=== PATIENT | male | born 1945 | race Caucasian/White ===

== ENCOUNTER 2018-09-30 13:36 | Emergency (ER) | payer MEDICARE, BC ==
[~2018-09-30] VITALS: Ht 175.3 cm; Wt 136.1 kg
[2018-09-30] MEDS ORDERED: fentaNYL INJECTION 100 MCG/2 ML AMP IVP STA ×3 (14:51→17:44)
[2018-09-30 15:14] LABS: BASOPHILS # (AUTO) 0.1 10^3/uL (0.0-0.1); BASOPHILS % (AUTO) 1 % (0-10); EOSINOPHILS # (AUTO) 0.2 10^3/uL (0.0-0.3); EOSINOPHILS % (AUTO) 2 % (0-10); HEMATOCRIT 36 % (40-54); HEMOGLOBIN 11.6 G/DL (13.3-17.7); LYMPHOCYTES # (AUTO) 2.2 X 10^3 (1.0-4.0); LYMPHOCYTES % (AUTO) 20 % (12-44); MEAN CORPUSCULAR HEMOGLOBIN 25 PG (25-34); MEAN CORPUSCULAR HGB CONC 32 G/DL (32-36); MEAN CORPUSCULAR VOLUME 79 FL (80-99); MEAN PLATELET VOLUME 10.1 FL (7.4-10.4); MONOCYTES # (AUTO) 1.7 X 10^3 (0.0-1.0); MONOCYTES % (AUTO) 15 % (0-12); NEUTROPHILS # (AUTO) 6.8 X 10^3 (1.8-7.8); NEUTROPHILS % (AUTO) 62 % (42-75); PLATELET COUNT 513 10^3/uL (130-400); RED CELL DISTRIBUTION WIDTH 17.8 % (10.0-14.5); WHITE BLOOD COUNT 10.9 10^3/uL (4.3-11.0)
--- NOTE | 2018-09-30 15:20 | ED General ---
General Chief Complaint: Back Problems Stated Complaint: BACK PAIN Nursing Triage Note: Pt to ED with c/o sudden onset back pain that began this morning. Pt reports this pain has come and gone since July 10. Pt reports pain is between shoulder blades. Pain increases with movement. Nursing Sepsis Screen: No Definite Risk Source of Information: Patient Exam Limitations: No Limitations (JARRETT LOPEZ MD) History of Present Illness Date Seen by Provider: Sep 30, 2018 Time Seen by Provider: 14:32 Initial Comments He was related complaints. He apparently was at Dr. Lo's office today where he is being seen for vertigo symptoms. He was having no severe central upper back pain and he was pale there. They were concerned and actually drove him to the ER here. Does have history of stroke and type II AR with multivessel bypass. He presents today with persistence of the dizziness and now with severe upper back pain that is taking his breath away. The back pain apparently has been going on since late June after he had multiple daily long car drive. He got maybe he pulled his back muscles but complains of not gotten better and in fact severe today. He does have history of atrial fibrillation and is on Eliquis. No recent falls or other trauma noted or reported. The vertigo he describes his persistent dizziness. Dr. Lo was concerned about intracranial pathology given his history including possible bleed or blockage of some sort. Mentating well and actually drove himself to Dr. Lo's office. Describes no focal deficit otherwise and certainly no focal weakness. Does have increased upper back pain with movement but also has sharp, shooting, a left femoral pain even when sitting still from the upper back. Timing/Duration: Changing Over Time, Getting Worse Severity: Moderate, Severe Modifying Factors: improves with Immobilization; worse with Movement Associated Systoms: No Chest Pain, No Cough, No Diaphoresis, No Fever/Chills, No Headaches, No Nausea/Vomiting, No Shortness of Air, No Weakness (JARRETT LOPEZ MD) Allergies and Home Medications Allergies Coded Allergies: codeine (Verified Allergy, Unknown, 09/30/18) Home Medications Calcitonin,Haverstraw,Synthetic 3.7 Ml Manning.pump, 200 UNITS NS DAILY Prescribed by: NIA HUNT on 09/30/181845 Oxycodone HCl/Acetaminophen 1 Each Tablet, 1 TAB PO Q4H Prescribed by: NIA HUNT on 09/30/18 0798 Patient Home Medication List Home Medication List Reviewed: Yes (JARRETT LOPEZ MD) Review of Systems Review of Systems Constitutional: see HPI; No chills, No fever EENTM: No ear pain, No vision loss Respiratory: no symptoms reported Cardiovascular: No chest pain, No palpitations Gastrointestinal: No nausea, No vomiting Genitourinary: no symptoms reported Musculoskeletal: see HPI, back pain, muscle pain, muscle stiffness; No neck pain Skin: no symptoms reported Psychiatric/Neurological: Denies Weakness; Other (vertigo/dizziness) Hematologic/Lymphatic: No Symptoms Reported (JARRETT LOPEZ MD) All Other Systems Reviewed Negative Unless Noted: Yes (JARRETT LOPEZ MD) Past Yjwmpzu-Phipii-Qtvqjg Hx Past Med/Social Hx: Reviewed Nursing Past Med/Soc Hx (JARRETT LOPEZ MD) Patient Social History Alcohol Use: Rarely Uses Recreational Drug Use: No 2nd Hand Smoke Exposure: No Recent Foreign Travel: No Contact w/Someone Who Travel: No Recent Infectious Disease Expo: No Recent Hopitalizations: No Physical Abuse: No Sexual Abuse: No Mistreated: No Fear: No (JARRETT LOPEZ MD) Seasonal Allergies Seasonal Allergies: Yes (JARRETT LOPEZ MD) Past Medical History Surgeries: Yes (hernia, L knee, splenectomy, shoulder, quad bipass) Abdominal, Cardiac Respiratory: No Cardiac: Yes (quad bipass) Atrial Fibrillation, Heart Attack, High Cholesterol, Hypertension Neurological: Yes Stroke, Vertigo Genitourinary: No Gastrointestinal: Yes Gastroesophageal Reflux, Gastrointestinal Bleed Musculoskeletal: Yes Arthritis, Chronic Back Pain Endocrine: No HEENT: Yes (some hearing loss in L ear) Cancer: No Psychosocial: No Blood Disorders: No Adverse Reaction/Blood Tranf: No (JARRETT LOPEZ MD) Family Medical History Reviewed Nursing Family Hx (JARRETT LOPEZ MD) Physical Exam Vital Signs Vital Signs - First Documented 09/30/18 13:45 Temp 96.1 Pulse 53 Resp 16 B/P (MAP) 159/91 (113) Pulse Ox 97 O2 Delivery Room Air (NIA HUNT APRN) Vital Signs Capillary Refill : Less Than 3 Seconds (JARRETT LOPEZ MD) Height, Weight, BMI Height: 5'9.00" Weight: 300lbs. oz. 136.262527pf; BMI Method:Stated General Appearance: WD/WN, Moderate Distress (intermittently when pains hit or when moving.) HEENT: PERRL/EOMI, Pharynx Normal Neck: Non Tender, Supple Respiratory: Lungs Clear, Normal Breath Sounds Cardiovascular: Regular Rate, Rhythm, No Murmur Back: Muscle Spasm, Vertebral Tenderness (upper thoracic spine in the level of T2 to T4) Neurologic/Psychiatric: Alert, Oriented x3 Skin: Normal Color, Warm/Dry (JARRETT LOPEZ MD) Progress/Results/Core Measures Suspected Sepsis Recent Fever Within 48 Hours: No Infection Criteria Present: None New/Unexplained Altered Menta: No Sepsis Screen: No Definite Risk SIRS Temperature:96.1 Pulse: 53 Respiratory Rate: 16 Laboratory Tests 09/30/18 15:00: White Blood Count 10.9 Blood Pressure 159 /91 Mean: 113 Laboratory Tests 09/30/18 15:00: Creatinine 0.95, Platelet Count 513H, Total Bilirubin 0.4 (JARRETT LOPEZ MD) Results/Orders Lab Results Laboratory Tests Test 09/30/18 15:00 Range/Units White Blood Count 10.9 4.3-11.0 10^3/uL Red Blood Count 4.58 4.35-5.85 10^6/uL Hemoglobin 11.6 L 13.3-17.7 G/DL Hematocrit 36 L 40-54 % Mean Corpuscular Volume 79 L 80-99 FL Mean Corpuscular Hemoglobin 25 25-34 PG Mean Corpuscular Hemoglobin Concent 32 32-36 G/DL Red Cell Distribution Width 17.8 H 10.0-14.5 % Platelet Count 513 H 130-400 10^3/uL Mean Platelet Volume 10.1 7.4-10.4 FL Neutrophils (%) (Auto) 62 42-75 % Lymphocytes (%) (Auto) 20 12-44 % Monocytes (%) (Auto) 15 H 0-12 % Eosinophils (%) (Auto) 2 0-10 % Basophils (%) (Auto) 1 0-10 % Neutrophils # (Auto) 6.8 1.8-7.8 X 10^3 Lymphocytes # (Auto) 2.2 1.0-4.0 X 10^3 Monocytes # (Auto) 1.7 H 0.0-1.0 X 10^3 Eosinophils # (Auto) 0.2 0.0-0.3 10^3/uL Basophils # (Auto) 0.1 0.0-0.1 10^3/uL D-Dimer 0.47 0.00-0.49 UG/ML Sodium Level 143 135-145 MMOL/L Potassium Level 3.6 3.6-5.0 MMOL/L Chloride Level 106 98-107 MMOL/L Carbon Dioxide Level 30 21-32 MMOL/L Anion Gap 7 5-14 MMOL/L Blood Urea Nitrogen 14 7-18 MG/DL Creatinine 0.95 0.60-1.30 MG/DL Estimat Glomerular Filtration Rate > 60 BUN/Creatinine Ratio 15 Glucose Level 100 70-105 MG/DL Calcium Level 9.6 8.5-10.1 MG/DL Corrected Calcium 9.6 8.5-10.1 MG/DL Total Bilirubin 0.4 0.1-1.0 MG/DL Aspartate Amino Transf (AST/SGOT) 11 5-34 U/L Alanine Aminotransferase (ALT/SGPT) 10 0-55 U/L Alkaline Phosphatase 69 40-136 U/L C-Reactive Protein High Sensitivity 0.67 H 0.00-0.50 MG/DL Total Protein 7.4 6.4-8.2 GM/DL Albumin 4.0 3.2-4.5 GM/DL (NIA HUNT APRN) Medications Given in ED Current Medications Medications Dose Ordered Sig/Alicia Route Start Time Stop Time Status Last Admin Dose Admin Iohexol 100 ml ONCE ONCE IV 09/30/18 16:45 09/30/18 16:46 DC 09/30/18 17:52 100 ML Sodium Chloride 10 ml NEEDED PRN IV 09/30/18 16:45 09/30/18 17:52 10 ML Sodium Chloride 100 ml ONCE ONCE IV 09/30/18 16:45 09/30/18 16:46 DC 09/30/18 17:53 80 ML Sodium Chloride 500 ml @ 0 mls/hr Q0M ONCE IV 09/30/18 15:57 09/30/18 15:58 DC 09/30/18 18:02 500 MLS/HR (NIA HUNT APRN) Vital Signs/I&O 09/30/18 09/30/18 13:45 17:49 Temp 96.1 98.6 Pulse 53 55 Resp 16 18 B/P (MAP) 159/91 (113) 180/70 (106) Pulse Ox 97 97 O2 Delivery Room Air (NIA HUNT APRN) Vital Signs/I&O Capillary Refill : Less Than 3 Seconds (JARRETT LOPEZ MD) Blood Pressure Mean: 113 Progress Note : Progress Note Seen and evaluated. IV, labs, fentanyl 50 g IV ordered. I did discuss the case with the radiologist. Due to vertigo symptoms and posterior circulation findings with vertigo, CT angiogram of the head and neck is indicated. We also need to do CT of the chest. There is like to look at both bony structures including the C- spine as well as for masses and for any other abnormality. In our discussion, we have decided that we will do the CT head and neck followed by the CT of the chest which will be delayed images. Pending creatinine evaluation. CT angiogram of head and neck ordered. 1800: CT is complete. Pending read. Care transferred to Nia Hunt APRN pending final read of studies. I did talk the radiologist about the CT angiogram of the head and neck. 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 I did discuss that with the patient and he was aware of that and it does not sound like it changed. Overall he is doing much better after dosing of fentanyl. (JARRETT LOPEZ MD) Diagnostic Imaging Diagonstic Imaging: CT Plain Films/CT/US/NM/MRI: head, other Comments NAME: JUDE SALINAS MED REC#: [id number] PT STATUS: DEP ER : 1945 PHYSICIAN: JARRETT LOPEZ MD ADMIT DATE: 09/30/18/ER Signed Date of Exam: 09/30/18 CT ANGIO HEAD/NECK PROCEDURE: CT angiography of the head and CT angiography of the neck with and without contrast. TECHNIQUE: Contiguous noncontrast images were obtained from the skull base through the vertex. After intravenous contrast administration, helical CT angiography of the neck was performed. Source data was reformatted into multiple MIP projections. Delayed postcontrast acquisition was also obtained. Auto Exposure Controls were utilized during the CT exam to meet ALARA standards for radiation dose reduction. INDICATION: Pain between shoulder blades. COMPARISON: There are no prior studies available for comparison. FINDINGS: The pre-intravenous contrast images through the brain fail to show any sign of a mass, shift of the midline, or hemorrhage. On the postcontrast images, the images through the brain fail to show any defect within the intracranial arterial circulation that would suggest a thrombus. 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 There is no other aneurysm identified. The images through the neck show that there is atherosclerotic disease involving both carotid bifurcations, particularly on the right. There is no hemodynamically significant stenosis identified, however. Both vertebral arteries are opacified, and the vertebral arteries are codominant. The images through the neck are less than optimal due to streak artifact. There is no mass or adenopathy identified. The thyroid gland was not well visualized. The lung apices were also difficult to evaluate due to streak artifact. There is no obvious abnormality involving the lung apices. The bone windows show no sign of a fracture or of a destructive lesion. IMPRESSION: 1. There is no evidence for thrombus formation in the intracranial arterial circulation. If clinical concern regarding an acute abnormality persists, then MRI would be recommended for further study. 2. 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 3. There is atherosclerotic disease involving both carotid bifurcations, but there is no hemodynamically significant stenosis identified. 4. The vertebral arteries are opacified and codominant. 5. These results were discussed with Dr. Lopez in the ER. Dictated by: Dictated on workstation # [id number] Dict: 09/30/181751 Trans: 09/30/182014 Interpreted by: BILL HOLLIDAY MD Electronically signed by: BILL HOLLIDAY MD 09/30/182014 Diagonstic Imaging: CT Plain Films/CT/US/NM/MRI: chest Comments NAME: JUDE SALINAS [place] MED REC#: [id number] PT STATUS: DEP ER : 1945 PHYSICIAN: JARRETT LOPEZ MD ADMIT DATE: 09/30/18/ER Signed Date of Exam: 09/30/18 CT CHEST WO PROCEDURE: CT chest without contrast. TECHNIQUE: Multiple contiguous axial images were obtained through the chest without the use of intravenous contrast. Auto Exposure Controls were utilized during the CT exam to meet ALARA standards for radiation dose reduction. INDICATION: Chest pain. COMPARISON: None available. FINDINGS: TRACHEA AND MAIN BRONCHI: Patent without evidence of tracheal or endobronchial lesion. LUNGS AND PLEURA: The left anterior lung base is partially excluded from the [id number]. Mild dependent subsegmental atelectasis/scarring. No consolidation or pulmonary mass. No pleural effusion or pneumothorax. MEDIASTINUM AND MACEY: Visualized thyroid gland is normal. No mediastinal or hilar lymphadenopathy. Esophagus is nondistended. HEART AND VESSELS: Mild cardiomegaly. The patient is status post CABG. No pericardial effusion. Atherosclerotic calcification involves the aorta and its branches, including the coronary arteries. Thoracic aorta is nonaneurysmal. DIAPHRAGM AND UPPER ABDOMEN: There is a moderate hiatal hernia. Incompletely imaged low-attenuation lesions are demonstrated in the upper pole of both kidneys. The spleen is not visualized and likely surgically absent. 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 CHEST WALL: Unremarkable. BONES: Multilevel degenerative changes involve the spine. No acute osseous abnormality. Sternotomy wires are present. No evidence of sternal dehiscence. IMPRESSION: 1. No acute chest disease. 2. Moderate hiatal hernia. 3. Incompletely imaged low attenuation lesions involving the upper pole of both kidneys are indeterminate. This could be further evaluated with renal ultrasound versus renal protocol CT/MRI on a nonemergent basis, as indicated. Alternatively, comparison could be made to priors, if made available. Dictated by: Dictated on workstation # [id number] Dict: 09/30/18 180 Trans: 09/30/18 1731 Interpreted by: FREEDOM ACEVES DO Electronically signed by: FREEDOM ACEVES DO 09/30/18 8959 (JARRETT LOPEZ MD) Departure Communication (Admissions) I discussed with the patient the basilar artery aneurysm. He is aware of this and has been evaluated for it. Also discussed with him the CT of the chest. I would've sagittal images at one of the mid thoracic spine vertebrae which does look compressed and it's in the appropriate area to coincide with his pain. No acute appearance to this according to radiology but too coincidental that he has pain in this location. We will treat for an acute thoracic compression fracture, oxycodone for pain control, supplemental calcitonin nasal spray, follow-up. (NIA HUNT APRN) Impression Primary Impression: Thoracic compression fracture Qualified Codes: S22.000A - Wedge compression fracture of unspecified thoracic vertebra, initial encounter for closed fracture Disposition: HOME, SELF-CARE Condition: Stable Departure-Patient Inst. Decision time for Depature: 18:42 (NIA HUNT APRN) Referrals: NO,LOCAL PHYSICIAN (PCP/Family) Primary Care Physician Patient Instructions: Vertebral Compression Fracture Add. Discharge Instructions: 1. Medication as directed 2. Return to ER for any concerns 3. Follow-up with your doctor next week All discharge instructions reviewed with patient and/or family. Voiced understanding. Scripts Calcitonin,Haverstraw,Synthetic (Calcitonin-Haverstraw) 3.7 Ml Manning.pump 200 UNITS NS DAILY for 28 Days, #1 EACH Prov: NIA HUNT APRN 09/30/18 Oxycodone HCl/Acetaminophen (Percocet 5-325 mg Tablet) 1 Each Tablet 1 TAB PO Q4H for PAIN-MODERATE MDD 6 TABS for 7 Days, #30 TAB Prov: NIA HUNT APRN 09/30/18 JARRETT LOPEZ MD Sep 30, 2018 15:20 NIA HUNT APRN Sep 30, 2018 18:46
[2018-09-30 15:50] LABS: ALANINE AMINOTRANSFERASE 10 U/L (0-55); ALKALINE PHOSPHATASE 69 U/L (40-136); BILIRUBIN,TOTAL 0.4 MG/DL (0.1-1.0); BUN/CREATININE RATIO 15; CALCIUM 9.6 MG/DL (8.5-10.1); CARBON DIOXIDE 30 MMOL/L (21-32); CHLORIDE 106 MMOL/L (98-107); CREATININE SERUM 0.95 MG/DL (0.60-1.30); GFR ESTIMATED > 60; GLUCOSE 100 MG/DL (70-105); POTASSIUM 3.6 MMOL/L (3.6-5.0); SODIUM 143 MMOL/L (135-145); TOTAL PROTEIN 7.4 GM/DL (6.4-8.2)
[2018-09-30] MEDS ORDERED: NS IV 500 ML 500 ML IV ONE (15:57)
[2018-09-30] MEDS ORDERED: NS 100 ML (IVPB) BAG IV ONE (16:45)
[2018-09-30] MEDS ORDERED: CATHETER FLUSH 10 ML SYR IV PRN (16:45)
[2018-09-30] MEDS ORDERED: HOLD METFORMIN - RECEIVED CONTRAST 20 ML VIAL IV SCH (16:45)
[2018-09-30] MEDS ORDERED: IOHEXOL 350 MG/ML 100 ML (OMNIPAQUE 350) VIAL IV ONE (16:45)
[2018-09-30 17:49] VITALS: BP 180/70
[2018-09-30] MEDS ORDERED: KETOROLAC 30 MG/ML VIAL IVP STA (17:56)
--- NOTE | 2018-09-30 18:14 | Diagnostic Imaging Report ---
PROCEDURE: CT chest without contrast. TECHNIQUE: Multiple contiguous axial images were obtained through the chest without the use of intravenous contrast. Auto Exposure Controls were utilized during the CT exam to meet ALARA standards for radiation dose reduction. INDICATION: Chest pain. COMPARISON: None available. FINDINGS: TRACHEA AND MAIN BRONCHI: Patent without evidence of tracheal or endobronchial lesion. LUNGS AND PLEURA: The left anterior lung base is partially excluded from the [id number]. Mild dependent subsegmental atelectasis/scarring. No consolidation or pulmonary mass. No pleural effusion or pneumothorax. MEDIASTINUM AND MACEY: Visualized thyroid gland is normal. No mediastinal or hilar lymphadenopathy. Esophagus is nondistended. HEART AND VESSELS: Mild cardiomegaly. The patient is status post CABG. No pericardial effusion. Atherosclerotic calcification involves the aorta and its branches, including the coronary arteries. Thoracic aorta is nonaneurysmal. DIAPHRAGM AND UPPER ABDOMEN: There is a moderate hiatal hernia. Incompletely imaged low-attenuation lesions are demonstrated in the upper pole of both kidneys. The spleen is not visualized and likely surgically absent. 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 CHEST WALL: Unremarkable. BONES: Multilevel degenerative changes involve the spine. No acute osseous abnormality. Sternotomy wires are present. No evidence of sternal dehiscence. IMPRESSION: 1. No acute chest disease. 2. Moderate hiatal hernia. 3. Incompletely imaged low attenuation lesions involving the upper pole of both kidneys are indeterminate. This could be further evaluated with renal ultrasound versus renal protocol CT/MRI on a nonemergent basis, as indicated. Alternatively, comparison could be made to priors, if made available. Dictated by: Dictated on workstation # [id number]
--- NOTE | 2018-09-30 18:16 | Diagnostic Imaging Report ---
PROCEDURE: CT angiography of the head and CT angiography of the neck with and without contrast. TECHNIQUE: Contiguous noncontrast images were obtained from the skull base through the vertex. After intravenous contrast administration, helical CT angiography of the neck was performed. Source data was reformatted into multiple MIP projections. Delayed postcontrast acquisition was also obtained. Auto Exposure Controls were utilized during the CT exam to meet ALARA standards for radiation dose reduction. INDICATION: Pain between shoulder blades. COMPARISON: There are no prior studies available for comparison. FINDINGS: The pre-intravenous contrast images through the brain fail to show any sign of a mass, shift of the midline, or hemorrhage. On the postcontrast images, the images through the brain fail to show any defect within the intracranial arterial circulation that would suggest a thrombus. 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 There is no other aneurysm identified. The images through the neck show that there is atherosclerotic disease involving both carotid bifurcations, particularly on the right. There is no hemodynamically significant stenosis identified, however. Both vertebral arteries are opacified, and the vertebral arteries are codominant. The images through the neck are less than optimal due to streak artifact. There is no mass or adenopathy identified. The thyroid gland was not well visualized. The lung apices were also difficult to evaluate due to streak artifact. There is no obvious abnormality involving the lung apices. The bone windows show no sign of a fracture or of a destructive lesion. IMPRESSION: 1. There is no evidence for thrombus formation in the intracranial arterial circulation. If clinical concern regarding an acute abnormality persists, then MRI would be recommended for further study. 2. 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 3. There is atherosclerotic disease involving both carotid bifurcations, but there is no hemodynamically significant stenosis identified. 4. The vertebral arteries are opacified and codominant. 5. These results were discussed with Dr. Jasso in the ER. Dictated by: Dictated on workstation # [id number]
[2018-09-30] MEDS ORDERED: CALC3.8S NS (18:46)
[2018-09-30] MEDS ORDERED: OXYC1TAB87 PO (18:46)
[2018-09-30] MEDS ORDERED: RX-HYDROCODONE/APAP 5/325 MG #4 TAB PK PO PRN (19:00)
[2018-09-30 19:04] VITALS: BP 170/66
== END 2018-09-30 19:20 | disposition home or self-care (01) ==
LOC: ER 13:39
DX: S22.000A Wedge compression fracture of unspecified thoracic vertebra, initial encounter for closed fracture (principal); I25.2 Old myocardial infarction; I48.91 Unspecified atrial fibrillation; I10 Essential (primary) hypertension; E78.00 Pure hypercholesterolemia, unspecified; K21.9 Gastro-esophageal reflux disease without esophagitis; Z86.73 Personal history of transient ischemic attack (TIA), and cerebral infarction without residual deficits; Z79.01 Long term (current) use of anticoagulants; Z88.5 Allergy status to narcotic agent; X58.XXXA Exposure to other specified factors, initial encounter
CPT/HCPCS: 36415; 70496; 70498; 71250; 80053; 85025; 85379; 86141; 96374; 96375; 96376

== ENCOUNTER 2021-01-31 09:29 | Inpatient (IN) | payer MEDICARE, BC ==
[~2021-01-31] VITALS: Ht 172.7 cm; Wt 132.4 kg
[~2021-01-31 09:29] MED LIST: CALC3.8S NS; OXYC1TAB87 PO
[2021-01-31 10:25] VITALS: BP 175/88
[2021-01-31] MEDS ORDERED: LACT1CAP62 PO (11:09)
[2021-01-31] MEDS ORDERED: BUME1TAB8 PO (11:09)
[2021-01-31] MEDS ORDERED: PRED5TAB PO (11:09)
[2021-01-31] MEDS ORDERED: DAPT500V IV (11:09)
[2021-01-31] MEDS ORDERED: ACET325T49 PO (11:09)
[2021-01-31] MEDS ORDERED: PREG50CA2 PO (11:09)
[2021-01-31] MEDS ORDERED: DARB60VI SQ (11:09)
[2021-01-31] MEDS ORDERED: ASPI-999 PO (11:09)
[2021-01-31] MEDS ORDERED: FOLI0.8T39 PO (11:09)
[2021-01-31] MEDS ORDERED: LISI10TA25 PO (11:09)
[2021-01-31] MEDS ORDERED: FAMO-119 PO (11:09)
[2021-01-31] MEDS ORDERED: AMLO10TA4 PO (11:09)
[2021-01-31] MEDS ORDERED: ALLO100T PO (11:09)
[2021-01-31] MEDS ORDERED: POLY17PO6 PO (11:09)
[2021-01-31] MEDS ORDERED: OXYC1TAB11 PO (11:09)
[2021-01-31] MEDS ORDERED: DEXT1DRO7 OP (11:09)
[2021-01-31] MEDS ORDERED: APIX5TAB PO (11:09)
[2021-01-31] MEDS ORDERED: DOCU-143 PO (11:09)
[2021-01-31] MEDS ORDERED: FINA5TAB6 PO (11:09)
--- NOTE | 2021-01-31 11:47 | Physical Therapy Evaluation ---
PT Evaluation-General Medical Diagnosis Admission Date Jan 31, 2021 at 10:25 Medical Diagnosis: critical illness myopathy Onset Date: Dec 22, 2020 Therapy Diagnosis Therapy Diagnosis: impaired mobility, strength, endurance Height/Weight Height (Feet): 5 Height (Inches): 9.00 Weight (Pounds): 300 Precautions Precautions/Isolations: Fall Prevention, Standard Precautions Referral Physician: Oliva Rhodes DO Reason for Referral: Evaluation/Treatment Medical History Pertinent Medical History: Atrial Fib, CABG, CAD, CVA, Heart Failure, Renal Insufficiency Additional Medical History Knee surgery, shoulder surgery, CKD3, Current History 12/22/20 Admitted to hospital with fever, confusion, SOB. Found to have MSSA bacteremia from unidentified source. FAIZA secondary to ARN in setting of sepsis. Permcath placed. Pt transferred to ARU 01/31/21 for continued medication management and skilled therapy. Reviewed History: Yes Social History Home: [facility] Current Living Status: Alone (but has assistance) Entry Into Home: Stairs With Railing PT Steps Into Home: 14 Prior Prior Level of Function SCALE: Activities may be completed with or without assistive devices. 1-Gnnotxkcvi-phhzana completes the activity by him/herself with no assistance from a helper. 5-Set-up or Clean-up Assistance-helper sets up or cleans up; patient completes activity. [place] assists only prior to or following the activity. 4-Supervision or Touching Assistance-helper provides verbal cues and/or touching/steadying and/or contact guard assistance as patient completes activity. Assistance may be provided throughout the activity or intermittently. 3-Partial/Moderate Assistance-helper does LESS THAN HALF the effort. [place] lifts, holds or supports trunk or limbs, but provides less than half the effort. 2-Substantial/Maximal Assistance-helper does MORE THAN HALF the effort. [place] lifts or holds trunk or limbs and provides more than half the effort. 0-Bksxjgxrd-fdqlhd does ALL the effort. Patient does none of the effort to complete the activity. Or, the assistance of 2 or more helpers is required for the patient to complete the activity. If activity was not attempted, code reason: 7-Patient Refused. 9-Not Applicable-not attempted and the patient did not perform the activity b efore the current illness, exacerbation or injury. 10-Not Attempted due to Environmental Limitations-(lack of equipment, weather restraints, etc.). 88-Not Attempted due to Medical Conditions or Safety Concerns. Bed Mobility: 6 Transfers (B,C,W/C): 6 Gait: 6 Stairs: 6 Indoor Mobility (Ambulation): Independent Stairs: Independent PT Evaluation-Current Subjective Patient in WC pre tx, agrees to PT, has unrated pain in right knee (has pain with bearing weight). Will be co-treating with OT due to poor patient mobility, strength, endurance, severe right knee pain with activity, coordinate UE and LE with activity, safety and reduce risk of falls. Pt/Family Goals to be independent at home Objective Patient Orientation: Person, Place, Situation ROM/Strength ROM Lower Extremities WNL Strength Lower Extremities LLE (hip flexion 3+/5, knee flexion 4/5, knee extension 4/5, dorsiflexion 4/5), RLE (hip flexion 3+/5, dorsiflexion 3/5), right knee not tested due to pain Sensory Vision: Functional Hearing: Functional Sensation Right Lower Extremit: Impaired Sensation Left Lower Extremity: Impaired Sensation Lower Extremities decreased sensation in feet Transfers Roll Left & Right (QC): 3 Sit to Lying (QC): 3 Lying to Sitting/Side of Bed(Q: 3 Sit to Stand (QC): 4 Chair/Ymg-fo-Mlrcy Xfer(QC): 4 Toilet Transfer (QC): 4 Car Transfer (QC): 3 Patient performs rolling and supine <-> sit with min assist, sit <-> stand and transfers with CGA, car transfer with min assist. Patient needs frequent cues for positioning, he often lets go of walker during transfers and makes it harder on himself. Gait Does the Patient Walk?: Yes Mode of Locomotion: Walk Anticipated Mode of Locomotion: Walk Walk 10 feet (QC): 4 Walk 50 ft with 2 Turns(QC): 4 Walk 150 ft (QC): 88 Walking 10ft/uneven surface-QC: 7 Distance: 50', 10' Gait Assistive Device: FWW Comments/Gait Description Patient can ambulate 50' with a rolling walker with CGA (including 50' with at least 2 turns of 90 degrees and 10' over an uneven surface), gait is antalgic, slow, WC follow, poor foot clearance Wheelchair Training Wheel 50 ft with 2 turns (QC): 9 Wheel 150 ft (QC): 9 Stairs 1 Step (curb) (QC): 7 4 Steps (QC): 88 12 Steps (QC): 88 Balance Sitting Static: Normal Sitting Dynamic: Normal Standing Static: Fair Standing Dynamic: Fair Picking up an Object (QC): 4 (SBA with audience coordinator) Treatment shower and dressing. PT performed bed mobility and transfers, ambulation, standing and positioning during bathing and dressing, OT performed bathing and dressing, UE positioning and safety during activity. Assessment/Needs Patient in recliner post tx with nurse call, phone, tray, all needs met. Patient has impaired mobility, strength, endurance. Patient has severe right knee pain with activity but is just CGA for transfers. Rehab Potential: Fair PT Short Term Goals Short Term Goals Time Frame: Feb 07, 2021 Roll Left & Right: 6 Sit to lyin Lying to sitting on side of be: 4 Sit to stand: 4 (SBA) Chair/gul-aa-xmzkd transfer: 4 (SBA) Walk 10 feet: 4 Walk 50 feet with two turns: 4 Walk 150 feet: 4 PT [employer] Chief Goals [employer] Chief Goals PT Skilled Nursing Goals Time Frame: Feb 21, 2021 Roll Left & Right (QC): 6 Sit to Lying (QC): 6 Lying-Sitting on Side/Bed(QC): 6 Sit to Stand (QC): 5 Chair/[place] Xfer(QC): 5 Toilet Transfer (QC): 5 Car Transfer (QC): 5 Does the Patient Walk: Yes Walk 10 feet (QC): 5 Walk 50ft with 2 Turns (QC): 5 Walk 150 ft (QC): 5 Walking 10ft on Uneven Surface: 4 1 Step (curb) (QC): 4 4 Steps (QC): 4 12 Steps (QC): 4 Picking up an Object (QC): 6 Wheel 50 feet with 2 turns (QC: 9 Wheel 150 feet: 9 PT Plan Problem List Problem List: Activity Tolerance, Functional Strength, Safety, Balance, Gait, Transfer, Bed Mobility, ROM Treatment/Plan Treatment Plan: Continue Plan of Care Treatment Plan: Bed Mobility, Education, Functional Activity Denys, Functional Strength, Group Therapy, Gait, Safety, Therapeutic Exercise, Transfers Treatment Duration: Feb 21, 2021 Frequency: At least 5 of 7 days/Wk (IRF) Estimated Hrs Per Day: 1.5 hours per day Patient and/or Family Agrees t: Yes Safety Risks/Education Patient Education: Gait Training, Transfer Techniques, Correct Positioning, Safety Issues Teaching Recipient: Patient Teaching Methods: Demonstration, Discussion Response to Teaching: Reinforcement Needed Discharge Recommendations Plan Patient will perform bed mobility and transfer training, balance and endurance training, functional strengthening, stair training, gait training, and education, to improve functional mobility and independence at home. Therapy Discharge Recommendati: Scheduled Assistance, Home & Family, Post Acute PT Time/GCodes Time In: 1025 Time Out: 1140 Total Billed Treatment Time: 65 Total Billed Treatment 1 visit EVM 10' FA 55' (only charge 3 units) PT eval from [id number], OT eval from [id number], co-treat from [id number] SCOOTER PERKINS PT Jan 31, 2021 11:47
--- NOTE | 2021-01-31 11:49 | Occupational Therapy Eval ---
OT Evaluation-General/PLF Medical Diagnosis Admission Date Jan 31, 2021 at 10:25 Medical Diagnosis: critical illness myopathy Onset Date: Dec 22, 2020 Therapy Diagnosis Therapy Diagnosis: decreased ADL status, weakness Height/Weight Height (Feet): 5 Height (Inches): 9.00 Weight (Pounds): 300 Precautions Precautions/Isolations: Fall Prevention, Standard Precautions Referral Physician: Meagan Referral Reason: Evaluation/Treatment Medical History Pertinent Medical History: Atrial Fib, CABG, CAD, CVA, Heart Failure, Renal Insufficiency Additional Medical History Knee surgery, shoulder surgery, CKD3, Current History 12/22/20 Admitted to hospital with fever, confusion, SOB. Found to have MSSA bacteremia from unidentified source. FAIZA secondary to ARN in setting of sepsis. Permcath placed. Pt transferred to ARU 01/31/21 for continued medication management and skilled therapy. Social History Home: [facility] Current Living Status: Alone Entry Into Home: Stairs With Railing Steps Into Home: 14 Steps Inside Home: 14 14 steps from garage to 1st floor, 14 steps between 1st and 2nd floor ADL-Prior Level of Function SCALE: Activities may be completed with or without assistive devices. 2-Qwzgugebbd-jbqyhvn completes the activity by him/herself with no assistance f rom a helper. 5-Set-up or Clean-up Assistance-helper sets up or cleans up; patient completes activity. [place] assists only prior to or following the activity. 4-Supervision or Touching Assistance-helper provides verbal cues and/or touching/steadying and/or contact guard assistance as patient completes activity. Assistance may be provided throughout the activity or intermittently. 3-Partial/Moderate Assistance-helper does LESS THAN HALF the effort. [place] lifts, holds or supports trunk or limbs, but provides less than half the effort. 2-Substantial/Maximal Assistance-helper does MORE THAN HALF the effort. [place] lifts or holds trunk or limbs and provides more than half the effort. 7-Lrgshpcae-dtoysj does ALL the effort. Patient does none of the effort to complete the activity. Or, the assistance of 2 or more helpers is required for the patient to complete the activity. If activity was not attempted, code reason: 7-Patient Refused. 9-Not Applicable-not attempted and the patient did not perform the activity before the current illness, exacerbation or injury. 10-Not Attempted due to Environmental Limitations-(lack of equipment, weather restraints, etc.). 88-Not Attempted due to Medical Conditions or Safety Concerns. ADL PLOF Comments Pt reports IND with ADLs and functional mobility at PLOF using a walker. He has assistance with cleaning and cooking. He has a bedroom and bathroom on the main level, but he does not use the tub/shower on the main level. The 2nd level has a walkin shower with a SC, this is where pt prefers to shower at discharge. Self Care: Independent Functional Cognition: Independent DME/Equipment: Bath Chair, Shower OT Current Status Subjective Pt agreeable to OT evaluation and OT/PT cotreat. Reports pain 4/10 in R knee Mental Status/Objective Patient Orientation: Person, Place, Situation Attachments: [place] Catheter Current Hand Dominance: Right Upper Extremity ROM WFL, BUE shoulder flexion to approx 150 degrees. Pt reports he has torn 3/4 ligaments in his R shoulder. Upper Extremity Coordination Slightly decreased, pt unable to make full fist with L hand Upper Extremity Sensation WFL Upper Extremity Strength grossly 3+/5 ADL-Treatment Eating (QC): 5 (Per pt report.) Oral Hygiene (QC): 5 (based on clincial judgment.) Shower/Bathe Self (QC): 3 (Assist washing BLEs lower legs/feet and buttocks. 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 Assist to thred RLE and slight assistance with pant hike.) On/Off Footwear (QC): 3 (Pt doffed gripper socks. Assist to don.) Toileting Hygiene (QC): 3 (Mod A. Pt able to manage pants down, slight assistance with pant hike and assistance with hygiene.) Pt required frequent rest breaks throughout session. Other Treatments OT evaluation complete. OT/PT cotreat due to skill of 2 clinicians required which a rehab nursing tech could not perform in order to coordinate UE/LEs and due to pt's limitations in strength, activity tolerance, endurance, transfers and mobility. OT focused on UE placement, cues for sequencing and safety, and UE placement, PT focused on LE placement, gross overall movement and tra nsfers/mobility. Pt performed functional transfers, using FWW for functional mobility, car transfers, and sit to stand transfers. Pt limited himself throughout mobility, due to not thinking his knee could handle what he was trying to do. Pt taken to his room, transferring to CA. Pt completed ADLs as outlined above, then used FWW to transfer to recliner. Post tx, pt in recliner, call light in reach and all needs met. Patient performs rolling and supine <-> sit with min assist, sit <-> stand and transfers with CGA, car transfer with min assist. Patient needs frequent cues for positioning, he often lets go of walker during transfers. Education OT Patient Education: Correct positioning, Energy conservation, Modified ADL techniques, Progress toward Goal/Update tx plan, Purpose of tx/functional activities, Rehab process, Safety issues, Transfer techniques Teaching Recipient: Patient Teaching Methods: Discussion Response to Teaching: Verbalize Understanding OT Short Term Goals Short Term Goals Time Frame: Feb 14, 2021 Toileting hygiene: 4 Shower/bathe self: 4 Lower body dressin Putting on/taking off footwear: 4 OT Manager Integrated Goals Retirement Goals Time Frame: Feb 28, 2021 Eating (QC): 6 Oral Hygiene (QC): 6 Toileting Hygiene (QC): 6 Shower/Bathe Self (QC): 5 Upper Body Dressing (QC): 6 Lower Body Dressing (QC): 6 On/Off Footwear (QC): 6 Additional Goals: 1-Demonstrate ADL Tasks, 2-Verbalize Understanding, 3- ImproveStrength/Denys 1=Demonstrate adherence to instructed precautions during ADL tasks. 2=Patient will verbalize/demonstrate understanding of assistive devices/m odifications for ADL. 3=Patient will improve strength/tolerance for activity to enable patient to perform ADL's. OT Education/Plan Problem List/Assessment Assessment: Decreased Activ Tolerance, Decreased Safety Aware, Decreased UE Strength, Impaired Funct Balance, Impaired I ADL's, Impaired Self-Care Skills, Restricted Funct UE ROM Discharge Recommendations Plan/Recommendations: Continue POC Treatment Plan/Plan of Care Patient would benefit from OT for education, treatment and training to promote independence in ADL's, mobility, safety and/or upper extremity function for ADL's. Plan of Care: ADL Retraining, Functional Mobility, Group Exercise/Act as Ind, UE Funct Exercise/Act Treatment Duration: Feb 28, 2021 Frequency: At least 5 of 7 days/Wk (IRF) Estimated Hrs Per Day: 1.5 hours per day Rehab Potential: Fair Time/GCodes Start Time: 10:25 Stop Time: 11:40 Total Time Billed (hr/min): 65 Billed Treatment Time [id number] OT evaluation, [id number] PT eval, [id number] OT/PT cotreat 1, EVM (10'), FA (20'), ADL 2 (35') YOMI LEWIS OT Jan 31, 2021 11:48
[2021-01-31] MEDS ORDERED: FLU QUAD HIGH DOSE 240 MCG/0.7 ML 2021-22 (FLUZONE) IM ONE (12:15)
[2021-01-31] MEDS ORDERED: IPRA3AMP31 IH (12:28)
[2021-01-31] MEDS ORDERED: ALPRAZolam 0.25 MG (XANAX) TAB PO PRN (12:30)
[2021-01-31] MEDS ORDERED: LOPERAMIDE 2 MG (IMODIUM) TABLET PO PRN (12:30)
[2021-01-31] MEDS ORDERED: DOCUSATE SODIUM 100 MG (COLACE) CAP PO PRN (12:30)
[2021-01-31] MEDS ORDERED: HYPROMELLOSE OP PRN (12:30)
[2021-01-31] MEDS ORDERED: DARBEPOETIN ALFA IN POLYSORBAT 60 MCG SQ SCH (12:30)
[2021-01-31] MEDS ORDERED: DAPTOMYCIN IV SCH (12:30)
[2021-01-31] MEDS ORDERED: BISACODYL 10 MG SUPP (DULCOLAX) PR PRN (12:30)
[2021-01-31] MEDS ORDERED: RT-ALBUTEROL/IPRATROPIUM 3 ML (DUONEB) VIAL IH PRN (12:30)
[2021-01-31] MEDS ORDERED: ONDANSETRON 4 MG (ZOFRAN) ORAL DISSOLVE TAB PO PRN (12:30)
[2021-01-31] MEDS ORDERED: LACTULOSE SYRUP 10GM/15ML (ENULOSE) 30ML UDC PO PRN (12:30)
[2021-01-31] MEDS ORDERED: MELATONIN 3 MG TABLET PO PRN (12:30)
[2021-01-31] MEDS ORDERED: CALCIUM CARBONATE 500 MG (TUMS) TAB.CHEW PO PRN (12:30)
[2021-01-31] MEDS ORDERED: DEXTRAN OP PRN (12:30)
[2021-01-31] MEDS ORDERED: FLEET ENEMA ADULT 1 EA BTL PR PRN (12:30)
[2021-01-31 12:55] LABS: BASOPHILS # (AUTO) 0.2 10^3/uL (0.0-0.1); BASOPHILS % (AUTO) 1 % (0-10); EOSINOPHILS # (AUTO) 0.5 10^3/uL (0.0-0.3); EOSINOPHILS % (AUTO) 3 % (0-10); HEMATOCRIT 29 % (40-54); HEMOGLOBIN 8.8 g/dL (13.3-17.7); LYMPHOCYTES # (AUTO) 0.9 10^3/uL (1.0-4.0); LYMPHOCYTES % (AUTO) 5 % (12-44); MEAN CORPUSCULAR HEMOGLOBIN 28 pg (25-34); MEAN CORPUSCULAR HGB CONC 30 g/dL (32-36); MEAN CORPUSCULAR VOLUME 94 fL (80-99); MEAN PLATELET VOLUME 10.1 fL (9.0-12.2); MONOCYTES # (AUTO) 1.8 10^3/uL (0.0-1.0); MONOCYTES % (AUTO) 11 % (0-12); NEUTROPHILS # (AUTO) 13.8 10^3/uL (1.8-7.8); NEUTROPHILS % (AUTO) 79 % (42-75); PLATELET COUNT 556 10^3/uL (130-400); WHITE BLOOD COUNT 17.4 10^3/uL (4.3-11.0)
[2021-01-31 12:58] LABS: ALBUMIN 3.1 GM/DL (3.2-4.5); POTASSIUM 3.7 MMOL/L (3.6-5.0)
[2021-01-31 12:59] LABS: CALCIUM 9.3 MG/DL (8.5-10.1)
[2021-01-31] MEDS ORDERED: predniSONE 10 MG TAB PO NR (13:00)
[2021-01-31 13:02] LABS: BILIRUBIN,TOTAL 0.4 MG/DL (0.1-1.0)
[2021-01-31 13:04] LABS: CREATININE SERUM 0.85 MG/DL (0.60-1.30)
--- NOTE | 2021-01-31 13:16 | PM&R Post Admission Assessment ---
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 He transferred from [facility] after admitted on 12/22/20 with fever and AMS with FAIZA ultimately requiring HD for a short time and BCx noted MSSA of unknown source. He declined KE so ID consulted and patient is currently on IV abx empirically. He has a h/o splenectomy so elevated wbc and platelets are chronic. Elevated lactic acid noted on sepsis w/u prompting IVF b ut patient remains AF and stable. He does use CPAP and he brought it with him. Past Ktxiuiz-Wivfmc-Rcuzud Hx Past Med/Social Hx: Reviewed Nursing Past Med/Soc Hx, Reviewed and Corrections made Patient Social History Marrital Status: Employed/Student: retired Alcohol Use: Occasionally Uses Smoking Status: Never a Smoker 2nd Hand Smoke Exposure: No Recent Hopitalizations: No Seasonal Allergies Seasonal Allergies: Yes Past Medical History Surgeries: Abdominal, Cardiac, CABG Respiratory: Sleep Apnea Currently Using CPAP: Yes Cardiac: Atrial Fibrillation, Heart Attack, High Cholesterol, Hypertension Neurological: Stroke, Vertigo Genitourinary: Neurogenic Bladder Gastrointestinal: Gastroesophageal Reflux, Gastrointestinal Bleed Musculoskeletal: Arthritis, Chronic Back Pain History of Blood Disorders: No Adverse Reaction to Blood Morales: No Prior Level of Function Bed Mobility: 6 Transfers: 6 Gait: 6 Stairs: 6 Indoor Mobility (Ambulation): Independent Stairs: Independent Self Care: Independent Functional Cognition: Independent Current Level of Fuctioning Roll Left to Right: 3 Sit to Lyin Lying to Sitting/Side of Bed: 3 Sit to Stand: 4 Chair/Cpw-ze-[id number] Xfer: 4 Car Transfer: 3 Does the Patient Walk: Yes Mode of Locomotion: Walk Anticipated Mode of Locomotion: Walk Walk 10 feet: 4 Walk 50 ft with 2 Turns: 4 Walk 150 ft: 88 Walking 10ft on uneven surface: 7 Gait Assistive Device: FWW Wheel 50 ft with 2 turns: 9 Wheel 150 ft: 9 1 Step (curb): 7 4 Steps: 88 12 Steps: 88 Picking up an Object: 4 (SBA with structures mechanic) Eatin (Per pt report.) Oral Hygiene: 5 (based on clincial judgment.) Shower/Bathe Self: 3 (Assist washing BLEs lower legs/feet and buttocks. CGA in stand.) Upper Body Dressin (set up to don/doff anchor tack puller shirt.) Lower Body Dressin (Mod A, pt able to doff pants, and thread LLE into pants. Assist to thred RLE and slight assistance with pant hike.) On/Off Footwear: 3 (Pt doffed gripper socks. Assist to don.) Toileting Hygiene: 3 (Mod A. Pt able to manage pants down, slight assistance with pant hike and assistance with hygiene.) PM&R Allergy/Meds/Data Review Allergies Coded Allergies: codeine (Verified Allergy, Unknown, 09/30/18) Home Medications Scheduled Allopurinol (Allopurinol), 300 MG PO DAILY, (Reported) Amlodipine Besylate (Norvasc), 10 MG PO DAILY, (Reported) Apixaban (Eliquis), 5 MG PO BID, (Reported) Aspirin (Aspirin), 81 MG PO DAILY, (Reported) Bumetanide (Bumetanide), 1 MG PO DAILY, (Reported) Daptomycin (Cubicin), 850 MG IV Q24H, (Reported) Darbepoetin Josse in Polysorbat (Aranesp), 60 MCG SQ WEEKLY ON WEDNESDAY, (Reported) Docusate Sodium (Colace), 100 MG PO BID, (Reported) Famotidine (Pepcid), 20 MG PO DAILY, (Reported) Finasteride (Finasteride), 5 MG PO DAILY, (Reported) Folic Acid/Vit Bcomp,C (Renal-Aleksandar Tablet), 0.8 MG PO DAILY, (Reported) Lactobacillus Acidophilus (Probiotic), 1 EACH PO BID, (Reported) Lisinopril (Lisinopril), 10 MG PO DAILY, (Reported) Polyethylene Glycol 3350 (Miralax), 17 GM PO DAILY, (Reported) Prednisone (Prednisone), 10 MG PO DAILY, (Reported) Pregabalin (Lyrica), 50 MG PO BID, (Reported) Scheduled PRN Acetaminophen (Acetaminophen), 650 MG PO Q6H PRN for PAIN-MILD (1-4), (Reported) Dextran 70/Hypromellose (Artificial Tears), 1 EACH OP Q4H PRN for DRY EYES, (Reported) Ipratropium/Albuterol Sulfate (Iprat-Albut 0.5-3(2.5) mg/3 ml), 3 ML IH Q4H PRN for SHORTNESS OF BREATH, (Reported) Oxycodone HCl/Acetaminophen (Oxycodone-Acetaminophen 5-325), 1 EACH PO Q8H PRN for PAIN-SEVERE, (Reported) Discontinued Medications Calcitonin,[place],Synthetic (Calcitonin-[place]), 200 UNITS NS DAILY Discontinued Reason: No Longer Taking Oxycodone HCl/Acetaminophen (Percocet 5-325 mg Tablet), 1 TAB PO Q4H Discontinued Reason: No Longer Taking Current Medications Current Medications Reviewed Laboratory Data Laboratory Tests 01/31/21 12:40: White Blood Count 17.4H, Red Blood Count 3.10L, Hemoglobin 8.8L, Hematocrit 29L, Mean Corpuscular Volume 94, Mean Corpuscular Hemoglobin 28, Mean Corpuscular Hemoglobin Concent 30L, Red Cell Distribution Width 24.0H, Platelet Count 556H, Mean Platelet Volume 10.1, Immature Granulocyte % (Auto) 1, Neutrophils (%) (Auto) 79H, Lymphocytes (%) (Auto) 5L, Monocytes (%) (Auto) 11, Eosinophils (%) (Auto) 3, Basophils (%) (Auto) 1, Neutrophils # (Auto) 13.8H, Lymphocytes # (Auto) 0.9L, Monocytes # (Auto) 1.8H, Eosinophils # (Auto) 0.5H, Basophils # (Auto) 0.2H, Immature Granulocyte # (Auto) 0.2H, Sodium Level 141, Potassium Level 3.7, Chloride Level 106, Carbon Dioxide Level 21, Anion Gap 14, Blood Urea Nitrogen 13, Creatinine 0.85, Estimat Glomerular Filtration Rate 88, BUN/Creatinine Ratio 15, Glucose Level 133H, Calcium Level 9.3, Corrected Calcium 10.0, Total Bilirubin 0.4, Aspartate Amino Transf (AST/SGOT) 29, Alanine Aminotransferase (ALT/SGPT) 28, Alkaline Phosphatase 89, Total Protein 6.0L, Albumin 3.1L Review of Systems Constitutional: see HPI, malaise, weakness EENTM: no symptoms reported Respiratory: no symptoms reported Cardiovascular: no symptoms reported Gastrointestinal: no symptoms reported Genitourinary: other (catheter) Musculoskeletal: back pain Skin: no symptoms reported Psychiatric/Neurological: Depressed All Other Systems Reviewed Negative Unless Noted: Yes Physical Exam Physical Exam Vital Signs Capillary Refill : Height, Weight, BMI Height: 5'9.00" Weight: 300lbs. oz. 136.530709uo; BMI Method:Stated General Appearance: No Apparent Distress, WD/WN, Chronically ill, Obese Eyes: Bilateral Eye Normal Inspection, Bilateral Eye PERRL HEENT: PERRL/EOMI, Normal ENT Inspection, Pharynx Normal Neck: Full Range of Motion, Normal Inspection, Non Tender, Supple, Carotid Bruit Respiratory: Chest Non Tender, Lungs Clear, Normal Breath Sounds, No Accessory Muscle Use, No Respiratory Distress Cardiovascular: Regular Rate, Rhythm, No Edema, No Gallop, No JVD, No Murmur, Normal Peripheral Pulses Gastrointestinal: Normal Bowel Sounds, No Organomegaly, No Pulsatile Mass, Non Tender, Soft Back: Normal Inspection, No CVA Tenderness, No Vertebral Tenderness Extremity: Normal Capillary Refill, Normal Inspection, Normal Range of Motion, Non Tender, No Calf Tenderness, No Pedal Edema Neurologic/Psychiatric: Alert, Oriented x3, Normal Mood/Affect, 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 II-XII Norm as Tested, Abnormal Gait, Motor Weakness (3/5) Skin: Normal Color, Warm/Dry Lymphatic: No Adenopathy PM&R Medical Assessment & Plan REHAB/MEDICAL ASSESSMENT AND PLAN: 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 The comorbidities that impact the patients function and/or functional outcome by: urinary retention, CAD, AF, NATALEE, IV abx empirically, obesity REHAB PLAN: The patient is being admitted to our comprehensive inpatient rehabilitation facility and can tolerate the intensity of service consisting of at least: 180 minutes of therapy a day, 5 out of 7 days a week Rehab treatment will consist of: PT OT will focus on regaining function with assistive devices in order to return to independence The patient/family has a good understanding of our discharge process and will benefit from an interdisciplinary inpatient rehabilitation program. The patient has potential to make improvement and is in need of at least two of the following multidisciplinary therapies including but not limited to physical, occupational, speech, and prosthetics and orthotics. Additionally the patient will need services from respiratory, nutritional services, wound care, psychology, etc. (Customize this to each patient). Given the patients complex condition and risk of further medical complications, rehabilitation services cannot be safely or effectively provided at a lower level of care such as a alf facility. BARRIERS TO DISCHARGE: weakness ESTIMATED LOS: 14 days DISPOSITION: Home RELEVANT CHANGES SINCE PREADMISSION SCREENING: I have compared the patients medical and functional status at the time of the preadmission screening and there are: no changes PROGNOSIS: Good REHABILITATION GOALS: 1. PT OT will focus on regaining function with assistive devices in order to return to independence All the above goals were reviewed with the patient and he/she is in agreement. By signing this document, I acknowledge that I have personally performed a full physical examination on this patient within 24 hours of admission to this inpatient rehabilitation facility and have determined the patient to be able to tolerate the above course of treatment at an intensive level for a reasonable period of time. I will be completing a detailed individualized Plan of Care for this patient by day #4 of the patients stay based upon the Preadmission Screen, the Post-Admission Evaluation, and the therapy evaluations. 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 - Myopathy, unspecified (2) Primary hypertension ICD Codes: I10 - Essential (primary) hypertension (3) Coronary artery disease without angina pectoris ICD Codes: I25.10 - Atherosclerotic heart disease of [place] coronary artery without angina pectoris (4) Morbid obesity ICD Codes: E66.01 - Morbid (severe) obesity due to excess calories (5) Bradycardia ICD Codes: R00.1 - Bradycardia, unspecified (6) Permanent atrial fibrillation ICD Codes: I48.21 - Permanent atrial fibrillation (7) Stage 2 chronic kidney disease ICD Codes: N18.2 - Chronic kidney disease, stage 2 (mild) Assessment/Plan Assessment and Plan Assess & Plan/Chief Complaint Assessment: Myopathy CHF diastolic type FAIZA on CRI recent HD now baseline AF OAC MSSA bactermia NATALEE on CPAP h/o splenectomy Anemia Obesity HTN HLP CAD CABG hx Plan: PT OT protocol IV abx Monitor closely ERCIKA DANGELO DO Jan 31, 2021 13:16
[2021-01-31] MEDS ORDERED: ARTIFICAL TEARS 0.4 ML UNIT DOSE (REFRESH PLUS) OU PRN (13:30)
[2021-01-31 13:43] LABS: ATYPICAL LYMPHOCYTES 2 %; EOSINOPHILS % (MANUAL) 5 %; LYMPHOCYTES % (MANUAL) 7 %; MONOCYTES % (MANUAL) 7 %; NEUTROPHILS % (MANUAL) 79 %; NUCLEATED RED BLOOD CELLS 1
[2021-01-31 13:44] LABS: BURR CELLS SLIGHT; HYPOCHROMASIA SLIGHT; MICROCYTOSIS SLIGHT; POLYCHROMASIA MODERATE; TARGET CELLS SLIGHT
--- NOTE | 2021-01-31 14:00 | ST Cognitive Linguistic Eval ---
Speech Evaluation-General Medical Diagnosis critical illness myopathy Onset Date: Dec 22, 2020 Therapy Diagnosis Therapy Diagnosis: Cognitive-communication Referral Referring Physician: Dr. Rhodes Medical History Pertinent Medical History: Atrial Fib, CABG, CAD, CVA, Heart Failure, Renal Insufficiency Social History Current Living Status: Alone Speech PLF-Current Status Prior Level of Function Patient lived home alone where he was independent for his daily needs. Patient does state he has assistance as needed. Subjective Patient was pleasant and cooperative with the cognitive assessment. Language Eval: Auditory Comprehends Simple Yes/No Ques: Functional Indent/Objects Multiple Cerrato: Functional Ident/Pics in Multiple Cerrato: Functional Follows 1-Step Commands: Functional Follows Complex Directions: Functional Follows General Conversations: Functional Language Eval: Verbal Language Completes Spontaneous Greeting: Functional Produces Auto, Serial Info: Functional Imitates Simple Words/Phrases: Functional Word Finding: Functional Requests Basic Needs: Functional States Basic Personal Info: Functional Expresses Complex Ideas: Functional Cognitive Patient Orientation Patient is oriented to all concepts. Objective Cognitive Domain Attention: WNL Memory: WNL Problem Solving: Functional Executive Functions: WNL Visuospatial Skills: WNL Composite Severity Rating: WNL Clock Drawing Severity Rating: WNL Objective Formal/Standardized Tests [facility] Mental Status ([facility]) Results 28/30, within normal range of function Oral Motor/Speech Production Within Normal Limits Impression Patient is a pleasant 75 y/o male who was admitted to the ARU due to critical illness myopathy. The patient was initially admitted to the hospital with fever, confusion and SOB. The patient was given the SLUMS with a score of 28/30 obtained. This score is within the normal range of function and does not indicate the need for further ST services at this time. Speech Patient Assess Expression of Ideas/Wants: Expression (4) Understanding Verbal Content: Understands (4) Brief Interview-Mental Status: Yes Repetition of Three Words: Three (3) Temporal Orientation: Year: Correct (3) Temporal Orientation: Month: Accurate within 5 days(2) Temporal Orientation: Day: Correct (1) Recall : Wear to say "Sock": Yes, no cue required (2) Recall : Color: Yes, no cue required (2) Recall : Bed: Yes,after cueing (1) Memory/Recall Ability: Current season, That he or she is in a hsp/hsp unit Speech-Plan Patient/Family Goals Patient/Family Goals: Patient plans on returning to his home with assistance. Treatment Plan Speech Therapy Treatment Plan: Discontinue ST Treatment Duration: Jan 31, 2021 Frequency: 1 time per week Estimated Hrs Per Day: .25 hour per day Rehab Potential: Fair Barriers to Learning: Patient's health status Pt/Family Agrees to Plan: Yes Safety Risks/Education Teaching Recipient: Patient Teaching Methods: Discussion Response to Teaching: Verbalize Understanding Education Topics Provided: Safety within his room, communication of wants/needs Time Speech Therapy Time In: 14:30 Speech Therapy Time Out: 14:45 Total Billed Time: 15 Billed Treatment Time 1, ENOCH MCALLISTER [address] Jan 31, 2021 14:00
--- NOTE | 2021-01-31 14:20 | Therapy Group Daily Note ---
Therapy Daily Group Note Patient Education Topic Home Safety, Fall Prevention, Home Safety, Exercises Exercises LE Seated Exercise, ROM, UE Exercise Session Ratio (pt:therapist): 3:1 Goal of Session: Education on ARU Expectations, Home Safety Strategies, UE/LE Strengthing Goal Met for this Session: Yes Pt Benefit of Group: Contributions to Others, F/U Use of Strategies @Home, Increased Functional Safety, Increased Functional Strength, Recognition of Peers, Socialization Other/Notes Patient in recliner pre tx, transferred to and transported to the common area of rehab for group therapy. Each patient had to introduce themselves and answer a question involving memory and critical thinking. Patients then participate in a group discussion, led by therapists about home safety, balance, safety strategies. Each patient also had to direct the others to do an exercise, which they had on a card in hand. When done, patient is transported back to room and transfers to bed with nurse call, phone, tray, all needs met. Start Time: 13:00 Stop Time: 14:00 Total Billed Treatment Time: 60 Total Billed Treatment 1 visit SCOOTER HALL PT Jan 31, 2021 14:20
[2021-01-31] MEDS: DICLOFENAC 1% GEL 100 GM (VOLTAREN) TUBE TOP SCH ×3 (14:29→20:57)
[2021-01-31] MEDS: NS IV SCH (14:30)
[2021-01-31] MEDS: DAPTOMYCIN IV SCH (14:30)
[2021-01-31] MEDS ORDERED: CATHETER FLUSH 10 ML SYR IV PRN (15:30)
[2021-01-31 15:50] VITALS: BP 150/68
--- NOTE | 2021-01-31 16:56 | Diagnostic Imaging Report ---
EXAMINATION: CHEST (PA AND LATERAL) CLINICAL INDICATION: 75-year-old male, history of COVID 19 infection. Chest pain. COMPARISON: CT chest September 30, 2018. FINDINGS: There is a right-sided venous line overlying the lower SVC. There are median sternotomy wires. There is borderline cardiomegaly. There is no identified pneumothorax. There is no identified pleural effusion. There is no identified focal airspace consolidation. There is widening of the left acromioclavicular joint. IMPRESSION: 1. No identified acute cardiopulmonary abnormality. Dictated by: Dictated on workstation # [id number]
[2021-01-31] MEDS ORDERED: LIDOCAINE UROJET 2% GEL 10 ML PKG ONE (17:13)
[2021-01-31] MEDS: NS IV 1000 ML 1,000 ML IV SCH (17:20)
--- NOTE | 2021-01-31 17:54 | Consultation-Cardiology ---
HPI-Cardiology Cardiology Consultation: Date of Consultation 01/31/2021 Date of Admission 01/31/2021 Attending Physician Oliva Rhodes DO Admitting Physician Carolyne,Local Physician Consulting Physician CAR DAUGHERTY JR, MD HPI: Time Seen by a Provider: 17:49 Chief Complaint: Reason for consultation: Coronary artery disease and atrial fibrillation I had the pleasure of seeing Bonilla on the inpatient rehab unit at [facility] in [place], [place] this afternoon. 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 He has a history of coronary artery disease with coronary artery bypass surgery in 2016, permanent atrial fibrillation, hypertension, stage III chronic kidney disease with recent acute renal failure requiring temporary hemodialysis, and morbid obesity among other less clinically significant issues. In mid December he was admitted to an outside hospital with sepsis. The exact source was never identified. During that hospitalization, he had developed acute renal failure and was placed on hemodialysis. He had a dialysis catheter placed in the right subclavian vein. Once he recovered from that acute illness he was transferred to an LTAC in [facility]. He required 2 more treatments with hemodialysis at the LTAC and then his renal function returned to normal and the dialysis was stopped. He was transferred to our facility today for inpatient rehabilitation. Because of his history of coronary artery disease and atrial fibrillation, a cardiology consultation was requested. He denies any chest discomfort, dyspnea, paroxysmal nocturnal dyspnea, orthopnea, palpitations, lightheadedness, or syncope. He has chronic, mild intermittent ankle edema. He took amlodipine in the past but had to discontinue this medication because it caused severe peripheral edema. Certain portions of this document may have been dictated utilizing voice recognition technology. Inherent to this technology, typographical and grammatical errors may exist. As much as I am diligent to identify and correct these mistakes, some errors may remain in the document. Review of Systems-Cardiology Review of Systems Other comments Review of 10 organ systems is as per the history of present illness, otherwise negative. PVM-Tfhngp-Spqcds Hx Patient Social History Marrital Status: 2nd Hand Smoke Exposure: No Have you traveled recently?: No Alcohol Use?: Yes Pt feels they are or have been: No Past Medical History PMH As described under Assessment. Family Medical History Family Medical History: The patient does not know of any family history of premature coronary artery disease in first-degree relatives. Allergies and Home Medications Allergies Coded Allergies: codeine (Verified Allergy, Unknown, 09/30/18) Patient Home Medication List Home Medication List Reviewed: Yes Acetaminophen (Acetaminophen) 325 Mg Tablet, 650 MG PO Q6H PRN for PAIN-MILD (1- 4), (Reported) Entered as Reported by: POLO BARBER on 01/31/211108 Last Action: Continued Allopurinol (Allopurinol) 100 Mg Tablet, 300 MG PO DAILY, (Reported) Entered as Reported by: POLO BARBER on 01/31/211108 Last Action: Continued Amlodipine Besylate (Norvasc) 10 Mg Tablet, 10 MG PO DAILY, (Reported) Entered as Reported by: POLO BARBER on 01/31/211108 Last Action: Continued Apixaban (Eliquis) 5 Mg Tablet, 5 MG PO BID, (Reported) Entered as Reported by: POLO BARBER on 01/31/211108 Last Action: Continued Aspirin (Aspirin) 81 Mg Tab.chew, 81 MG PO DAILY, (Reported) Entered as Reported by: POLO BARBER on 01/31/211108 Last Action: Continued Bumetanide (Bumetanide) 1 Mg Tablet, 1 MG PO DAILY, (Reported) Entered as Reported by: POLO BARBER on 01/31/211108 Last Action: Continued Daptomycin (Cubicin) 500 Mg Vial, 850 MG IV Q24H, (Reported) Entered as Reported by: POLO BARBER on 01/31/211108 Last Action: Converted Darbepoetin Josse in Polysorbat (Aranesp) 60 Mcg/1 Ml Vial, 60 MCG SQ WEEKLY ON WEDNESDAY, (Reported) Entered as Reported by: POLO BARBER on 01/31/211108 Last Action: Converted Dextran 70/Hypromellose (Artificial Tears) 1 Each Droperette, 1 EACH OP Q4H PRN for DRY EYES, (Reported) Entered as Reported by: POLO BARBER on 01/31/211108 Last Action: Converted Docusate Sodium (Colace) 100 Mg Capsule, 100 MG PO BID, (Reported) Entered as Reported by: POLO BARBER on 01/31/211108 Last Action: Continued Famotidine (Pepcid) 20 Mg Tablet, 20 MG PO DAILY, (Reported) Entered as Reported by: POLO BARBER on 01/31/211108 Last Action: Continued Finasteride (Finasteride) 5 Mg Tablet, 5 MG PO DAILY, (Reported) Entered as Reported by: POLO BARBER on 01/31/211108 Last Action: Continued Folic Acid/Vit Bcomp,C (Renal-Aleksandar Tablet) 0.8 Mg Tablet, 0.8 MG PO DAILY, (Reported) Entered as Reported by: POLO BARBER on 01/31/211108 Last Action: Converted Ipratropium/Albuterol Sulfate (Iprat-Albut 0.5-3(2.5) mg/3 ml) 3 Ml Ampul.neb, 3 ML IH Q4H PRN for SHORTNESS OF BREATH, (Reported) Entered as Reported by: POLO BARBER on 01/31/21 1228 Last Action: Continued Lactobacillus Acidophilus (Probiotic) 1 Each Capsule, 1 EACH PO BID, (Reported) Entered as Reported by: POLO BARBER on 01/31/211108 Last Action: Converted Lisinopril (Lisinopril) 10 Mg Tablet, 10 MG PO DAILY, (Reported) Entered as Reported by: POLO BARBER on 01/31/211108 Last Action: Continued Oxycodone HCl/Acetaminophen (Oxycodone-Acetaminophen 5-325) 1 Each Tablet, 1 EACH PO Q8H PRN for PAIN-SEVERE, (Reported) Entered as Reported by: POLO BARBER on 01/31/211108 Last Action: Continued Polyethylene Glycol 3350 (Miralax) 17 Gm Powd.pack, 17 GM PO DAILY, (Reported) Entered as Reported by: POLO BARBER on 01/31/211108 Last Action: Continued Prednisone (Prednisone) 5 Mg Tablet, 10 MG PO DAILY, (Reported) Entered as Reported by: POLO BARBER on 01/31/211108 Last Action: Held Pregabalin (Lyrica) 50 Mg Capsule, 50 MG PO BID, (Reported) Entered as Reported by: POLO BARBER on 01/31/211108 Last Action: Continued Discontinued Medications Calcitonin,Florence,Synthetic (Calcitonin-Florence) 3.7 Ml [place].pump, 200 UNITS NS DAILY Discontinued Reason: No Longer Taking Prescribed by: NIA JURADO on 09/30/18 9355 Last Action: Discontinued Oxycodone HCl/Acetaminophen (Percocet 5-325 mg Tablet) 1 Each Tablet, 1 TAB PO Q4H Discontinued Reason: No Longer Taking Prescribed by: NIA JURADO on 09/30/181845 Last Action: Discontinued Exam Vital Signs Vital Signs Date Time Temp Pulse Resp B/P (MAP) Pulse Ox O2 Delivery O2 Flow Rate FiO2 01/31/21 15:50 58 150/68 (95) 01/31/21 14:51 Room Air 01/31/21 10:25 36.6 18 Physical Exam General: Alert. No acute distress. Well nourished and appears stated age. He is morbidly obese. Eye: Extraocular movements are intact. Conjunctivae are clear. There are no xanthelasma. HENT: Normocephalic. Atraumatic. Carotid pulsations 2/2 without bruits. Neck: Jugular venous pressure does not appear elevated. No thyromegaly appreciated. Respiratory: Lungs are clear to auscultation. Respirations are non-labored. Breath sounds are equal. Symmetrical chest wall expansion. Cardiovascular: Normal rate. Irregular rhythm. 2/6 systolic ejection murmur. No gallop. Point of maximal impulse is not appear displaced. Good pulses equal in all extremities. 1-2+ bilateral pretibial edema. Gastrointestinal: Soft. Normal bowel sounds. Skin: Skin turgor is normal. There is no pallor. Musculoskeletal: No kyphosis or scoliosis appreciated. Neurologic: Alert and oriented to person, place, time. Cranial nerves 3-12 appe ar grossly intact. The patient has good motor tone strength in the upper and lower extremities bilaterally. Psychiatric: Cooperative. Appropriate mood & affect. Labs Laboratory Tests Test 01/31/21 12:40 01/31/21 15:17 01/31/21 17:22 Range/Units White Blood Count 17.4 H 4.3-11.0 10^3/uL Red Blood Count 3.10 L 4.30-5.52 10^6/uL Hemoglobin 8.8 L 13.3-17.7 g/dL Hematocrit 29 L 40-54 % Mean Corpuscular Volume 94 80-99 fL Mean Corpuscular Hemoglobin 28 25-34 pg Mean Corpuscular Hemoglobin Concent 30 L 32-36 g/dL Red Cell Distribution Width 24.0 H 10.0-14.5 % Platelet Count 556 H 130-400 10^3/uL Mean Platelet Volume 10.1 9.0-12.2 fL Immature Granulocyte % (Auto) 1 % Neutrophils (%) (Auto) 79 H 42-75 % Lymphocytes (%) (Auto) 5 L 12-44 % Monocytes (%) (Auto) 11 0-12 % Eosinophils (%) (Auto) 3 0-10 % Basophils (%) (Auto) 1 0-10 % Neutrophils # (Auto) 13.8 H 1.8-7.8 10^3/uL Lymphocytes # (Auto) 0.9 L 1.0-4.0 10^3/uL Monocytes # (Auto) 1.8 H 0.0-1.0 10^3/uL Eosinophils # (Auto) 0.5 H 0.0-0.3 10^3/uL Basophils # (Auto) 0.2 H 0.0-0.1 10^3/uL Immature Granulocyte # (Auto) 0.2 H 0.0-0.1 10^3/uL Neutrophils % (Manual) 79 % Lymphocytes % (Manual) 7 % Monocytes % (Manual) 7 % Eosinophils % (Manual) 5 % Nucleated Red Blood Cells 1 Atypical Lymphocytes 2 % Polychromasia MODERATE Hypochromasia SLIGHT Microcytosis SLIGHT Target Cells SLIGHT [place] Cells SLIGHT Sodium Level 141 135-145 MMOL/L Potassium Level 3.7 3.6-5.0 MMOL/L Chloride Level 106 98-107 MMOL/L Carbon Dioxide Level 21 21-32 MMOL/L Anion Gap 14 5-14 MMOL/L Blood Urea Nitrogen 13 7-18 MG/DL Creatinine 0.85 0.60-1.30 MG/DL Estimat Glomerular Filtration Rate 88 BUN/Creatinine Ratio 15 Glucose Level 133 H 70-105 MG/DL Calcium Level 9.3 8.5-10.1 MG/DL Corrected Calcium 10.0 8.5-10.1 MG/DL Total Bilirubin 0.4 0.1-1.0 MG/DL Aspartate Amino Transf (AST/SGOT) 29 5-34 U/L Alanine Aminotransferase (ALT/SGPT) 28 0-55 U/L Alkaline Phosphatase 89 40-136 U/L Total Protein 6.0 L 6.4-8.2 GM/DL Albumin 3.1 L 3.2-4.5 GM/DL Procalcitonin 0.09 <0.10 NG/ML Lactic Acid Level 2.41 *H 1.78 0.50-2.00 MMOL/L ECG Impression ECG Comment Atrial fibrillation with a ventricular rate of 52 bpm with low voltage in the limb leads, poor R wave progression and nonspecific lateral T wave changes. Diagnosis/Problems Diagnosis/Problems (1) Coronary artery disease without angina pectoris Assessment & Plan: He has a previous history of coronary bypass surgery as outlined above. He is not having any angina. He has been taking both aspirin and apixaban at home. Given his age, this will increase the risk of hemorrhagic side effects. I recommend stopping the aspirin. He is not tolerant of beta-blockers due to baseline bradycardia. I will obtain a fasting lipid profile to see if he may benefit from statin medication. (2) Permanent atrial fibrillation Assessment & Plan: His heart rate is well controlled on no AV shlomo blocking agents. He is on apixaban for stroke prophylaxis. He has been taking both aspirin and apixaban at home. As above, I recommend stopping aspirin to help reduce the risk of potential hemorrhagic side effects. If he would like to have the tunneled dialysis catheter removed, I would suggest stopping apixaban for 2 days prior to removing the catheter. We no longer recommend bridging. (3) Bradycardia Assessment & Plan: As above, the patient states he is intolerant of beta- blockers due to baseline bradycardia. (4) Primary hypertension Assessment & Plan: He tells me he took amlodipine in the past and this just caused severe peripheral edema. He was placed on amlodipine at the LTAC. I will discontinue the amlodipine and put him back on lisinopril the way he was taking at home prior to admission. He tells me he was taking lisinopril 20 mg each morning and 10 mg each evening. He had also been on hydrochlorothiazide but in light of the recent acute renal failure, I would be hesitant to resume hydrochlorothiazide. (5) Stage 3 chronic kidney disease Assessment & Plan: When he had sepsis at the outside hospital he developed acute renal failure that required hemodialysis. His creatinine level has now returned to baseline although his GFR puts him in range for stage III chronic k idney disease. Nonetheless, his creatinine has been stable for several days. It may not be unreasonable to remove the tunneled dialysis catheter. I will leave this up to the discretion of the hospitalist. As above, if the catheter is to be removed, I would stop Eliquis for 2 days prior to removing the catheter. (6) Morbid obesity Assessment & Plan: He needs work on weight loss. CAR DAUGHERTY JR, MD Jan 31, 2021 17:54
[2021-01-31 18:22] LABS: BILIRUBIN,URINE NEGATIVE (NEGATIVE); CLARITY,URINE CLEAR; COLOR,URINE YELLOW; GLUCOSE, URINE (UA) NEGATIVE (NEGATIVE); KETONES,URINE NEGATIVE (NEGATIVE); LEUKOCYTE ESTERASE ,URINE NEGATIVE (NEGATIVE); NITRITE,URINE NEGATIVE (NEGATIVE); PROTEIN,URINE TRACE (NEGATIVE)
[2021-01-31 18:35] LABS: BACTERIA,URINE TRACE /HPF
[2021-01-31 18:36] LABS: HYALINE CASTS, URINE 0-2 /LPF
[2021-01-31 19:26] VITALS: BP 162/84
[2021-01-31] MEDS: PREGABALIN 50 MG (LYRICA) CAP PO SCH (20:52)
[2021-01-31] MEDS: LACTOBACILLUS ACIDOPHILUS (PROBIOTIC) CAPSULE PO SCH (20:52)
[2021-01-31] MEDS: APIXABAN 5 MG (ELIQUIS) TABLET PO SCH (20:53)
[2021-01-31] MEDS: lisINopril 10 MG (PRINIVIL) TABLET PO SCH (20:53)
[2021-01-31] MEDS ORDERED: polyethylene glycoL POWDER 17 GM (MIRALAX) PACK PO SCH (21:00)
[2021-01-31] MEDS ORDERED: lisINopril 10 MG (PRINIVIL) TABLET PO SCH (21:00)
[2021-01-31] MEDS: SENNA W/DOCUSATE (SENOKOT S) TABLET PO SCH (21:00)
[2021-01-31] MEDS: DOCUSATE SODIUM 100 MG (COLACE) CAP PO SCH (21:00)
[2021-01-31] MEDS ORDERED: DOCUSATE SODIUM 100 MG (COLACE) CAP PO SCH (21:00)
[2021-01-31] MEDS ORDERED: NON-FORMULARY MEDICATION 1 EA EA (Lactobacillus Acidophilus (Probiotic) 1 EACH) PO SCH (21:00)
[2021-01-31] MEDS: CATHETER FLUSH 10 ML SYR IV SCH (22:00)
[2021-02-01] MEDS: oxyCODONE/APAP 5/325MG (PERCOCET 5) TABLET PO PRN (04:21)
[2021-02-01] MEDS ORDERED: LIDOCAINE UROJET 2% GEL 10 ML PKG TOP ONE (05:00)
[2021-02-01] MEDS ORDERED: LIDOCAINE UROJET 2% GEL 10 ML PKG ONE (05:11)
[2021-02-01 05:42] LABS: BASOPHILS # (AUTO) 0.1 10^3/uL (0.0-0.1); BASOPHILS % (AUTO) 1 % (0-10); EOSINOPHILS # (AUTO) 0.2 10^3/uL (0.0-0.3); EOSINOPHILS % (AUTO) 1 % (0-10); HEMATOCRIT 26 % (40-54); HEMOGLOBIN 8.3 g/dL (13.3-17.7); LYMPHOCYTES # (AUTO) 2.5 10^3/uL (1.0-4.0); LYMPHOCYTES % (AUTO) 16 % (12-44); MEAN CORPUSCULAR HEMOGLOBIN 29 pg (25-34); MEAN CORPUSCULAR HGB CONC 31 g/dL (32-36); MEAN CORPUSCULAR VOLUME 91 fL (80-99); MEAN PLATELET VOLUME 10.1 fL (9.0-12.2); MONOCYTES # (AUTO) 2.5 10^3/uL (0.0-1.0); MONOCYTES % (AUTO) 17 % (0-12); NEUTROPHILS # (AUTO) 9.9 10^3/uL (1.8-7.8); NEUTROPHILS % (AUTO) 64 % (42-75); PLATELET COUNT 523 10^3/uL (130-400); WHITE BLOOD COUNT 15.4 10^3/uL (4.3-11.0)
[2021-02-01 05:53] LABS: ALBUMIN 2.9 GM/DL (3.2-4.5); POTASSIUM 3.3 MMOL/L (3.6-5.0)
[2021-02-01 05:54] LABS: CALCIUM 8.8 MG/DL (8.5-10.1)
[2021-02-01 05:55] LABS: TOTAL PROTEIN 5.7 GM/DL (6.4-8.2)
[2021-02-01 05:57] LABS: BILIRUBIN,TOTAL 0.4 MG/DL (0.1-1.0)
[2021-02-01 05:59] LABS: CREATININE SERUM 0.8 MG/DL (0.60-1.30)
[2021-02-01] MEDS: CATHETER FLUSH 10 ML SYR IV SCH ×3 (06:12→22:28)
[2021-02-01] MEDS: predniSONE 20 MG TAB PO SCH (06:46)
[2021-02-01] MEDS: MULTIVIT W/MINERALS TAB (THERAGRAN M) PO SCH (06:47)
[2021-02-01] MEDS ORDERED: NS IV 1000 ML 1,000 ML ONE (06:52)
[2021-02-01] MEDS: NS IV 1000 ML 1,000 ML IV SCH (06:57)
[2021-02-01 07:30] VITALS: BP 134/69
[2021-02-01] MEDS ORDERED: amLODIPine 10 MG (NORVASC) TAB PO SCH (09:00)
[2021-02-01] MEDS ORDERED: lisINopril 10 MG (PRINIVIL) TABLET PO SCH (09:00)
[2021-02-01] MEDS ORDERED: ASPIRIN 81 MG CHEW (CHILDREN'S ASA) PO SCH (09:00)
[2021-02-01] MEDS: polyethylene glycoL POWDER 17 GM (MIRALAX) PACK PO SCH (09:21)
[2021-02-01] MEDS: DOCUSATE SODIUM 100 MG (COLACE) CAP PO SCH ×2 (09:22→20:36)
[2021-02-01] MEDS: FAMOTIDINE 20 MG (PEPCID) TABLET PO SCH (09:22)
[2021-02-01] MEDS: BUMETANIDE 1 MG (BUMEX) TAB PO SCH (09:22)
[2021-02-01] MEDS: FOLIC ACID 1 MG TAB PO SCH (09:22)
[2021-02-01] MEDS: FINASTERIDE (PROSCAR) 5 MG TAB PO SCH (09:22)
[2021-02-01] MEDS: APIXABAN 5 MG (ELIQUIS) TABLET PO SCH ×2 (09:22→20:34)
[2021-02-01] MEDS: lisINopril 20 MG (PRINIVIL) TABLET PO SCH (09:23)
[2021-02-01] MEDS: PREGABALIN 50 MG (LYRICA) CAP PO SCH ×2 (09:23→20:34)
[2021-02-01] MEDS: SENNA W/DOCUSATE (SENOKOT S) TABLET PO SCH ×2 (09:23→20:36)
[2021-02-01] MEDS: LACTOBACILLUS ACIDOPHILUS (PROBIOTIC) CAPSULE PO SCH ×2 (09:23→20:33)
[2021-02-01] MEDS: ALLOPURINOL 100 MG (ZYLOPRIM) TAB PO SCH (09:23)
[2021-02-01] MEDS: DICLOFENAC 1% GEL 100 GM (VOLTAREN) TUBE TOP SCH ×4 (09:27→20:38)
[2021-02-01] MEDS: DARBEPOETIN 60 MCG/ML (ARANESP) HOSPITAL SQ SCH (11:15)
--- NOTE | 2021-02-01 11:37 | Physical Therapy Daily Note ---
PT Daily Note-Current Subjective States that he is feeling okay. Transfers SCALE: Activities may be completed with or without assistive devices. 6-Hahmufmzvr-zauxttc completes the activity by him/herself with no assistance from a helper. 5-Set-up or Clean-up Assistance-helper sets up or cleans up; patient completes activity. [place] assists only prior to or following the activity. 4-Supervision or Touching Assistance-helper provides verbal cues and/or touching/steadying and/or contact guard assistance as patient completes activity. Assistance may be provided throughout the activity or intermittently. 3-Partial/Moderate Assistance-helper does LESS THAN HALF the effort. [place] lifts, holds or supports trunk or limbs, but provides less than half the effort. 2-Substantial/Maximal Assistance-helper does MORE THAN HALF the effort. [place] lifts or holds trunk or limbs and provides more than half the effort. 9-Telfenwdh-aqaggz does ALL the effort. Patient does none of the effort to complete the activity. Or, the assistance of 2 or more helpers is required for the patient to complete the activity. If activity was not attempted, code reason: 7-Patient Refused. 9-Not Applicable-not attempted and the patient did not perform the activity before the current illness, exacerbation or injury. 10-Not Attempted due to Environmental Limitations-(lack of equipment, weather restraints, etc.). 88-Not Attempted due to Medical Conditions or Safety Concerns. Gait Training Distance: 50' x 2 Gait Persons Needed: 1 Gait Assistive Device: FWW Assessment Current Status: Excellent Progress Patient had knee pain during gait. PT Short Term Goals Short Term Goals Time Frame: Feb 07, 2021 Roll Left & Right: 6 Sit to lyin Lying to sitting on side of be: 4 Sit to stand: 4 (SBA) Chair/dyc-ao-dzgwa transfer: 4 (SBA) Walk 10 feet: 4 Walk 50 feet with two turns: 4 Walk 150 feet: 4 PT [facility] Goals Primary Care Provider Goals PT Primary Care Provider Goals Time Frame: Feb 21, 2021 Roll Left & Right (QC): 6 Sit to Lying (QC): 6 Lying-Sitting on Side/Bed(QC): 6 Sit to Stand (QC): 5 Chair/Sev-kb-Eqgak Xfer(QC): 5 Toilet Transfer (QC): 5 Car Transfer (QC): 5 Does the Patient Walk: Yes Walk 10 feet (QC): 5 Walk 50ft with 2 Turns (QC): 5 Walk 150 ft (QC): 5 Walking 10ft on Uneven Surface: 4 1 Step (curb) (QC): 4 4 Steps (QC): 4 12 Steps (QC): 4 Picking up an Object (QC): 6 Wheel 50 feet with 2 turns (QC: 9 Wheel 150 feet: 9 PT Plan Treatment/Plan Treatment Plan: Continue Plan of Care Treatment Plan: Bed Mobility, Education, Functional Activity Denys, Functional Strength, Group Therapy, Gait, Safety, Therapeutic Exercise, Transfers Treatment Duration: Feb 21, 2021 Frequency: At least 5 of 7 days/Wk (IRF) Estimated Hrs Per Day: 1.5 hours per day Patient and/or Family Agrees t: Yes Time/GCodes Time In: 1120 Time Out: 1135 Total Billed Treatment Time: 10 Total Billed Treatment 1, GT x 10 HOWARD THOMPSON PT Feb 01, 2021 11:37
--- NOTE | 2021-02-01 11:45 | PM&R Progress Note ---
Subjective HPI/CC On Admission Date Seen by Provider: Feb 01, 2021 Time Seen by Provider: 12:00 Subjective/Events-last exam 02/01/2021: Patient required Marrero reinsertion due to retention Started on Urecholine of 10 mg AC/at bedtime Consult urology Wants copies of all of his labs printed off He is requesting a right knee injection so we will reach out to one of the orthopedic surgeons on Wednesday Hemodialysis catheter will have to be discontinued after discharge unless general surgery is comfortable Review of Systems General: Fatigue, Malaise Focused Exam Lactate Level 01/31/21 15:17: Lactic Acid Level 2.41*H 01/31/21 17:22: Lactic Acid Level 1.78 Objective Exam Vital Signs Vital Signs Date Time Temp Pulse Resp B/P (MAP) Pulse Ox O2 Delivery O2 Flow Rate FiO2 02/01/21 20:40 97 Room Air 02/01/21 20:22 36.6 63 20 169/80 (109) Capillary Refill : General Appearance: No Apparent Distress, WD/WN, Chronically ill, Obese HEENT: PERRL/EOMI, Normal ENT Inspection, Pharynx Normal Neck: Full Range of Motion, Normal Inspection, Non Tender, Supple, Carotid Bruit Respiratory: Chest Non Tender, Lungs Clear, Normal Breath Sounds, No Accessory Muscle Use, No Respiratory Distress Cardiovascular: Regular Rate, Rhythm, No Edema, No Gallop, No JVD, No Murmur, Normal Peripheral Pulses Gastrointestinal: Normal Bowel Sounds, No Organomegaly, No Pulsatile Mass, Non Tender, Soft Back: Normal Inspection, No CVA Tenderness, No Vertebral Tenderness Extremity: Normal Capillary Refill, Normal Inspection, Normal Range of Motion, Non Tender, No Calf Tenderness, No Pedal Edema Neurologic/Psychiatric: Alert, Oriented x3, Normal Mood/Affect, hat body sorter II-XII Norm as Tested, Abnormal Gait, Motor Weakness (3/5) Skin: Normal Color, Warm/Dry Lymphatic: No Adenopathy Results/Procedures Lab Patient resulted labs reviewed. FIM Transfers Therapy Code Descriptions/Definitions Functional [place] Measure: 0=Not Assessed/NA 4=Minimal Assistance 1=Total Assistance 5=Supervision or Setup 2=Maximal Assistance 6=Modified [place] 3=Moderate Assistance 7=Complete IndependenceSCALE: Activities may be completed with or without assistive devices. 0-Golanivhgx-ubbjkqr completes the activity by him/herself with no assistance from a helper. 5-Set-up or Clean-up Assistance-helper sets up or cleans up; patient completes activity. [place] assists only prior to or following the activity. 4-Supervision or Touching Assistance-helper provides verbal cues and/or touching/steadying and/or contact guard assistance as patient completes activity. Assistance may be provided throughout the activity or intermittently. 3-Partial/Moderate Assistance-helper does LESS THAN HALF the effort. [place] lifts, holds or supports trunk or limbs, but provides less than half the effort. 2-Substantial/Maximal Assistance-helper does MORE THAN HALF the effort. [place] lifts or holds trunk or limbs and provides more than half the effort. 4-Veftwwgvl-azxwde does ALL the effort. Patient does none of the effort to complete the activity. Or, the assistance of 2 or more helpers is required for the patient to complete the activity. If activity was not attempted, code reason: 7-Patient Refused. 9-Not Applicable-not attempted and the patient did not perform the activity before the current illness, exacerbation or injury. 10-Not Attempted due to Environmental Limitations-(lack of equipment, weather restraints, etc.). 88-Not Attempted due to Medical Conditions or Safety Concerns. Roll Left to Right (QC): 3 Sit to Lying (QC): 3 Sit to Stand (QC): 4 Chair/Qwi-hz-Tvdnl Xfer(QC): 4 Car Transfer (QC): 3 Gait Training Does the Patient Walk?: Yes Distance: 50' x 2 Walk 10 feet (QC): 4 Walk 50 ft with 2 Turns(QC): 4 Walk 150 ft (QC): 88 Walking 10ft/uneven surface-QC: 7 Gait Persons Needed: 1 Gait Assistive Device: FWW Wheelchair Training Wheel 50 ft with 2 turns (QC): 9 Wheel 150 ft (QC): 9 Stair Training 1 Step (curb) (QC): 7 4 Steps (QC): 88 12 Steps (QC): 88 Balance Picking up an Object (QC): 4 (SBA with parachute folder) ADL-Treatment Eating (QC): 5 (Per pt report.) Oral Hygiene (QC): 5 (based on clincial judgment.) Shower/Bathe Self (QC): 3 (Assist washing BLEs lower legs/feet and buttocks. CGA in stand.) Upper Body Dressing (QC): 5 (set up to don/doff bleach boiler puller shirt.) Lower Body Dressing (QC): 3 (Mod A, pt able to doff pants, and thread LLE into pants. Assist to thred RLE and slight assistance with pant hike.) On/Off Footwear (QC): 3 (Pt doffed gripper socks. Assist to don.) Toileting Hygiene (QC): 3 (Mod A. Pt able to manage pants down, slight assistance with pant hike and assistance with hygiene.) Assessment/Plan Assessment and Plan Assess & Plan/Chief Complaint Assessment: Myopathy CHF diastolic type FAIZA on CRI recent HD now baseline AF OAC MSSA bactermia NATALEE on CPAP h/o splenectomy Anemia Obesity HTN HLP CAD CABG hx Plan: PT OT protocol IV abx Monitor closely 02/01/2021: Marrero catheter reinserted Urology consult (1) Myopathy (2) Primary hypertension (3) Coronary artery disease without angina pectoris (4) Morbid obesity (5) Bradycardia (6) Permanent atrial fibrillation (7) Stage 2 chronic kidney disease ERICKA DANGELO DO Feb 01, 2021 11:45
--- NOTE | 2021-02-01 11:45 | Individualized Plan of Care ---
Individualized Plan of Care Rehab Nursing IPOC Order Admission Date Jan 31, 2021 at 10:25 Current Orders Orders Admission Arrival Bed Request (01/31/21 10:39) General/Regular (01/31/21 Breakfast) Flu Quad High Dose [id number] (Fluzone Hi (01/31/21 12:15) Admission Order(Inpt,Obs,Sdc) (01/31/21 12:19) Vital Signs: Per Unit Policy ( 08,16,00 (01/31/21 12:19) Omar Hose (01/31/21 12:19) Sequential Compression Device (01/31/21 12:19) School Photograph Editor-Inpt Rehab Con (01/31/21 12:19) Rehab Nursing Orders-Ipoc (01/31/21 12:19) Physical Therapy Rehab Orders (01/31/21 12:19) Occupational Therapy Rehab Ord (01/31/21 12:19) Speech Therapy Rehab Orders (01/31/21 12:19) Cbc With Automated Diff (02/01/21 06:00) Comprehensive Metabolic Panel (02/01/21 06:00) Precautions (Aru) (01/31/21 12:19) Weekly Weight WEEK (01/31/21 12:19) Rehab-Intensity Of Therapy (01/31/21 12:19) Initiate Admission Nursing Pro .admission (01/31/21 12:19) Alprazolam Tablet (Xanax Tablet) (01/31/21 12:30) Calcium Carbonate Chew Tablet (Antacid C (01/31/21 12:30) Diphenhydramine Tablet (Benadryl Tablet) (01/31/21 12:30) Docusate Sodium Capsule (Colace Capsule) (01/31/21 21:00) Docusate Sodium Capsule (Colace Capsule) (01/31/21 12:30) Bisacodyl Suppository (Dulcolax Supposit (01/31/21 12:30) Lactulose Oral Solution (Enulose Oral So (01/31/21 12:30) Na Phos/Na Biphos Enema (Fleet Enema Gonzalo (01/31/21 12:30) Loperamide Tablet (Imodium Tablet) (01/31/21 12:30) Melatonin Tablet (Melatonin Tablet) (01/31/21 12:30) Polyethylene Glycol Powder Pkt (Miralax (01/31/21 21:00) Ondansetron Oral Dissolve Tab (Zofran (01/31/21 12:30) Senna S Tablet (Senokot S Tablet) (01/31/21 21:00) Code/Resuscitation (01/31/21 12:19) Sequential Compression Device ONCE (01/31/21 12:19) Initiate Admission Nursing Pro .admission (01/31/21 12:19) Acetaminophen Tablet/Caplet (Tylenol T (01/31/21 12:30) Allopurinol Tablet (Zyloprim Tablet) (02/01/21 09:00) Apixaban Tablet (Eliquis Tablet) (01/31/21 21:00) Bumetanide Tablet (Bumex Tablet) (02/01/21 09:00) Docusate Sodium Capsule (Colace Capsule) (01/31/21 21:00) Famotidine Tablet (Pepcid Tablet) (02/01/21 09:00) Finasteride Tablet (Proscar Tablet) (02/01/21 09:00) Lisinopril Tablet (Zestril Tablet) (02/01/21 09:00) Oxycodone/Apap 5/325mg Tablet (Percocet (01/31/21 12:30) Polyethylene Glycol Powder Pkt (Miralax (02/01/21 09:00) Pregabalin Capsule (Lyrica Capsule) (01/31/21 21:00) (Nf) Daptomycin (Cubicin) (01/31/21 12:30) (Nf) Darbepoetin Josse In Polysorbat (Elizabeth (01/31/21 12:30) (Nf) Dextran 70/Hypromellose (Artificial (01/31/21 12:30) Folic Acid Tablet (Folic Acid Tablet) (02/01/21 09:00) (Nf) Lactobacillus Acidophilus (Probioti (01/31/21 21:00) Cbc With Automated Diff (01/31/21 12:22) Comprehensive Metabolic Panel (01/31/21 12:22) Iron Test (Fe) (01/31/21 12:22) Prednisone Tablet (Deltasone Tablet) (01/31/21 13:00) Prednisone Tablet (Deltasone Tablet) (02/01/21 07:00) Diclofenac 1% Gel (Voltaren 1% Gel) (01/31/21 13:00) Albuterol/Ipra Inhalation Soln (Duoneb I (01/31/21 12:30) Manual Differential (01/31/21 12:40) Consult Urology (01/31/21 13:10) Lactobacillus Acidophilus Cap (Acidophil (01/31/21 21:00) Carboxymethylcell Ophth Soln (Refresh Pl (01/31/21 13:30) Procalcitonin (Pct) (01/31/21 13:17) Lactic Acid Analyzer (01/31/21 13:17) Ekg Tracing (01/31/21 15:00) Consult Cardiology (01/31/21 13:18) [facility] ([facility] C (02/01/21 09:00) Patient Visit (01/31/21 ) Pt Eval Moderate Complexity (01/31/21 ) Functional Activities, Ea 15 (01/31/21 ) Daptomycin Injection (Cubicin Injection) (01/31/21 14:00) Patient Visit (01/31/21 ) Speech Sound Lang Comp (01/31/21 ) Treat. Speech/Lang/Voice (01/31/21 ) Therapeutic Multivitamin Tab (Vitamins, (02/01/21 07:00) Patient Visit (01/31/21 ) Therapeutic, Group (01/31/21 ) Sodium Chloride Flush (Catheter Flush Sy (01/31/21 22:00) Sodium Chloride Flush (Catheter Flush Sy (01/31/21 15:30) Chest Pa/Lat (2 View) (01/31/21 16:00) Urinalysis (01/31/21 18:13) Ns Iv 1000 Ml (Sodium Chloride 0.9%) (01/31/21 16:00) Blood Culture (01/31/21 16:03) Blood Culture (01/31/21 16:03) Lidocaine 2% (Urojet) (Xylocaine Urojet) (01/31/21 17:13) Straight Cath (Urinary) (01/31/21 17:40) Catheter(Urinary) Discontinue (01/31/21 17:40) Nursing Communication (Order) (01/31/21 17:40) Lisinopril Tablet (Zestril Tablet) (01/31/21 21:00) Lisinopril Tablet (Zestril Tablet) (02/01/21 09:00) Obtain Records From (Order) (01/31/21 17:48) Lisinopril Tablet (Zestril Tablet) (01/31/21 21:00) Hemoglobin A1c (02/01/21 05:00) Lipid Panel (02/01/21 05:00) Glucerna (01/31/21 18:49) Lidocaine 2% (Urojet) (Xylocaine Urojet) (02/01/21 05:00) Lidocaine 2% (Urojet) (Xylocaine Urojet) (02/01/21 05:11) Ns Iv 1000 Ml (Sodium Chloride 0.9%) (02/01/21 06:52) Patient Visit (02/01/21 ) Gait Training, Ea 15 Min (02/01/21 ) Bethanechol Tablet (Urecholine Tablet) (02/01/21 16:00) Tamsulosin Capsule (Flomax Capsule) (02/01/21 18:00) Rosuvastatin Tablet (Crestor Tablet) (02/01/21 21:00) Rehab Nursing Orders: Ongoing Assess. of Cognitive Status, Ongoing Assess. of Function Status, Bladder Management, Bladder Scan, Bladder Training, Bowel Management, Bowel Training, Disease Management & Educaiton, DVT Prophylaxis, Fall Prevention, Fluid/Electrolyte/Nutrition Mgmt, Infection Prevention, Medication Management & Education, Management of Risks & Complications, Management of Skin Intergrity, Nutrition Management, Pain Management, Patient/Family Support, Safety Management, Wound Management Intensity of Therapy to be met Patient to be seen: Min.3h per day/5 of 7d PT IPOC Problem List: Activity Tolerance, Functional Strength, Safety, Balance, Gait, Transfer, Bed Mobility, ROM Treatment Plan: Continue Plan of Care Bed Mobility, Education, Functional Activity Denys, Functional Strength, Group Therapy, Gait, Safety, Therapeutic Exercise, Transfers Treatment Duration: Feb 21, 2021 Frequency: At least 5 of 7 days/Wk (IRF) Estimated Hrs Per Day: 1.5 hours per day OT IPOC Problems: Decreased Activ Tolerance, Decreased Safety Aware, Decreased UE Strength, Impaired Funct Balance, Impaired I ADL's, Impaired Self-Care Skills, Restricted Funct UE ROM OT Treatment, Training and Edu: Yes Plan of Care: ADL Retraining, Functional Mobility, Group Exercise/Act as Ind, UE Funct Exercise/Act Treatment Duration: Feb 28, 2021 Frequency: At least 5 of 7 days/Wk (IRF) Estimated Hrs Per Day: 1.[address] IPOC Speech Therapy Treatment Plan: Discontinue ST Treatment Duration: Jan 31, 2021 Frequency: 1 time per week Estimated Hrs Per Day: .25 hour per day School Photograph Editor/Case Mgmt School Photograph Editor/Case Managemen: Discharge Planning Dietitian/Avionics Electrical Engineer Dietitian/Avionics Electrical Engineer to monitor nutritional status and make changes and/or recommendations as needed and work with speech pathology on dietary upgrades as the occur. Physician IPOC Medical Issues being managed closely and that require the 24 hour availability of a physician: Recent bacteremia with daptomycin with PICC line and recent hemodialysis will need close monitoring of decompensation Medical Issues: Bowel/Bladder Function, DVT Prophylaxis, Falls Precautions, Fluid/Electrolyte/Nutrition Balance, Infection Protection, Pain Management, Wound Care Brief Synthesis of Preadmission Screen, Post-Admission Evaluation, and Therapy Evaluations: PT and OT will focus on regaining function with increased stamina with the use of assistive devices in order to return back to independent living Medical Prognosis: Good Anticipated Length of Stay: 7 days ERICKA DANGELO DO Feb 01, 2021 11:45
[2021-02-01] MEDS: DAPTOMYCIN IV SCH (14:44)
[2021-02-01] MEDS: NS IV SCH (14:44)
--- NOTE | 2021-02-01 16:26 | Cardiology Progress Note ---
Progress Note-Cardiology Events since last exam Date Seen by Provider: Feb 01, 2021 Time Seen by Provider: 16:21 Events since last exam I am following him due to his cardiac conditions. He was sitting up in a chair. His peripheral edema is about the same. He denies chest discomfort, dyspnea at rest, palpitations, or syncope. Last night his Marrero catheter was removed but later in the evening, he could not urinate and the catheter was replaced. Certain portions of this document may have been dictated utilizing voice recognition technology. Inherent to this technology, typographical and grammatical errors may exist. As much as I am diligent to identify and correct these mistakes, some errors may remain in the document. Vitals Last set of Vitals Signs Vital Signs 02/01/21 02/01/21 07:30 09:00 Temp 36.6 Pulse 65 Resp 22 B/P (MAP) 134/69 (90) Pulse Ox 95 O2 Delivery Room Air Labs Labs Laboratory Tests 02/01/21 05:35 Exam Vital Signs Vital Signs Date Time Temp Pulse Resp B/P (MAP) Pulse Ox O2 Delivery O2 Flow Rate FiO2 02/01/21 09:00 Room Air 02/01/21 07:30 36.6 65 22 134/69 (90) 95 Physical Exam General: Alert. No acute distress. He is morbidly obese. Eye: No xanthelasma. HENT: Normocephalic. Neck: Jugular venous pressure does not appear elevated. Respiratory: Lungs are clear to auscultation. Respirations are non-labored. Breath sounds are equal. Symmetrical chest wall expansion. Cardiovascular: Normal rate. Irregular rhythm. No murmur. No gallop. 1-2+ bilateral pretibial edema. Gastrointestinal: Soft. Normal bowel sounds. Skin: Warm. Dry. Neurologic: Alert and oriented to person, place, time. Cranial nerves 3-11 grossly intact. Psychiatric: Cooperative. Appropriate mood & affect. Labs Laboratory Tests Test 01/31/21 17:22 01/31/21 18:10 02/01/21 05:35 Range/Units Lactic Acid Level 1.78 0.50-2.00 MMOL/L Urine Color YELLOW Urine Clarity CLEAR Urine pH 6.0 5-9 Urine Specific Cummings 1.020 1.016-1.022 Urine Protein TRACE H NEGATIVE Urine Glucose (UA) NEGATIVE NEGATIVE Urine Ketones NEGATIVE NEGATIVE Urine Nitrite NEGATIVE NEGATIVE Urine Bilirubin NEGATIVE NEGATIVE Urine Urobilinogen 0.2 < = 1.0 MG/DL Urine Leukocyte Esterase NEGATIVE NEGATIVE Urine RBC (Auto) 2+ H NEGATIVE Urine RBC 10-25 H /HPF Urine WBC 2-5 /HPF Urine Crystals NONE /LPF Urine Bacteria TRACE /HPF Urine Casts PRESENT /LPF Urine Hyaline Casts 0-2 H /LPF Urine Mucus NEGATIVE /LPF Urine Culture Indicated NO White Blood Count 15.4 H 4.3-11.0 10^3/uL Red Blood Count 2.89 L 4.30-5.52 10^6/uL Hemoglobin 8.3 L 13.3-17.7 g/dL Hematocrit 26 L 40-54 % Mean Corpuscular Volume 91 80-99 fL Mean Corpuscular Hemoglobin 29 25-34 pg Mean Corpuscular Hemoglobin Concent 31 L 32-36 g/dL Red Cell Distribution Width 23.6 H 10.0-14.5 % Platelet Count 523 H 130-400 10^3/uL Mean Platelet Volume 10.1 9.0-12.2 fL Immature Granulocyte % (Auto) 1 % Neutrophils (%) (Auto) 64 42-75 % Lymphocytes (%) (Auto) 16 12-44 % Monocytes (%) (Auto) 17 H 0-12 % Eosinophils (%) (Auto) 1 0-10 % Basophils (%) (Auto) 1 0-10 % Neutrophils # (Auto) 9.9 H 1.8-7.8 10^3/uL Lymphocytes # (Auto) 2.5 1.0-4.0 10^3/uL Monocytes # (Auto) 2.5 H 0.0-1.0 10^3/uL Eosinophils # (Auto) 0.2 0.0-0.3 10^3/uL Basophils # (Auto) 0.1 0.0-0.1 10^3/uL Immature Granulocyte # (Auto) 0.2 H 0.0-0.1 10^3/uL Sodium Level 142 135-145 MMOL/L Potassium Level 3.3 L 3.6-5.0 MMOL/L Chloride Level 109 H 98-107 MMOL/L Carbon Dioxide Level 22 21-32 MMOL/L Anion Gap 11 5-14 MMOL/L Blood Urea Nitrogen 11 7-18 MG/DL Creatinine 0.80 0.60-1.30 MG/DL Estimat Glomerular Filtration Rate 94 BUN/Creatinine Ratio 14 Glucose Level 97 70-105 MG/DL Calcium Level 8.8 8.5-10.1 MG/DL Corrected Calcium 9.7 8.5-10.1 MG/DL Total Bilirubin 0.4 0.1-1.0 MG/DL Aspartate Amino Transf (AST/SGOT) 23 5-34 U/L Alanine Aminotransferase (ALT/SGPT) 24 0-55 U/L Alkaline Phosphatase 76 40-136 U/L Total Protein 5.7 L 6.4-8.2 GM/DL Albumin 2.9 L 3.2-4.5 GM/DL Triglycerides Level 107 <150 MG/DL Cholesterol Level 177 < 200 MG/DL LDL Cholesterol Direct 123 1-129 MG/DL VLDL Cholesterol 21 5-40 MG/DL HDL Cholesterol 43 40-60 MG/DL Diagnosis/Problems Diagnosis/Problems (1) Coronary artery disease without angina pectoris Assessment & Plan: He has a previous history of coronary bypass surgery as outlined above. He is not having any angina. He has been taking both aspirin and apixaban at home. Given his age, this will increase the risk of hemorrhagic side effects. I stopped his aspirin. He is not tolerant of beta-blockers due to baseline bradycardia. His cholesterol level is slightly elevated. I would suggest that he start at least a low-dose of statin medication. (2) Permanent atrial fibrillation Assessment & Plan: His heart rate is well controlled on no AV shlomo blocking agents. He is on apixaban for stroke prophylaxis. I stopped his aspirin to help reduce the risk of potential hemorrhagic side effects. If he would like to have the tunneled dialysis catheter removed, I would suggest stopping apixaban for 2 days prior to removing the catheter. We no longer recommend bridging. (3) Thoracic aortic aneurysm without rupture Assessment & Plan: His echocardiogram obtained from [facility] in [place], [place] showed mild dilatation of the thoracic aorta. This will need to be followed longitudinally. (4) Bradycardia Assessment & Plan: As above, the patient states he is intolerant of beta- blockers due to baseline bradycardia. (5) Primary hypertension Assessment & Plan: His blood pressure is reasonably controlled. He was started on amlodipine at the outside facility but has had edema from this in the past. I changed him back over to his usual dosing of lisinopril that he was taking at home prior to admission. He had also been on hydrochlorothiazide but in light of the recent acute renal failure that required dialysis, I would be hesitant to resume hydrochlorothiazide. (6) Mixed hyperlipidemia Assessment & Plan: His LDL level is 123 and this is after being in the hospital for almost 1 month which would typically cause the LDL to go down. I recommend starting him on low-dose statin medication. (7) Stage 2 chronic kidney disease Assessment & Plan: His renal function is probably now back to his baseline. He had acute renal failure at the outside hospital that temporarily required hemodialysis. (8) Morbid obesity Assessment & Plan: He needs work on weight loss. CAR DAUGHERTY JR, MD Feb 01, 2021 16:26
[2021-02-01] MEDS: BETHANECHOL 10 MG (URECHOLINE) TAB PO SCH ×2 (16:35→20:34)
[2021-02-01] MEDS: TAMSULOSIN 0.4 MG (FLOMAX) CAP PO SCH (17:41)
[2021-02-01 20:22] VITALS: BP 169/80
[2021-02-01] MEDS: lisINopril 10 MG (PRINIVIL) TABLET PO SCH (20:34)
[2021-02-01] MEDS: ROSUVASTATIN 10 MG (CRESTOR) TABLET PO SCH (20:36)
[2021-02-02] MEDS: BETHANECHOL 10 MG (URECHOLINE) TAB PO SCH ×4 (06:35→20:39)
[2021-02-02] MEDS: CATHETER FLUSH 10 ML SYR IV SCH ×3 (06:35→22:35)
[2021-02-02] MEDS: predniSONE 20 MG TAB PO SCH (06:35)
[2021-02-02] MEDS: MULTIVIT W/MINERALS TAB (THERAGRAN M) PO SCH (06:35)
[2021-02-02 07:30] VITALS: BP 167/76
[2021-02-02] MEDS: polyethylene glycoL POWDER 17 GM (MIRALAX) PACK PO SCH (08:28)
[2021-02-02] MEDS: ALLOPURINOL 100 MG (ZYLOPRIM) TAB PO SCH (08:31)
[2021-02-02] MEDS: APIXABAN 5 MG (ELIQUIS) TABLET PO SCH (08:31)
[2021-02-02] MEDS: BUMETANIDE 1 MG (BUMEX) TAB PO SCH (08:31)
[2021-02-02] MEDS: FAMOTIDINE 20 MG (PEPCID) TABLET PO SCH (08:31)
[2021-02-02] MEDS: SENNA W/DOCUSATE (SENOKOT S) TABLET PO SCH ×2 (08:32→20:39)
[2021-02-02] MEDS: FINASTERIDE (PROSCAR) 5 MG TAB PO SCH (08:32)
[2021-02-02] MEDS: LACTOBACILLUS ACIDOPHILUS (PROBIOTIC) CAPSULE PO SCH ×2 (08:32→20:39)
[2021-02-02] MEDS: PREGABALIN 50 MG (LYRICA) CAP PO SCH ×2 (08:32→20:39)
[2021-02-02] MEDS: FOLIC ACID 1 MG TAB PO SCH (08:32)
[2021-02-02] MEDS: DOCUSATE SODIUM 100 MG (COLACE) CAP PO SCH ×2 (08:32→20:39)
[2021-02-02] MEDS: lisINopril 20 MG (PRINIVIL) TABLET PO SCH (08:32)
[2021-02-02] MEDS: DICLOFENAC 1% GEL 100 GM (VOLTAREN) TUBE TOP SCH ×4 (08:41→20:44)
--- NOTE | 2021-02-02 11:41 | PM&R Progress Note ---
Subjective HPI/CC On Admission Date Seen by Provider: Feb 02, 2021 Time Seen by Provider: 11:45 Subjective/Events-last exam 02/02/2021: Patient doing well Low-sodium diet will be started Needs 1 dose of Lasix due to shortness of breath We will reach out to orthopedics for right knee injection tomorrow Marrero is in place but had to flush due to sediment Patient maintained on Eliquis 02/01/2021: Patient required Marrero reinsertion due to retention Started on Urecholine of 10 mg AC/at bedtime Consult urology Wants copies of all of his labs printed off He is requesting a right knee injection so we will reach out to one of the orthopedic surgeons on Wednesday Hemodialysis catheter will have to be discontinued after discharge unless general surgery is comfortable Review of Systems General: Fatigue, Malaise Focused Exam Lactate Level 01/31/21 15:17: Lactic Acid Level 2.41*H 01/31/21 17:22: Lactic Acid Level 1.78 Objective Exam Vital Signs Vital Signs Date Time Temp Pulse Resp B/P (MAP) Pulse Ox O2 Delivery O2 Flow Rate FiO2 02/02/21 19:08 36.9 60 13 154/74 (100) 95 Room Air Capillary Refill : General Appearance: No Apparent Distress, WD/WN, Chronically ill, Obese HEENT: PERRL/EOMI, Normal ENT Inspection, Pharynx Normal Neck: Full Range of Motion, Normal Inspection, Non Tender, Supple, Carotid Bruit Respiratory: Chest Non Tender, Lungs Clear, Normal Breath Sounds, No Accessory Muscle Use, No Respiratory Distress Cardiovascular: Regular Rate, Rhythm, No Edema, No Gallop, No JVD, No Murmur, Normal Peripheral Pulses Gastrointestinal: Normal Bowel Sounds, No Organomegaly, No Pulsatile Mass, Non Tender, Soft Back: Normal Inspection, No CVA Tenderness, No Vertebral Tenderness Extremity: Normal Capillary Refill, Normal Inspection, Normal Range of Motion, Non Tender, No Calf Tenderness, No Pedal Edema Neurologic/Psychiatric: Alert, Oriented x3, Normal Mood/Affect, speech therapist early intervention II-XII Norm as Tested, Abnormal Gait, Motor Weakness (3/5) Skin: Normal Color, Warm/Dry Lymphatic: No Adenopathy Results/Procedures Lab Patient resulted labs reviewed. FIM Transfers Therapy Code Descriptions/Definitions Functional [place] Measure: 0=Not Assessed/NA 4=Minimal Assistance 1=Total Assistance 5=Supervision or Setup 2=Maximal Assistance 6=Modified [place] 3=Moderate Assistance 7=Complete IndependenceSCALE: Activities may be completed with or without assistive devices. 9-Ecdzourilt-nrrfvfg completes the activity by him/herself with no assistance from a helper. 5-Set-up or Clean-up Assistance-helper sets up or cleans up; patient completes activity. [place] assists only prior to or following the activity. 4-Supervision or Touching Assistance-helper provides verbal cues and/or touching/steadying and/or contact guard assistance as patient completes activity. Assistance may be provided throughout the activity or intermittently. 3-Partial/Moderate Assistance-helper does LESS THAN HALF the effort. [place] lifts, holds or supports trunk or limbs, but provides less than half the effort. 2-Substantial/Maximal Assistance-helper does MORE THAN HALF the effort. [place] lifts or holds trunk or limbs and provides more than half the effort. 8-Mhefwbvvz-vibtzk does ALL the effort. Patient does none of the effort to complete the activity. Or, the assistance of 2 or more helpers is required for the patient to complete the activity. If activity was not attempted, code reason: 7-Patient Refused. 9-Not Applicable-not attempted and the patient did not perform the activity before the current illness, exacerbation or injury. 10-Not Attempted due to Environmental Limitations-(lack of equipment, weather restraints, etc.). 88-Not Attempted due to Medical Conditions or Safety Concerns. Roll Left to Right (QC): 3 Sit to Lying (QC): 3 Sit to Stand (QC): 4 Chair/Zdh-mf-Jfiew Xfer(QC): 4 Car Transfer (QC): 3 Gait Training Does the Patient Walk?: Yes Distance: 50' x 2 Walk 10 feet (QC): 4 Walk 50 ft with 2 Turns(QC): 4 Walk 150 ft (QC): 88 Walking 10ft/uneven surface-QC: 7 Gait Persons Needed: 1 Gait Assistive Device: FWW Wheelchair Training Wheel 50 ft with 2 turns (QC): 9 Wheel 150 ft (QC): 9 Stair Training 1 Step (curb) (QC): 7 4 Steps (QC): 88 12 Steps (QC): 88 Balance Picking up an Object (QC): 4 (SBA with lining maker hand) ADL-Treatment Eating (QC): 5 (Per pt report.) Oral Hygiene (QC): 5 (based on clincial judgment.) Shower/Bathe Self (QC): 3 (Assist washing BLEs lower legs/feet and buttocks. CGA in stand.) Upper Body Dressing (QC): 5 (set up to don/doff thread pulling machine attendant shirt.) Lower Body Dressing (QC): 3 (Mod A, pt able to doff pants, and thread LLE into pants. Assist to thred RLE and slight assistance with pant hike.) On/Off Footwear (QC): 3 (Pt doffed gripper socks. Assist to don.) Toileting Hygiene (QC): 3 (Mod A. Pt able to manage pants down, slight assistance with pant hike and assistance with hygiene.) Assessment/Plan Assessment and Plan Assess & Plan/Chief Complaint Assessment: Myopathy CHF diastolic type FAIZA on CRI recent HD now baseline AF OAC MSSA bactermia NATALEE on CPAP h/o splenectomy Anemia Obesity HTN HLP CAD CABG hx Plan: PT OT protocol IV abx Monitor closely 02/01/2021: Marrero catheter reinserted Urology consult 02/02/2021: Supportive care Urology consult (1) Coronary artery disease without angina pectoris Assessment & Plan: He has a previous history of coronary bypass surgery as outlined above. He is not having any angina. He has been taking both aspirin and apixaban at home. Given his age, this will increase the risk of hemorrhagic side effects. I stopped his aspirin. He is not tolerant of beta-blockers due to baseline bradycardia. His cholesterol level is slightly elevated. I would suggest that he start at least a low-dose of statin medication. (2) Permanent atrial fibrillation Assessment & Plan: His heart rate is well controlled on no AV shlomo blocking agents. He is on apixaban for stroke prophylaxis. I stopped his aspirin to help reduce the risk of potential hemorrhagic side effects. If he would like to have the tunneled dialysis catheter removed, I would suggest stopping apixaban for 2 days prior to removing the catheter. We no longer recommend bridging. (3) Thoracic aortic aneurysm without rupture Assessment & Plan: His echocardiogram obtained from [facility] in [place], [place] showed mild dilatation of the thoracic aorta. This will need to be followed longitudinally. (4) Bradycardia Assessment & Plan: As above, the patient states he is intolerant of beta- blockers due to baseline bradycardia. (5) Primary hypertension Assessment & Plan: His blood pressure is reasonably controlled. He was started on amlodipine at the outside facility but has had edema from this in the past. I changed him back over to his usual dosing of lisinopril that he was taking at home prior to admission. He had also been on hydrochlorothiazide but in light of the recent acute renal failure that required dialysis, I would be hesitant to resume hydrochlorothiazide. (6) Mixed hyperlipidemia Assessment & Plan: His LDL level is 123 and this is after being in the hospital for almost 1 month which would typically cause the LDL to go down. I recommend starting him on low-dose statin medication. (7) Stage 2 chronic kidney disease Assessment & Plan: His renal function is probably now back to his baseline. He had acute renal failure at the outside hospital that temporarily required hemodialysis. (8) Morbid obesity Assessment & Plan: He needs work on weight loss. ERICKA DANGELO DO Feb 02, 2021 11:41
[2021-02-02] MEDS ORDERED: FUROSEMIDE 40 MG/4 ML INJ (LASIX) IVP NR (12:00)
--- NOTE | 2021-02-02 12:44 | Cardiology Progress Note ---
Progress Note-Cardiology Events since last exam Date Seen by Provider: Feb 02, 2021 Time Seen by Provider: 12:39 Events since last exam I am following him due to atrial fibrillation and coronary artery disease. His lower extremity edema was slightly worse. He believes that this is because he has been eating too much sodium here in the hospital. He asked for a dose of IV Lasix. He denies chest discomfort. He denies dyspnea at rest. He denies palpitations or syncope. He would like to see if he can have his tunneled dialysis catheter removed while he is here. Certain portions of this document may have been dictated utilizing voice recognition technology. Inherent to this technology, typographical and grammatical errors may exist. As much as I am diligent to identify and correct these mistakes, some errors may remain in the document. Vitals Last set of Vitals Signs Vital Signs 02/02/21 02/02/21 07:30 09:30 Temp 36.8 Pulse 60 Resp 20 B/P (MAP) 167/76 (106) Pulse Ox 94 O2 Delivery Room Air Exam Vital Signs Vital Signs Date Time Temp Pulse Resp B/P (MAP) Pulse Ox O2 Delivery O2 Flow Rate FiO2 02/02/21 09:30 94 Room Air 02/02/21 07:30 36.8 60 20 167/76 (106) Physical Exam General: Alert. No acute distress. He is morbidly obese. Eye: No xanthelasma. HENT: Normocephalic. Neck: Jugular venous pressure does not appear elevated. Respiratory: Lungs are clear to auscultation. Respirations are non-labored. B reath sounds are equal. Symmetrical chest wall expansion. Cardiovascular: Normal rate. Irregular rhythm. No murmur. No gallop. 1-2+ bilateral pretibial edema. Gastrointestinal: Soft. Normal bowel sounds. Skin: Warm. Dry. Neurologic: Alert and oriented to person, place, time. Cranial nerves 3-11 grossly intact. Psychiatric: Cooperative. Appropriate mood & affect. Diagnosis/Problems Diagnosis/Problems (1) Coronary artery disease without angina pectoris Assessment & Plan: He has a previous history of coronary bypass surgery. He is not having any angina. He has been taking both aspirin and apixaban at home. Given his age, this will increase the risk of hemorrhagic side effects. I stopped his aspirin. He is not tolerant of beta-blockers due to baseline bradycardia. His cholesterol level is slightly elevated. I ordered low-dose statin medication on 02/01. (2) Permanent atrial fibrillation Assessment & Plan: His heart rate is well controlled on no AV shlomo blocking agents. He is on apixaban for stroke prophylaxis. I stopped his aspirin to help reduce the risk of potential hemorrhagic side effects. I will hold the apixaban so that he can have his tunneled dialysis catheter removed. Bridging is no longer recommended. (3) Thoracic aortic aneurysm without rupture Assessment & Plan: His echocardiogram obtained from [facility] in [place], [place] showed mild dilatation of the thoracic aorta. This will need to be followed longitudinally. The patient was not told about this in the past. I reassured him that this is only mild and will likely never become anything clinically significant for this patient. Nonetheless, this should be followed. (4) Bradycardia Assessment & Plan: As above, the patient states he is intolerant of beta- blockers due to baseline bradycardia. (5) Primary hypertension Assessment & Plan: His blood pressure is intermittently elevated. He was started on amlodipine at the outside facility but has had edema from this in the past. I changed him back over to his usual dosing of lisinopril that he was taking at home prior to admission. He had also been on hydrochlorothiazide but in light of the recent acute renal failure that required dialysis, I would be hesitant to resume hydrochlorothiazide. If his blood pressures remain elevated, we may need to make some adjustment to his medication. I would suggest just maximizing the JAMEY inhibitor. (6) Mixed hyperlipidemia Assessment & Plan: His LDL level is 123 and this is after being in the hospital for almost 1 month which would typically cause the LDL to go down. I ordered low-dose statin medication on 02/01. (7) Stage 2 chronic kidney disease Assessment & Plan: His renal function is probably now back to his baseline. He had acute renal failure at the outside hospital that temporarily required hemodialysis. He would like to have the dialysis catheter removed. I will place his apixaban on hold as of now. He could to have the catheter removed Wednesday or Wednesday depending upon the surgeon's preference. (8) Morbid obesity Assessment & Plan: He needs work on weight loss. CAR DAUGHERTY JR, MD Feb 02, 2021 12:44
[2021-02-02] MEDS: NS IV SCH (14:58)
[2021-02-02] MEDS: DAPTOMYCIN IV SCH (14:58)
[2021-02-02] MEDS: TAMSULOSIN 0.4 MG (FLOMAX) CAP PO SCH (16:50)
[2021-02-02 19:08] VITALS: BP 154/74
[2021-02-02] MEDS: ROSUVASTATIN 10 MG (CRESTOR) TABLET PO SCH (20:39)
[2021-02-02] MEDS: lisINopril 10 MG (PRINIVIL) TABLET PO SCH (20:39)
[2021-02-03] MEDS: diphenhydrAMINE 25 MG TAB (BENADRYL) PO PRN ×2 (03:16→21:26)
--- NOTE | 2021-02-03 05:37 | PM&R Progress Note ---
Subjective HPI/CC On Admission Date Seen by Provider: Feb 03, 2021 Time Seen by Provider: 09:00 Subjective/Events-last exam 02/03/2021: Patient doing well No issues Dr. Chappell will see him for right knee injection Potassium 3.1 will supplement Laxatives ordered 02/02/2021: Patient doing well Low-sodium diet will be started Needs 1 dose of Lasix due to shortness of breath We will reach out to orthopedics for right knee injection tomorrow Marrero is in place but had to flush due to sediment Patient maintained on Eliquis 02/01/2021: Patient required Marrero reinsertion due to retention Started on Urecholine of 10 mg AC/at bedtime Consult urology Wants copies of all of his labs printed off He is requesting a right knee injection so we will reach out to one of the orthopedic surgeons on Wednesday Hemodialysis catheter will have to be discontinued after discharge unless general surgery is comfortable Review of Systems General: Fatigue, Malaise Pulmonary: Dyspnea Musculoskeletal: leg pain Focused Exam Lactate Level Objective Exam Vital Signs Vital Signs Date Time Temp Pulse Resp B/P (MAP) Pulse Ox O2 Delivery O2 Flow Rate FiO2 02/03/21 20:00 Room Air 02/03/21 19:49 36.9 70 16 159/71 (100) 95 Capillary Refill : General Appearance: No Apparent Distress, WD/WN, Chronically ill, Obese HEENT: PERRL/EOMI, Normal ENT Inspection, Pharynx Normal Neck: Full Range of Motion, Normal Inspection, Non Tender, Supple, Carotid Bruit Respiratory: Chest Non Tender, Lungs Clear, Normal Breath Sounds, No Accessory Muscle Use, No Respiratory Distress Cardiovascular: Regular Rate, Rhythm, No Edema, No Gallop, No JVD, No Murmur, Normal Peripheral Pulses Gastrointestinal: Normal Bowel Sounds, No Organomegaly, No Pulsatile Mass, Non Tender, Soft Back: Normal Inspection, No CVA Tenderness, No Vertebral Tenderness Extremity: Normal Capillary Refill, Normal Inspection, Normal Range of Motion, Non Tender, No Calf Tenderness, No Pedal Edema Neurologic/Psychiatric: Alert, Oriented x3, Normal Mood/Affect, hammerer tab II-XII Norm as Tested, Abnormal Gait, Motor Weakness (3/5) Skin: Normal Color, Warm/Dry Lymphatic: No Adenopathy Results/Procedures Lab Laboratory Tests 02/03/21 05:30 Patient resulted labs reviewed. FIM Transfers Therapy Code Descriptions/Definitions Functional [place] Measure: 0=Not Assessed/NA 4=Minimal Assistance 1=Total Assistance 5=Supervision or Setup 2=Maximal Assistance 6=Modified [place] 3=Moderate Assistance 7=Complete IndependenceSCALE: Activities may be completed with or without assistive devices. 1-Lcrtvszbzu-cfhwkls completes the activity by him/herself with no assistance from a helper. 5-Set-up or Clean-up Assistance-helper sets up or cleans up; patient completes activity. [place] assists only prior to or following the activity. 4-Supervision or Touching Assistance-helper provides verbal cues and/or touching/steadying and/or contact guard assistance as patient completes act ivity. Assistance may be provided throughout the activity or intermittently. 3-Partial/Moderate Assistance-helper does LESS THAN HALF the effort. [place] lifts, holds or supports trunk or limbs, but provides less than half the effort. 2-Substantial/Maximal Assistance-helper does MORE THAN HALF the effort. [place] lifts or holds trunk or limbs and provides more than half the effort. 3-Dyoebgpas-dpheft does ALL the effort. Patient does none of the effort to complete the activity. Or, the assistance of 2 or more helpers is required for the patient to complete the activity. If activity was not attempted, code reason: 7-Patient Refused. 9-Not Applicable-not attempted and the patient did not perform the activity before the current illness, exacerbation or injury. 10-Not Attempted due to Environmental Limitations-(lack of equipment, weather restraints, etc.). 88-Not Attempted due to Medical Conditions or Safety Concerns. Roll Left to Right (QC): 3 Sit to Lying (QC): 3 Sit to Stand (QC): 4 Chair/Stk-sq-Jpunb Xfer(QC): 4 Car Transfer (QC): 3 Gait Training Does the Patient Walk?: Yes Distance: 50' x 2 Walk 10 feet (QC): 4 Walk 50 ft with 2 Turns(QC): 4 Walk 150 ft (QC): 88 Walking 10ft/uneven surface-QC: 7 Gait Persons Needed: 1 Gait Assistive Device: FWW Wheelchair Training Wheel 50 ft with 2 turns (QC): 9 Wheel 150 ft (QC): 9 Stair Training 1 Step (curb) (QC): 7 4 Steps (QC): 88 12 Steps (QC): 88 Balance Picking up an Object (QC): 4 (SBA with resp ther) ADL-Treatment Eating (QC): 5 (Per pt report.) Oral Hygiene (QC): 5 (based on clincial judgment.) Shower/Bathe Self (QC): 3 (Assist washing BLEs lower legs/feet and buttocks. CGA in stand.) Upper Body Dressing (QC): 5 (set up to don/doff snout puller shirt.) Lower Body Dressing (QC): 3 (Mod A, pt able to doff pants, and thread LLE into pants. Assist to thred RLE and slight assistance with pant hike.) On/Off Footwear (QC): 3 (Pt doffed gripper socks. Assist to don.) Toileting Hygiene (QC): 3 (Mod A. Pt able to manage pants down, slight assistance with pant hike and assistance with hygiene.) Assessment/Plan Assessment and Plan Assess & Plan/Chief Complaint Assessment: Myopathy CHF diastolic type FAIZA on CRI recent HD now baseline AF OAC MSSA bactermia NATALEE on CPAP h/o splenectomy Anemia Obesity HTN HLP CAD CABG hx Plan: PT OT protocol IV abx Monitor closely 02/01/2021: Marrero catheter reinserted Urology consult 02/02/2021: Supportive care Urology consult 02/03/2021: Dr. Chappell consult appreciated Right knee injection tomorrow per patient request (1) Coronary artery disease without angina pectoris Assessment & Plan: He has a previous history of coronary bypass surgery. He is not having any angina. He has been taking both aspirin and apixaban at home. Given his age, this will increase the risk of hemorrhagic side effects. I stopped his aspirin. He is not tolerant of beta-blockers due to baseline bradycardia. His cholesterol level is slightly elevated. I ordered low-dose statin medication on 02/01. (2) Permanent atrial fibrillation Assessment & Plan: His heart rate is well controlled on no AV shlomo blocking agents. He is on apixaban for stroke prophylaxis. I stopped his aspirin to help reduce the risk of potential hemorrhagic side effects. I will hold the apixaban so that he can have his tunneled dialysis catheter removed. Bridging is no longer recommended. (3) Thoracic aortic aneurysm without rupture Assessment & Plan: His echocardiogram obtained from [facility] in [place], [place] showed mild dilatation of the thoracic aorta. This will need to be followed longitudinally. The patient was not told about this in the past. I reassured him that this is only mild and will likely never become anything clinically significant for this patient. Nonetheless, this should be followed. (4) Bradycardia Assessment & Plan: As above, the patient states he is intolerant of beta- blockers due to baseline bradycardia. (5) Primary hypertension Assessment & Plan: His blood pressure is intermittently elevated. He was started on amlodipine at the outside facility but has had edema from this in the past. I changed him back over to his usual dosing of lisinopril that he was taking at home prior to admission. He had also been on hydrochlorothiazide but in light of the recent acute renal failure that required dialysis, I would be hesitant to resume hydrochlorothiazide. If his blood pressures remain elevated, we may need to make some adjustment to his medication. I would suggest just maximizing the JAMEY inhibitor. (6) Mixed hyperlipidemia Assessment & Plan: His LDL level is 123 and this is after being in the hospital for almost 1 month which would typically cause the LDL to go down. I ordered low-dose statin medication on 02/01. (7) Stage 2 chronic kidney disease Assessment & Plan: His renal function is probably now back to his baseline. He had acute renal failure at the outside hospital that temporarily required hemodialysis. He would like to have the dialysis catheter removed. I will place his apixaban on hold as of now. He could to have the catheter removed Wednesday afternoon or Wednesday depending upon the surgeon's preference. (8) Morbid obesity Assessment & Plan: He needs work on weight loss. ERICKA DANGELO DO Feb 03, 2021 05:37
[2021-02-03 06:01] LABS: BASOPHILS # (AUTO) 0.2 10^3/uL (0.0-0.1); BASOPHILS % (AUTO) 1 % (0-10); EOSINOPHILS # (AUTO) 0.6 10^3/uL (0.0-0.3); EOSINOPHILS % (AUTO) 4 % (0-10); HEMATOCRIT 26 % (40-54); HEMOGLOBIN 7.8 g/dL (13.3-17.7); LYMPHOCYTES # (AUTO) 2.7 10^3/uL (1.0-4.0); LYMPHOCYTES % (AUTO) 18 % (12-44); MEAN CORPUSCULAR HEMOGLOBIN 28 pg (25-34); MEAN CORPUSCULAR HGB CONC 30 g/dL (32-36); MEAN CORPUSCULAR VOLUME 93 fL (80-99); MEAN PLATELET VOLUME 10.2 fL (9.0-12.2); MONOCYTES # (AUTO) 2.3 10^3/uL (0.0-1.0); MONOCYTES % (AUTO) 15 % (0-12); NEUTROPHILS # (AUTO) 9.4 10^3/uL (1.8-7.8); NEUTROPHILS % (AUTO) 61 % (42-75); PLATELET COUNT 506 10^3/uL (130-400); WHITE BLOOD COUNT 15.4 10^3/uL (4.3-11.0)
[2021-02-03 06:24] LABS: ALBUMIN 2.7 GM/DL (3.2-4.5); BILIRUBIN,TOTAL 0.5 MG/DL (0.1-1.0); CALCIUM 8.6 MG/DL (8.5-10.1); CREATININE SERUM 0.79 MG/DL (0.60-1.30); POTASSIUM 3.1 MMOL/L (3.6-5.0); TOTAL PROTEIN 5.4 GM/DL (6.4-8.2)
[2021-02-03] MEDS: CATHETER FLUSH 10 ML SYR IV SCH ×3 (06:26→20:31)
[2021-02-03] MEDS: predniSONE 20 MG TAB PO SCH (06:27)
[2021-02-03] MEDS: BETHANECHOL 10 MG (URECHOLINE) TAB PO SCH ×4 (06:27→20:30)
[2021-02-03] MEDS: MULTIVIT W/MINERALS TAB (THERAGRAN M) PO SCH (06:27)
[2021-02-03] MEDS ORDERED: KCL 20 MEQ TAB (K-DUR) PO ONE (07:30)
[2021-02-03 07:45] VITALS: BP 143/71
[2021-02-03] MEDS: FAMOTIDINE 20 MG (PEPCID) TABLET PO SCH (08:05)
[2021-02-03] MEDS: polyethylene glycoL POWDER 17 GM (MIRALAX) PACK PO SCH (08:05)
[2021-02-03] MEDS: FINASTERIDE (PROSCAR) 5 MG TAB PO SCH (08:06)
[2021-02-03] MEDS: LACTOBACILLUS ACIDOPHILUS (PROBIOTIC) CAPSULE PO SCH ×2 (08:06→20:30)
[2021-02-03] MEDS: DOCUSATE SODIUM 100 MG (COLACE) CAP PO SCH ×2 (08:06→19:43)
[2021-02-03] MEDS: SENNA W/DOCUSATE (SENOKOT S) TABLET PO SCH ×2 (08:06→19:43)
[2021-02-03] MEDS: PREGABALIN 50 MG (LYRICA) CAP PO SCH ×2 (08:06→20:30)
[2021-02-03] MEDS: BUMETANIDE 1 MG (BUMEX) TAB PO SCH (08:07)
[2021-02-03] MEDS: ALLOPURINOL 100 MG (ZYLOPRIM) TAB PO SCH (08:07)
[2021-02-03] MEDS: lisINopril 20 MG (PRINIVIL) TABLET PO SCH (08:07)
[2021-02-03] MEDS: FOLIC ACID 1 MG TAB PO SCH (08:07)
[2021-02-03] MEDS: DICLOFENAC 1% GEL 100 GM (VOLTAREN) TUBE TOP SCH ×4 (08:08→20:32)
--- NOTE | 2021-02-03 09:19 | Occupational Ther Daily Note ---
OT Current Status-Daily Note Subjective pt in recliner, agreeable to OT tx but states he would like to have a BM first. Mental Status/Objective Patient Orientation: Person, Place, Situation Attachments: Marrero Catheter ADL-Treatment Therapy Code Descriptions/Definitions Functional [place] Measure: 0=Not Assessed/NA 4=Minimal Assistance 1=Total Assistance 5=Supervision or Setup 2=Maximal Assistance 6=Modified [place] 3=Moderate Assistance 7=Complete IndependenceSCALE: Activities may be completed with or without assistive devices. 0-Rrbnrfizcp-clrvgmq completes the activity by him/herself with no assistance from a helper. 5-Set-up or Clean-up Assistance-helper sets up or cleans up; patient completes activity. [place] assists only prior to or following the activity. 4-Supervision or Touching Assistance-helper provides verbal cues and/or touching/steadying and/or contact guard assistance as patient completes activity. Assistance may be provided throughout the activity or intermittently. 3-Partial/Moderate Assistance-helper does LESS THAN HALF the effort. [place] lifts, holds or supports trunk or limbs, but provides less than half the effort. 2-Substantial/Maximal Assistance-helper does MORE THAN HALF the effort. [place] lifts or holds trunk or limbs and provides more than half the effort. 0-Xvlddtueb-elmzer does ALL the effort. Patient does none of the effort to complete the activity. Or, the assistance of 2 or more helpers is required for the patient to complete the activity. If activity was not attempted, code reason: 7-Patient Refused. 9-Not Applicable-not attempted and the patient did not perform the activity before the current illness, exacerbation or injury. 10-Not Attempted due to Environmental Limitations-(lack of equipment, weather restraints, etc.). 88-Not Attempted due to Medical Conditions or Safety Concerns. Eating (QC): 6 (IND with breakfast and medications) Oral Hygiene (QC): 4 (SBA standing at sink) Shower/Bathe Self (QC): 7 Upper Body Dressing (QC): 5 (set up with lung puller shirt.) Lower Body Dressing (QC): 4 (SBA, OT threaded catheter, pt then able to don pants.) On/Off Footwear: 4 (SBA, pt able to don L shoe, doff R gripper sock and don R shoe.) Toileting Hygiene (QC): 3 (Min A for thoroughness of hygiene. Pt able to manage pants up/down.) Toilet Transfer (QC): 4 (SBA on/off toilet.) Other Treatment Pt seated in recliner, agreeable to OT Tx. Pt finished with breakfast and nurse present to provide pt medications. Pt states he would like to have a BM before he gets started. OT offered to assist pt into the bathroom. Pt declined, stating he doesn't need to go yet but will before long. OT offered shower or dressing in the mean time. Pt declined as he doesn't want to do anything prior to having BM. OT educated pt on the purpose and benefit of OT, and the rehab process/schedule. Pt reluctantly agreeable to going into the bathroom at this time. Pt used FWW to transfer into bathroom and onto toilet, SBA. Pt completed toileting, then stood at sink to wash his hands and complete oral care. Pt used FWW to transfer to recliner for seated rest break. Pt then donned clothes as outlined above. OT attempted to provide education on AE for LE dressing, pt states he doesn't need the devices to doff his socks, as he can do it himself. OT encouraged pt to doff socks, but instead he requested his shoes. Pt then donned shoes/footwear as outlined above. Pt transferred to w/c, performed w/c mobility into therapy gym in order to increase BUE strength and activity tolerance. Pt states he feels like his hands are weaker than since he got sick, in order to increase BUE fine motor strength, pt completed theraputty activity, removing beads from moderate resistance putty. Pt able to locate all beads without cues. Pt then completed arm bike, x10 mins, 15 Watt resistance, in order to increase BUE strength and activity tolerance. Post tx, pt in w/c in gym. PT present for tx. Education OT Patient Education: Correct positioning, Energy conservation, Exercise program, Modified ADL techniques, Progress toward Goal/Update tx plan, Purpose of tx/functional activities, Rehab process, Safety issues, Transfer techniques Teaching Recipient: Patient Teaching Methods: Discussion Response to Teaching: Reinforcement Needed OT Short Term Goals Short Term Goals Time Frame: Feb 14, 2021 Toileting hygiene: 4 Shower/bathe self: 4 Lower body dressin Putting on/taking off footwear: 4 OT Child Life Assistant Goals Chcf Goals Time Frame: Feb 28, 2021 Eating (QC): 6 Oral Hygiene (QC): 6 Toileting Hygiene (QC): 6 Shower/Bathe Self (QC): 5 Upper Body Dressing (QC): 6 Lower Body Dressing (QC): 6 On/Off Footwear (QC): 6 Additional Goals: 1-Demonstrate ADL Tasks, 2-Verbalize Understanding, 3- ImproveStrength/Denys 1=Demonstrate adherence to instructed precautions during ADL tasks. 2=Patient will verbalize/demonstrate understanding of assistive devices/modifications for ADL. 3=Patient will improve strength/tolerance for activity to enable patient to perform ADL's. OT Education/Plan Problem List/Assessment Assessment: Decreased Activ Tolerance, Decreased UE Strength, Impaired Funct Balance, Impaired I ADL's, Impaired Self-Care Skills Discharge Recommendations Plan/Recommendations: Continue POC Treatment Plan/Plan of Care Patient would benefit from OT for education, treatment and training to promote independence in ADL's, mobility, safety and/or upper extremity function for ADL's. Plan of Care: ADL Retraining, Functional Mobility, Group Exercise/Act as Ind, UE Funct Exercise/Act Treatment Duration: Feb 28, 2021 Frequency: At least 5 of 7 days/Wk (IRF) Estimated Hrs Per Day: 1.5 hours per day Rehab Potential: Fair Time/GCodes Start Time: 08:00 Stop Time: 09:30 Total Time Billed (hr/min): 90 Billed Treatment Time 1, ADL 4 (60'), FA (20'), EX (10') YOMI LEWIS OT Feb 03, 2021 09:19
--- NOTE | 2021-02-03 09:36 | Consultation - Surgery ---
JR,JAREMA 02/03/21 0936: History of Present Illness History of Present Illness Patient Consulted On(sandro/time) 02/03/21 09:30 Date Seen by Provider: Feb 03, 2021 Time Seen by Provider: 08:00 Reason for Visit: Consulted for removal of dialysis port on right upper chest. History of Present Illness Patient was resting in chair, patient not in distress and was being taken care of by nurses at the time of assessment. Patient wished to speak to Dr. Fox regarding procedure. Patient had some concerns about stopping Eliquis with past history of stroke. Patient didn't wish to discuss entire history. Upon return, was able to perform physical exam. He was primarily concerned with how port was going to be removed, how much bleeding there would be, and when he could start back on Eliquis. Patient stated he had some shortness of breath when he had too much salt, was given diuretic which resolved issue. Patient denied chest pain, palpitations, fever, aches, chills, nausea, vomiting, diarrhea, blood in stool, lightheadedness, or dizziness. Surgery was consulted for removal of hemodialysis catheter on right upper chest. Allergies and Home Medications Allergies Coded Allergies: codeine (Verified Allergy, Unknown, 09/30/18) Patient Home Medication List Acetaminophen (Acetaminophen) 325 Mg Tablet, 650 MG PO Q6H PRN for PAIN-MILD (1- 4), (Reported) Entered as Reported by: POLO BARBER on 01/31/211108 Last Action: Continued Allopurinol (Allopurinol) 100 Mg Tablet, 300 MG PO DAILY, (Reported) Entered as Reported by: POLO BARBER on 01/31/211108 Last Action: Continued Amlodipine Besylate (Norvasc) 10 Mg Tablet, 10 MG PO DAILY, (Reported) Entered as Reported by: POLO BARBER on 01/31/211108 Last Action: Continued Apixaban (Eliquis) 5 Mg Tablet, 5 MG PO BID, (Reported) Entered as Reported by: POLO BARBER on 01/31/211108 Last Action: Continued Aspirin (Aspirin) 81 Mg Tab.chew, 81 MG PO DAILY, (Reported) Entered as Reported by: POLO BARBER on 01/31/211108 Last Action: Continued Bumetanide (Bumetanide) 1 Mg Tablet, 1 MG PO DAILY, (Reported) Entered as Reported by: POLO BARBER on 01/31/211108 Last Action: Continued Daptomycin (Cubicin) 500 Mg Vial, 850 MG IV Q24H, (Reported) Entered as Reported by: POLO BARBER on 01/31/211108 Last Action: Converted Darbepoetin Josse in Polysorbat (Aranesp) 60 Mcg/1 Ml Vial, 60 MCG SQ WEEKLY ON WEDNESDAY, (Reported) Entered as Reported by: POLO BARBER on 01/31/211108 Last Action: Converted Dextran 70/Hypromellose (Artificial Tears) 1 Each Droperette, 1 EACH OP Q4H PRN for DRY EYES, (Reported) Entered as Reported by: POLO BARBER on 01/31/211108 Last Action: Converted Docusate Sodium (Colace) 100 Mg Capsule, 100 MG PO BID, (Reported) Entered as Reported by: POLO BARBER on 01/31/211108 Last Action: Continued Famotidine (Pepcid) 20 Mg Tablet, 20 MG PO DAILY, (Reported) Entered as Reported by: POLO BARBER on 01/31/211108 Last Action: Continued Finasteride (Finasteride) 5 Mg Tablet, 5 MG PO DAILY, (Reported) Entered as Reported by: POLO BARBER on 01/31/211108 Last Action: Continued Folic Acid/Vit Bcomp,C (Renal-Aleksandar Tablet) 0.8 Mg Tablet, 0.8 MG PO DAILY, (Reported) Entered as Reported by: POLO BARBER on 01/31/211108 Last Action: Converted Ipratropium/Albuterol Sulfate (Iprat-Albut 0.5-3(2.5) mg/3 ml) 3 Ml Ampul.neb, 3 ML IH Q4H PRN for SHORTNESS OF BREATH, (Reported) Entered as Reported by: POLO BARBER on 01/31/21 122 Last Action: Continued Lactobacillus Acidophilus (Probiotic) 1 Each Capsule, 1 EACH PO BID, (Reported) Entered as Reported by: POLO BARBER on 01/31/211108 Last Action: Converted Lisinopril (Lisinopril) 10 Mg Tablet, 10 MG PO DAILY, (Reported) Entered as Reported by: POLO BARBER on 01/31/211108 Last Action: Continued Oxycodone HCl/Acetaminophen (Oxycodone-Acetaminophen 5-325) 1 Each Tablet, 1 EACH PO Q8H PRN for PAIN-SEVERE, (Reported) Entered as Reported by: POLO BARBER on 01/31/211108 Last Action: Continued Polyethylene Glycol 3350 (Miralax) 17 Gm Powd.pack, 17 GM PO DAILY, (Reported) Entered as Reported by: POLO BARBER on 01/31/211108 Last Action: Continued Prednisone (Prednisone) 5 Mg Tablet, 10 MG PO DAILY, (Reported) Entered as Reported by: POLO BARBER on 01/31/211108 Last Action: Held Pregabalin (Lyrica) 50 Mg Capsule, 50 MG PO BID, (Reported) Entered as Reported by: POLO BARBER on 01/31/211108 Last Action: Continued Discontinued Medications Calcitonin,Lavon,Synthetic (Calcitonin-Lavon) 3.7 Ml Lyman.pump, 200 UNITS NS DAILY Discontinued Reason: No Longer Taking Prescribed by: NIA JURADO on 09/30/181845 Last Action: Discontinued Oxycodone HCl/Acetaminophen (Percocet 5-325 mg Tablet) 1 Each Tablet, 1 TAB PO Q4H Discontinued Reason: No Longer Taking Prescribed by: NIA JURADO on 09/30/181845 Last Action: Discontinued Past Vhiwwwe-Osjely-Gjtczv Hx Patient Social History Smoking Status: Never a Smoker 2nd Hand Smoke Exposure: No Recent Hopitalizations: No Alcohol Use?: Yes Have you traveled recently?: No Seasonal Allergies Seasonal Allergies: Yes Surgeries History of Surgeries: Yes (hernia, L knee, splenectomy, shoulder, quad bipass) Surgeries: Abdominal, Cardiac, CABG Respiratory History of Respiratory Disorde: No Cardiovascular History of Cardiac Disorders: Yes (quad bipass) Cardiac Disorders: Atrial Fibrillation, Heart Attack, High Cholesterol, Hypertension Neurological History of Neurological Disord: Yes Neurological Disorders: Stroke, Vertigo Genitourinary History of Genitourinary Disor: No Genitourinary Disorders: Neurogenic Bladder Gastrointestinal History of Gastrointestinal Di: Yes Gastrointestinal Disorders: Gastroesophageal Reflux, Gastrointestinal Bleed Musculoskeletal History of Musculoskeletal Dis: Yes Musculoskeletal Disorders: Arthritis, Chronic Back Pain Endocrine History of Endocrine Disorders: No HEENT History of HEENT Disorders: Yes (some hearing loss in L ear) Cancer History of Cancer: No Psychosocial History of Psychiatric Problem: No Blood Transfusions History of Blood Disorders: No Adverse Reaction to a Blood Tr: No Physical Exam-General Problems Physical Exam Vital Signs Vital Signs - First Documented 01/31/21 10:25 Temp 36.6 Pulse 62 Resp 18 B/P (MAP) 175/88 (117) Pulse Ox 94 O2 Delivery Room Air Capillary Refill : General Appearance: no apparent distress, obese Eyes: Bilateral Eye EOMI HEENT: normal ENT inspection, pharynx normal; No scleral icterus (R), No scleral icterus (L) Neck: non-tender, full range of motion, supple Respiratory: chest non-tender, lungs clear, normal breath sounds, no respiratory distress, no accessory muscle use, other (Normal respiratory movement.) Cardiovascular: regular rate, rhythm, no gallop, no murmur Peripheral Pulses: 1+ Dorsalis Pedis (R), 1+ Left Dors-Pedis (L); 2+ Radial Pulses (R), 2+ Radial Pulses (L) Gastrointestinal: non tender, soft, no organomegaly, no pulsatile mass Back: no CVA tenderness, no vertebral tenderness Extremities: normal range of motion, no calf tenderness, pedal edema (mild), swelling (right knee is mildly swollen compared to left. pt stated he spoke with ortho.) Neurologic/Psychiatric: no motor/sensory deficits, alert, normal mood/affect, oriented x 3 Skin: normal color, warm/dry Lymphatic: no adenopathy (head and neck.) Data Review Labs Laboratory Tests 02/03/21 05:30: White Blood Count 15.4H, Red Blood Count 2.76L, Hemoglobin 7.8L, Hematocrit 26L, Mean Corpuscular Volume 93, Mean Corpuscular Hemoglobin 28, Mean Corpuscular Hemoglobin Concent 30L, Red Cell Distribution Width 23.7H, Platelet Count 506H, Mean Platelet Volume 10.2, Immature Granulocyte % (Auto) 1, Neutrophils (%) (Auto) 61, Lymphocytes (%) (Auto) 18, Monocytes (%) (Auto) 15H, Eosinophils (%) (Auto) 4, Basophils (%) (Auto) 1, Neutrophils # (Auto) 9.4H, Lymphocytes # (Auto) 2.7, Monocytes # (Auto) 2.3H, Eosinophils # (Auto) 0.6H, Basophils # (Auto) 0.2H, Immature Granulocyte # (Auto) 0.2H, Sodium Level 143, Potassium Level 3.1L, Chloride Level 108H, Carbon Dioxide Level 23, Anion Gap 12, Blood Urea Nitrogen 12, Creatinine 0.79, Estimat Glomerular Filtration Rate 96, BUN/Creatinine Ratio 15, Glucose Level 84, Calcium Level 8.6, Corrected Calcium 9.6, Total Bilirubin 0.5, Aspartate Amino Transf (AST/SGOT) 21, Alanine Aminotransferase (ALT/SGPT) 19, Alkaline Phosphatase 61, Total Protein 5.4L, Albumin 2.7L Microbiology 01/31/21 Blood Culture - Preliminary, Resulted No growth Assessment/Plan Assessment/Plan Assessment/Plan Completion of hemodialysis tx. Plan: npo after midnight. Removal of hemodialysis catheter. SAMARA FOX DO 02/03/21 1614: History of Present Illness History of Present Illness Time Seen by Provider: 13:19 History of Present Illness Surgery consulte for hemodialysis catheter removal. HPI: pt is a 75 yo male sent to rehab after being in hospital for sepsis, hx of stroke an is on Eliquis. He had renal failure in hospital, "but they came roaring back". He no longer need catheter. Allergies and Home Medications Allergies Coded Allergies: codeine (Verified Allergy, Unknown, 09/30/18) Patient Home Medication List Home Medication List Reviewed: Yes Acetaminophen (Acetaminophen) 325 Mg Tablet, 650 MG PO Q6H PRN for PAIN-MILD (1- 4), (Reported) Entered as Reported by: POLO BARBER on 01/31/211108 Last Action: Continued Allopurinol (Allopurinol) 100 Mg Tablet, 300 MG PO DAILY, (Reported) Entered as Reported by: POLO BARBER on 01/31/211108 Last Action: Continued Amlodipine Besylate (Norvasc) 10 Mg Tablet, 10 MG PO DAILY, (Reported) Entered as Reported by: POLO BARBER on 01/31/211108 Last Action: Continued Apixaban (Eliquis) 5 Mg Tablet, 5 MG PO BID, (Reported) Entered as Reported by: POLO BARBER on 01/31/211108 Last Action: Continued Aspirin (Aspirin) 81 Mg Tab.chew, 81 MG PO DAILY, (Reported) Entered as Reported by: POLO BARBER on 01/31/211108 Last Action: Continued Bumetanide (Bumetanide) 1 Mg Tablet, 1 MG PO DAILY, (Reported) Entered as Reported by: POLO BARBER on 01/31/211108 Last Action: Continued Daptomycin (Cubicin) 500 Mg Vial, 850 MG IV Q24H, (Reported) Entered as Reported by: POLO BARBER on 01/31/211108 Last Action: Converted Darbepoetin Josse in Polysorbat (Aranesp) 60 Mcg/1 Ml Vial, 60 MCG SQ WEEKLY ON WEDNESDAY, (Reported) Entered as Reported by: POLO BARBER on 01/31/211108 Last Action: Converted Dextran 70/Hypromellose (Artificial Tears) 1 Each Droperette, 1 EACH OP Q4H PRN for DRY EYES, (Reported) Entered as Reported by: POLO BARBER on 01/31/211108 Last Action: Converted Docusate Sodium (Colace) 100 Mg Capsule, 100 MG PO BID, (Reported) Entered as Reported by: POLO BARBER on 01/31/211108 Last Action: Continued Famotidine (Pepcid) 20 Mg Tablet, 20 MG PO DAILY, (Reported) Entered as Reported by: POLO BARBER on 01/31/211108 Last Action: Continued Finasteride (Finasteride) 5 Mg Tablet, 5 MG PO DAILY, (Reported) Entered as Reported by: POLO BARBER on 01/31/211108 Last Action: Continued Folic Acid/Vit Bcomp,C (Renal-Aleksandar Tablet) 0.8 Mg Tablet, 0.8 MG PO DAILY, (Reported) Entered as Reported by: POLO BARBER on 01/31/211108 Last Action: Converted Ipratropium/Albuterol Sulfate (Iprat-Albut 0.5-3(2.5) mg/3 ml) 3 Ml Ampul.neb, 3 ML IH Q4H PRN for SHORTNESS OF BREATH, (Reported) Entered as Reported by: POLO BARBER on 01/31/21 1228 Last Action: Continued Lactobacillus Acidophilus (Probiotic) 1 Each Capsule, 1 EACH PO BID, (Reported) Entered as Reported by: POLO BARBER on 01/31/211108 Last Action: Converted Lisinopril (Lisinopril) 10 Mg Tablet, 10 MG PO DAILY, (Reported) Entered as Reported by: OPLO BARBER on 01/31/211108 Last Action: Continued Oxycodone HCl/Acetaminophen (Oxycodone-Acetaminophen 5-325) 1 Each Tablet, 1 EACH PO Q8H PRN for PAIN-SEVERE, (Reported) Entered as Reported by: POLO BARBER on 01/31/211108 Last Action: Continued Polyethylene Glycol 3350 (Miralax) 17 Gm Powd.pack, 17 GM PO DAILY, (Reported) Entered as Reported by: POLO BARBER on 01/31/211108 Last Action: Continued Prednisone (Prednisone) 5 Mg Tablet, 10 MG PO DAILY, (Reported) Entered as Reported by: POLO BARBER on 01/31/211108 Last Action: Held Pregabalin (Lyrica) 50 Mg Capsule, 50 MG PO BID, (Reported) Entered as Reported by: POLO BARBER on 01/31/211108 Last Action: Continued Discontinued Medications Calcitonin,Lavon,Synthetic (Calcitonin-Lavon) 3.7 Ml Lyman.pump, 200 UNITS NS DAILY Discontinued Reason: No Longer Taking Prescribed by: NIA JURADO on 09/30/181845 Last Action: Discontinued Oxycodone HCl/Acetaminophen (Percocet 5-325 mg Tablet) 1 Each Tablet, 1 TAB PO Q4H Discontinued Reason: No Longer Taking Prescribed by: NIA JURADO on 09/30/181845 Last Action: Discontinued Past Hyjnzmj-Hagsmi-Cvzany Hx Patient Social History Smoking Status: Never a Smoker Alcohol Use?: Yes Surgeries History of Surgeries: Yes Surgeries: CABG, Orthopedic Respiratory History of Respiratory Disorde: No Cardiovascular History of Cardiac Disorders: Yes Cardiac Disorders: Atrial Fibrillation, Coronary Artery Disease, Hypertension, Irregular Heartbeat Neurological History of Neurological Disord: Yes Neurological Disorders: Stroke, Vertigo Genitourinary History of Genitourinary Disor: Yes Genitourinary Disorders: Renal Failure, Dialysis Gastrointestinal History of Gastrointestinal Di: Yes Gastrointestinal Disorders: Gastroesophageal Reflux Musculoskeletal History of Musculoskeletal Dis: Yes Musculoskeletal Disorders: Arthritis, Chronic Back Pain Endocrine History of Endocrine Disorders: No HEENT History of HEENT Disorders: No Loss of Vision: Denies Hearing Impairment: Denies Cancer History of Cancer: No Psychosocial History of Psychiatric Problem: No Integumentary History of Skin or Integumenta: No Family Medical History Significant Family History: Heart Disease (denied in his parents) Review of Systems-General Constitutional: No diaphoresis, No fever; malaise EENTM: No blurred vision, No mouth swelling, No epistaxis Respiratory: No cough, No dyspnea on exertion Cardiovascular: No chest pain; Hx of Intervention, palpitations Gastrointestinal: No abdominal pain, No nausea, No vomiting Genitourinary: No dysuria, No frequency, No hematuria Musculoskeletal: back pain Skin: No change in color, No change in hair/nails Psychiatric/Neurological: Denies Seizure, Denies Weakness Physical Exam-General Problems Physical Exam General Appearance: no apparent distress, obese Eyes: Bilateral Eye PERRL, Bilateral Eye EOMI HEENT: pharynx normal; No scleral icterus (R), No scleral icterus (L) Neck: non-tender, supple Respiratory: lungs clear, normal breath sounds, no respiratory distress, no accessory muscle use Cardiovascular: systolic murmur (II/), irregularly irregular Gastrointestinal: non tender, soft, no organomegaly, no pulsatile mass Back: no CVA tenderness, no vertebral tenderness Extremities: no calf tenderness, pedal edema (mild), swelling (right knee is mildly swollen compared to left. pt stated he spoke with ortho.) Neurologic/Psychiatric: alert, oriented x 3 Skin: normal color, warm/dry, other (dialysis catheter righ anterior chest w all) Lymphatic: no adenopathy (head and neck.) Assessment/Plan Assessment/Plan Assessment/Plan Retained Hemodialysis Catheter - no longer needed Plan to make pt npo after midnight, he has already stopped his Eliquis and will take him to the OR to remove dialysis catheter. We discussed risks and complications not limited to pain, bleeding, infection, scar and damage to major vessels with need for further procedure. All questions answered to his satisfaction. Supervisory-Addendum Brief Verification & Attestation Participated in pt care: history, MDM, physical Personally performed: exam, history, MDM, supervision of care Care discussed with: Medical Student Procedures: n/a Verification and Attestation of Medical Student E/M Service A medical student performed and documented this service. I then reviewed and verified all information documented by the medical student and made modifications to such information, when appropriate. I personally performed a physical exam, medical decision making and then discussed any differences between the notes and made revisions as necessary to create one note. Samara Fox , 02/03/21 , 16:19 MARY NORRIS Feb 03, 2021 09:36 SAMARA FOX 22, 2021 16:14
--- NOTE | 2021-02-03 10:49 | Physical Therapy Daily Note ---
PT Daily Note-Current Subjective Patient in WC in therapy gym pre tx, agrees to PT, states he has very little pain in right knee at rest but severe pain with activity. Appearance Patient in recliner post tx with nurse call, phone, tray, all needs met. Mental Status Patient Orientation: Person, Place, Situation Attachments: [place] Catheter Transfers SCALE: Activities may be completed with or without assistive devices. 4-Sfsqhnhiun-njvjdus completes the activity by him/herself with no assistance from a helper. 5-Set-up or Clean-up Assistance-helper sets up or cleans up; patient completes activity. [place] assists only prior to or following the activity. 4-Supervision or Touching Assistance-helper provides verbal cues and/or touching/steadying and/or contact guard assistance as patient completes activity. Assistance may be provided throughout the activity or intermittently. 3-Partial/Moderate Assistance-helper does LESS THAN HALF the effort. [place] lifts, holds or supports trunk or limbs, but provides less than half the effort. 2-Substantial/Maximal Assistance-helper does MORE THAN HALF the effort. [place] lifts or holds trunk or limbs and provides more than half the effort. 1-Swowxdjem-ngucvu does ALL the effort. Patient does none of the effort to complete the activity. Or, the assistance of 2 or more helpers is required for the patient to complete the activity. If activity was not attempted, code reason: 7-Patient Refused. 9-Not Applicable-not attempted and the patient did not perform the activity before the current illness, exacerbation or injury. 10-Not Attempted due to Environmental Limitations-(lack of equipment, weather restraints, etc.). 88-Not Attempted due to Medical Conditions or Safety Concerns. Sit to Stand (QC): 4 Chair/Azn-ae-Hvabf Xfer(QC): 4 Patient sometimes needs a couple of attempts at standing but can do it without assist. Gait Training Distance: 20', 50', 70' Walk 10 feet (QC): 4 Walk 50 ft with 2 Turns(QC): 4 Gait Persons Needed: 1 Gait Assistive Device: FWW WC follow, very slow and antalgic, slumped posture, leans heavily on walker Exercises Seated Therapy Exercises: Ankle pumps, Hip flexion, Hip abd/add (with ball and RTB) Standing: Hip Abduction, Heel/toe raises Standing Reps: 15 LAQ alternating for 5 min NuStep Minutes: 15 NuStep Workload: 3 (less resistance due to right knee pain) Treatments transfers, ambulation, functional strengthening Assessment Current Status: Poor Progress Right knee pain makes progress difficult, and patient was very SOB with activity. He talked to his nurse about meds because he feels he is retaining fluid, making it hard to breathe. Patient needed many rest breaks, significant in length due to pain and SOB. PT Short Term Goals Short Term Goals Time Frame: Feb 07, 2021 Roll Left & Right: 6 Sit to lyin Lying to sitting on side of be: 4 Sit to stand: 4 (SBA) Chair/hbl-pi-cwoiv transfer: 4 (SBA) Walk 10 feet: 4 Walk 50 feet with two turns: 4 Walk 150 feet: 4 PT Prison Goals Prison Goals PT Senior Operations Analyst Goals Time Frame: Feb 21, 2021 Roll Left & Right (QC): 6 Sit to Lying (QC): 6 Lying-Sitting on Side/Bed(QC): 6 Sit to Stand (QC): 5 Chair/Vdx-zf-Msgic Xfer(QC): 5 Toilet Transfer (QC): 5 Car Transfer (QC): 5 Does the Patient Walk: Yes Walk 10 feet (QC): 5 Walk 50ft with 2 Turns (QC): 5 Walk 150 ft (QC): 5 Walking 10ft on Uneven Surface: 4 1 Step (curb) (QC): 4 4 Steps (QC): 4 12 Steps (QC): 4 Picking up an Object (QC): 6 Wheel 50 feet with 2 turns (QC: 9 Wheel 150 feet: 9 PT Plan Problem List Problem List: Activity Tolerance, Functional Strength, Safety, Balance, Gait, Transfer, Bed Mobility, ROM Treatment/Plan Treatment Plan: Continue Plan of Care Treatment Plan: Bed Mobility, Education, Functional Activity Denys, Functional Strength, Group Therapy, Gait, Safety, Therapeutic Exercise, Transfers Treatment Duration: Feb 21, 2021 Frequency: At least 5 of 7 days/Wk (IRF) Estimated Hrs Per Day: 1.5 hours per day Patient and/or Family Agrees t: Yes Safety Risks/Education Patient Education: Gait Training, Transfer Techniques, Correct Positioning, Safety Issues Teaching Recipient: Patient Teaching Methods: Demonstration, Discussion Response to Teaching: Reinforcement Needed Time/GCodes Time In: 0930 Time Out: 1100 Total Billed Treatment Time: 90 Total Billed Treatment 1 visit GT 45' EX 45' SCOOTER PERKINS PT Feb 03, 2021 10:49
--- OUTSIDE RECORDS SUMMARY | 2021-02-03 11:09 | XMS REPORT | Clinical Summary ---
Author Author [facility] Organization [facility] Address Unknown Phone Unavailable Care Team Providers Care Trade Clerk Name Role Phone No Pcp, Na PCP Unavailable Source Comments Some departments are not documenting in the electronic medical record. If you d o not see the information that you expected, contact Release of Information in [facility] [employer] Information Management department at [phone] for further assistan ce in locating additional records.[facility] Allergies Comments Active Allergy Reactions Severity Noted Date Codeine ITCHING Low 05/08/2016 Medications End Date Status Medication Sig Dispensed Refills Start Date Active omeprazole DR(+) Take 20 mg by 0 (PRILOSEC) 20 mg capsule mouth daily before breakfast. Active fexofenadine(+) (MC) Take 180 mg 0 180 mg tablet by mouth daily as needed. Active aspirin EC 81 mg tablet Take 81 mg by 0 mouth daily. Take with food. Active OXYCODONE HCL (OXYCODONE Take 5 mg by 0 PO) mouth every 6 hours as needed. Active minoxidil (LONITEN) 10 mg Take 10 mg by 0 tablet mouth daily. Active PRAVASTATIN SODIUM Take 40 mg by 0 (PRAVASTATIN PO) mouth daily. Active coQ10 (ubiquinol) 100 mg Take 1 Cap by 0 cap mouth daily. Active apixaban (ELIQUIS) 5 mg Take 5 mg by 0 tablet mouth twice daily. Active lisinopril (PRINIVIL, Take 40 mg by 0 ZESTRIL) 40 mg tablet mouth daily. Active hydroCHLOROthiazide Take 12.5 mg 0 (HYDRODIURIL) 12.5 mg by mouth tablet every morning. Active Problems Problem Noted Date Brain aneurysm 05/13/2016 Surgical History Surgery Date Site/Laterality Comments HX JOINT REPLACEMENT Left HX SHOULDER SURGERY Left HERNIA REPAIR inguinal ATRIAL ABLATION SURGERY HX CORONARY ARTERY BYPASS x 4 GRAFT CARDIAC CATHERIZATION Medical History Medical History Date Comments Atrial fibrillation (HCC) CAD (coronary artery disease) GERD (gastroesophageal reflux disease) Hypertension Arthritis Family History Medical History Relation Name Comments Aneurysm Mother Coronary Artery Disease Mother Kidney Disease Paternal Grandfather Relation Name Status Comments Father Dissecting AAA Maternal Grandfather Maternal Grandmother Mother (Age 83) Paternal Grandfather Paternal Grandmother Social History Date Tobacco Use Types Packs/Day Years Used Never Smoker Smokeless Tobacco: Never Used Comments Alcohol Use Standard Drinks/Week Yes 0 (1 standard drink = 0.6 o z pure alcohol) Sex Assigned at Date Recorded Not on file Last Filed Vital Signs Reading Time Taken Comments Vital Sign 152/93 05/13/2016 12:29 PM SENIOR PASTOR Blood Pressure 76 05/13/2016 12:29 PM SENIOR PASTOR Pulse - - Temperature - - Respiratory Rate - - Oxygen Saturation - - Inhaled Oxygen Concentration 124.3 kg (274 lb) 05/13/2016 12:29 PM SENIOR PASTOR Weight 175.3 cm (5' 9") 05/13/2016 12:29 PM SENIOR PASTOR Height 40.46 05/13/2016 12:29 PM SENIOR PASTOR Body Mass Index Plan of Treatment Health Maintenance Due Date Last Done Comments DTAP/TDAP VACCINES (1 - 1964 Tdap) HEPATITIS C SCREENING 1963 PHYSICAL (COMPREHENSIVE) 1964 EXAM COLORECTAL CANCER 1996 SCREENING SHINGLES RECOMBINANT 1996 VACCINE (1 of 2) PNEUMONIA (PPSV23) 12/10/2011 VACCINE (1 of 1 - PPSV23) INFLUENZA VACCINE 10/13/2020 Results Not on filefrom Last 3 Months Advance 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
[2021-02-03] MEDS: DAPTOMYCIN IV SCH (13:41)
[2021-02-03] MEDS: NS IV SCH (13:41)
[2021-02-03] MEDS: TAMSULOSIN 0.4 MG (FLOMAX) CAP PO SCH (17:04)
[2021-02-03] MEDS: ROSUVASTATIN 10 MG (CRESTOR) TABLET PO SCH (19:43)
[2021-02-03 19:49] VITALS: BP 159/71
[2021-02-03] MEDS: lisINopril 10 MG (PRINIVIL) TABLET PO SCH (20:31)
[2021-02-04] MEDS: CATHETER FLUSH 10 ML SYR IV SCH ×3 (06:29→21:40)
[2021-02-04] MEDS: BETHANECHOL 10 MG (URECHOLINE) TAB PO SCH ×5 (07:33→21:40)
[2021-02-04 07:49] VITALS: BP 151/70
--- NOTE | 2021-02-04 08:33 | Progress Note - Surgery ---
DEBORAH HURLEY MED STUDENT 02/04/21 0833: Subjective Date Seen by a Provider: Feb 04, 2021 Time Seen by a Provider: 07:30 Subjective/Events-last exam This is Jorge L a 75 yo male with the chief complaint of critical illness myopathy. Surgery has been consulted to this case for removal of dialysis port on right upper chest. Surgery is scheduled for this afternoon with Dr. Fox. Upon entering the room her was sitting up in his chair having a coffee. Pt was calm, cooperative, and engaged during questioning. Pt has continued to take normal medications except Eliquis. He has now missed 4 dosed of Eliquis and expressed concern for staying off of it for a long period of time. He denies having anything to eat and has been NPO since midnight. He had a small BM this AM. Pt describes being short of breath and experiencing bilateral edema. He stated that he takes a lasix when he feels like this and will discuss getting it from Dr. Rhodes this morning. He states that on his daily weights he is up 7 pounds in 3 days. Pt states that he would like to continue with the plan to have surgery. He states that during surgery he has become bradycardic and requires a CPAP machine. Review of Systems Pulmonary: Dyspnea Cardiovascular: Edema (bilateral LE pitting edema) Focused Exam Time of Focused Exam: 07:40 Respiratory: Chest Non Tender, Lungs Clear, Normal Breath Sounds, No Accessory Muscle Use, No Respiratory Distress Cardiovascular: Regular Rate, Rhythm, No Gallop Skin: normal color, warm/dry Objective Exam Vital Signs Date Time Temp Pulse Resp B/P (MAP) Pulse Ox O2 Delivery O2 Flow Rate FiO2 02/04/21 07:49 35.5 54 16 151/70 (97) 95 Room Air 02/04/21 07:20 95 Room Air 02/03/21 20:00 Room Air 02/03/21 19:49 36.9 70 16 159/71 (100) 95 Room Air 02/03/21 09:00 94 Room Air I & O 02/04/21 07:00 Intake Total 1285 ml Output Total 1775 ml Balance -490 ml Capillary Refill : General Appearance: No Apparent Distress, WD/WN, Chronically ill, Obese HEENT: PERRL/EOMI Neck: Normal Inspection, Non Tender, Supple Respiratory: Chest Non Tender, Lungs Clear, Normal Breath Sounds, No Accessory Muscle Use, No Respiratory Distress Cardiovascular: Regular Rate, Rhythm, No Gallop Peripheral Pulses: 1+ Dorsalis Pedis (R), 1+ Left Dors-Pedis (L); 2+ Radial Pulses (R), 2+ Radial Pulses (L) Gastrointestinal: non tender, soft Extremity: Normal Capillary Refill, Normal Inspection, Non Tender, No Calf Tenderness, Pedal Edema (bilateral LE pitting edema) Neurologic/Psychiatric: Alert, Oriented x3, Normal Mood/Affect, Motor Weakness (3/5) Skin: Normal Color, Warm/Dry Lymphatic: No Adenopathy (cervical and supraclavicular) Results Lab Microbiology 01/31/21 Blood Culture - Preliminary, Resulted No growth Assessment/Plan Assessment/Plan Assessment/Plan Retained Hemodialysis Catheter - no longer needed Plan to make pt npo after midnight, he has already stopped his Eliquis and will take him to the OR to remove dialysis catheter. We discussed risks and complications not limited to pain, bleeding, infection, scar and damage to major vessels with need for further procedure. All questions answered to his satisfaction. Assessment: SOB bilateral LE pitting edema hypertension 159/71 on 02/04 leukocytosis with WBC of 15.4 on 02/04 anemia with Hgb of 7.8 on 02/04 hypokalemia with K of 3.1 on 02/04 Plan: removal of hemodialysis catheter as scheduled assuming lasix reduced symptoms of SOB MIKEY Avendano DO 02/04/21 1207: Subjective Time Seen by a Provider: 11:51 Subjective/Events-last exam Pt seen and examined, states he was having some "trouble breathing" but Dr. Haynes gave Lasix and he is feeling much better now. He was worried about surgery with his trouble breathing, but is not worried now. Review of Systems Pulmonary: Dyspnea; No Cough Cardiovascular: Edema (bilateral LE pitting edema); No: Chest Pain, Palpitations Gastrointestinal: No: Nausea, Vomiting Objective Exam General Appearance: No Apparent Distress, Obese Respiratory: Lungs Clear, Normal Breath Sounds, No Accessory Muscle Use, No Respiratory Distress Cardiovascular: No Murmur, Other (Normal rate, irregular rhythm) Gastrointestinal: non tender, soft Extremity: Pedal Edema (bilateral LE pitting edema) Assessment/Plan Assessment/Plan Assessment/Plan Retained Hemodialysis Catheter - no longer needed SOB -resolved after Lasix (he has already had urine output of 400ml) Plan to OR to remove dialysis catheter. We discussed risks and complications not limited to pain, bleeding, infection, scar and damage to major vessels with need for further procedure. All questions answered to his satisfaction. Supervisory-Addendum Brief Verification & Attestation Participated in pt care: history, MDM, physical Personally performed: exam, history, MDM, supervision of care Care discussed with: Medical Student Procedures: n/a Verification and Attestation of Medical Student E/M Service A medical student performed and documented this service. I then reviewed and verified all information documented by the medical student and made modifications to such information, when appropriate. I personally performed a physical exam, medical decision making and then discussed any differences between the notes and made revisions as necessary to create one note. Mikey Fox , 02/04/21 , 12:07 DEBORAH HURLEY MED STUDENT Feb 04, 2021 08:33 MIKEY FOX DO Feb 04, 2021 12:07
--- NOTE | 2021-02-04 08:43 | Occupational Ther Daily Note ---
OT Current Status-Daily Note Subjective Pt on toilet upon OT arrival, requested more time on the toilet. Pt agreeable to OT tx with some encouragement. Pt states he would prefer to do therapy after lunch, but agreeable when educated on ARU expectations/process. Mental Status/Objective Patient Orientation: Person, Place, Time, Situation Attachments: Marrero Catheter ADL-Treatment Therapy Code Descriptions/Definitions Functional [place] Measure: 0=Not Assessed/NA 4=Minimal Assistance 1=Total Assistance 5=Supervision or Setup 2=Maximal Assistance 6=Modified [place] 3=Moderate Assistance 7=Complete IndependenceSCALE: Activities may be completed with or without assistive devices. 4-Zqcepanyzs-ezgnkhi completes the activity by him/herself with no assistance from a helper. 5-Set-up or Clean-up Assistance-helper sets up or cleans up; patient completes activity. [place] assists only prior to or following the activity. 4-Supervision or Touching Assistance-helper provides verbal cues and/or touching/steadying and/or contact guard assistance as patient completes activity. Assistance may be provided throughout the activity or intermittently. 3-Partial/Moderate Assistance-helper does LESS THAN HALF the effort. [place] lifts, holds or supports trunk or limbs, but provides less than half the effort. 2-Substantial/Maximal Assistance-helper does MORE THAN HALF the effort. [place] lifts or holds trunk or limbs and provides more than half the effort. 8-Hcjpvkjlb-izghmb does ALL the effort. Patient does none of the effort to complete the activity. Or, the assistance of 2 or more helpers is required for the patient to complete the activity. If activity was not attempted, code reason: 7-Patient Refused. 9-Not Applicable-not attempted and the patient did not perform the activity before the current illness, exacerbation or injury. 10-Not Attempted due to Environmental Limitations-(lack of equipment, weather restraints, etc.). 88-Not Attempted due to Medical Conditions or Safety Concerns. Eating (QC): 88 (NPO this AM) Toileting Hygiene (QC): 4 (SBA) Toilet Transfer (QC): 4 (SBA ) Other Treatment [id number]: Pt seated on toilet, completed toileting, then completed SPT using FWW to w/c with SBA. Pt sat at sink to wash hands independently. OT tx focused on increasing BUE strength and activity tolerance. Pt performed w/c mobility to therapy gym, SBA. He then completed arm bike x15 mins, 20 Watt resistance. Pt then removed beads from moderate resistance theraputty in order to increase fine motor strength and driller helper strength. [id number]: OT/PT cotreat due to skill of 2 clinicians required which a vocational rehab consultant could not perform in order to coordinate UE/LEs, decrease fall risk, and focus on higher level balance tasks, and due to pt's limitations in strength, activity tolerance, R knee pain, and SOB with activity. OT focused on UE placement, cues for sequencing and safety, PT focused on LE placement, gross overall movement, and mobility/transfers. Pt taken to kitchen area via w/c in order to conserve energy and due to knee pain. Pt able to locate 10/10 cones in overhead cabinets, drawers and lower cabinets in simulated kitchen task. Pt required min cues to locate all cones, and min cues for body positioning and safety. Pt required multiple rest breaks with task due to knee pain. Post tx, pt in w/c all needs met, PT present to continue tx. Education OT Patient Education: Correct positioning, Energy conservation, Exercise program, Modified ADL techniques, Progress toward Goal/Update tx plan, Purpose of tx/functional activities Teaching Recipient: Patient Teaching Methods: Discussion Response to Teaching: Verbalize Understanding, Reinforcement Needed OT Short Term Goals Short Term Goals Time Frame: Feb 14, 2021 Toileting hygiene: 4 Shower/bathe self: 4 Lower body dressin Putting on/taking off footwear: 4 OT Unit Aide Goals Unit Aide Goals Time Frame: Feb 28, 2021 Eating (QC): 6 Oral Hygiene (QC): 6 Toileting Hygiene (QC): 6 Shower/Bathe Self (QC): 5 Upper Body Dressing (QC): 6 Lower Body Dressing (QC): 6 On/Off Footwear (QC): 6 Additional Goals: 1-Demonstrate ADL Tasks, 2-Verbalize Understanding, 3- ImproveStrength/Denys 1=Demonstrate adherence to instructed precautions during ADL tasks. 2=Patient will verbalize/demonstrate understanding of assistive devices/modifications for ADL. 3=Patient will improve strength/tolerance for activity to enable patient to perform ADL's. OT Education/Plan Problem List/Assessment Assessment: Decreased Activ Tolerance, Decreased UE Strength, Impaired Funct Balance, Impaired I ADL's, Impaired Self-Care Skills Discharge Recommendations Plan/Recommendations: Continue POC Treatment Plan/Plan of Care Patient would benefit from OT for education, treatment and training to promote independence in ADL's, mobility, safety and/or upper extremity function for ADL's. Plan of Care: ADL Retraining, Functional Mobility, Group Exercise/Act as Ind, UE Funct Exercise/Act Treatment Duration: Feb 28, 2021 Frequency: At least 5 of 7 days/Wk (IRF) Estimated Hrs Per Day: 1.5 hours per day Rehab Potential: Fair Time/GCodes Start Time: 08:00 Stop Time: 09:30 Total Time Billed (hr/min): 90 Billed Treatment Time OT Tx [id number], Cotreat [id number] 1, ADL 3 (40'), EX (20'), FA 2 (30') YOMI LEWIS OT Feb 04, 2021 08:43
--- NOTE | 2021-02-04 08:46 | PM&R Progress Note ---
Subjective HPI/CC On Admission Date Seen by Provider: Feb 04, 2021 Time Seen by Provider: 09:00 Subjective/Events-last exam 02/04/2021: Patient doing well Right knee injected by Dr. Chappell Hemodialysis catheter removed by Dr. Michelle today Once Lasix due to overload per patient Dr. Haynes will be in charge of Lasix now Checked meds and labs 02/03/2021: Patient doing well No issues Dr. Chappell will see him for right knee injection Potassium 3.1 will supplement Laxatives ordered 02/02/2021: Patient doing well Low-sodium diet will be started Needs 1 dose of Lasix due to shortness of breath We will reach out to orthopedics for right knee injection tomorrow Marrero is in place but had to flush due to sediment Patient maintained on Eliquis 02/01/2021: Patient required Marrero reinsertion due to retention Started on Urecholine of 10 mg AC/at bedtime Consult urology Wants copies of all of his labs printed off He is requesting a right knee injection so we will reach out to one of the orthopedic surgeons on Wednesday Hemodialysis catheter will have to be discontinued after discharge unless general surgery is comfortable Review of Systems General: Fatigue, Malaise Focused Exam Time of Focused Exam: 07:40 Objective Exam Vital Signs Vital Signs Date Time Temp Pulse Resp B/P (MAP) Pulse Ox O2 Delivery O2 Flow Rate FiO2 02/04/21 21:00 94 Room Air 02/04/21 20:00 36.3 69 20 149/80 (103) Capillary Refill : General Appearance: No Apparent Distress, WD/WN, Chronically ill, Obese HEENT: PERRL/EOMI Neck: Normal Inspection, Non Tender, Supple Respiratory: Chest Non Tender, Lungs Clear, Normal Breath Sounds, No Accessory Muscle Use, No Respiratory Distress Cardiovascular: Regular Rate, Rhythm, No Gallop Gastrointestinal: Normal Bowel Sounds, No Organomegaly, No Pulsatile Mass, Non Tender, Soft Back: Normal Inspection, No CVA Tenderness, No Vertebral Tenderness Extremity: Normal Capillary Refill, Normal Inspection, Non Tender, No Calf Tenderness, Pedal Edema (bilateral LE pitting edema) Neurologic/Psychiatric: Alert, Oriented x3, Normal Mood/Affect, Motor Weakness (3/5) Skin: Normal Color, Warm/Dry Lymphatic: No Adenopathy (cervical and supraclavicular) Results/Procedures Lab Patient resulted labs reviewed. FIM Transfers Therapy Code Descriptions/Definitions Functional [place] Measure: 0=Not Assessed/NA 4=Minimal Assistance 1=Total Assistance 5=Supervision or Setup 2=Maximal Assistance 6=Modified [place] 3=Moderate Assistance 7=Complete IndependenceSCALE: Activities may be completed with or without assistive devices. 4-Jbxtskmxta-inimcxw completes the activity by him/herself with no assistance from a helper. 5-Set-up or Clean-up Assistance-helper sets up or cleans up; patient completes activity. [place] assists only prior to or following the activity. 4-Supervision or Touching Assistance-helper provides verbal cues and/or touching/steadying and/or contact guard assistance as patient completes activity. Assistance may be provided throughout the activity or intermittently. 3-Partial/Moderate Assistance-helper does LESS THAN HALF the effort. [place] lifts, holds or supports trunk or limbs, but provides less than half the effort. 2-Substantial/Maximal Assistance-helper does MORE THAN HALF the effort. [place] lifts or holds trunk or limbs and provides more than half the effort. 4-Etlvtlfph-ihqydm does ALL the effort. Patient does none of the effort to complete the activity. Or, the assistance of 2 or more helpers is required for the patient to complete the activity. If activity was not attempted, code reason: 7-Patient Refused. 9-Not Applicable-not attempted and the patient did not perform the activity before the current illness, exacerbation or injury. 10-Not Attempted due to Environmental Limitations-(lack of equipment, weather restraints, etc.). 88-Not Attempted due to Medical Conditions or Safety Concerns. Roll Left to Right (QC): 3 Sit to Lying (QC): 3 Sit to Stand (QC): 4 Chair/Ayk-wv-Ycdym Xfer(QC): 4 Car Transfer (QC): 3 Gait Training Does the Patient Walk?: Yes Distance: 20', 50', 70' Walk 10 feet (QC): 4 Walk 50 ft with 2 Turns(QC): 4 Walk 150 ft (QC): 88 Walking 10ft/uneven surface-QC: 7 Gait Persons Needed: 1 Gait Assistive Device: FWW Wheelchair Training Wheel 50 ft with 2 turns (QC): 9 Wheel 150 ft (QC): 9 Stair Training 1 Step (curb) (QC): 7 4 Steps (QC): 88 12 Steps (QC): 88 Balance Picking up an Object (QC): 4 (SBA with mushroom press operator) ADL-Treatment Eating (QC): 88 (NPO this AM) Oral Hygiene (QC): 4 (SBA standing at sink) Shower/Bathe Self (QC): 7 Upper Body Dressing (QC): 5 (set up with pull over machine operator shirt.) Lower Body Dressing (QC): 4 (SBA, OT threaded catheter, pt then able to don pants.) On/Off Footwear (QC): 4 (SBA, pt able to don L shoe, doff R gripper sock and don R shoe.) Toileting Hygiene (QC): 4 (SBA) Toilet Transfer (QC): 4 (SBA ) Assessment/Plan Assessment and Plan Assess & Plan/Chief Complaint Assessment: Myopathy CHF diastolic type FAIZA on CRI recent HD now baseline AF OAC MSSA bactermia NATALEE on CPAP h/o splenectomy Anemia Obesity HTN HLP CAD CABG hx Plan: PT OT protocol IV abx Monitor closely 02/01/2021: Marrero catheter reinserted Urology consult 02/02/2021: Supportive care Urology consult 02/03/2021: Dr. Chappell consult appreciated Right knee injection tomorrow per patient request 02/04/2021: Right knee injection appreciated by Dr. Chappell Hemodialysis catheter to be removed today by Dr. Michelle (1) Coronary artery disease without angina pectoris Assessment & Plan: He has a previous history of coronary bypass surgery. He is not having any angina. He has been taking both aspirin and apixaban at home. Given his age, this will increase the risk of hemorrhagic side effects. I stopped his aspirin. He is not tolerant of beta-blockers due to baseline bradycardia. His cholesterol level is slightly elevated. I ordered low-dose statin medication on 02/01. (2) Permanent atrial fibrillation Assessment & Plan: His heart rate is well controlled on no AV shlomo blocking agents. He is on apixaban for stroke prophylaxis. I stopped his aspirin to help reduce the risk of potential hemorrhagic side effects. I will hold the apixaban so that he can have his tunneled dialysis catheter removed. Bridging is no longer recommended. (3) Thoracic aortic aneurysm without rupture Assessment & Plan: His echocardiogram obtained from [facility] in [place], [place] showed mild dilatation of the thoracic aorta. This will need to be followed longitudinally. The patient was not told about this in the past. I reassured him that this is only mild and will likely never become anything clinically signi ficant for this patient. Nonetheless, this should be followed. (4) Bradycardia Assessment & Plan: As above, the patient states he is intolerant of beta- blockers due to baseline bradycardia. (5) Primary hypertension Assessment & Plan: His blood pressure is intermittently elevated. He was started on amlodipine at the outside facility but has had edema from this in the past. I changed him back over to his usual dosing of lisinopril that he was taking at home prior to admission. He had also been on hydrochlorothiazide but in light of the recent acute renal failure that required dialysis, I would be hesitant to resume hydrochlorothiazide. If his blood pressures remain elevated, we may need to make some adjustment to his medication. I would suggest just maximizing the JAMEY inhibitor. (6) Mixed hyperlipidemia Assessment & Plan: His LDL level is 123 and this is after being in the hospital for almost 1 month which would typically cause the LDL to go down. I ordered low-dose statin medication on 02/01. (7) Stage 2 chronic kidney disease Assessment & Plan: His renal function is probably now back to his baseline. He had acute renal failure at the outside hospital that temporarily required hemodialysis. He would like to have the dialysis catheter removed. I will place his apixaban on hold as of now. He could to have the catheter removed Wednesday afternoon or Wednesday depending upon the surgeon's preference. (8) Morbid obesity Assessment & Plan: He needs work on weight loss. ERICKA DANGELO DO Feb 04, 2021 08:46
--- NOTE | 2021-02-04 08:50 | Cardiology Progress Note ---
Progress Note-Cardiology Events since last exam Date Seen by Provider: Feb 04, 2021 Time Seen by Provider: 08:46 Events since last exam I am following him due to atrial fibrillation, coronary artery disease and hypertension. He will be having his tunneled dialysis catheter removed later today. He continues with inpatient rehab. He has not had significant dyspnea. He denies chest discomfort, palpitations, or syncope. His lower extremity edema has been improving. This is a chronic problem for the patient. Certain portions of this document may have been dictated utilizing voice recognition technology. Inherent to this technology, typographical and grammatical errors may exist. As much as I am diligent to identify and correct these mistakes, some errors may remain in the document. Vitals Last set of Vitals Signs Vital Signs 02/04/21 07:49 Temp 35.5 Pulse 54 Resp 16 B/P (MAP) 151/70 (97) Pulse Ox 95 O2 Delivery Room Air Exam Vital Signs Vital Signs Date Time Temp Pulse Resp B/P (MAP) Pulse Ox O2 Delivery O2 Flow Rate FiO2 02/04/21 07:49 35.5 54 16 151/70 (97) 95 Room Air Physical Exam General: Alert. No acute distress. He is morbidly obese. Eye: No xanthelasma. HENT: Normocephalic. Neck: Jugular venous pressure does not appear elevated. Respiratory: Lungs are clear to auscultation. Respirations are non-labored. Breath sounds are equal. Symmetrical chest wall expansion. Cardiovascular: Normal rate. Irregular rhythm. No murmur. No gallop. 1-2+ bilateral pretibial edema. Gastrointestinal: Soft. Normal bowel sounds. Skin: Warm. Dry. Neurologic: Alert and oriented to person, place, time. Cranial nerves 3-11 grossly intact. Psychiatric: Cooperative. Appropriate mood & affect. Diagnosis/Problems Diagnosis/Problems (1) Coronary artery disease without angina pectoris Assessment & Plan: He has a previous history of coronary bypass surgery. He is not having any angina. He was taking both aspirin and apixaban at home. Given his age, this will increase the risk of hemorrhagic side effects. I stopped his aspirin. He is not tolerant of beta-blockers due to baseline bradycardia. His cholesterol level is slightly elevated. I ordered low-dose statin medication on 02/01. (2) Permanent atrial fibrillation Assessment & Plan: His heart rate is well controlled on no AV shlomo blocking agents. He is on apixaban for stroke prophylaxis. I stopped his aspirin to help reduce the risk of potential hemorrhagic side effects. The apixaban is now on hold for removing the tunneled dialysis catheter later today. The apixaban can either be restarted this evening if he has good hemostasis following the procedure or he can restart this tomorrow. (3) Primary hypertension Assessment & Plan: His blood pressure is intermittently elevated. He was started on amlodipine at the outside facility but has had edema from this in the past. I changed him back over to his usual dosing of lisinopril that he was taking at home prior to admission. He had also been on hydrochlorothiazide but in light of the recent acute renal failure that required dialysis, I would be hesitant to resume hydrochlorothiazide. I will increase his evening dose of lisinopril to 20 mg. I will obtain a follow-up basic metabolic panel in the morning. Today he told me he had also been taking clonidine at home. If his blood pressure does not improve on the higher dose of lisinopril, we could restart clonidine. (4) Thoracic aortic aneurysm without rupture Assessment & Plan: His echocardiogram obtained from [facility] in [place], [place] showed mild dilatation of the thoracic aorta. This will need to be followed longitudinally. The patient was not told about this in the past. I reassured him that this is only mild and will likely never become anything clinically significant for this patient. Nonetheless, this should be followed. (5) Bradycardia Assessment & Plan: As above, the patient states he is intolerant of beta- blockers due to baseline bradycardia. (6) Mixed hyperlipidemia Assessment & Plan: His LDL level is 123 and this is after being in the hospital for almost 1 month which would typically cause the LDL to go down. I ordered low-dose statin medication on 02/01. (7) Stage 2 chronic kidney disease Assessment & Plan: His renal function is probably now back to his baseline. He had acute renal failure at the outside hospital that temporarily required hemodialysis. As above, the dialysis catheter will be removed today. (8) Morbid obesity Assessment & Plan: He needs work on weight loss. CAR DAUGHERTY JR, MD Feb 04, 2021 08:50
[2021-02-04] MEDS: DOCUSATE SODIUM 100 MG (COLACE) CAP PO SCH ×2 (09:00→22:11)
[2021-02-04] MEDS: polyethylene glycoL POWDER 17 GM (MIRALAX) PACK PO SCH (09:00)
[2021-02-04] MEDS: SENNA W/DOCUSATE (SENOKOT S) TABLET PO SCH ×2 (09:00→22:11)
[2021-02-04] MEDS ORDERED: FUROSEMIDE 40 MG/4 ML INJ (LASIX) IVP ONE (10:45)
[2021-02-04] MEDS ORDERED: proPOfol 200 MG/20 ML (DIPRIVAN) VIAL IV ONE ×2 (11:26→12:58)
[2021-02-04] MEDS ORDERED: LIDOCAINE PF 2% 5 ML (XYLOCAINE) VIAL ONE (11:27)
--- NOTE | 2021-02-04 11:49 | Physical Therapy Daily Note ---
PT Daily Note-Current Subjective Pt sitting in Therapy Gym working w/OT upon arrival. Pt agrees to PT/OT co- treat. Pain Location: Right Location Body Site: Knee Pain Description: Ache Mental Status Patient Orientation: Person, Place, Time, Situation Transfers SCALE: Activities may be completed with or without assistive devices. 4-Fhxuvoyawq-tkipyuu completes the activity by him/herself with no assistance from a helper. 5-Set-up or Clean-up Assistance-helper sets up or cleans up; patient completes activity. [place] assists only prior to or following the activity. 4-Supervision or Touching Assistance-helper provides verbal cues and/or touching/steadying and/or contact guard assistance as patient completes activity. Assistance may be provided throughout the activity or intermittently. 3-Partial/Moderate Assistance-helper does LESS THAN HALF the effort. [place] lifts, holds or supports trunk or limbs, but provides less than half the effort. 2-Substantial/Maximal Assistance-helper does MORE THAN HALF the effort. [place] lifts or holds trunk or limbs and provides more than half the effort. 5-Vufuhssqq-pquuao does ALL the effort. Patient does none of the effort to complete the activity. Or, the assistance of 2 or more helpers is required for the patient to complete the activity. If activity was not attempted, code reason: 7-Patient Refused. 9-Not Applicable-not attempted and the patient did not perform the activity before the current illness, exacerbation or injury. 10-Not Attempted due to Environmental Limitations-(lack of equipment, weather restraints, etc.). 88-Not Attempted due to Medical Conditions or Safety Concerns. Treatments [id number]: OT/PT cotreat due to skill of 2 clinicians required which a rehabilitation teacher could not perform in order to coordinate UE/LEs, decrease fall risk, and focus on higher level balance tasks, and due to pt's limitations in strength, activity tolerance, R knee pain, and SOA with activity. OT focused on UE placement, cues for sequencing and safety, PT focused on LE placement, gross overall movement, and mobility/transfers. Pt taken to kitchen area via w/c in order to conserve energy and due to knee pain. Pt able to locate 10/10 cones in overhead cabinets, drawers and lower cabinets in simulated kitchen task. Pt required min cues to locate all cones, and min cues for body positioning and safety. Pt required multiple rest breaks with task due to knee pain. Post tx, pt in w/c all needs met, OT departs at this time. 930-1000: Pt propels [facility] to Therapy Gym and completes Seated EX w/2# ankle weights. Pt propels [facility] back to room to rest in recliner with all needs met, call light in hand. Assessment Current Status: Fair Progress Pt is limited by pain in R knee. Pt was given injection this morning but hasn't taken affect yet and pt is NPO for port procedure this afternoon. PT Short Term Goals Short Term Goals Time Frame: Feb 07, 2021 Roll Left & Right: 6 Sit to lyin Lying to sitting on side of be: 4 Sit to stand: 4 (SBA) Chair/tyo-an-ilcbu transfer: 4 (SBA) Walk 10 feet: 4 Walk 50 feet with two turns: 4 Walk 150 feet: 4 PT Mcc Goals Vp Training Goals PT Mcc Goals Time Frame: Feb 21, 2021 Roll Left & Right (QC): 6 Sit to Lying (QC): 6 Lying-Sitting on Side/Bed(QC): 6 Sit to Stand (QC): 5 Chair/Onz-yj-Gwfov Xfer(QC): 5 Toilet Transfer (QC): 5 Car Transfer (QC): 5 Does the Patient Walk: Yes Walk 10 feet (QC): 5 Walk 50ft with 2 Turns (QC): 5 Walk 150 ft (QC): 5 Walking 10ft on Uneven Surface: 4 1 Step (curb) (QC): 4 4 Steps (QC): 4 12 Steps (QC): 4 Picking up an Object (QC): 6 Wheel 50 feet with 2 turns (QC: 9 Wheel 150 feet: 9 PT Plan Problem List Problem List: Activity Tolerance, Functional Strength Treatment/Plan Treatment Plan: Continue Plan of Care Treatment Plan: Bed Mobility, Education, Functional Activity Denys, Functional Strength, Group Therapy, Gait, Safety, Therapeutic Exercise, Transfers Treatment Duration: Feb 21, 2021 Frequency: At least 5 of 7 days/Wk (IRF) Estimated Hrs Per Day: 1.5 hours per day Patient and/or Family Agrees t: Yes Safety Risks/Education Patient Education: Gait Training, Transfer Techniques, Correct Positioning Teaching Recipient: Patient Teaching Methods: Discussion Response to Teaching: Verbalize Understanding Time/GCodes Time In: 900 Time Out: 1000 Total Billed Treatment Time: 60 Total Billed Treatment Co-treat w/OT for 30m (926-650) 1, FA x2 (30m) & EX x2 (30m) KATTY CARRANZA SED HIGH SCHOOL TEACHER Feb 04, 2021 11:49
[2021-02-04 13:40] VITALS: BP 165/79
[2021-02-04] MEDS: DAPTOMYCIN IV SCH (14:20)
[2021-02-04] MEDS: NS IV SCH (14:20)
[2021-02-04] MEDS: lisINopril 20 MG (PRINIVIL) TABLET PO SCH (14:23)
[2021-02-04] MEDS: FAMOTIDINE 20 MG (PEPCID) TABLET PO SCH (14:23)
[2021-02-04] MEDS: PREGABALIN 50 MG (LYRICA) CAP PO SCH ×2 (14:23→21:39)
[2021-02-04] MEDS: FINASTERIDE (PROSCAR) 5 MG TAB PO SCH (14:23)
[2021-02-04] MEDS: ALLOPURINOL 100 MG (ZYLOPRIM) TAB PO SCH (14:23)
[2021-02-04] MEDS: KCL 10 MEQ TAB (MICRO K) PO SCH (14:24)
[2021-02-04] MEDS: BUMETANIDE 1 MG (BUMEX) TAB PO SCH (14:24)
[2021-02-04] MEDS: LACTOBACILLUS ACIDOPHILUS (PROBIOTIC) CAPSULE PO SCH ×2 (14:24→21:39)
[2021-02-04] MEDS: FOLIC ACID 1 MG TAB PO SCH (14:24)
[2021-02-04] MEDS: MULTIVIT W/MINERALS TAB (THERAGRAN M) PO SCH (14:24)
[2021-02-04] MEDS: predniSONE 20 MG TAB PO SCH (14:24)
[2021-02-04] MEDS: DICLOFENAC 1% GEL 100 GM (VOLTAREN) TUBE TOP SCH ×4 (14:25→21:42)
--- NOTE | 2021-02-04 14:41 | CONSULTATION REPORT ---
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 He could not void here, a catheter was inserted, and we started him on Flomax 0.4 mg daily and Urecholine 10 mg q.i.d. The patient denies any voiding symptoms at home, is on no medication for bladder or prostate, never had any surgery for them. He has tolerated the Urecholine and Flomax very well. IMPRESSION: Urinary retention, neurogenic bladder and/or BPH. PLAN: Continue present management. Today, the patient is having a surgical procedure. We will leave the catheter in and tomorrow morning we will take it out. If he cannot void, we will reinsert it and increase the Urecholine to 25 mg and manage accordingly. The plan was fully explained to the patient. Job ID: [id number] DocumentID: [id number] Dictated Date: 02/04/2021 11:22:11 Data Sciences Director Date: 02/04/2021 13:48:14 Dictated By: MUNDO MATOS MD
--- NOTE | 2021-02-04 15:06 | Physical Therapy Daily Note ---
PT Daily Note-Current Subjective Pt sitting up in bed upon arrival. Pt agrees to PT. Mental Status Patient Orientation: Person, Place, Time, Situation Attachments: [place] Catheter Transfers SCALE: Activities may be completed with or without assistive devices. 1-Bybwnmcyiq-xexwbxn completes the activity by him/herself with no assistance from a helper. 5-Set-up or Clean-up Assistance-helper sets up or cleans up; patient completes activity. [place] assists only prior to or following the activity. 4-Supervision or Touching Assistance-helper provides verbal cues and/or touching/steadying and/or contact guard assistance as patient completes activity. Assistance may be provided throughout the activity or intermittently. 3-Partial/Moderate Assistance-helper does LESS THAN HALF the effort. [place] lifts, holds or supports trunk or limbs, but provides less than half the effort. 2-Substantial/Maximal Assistance-helper does MORE THAN HALF the effort. [place] lifts or holds trunk or limbs and provides more than half the effort. 5-Fnosvmwwy-shoeyb does ALL the effort. Patient does none of the effort to complete the activity. Or, the assistance of 2 or more helpers is required for the patient to complete the activity. If activity was not attempted, code reason: 7-Patient Refused. 9-Not Applicable-not attempted and the patient did not perform the activity before the current illness, exacerbation or injury. 10-Not Attempted due to Environmental Limitations-(lack of equipment, weather restraints, etc.). 88-Not Attempted due to Medical Conditions or Safety Concerns. Exercises Supine Ex: Ankle pumps, Quad Set, Glut sets, Heel Slides, Straight leg raise, Hip abd/add Supine Reps: 15 Seated Therapy Exercises: Long arc quads, Hip flexion, Hip abd/add Seated Reps: 15 Treatments Pt given and reviews written HEP for Supine & Seated EX. Pt takes a couple RB as needed. Pt resting in bed eating lunch at end of tx. All needs met, call light in hand. Assessment Current Status: Good Progress Pt reports feeling better this afternoon. Pt is able to complete Ex w/a couple of RB. PT Short Term Goals Short Term Goals Time Frame: Feb 07, 2021 Roll Left & Right: 6 Sit to lyin Lying to sitting on side of be: 4 Sit to stand: 4 (SBA) Chair/dfh-jo-wdvui transfer: 4 (SBA) Walk 10 feet: 4 Walk 50 feet with two turns: 4 Walk 150 feet: 4 PT Hat Lacer Goals Mcc Goals PT Hat Lacer Goals Time Frame: Feb 21, 2021 Roll Left & Right (QC): 6 Sit to Lying (QC): 6 Lying-Sitting on Side/Bed(QC): 6 Sit to Stand (QC): 5 Chair/Kir-ua-Jjajn Xfer(QC): 5 Toilet Transfer (QC): 5 Car Transfer (QC): 5 Does the Patient Walk: Yes Walk 10 feet (QC): 5 Walk 50ft with 2 Turns (QC): 5 Walk 150 ft (QC): 5 Walking 10ft on Uneven Surface: 4 1 Step (curb) (QC): 4 4 Steps (QC): 4 12 Steps (QC): 4 Picking up an Object (QC): 6 Wheel 50 feet with 2 turns (QC: 9 Wheel 150 feet: 9 PT Plan Problem List Problem List: Activity Tolerance, Functional Strength Treatment/Plan Treatment Plan: Continue Plan of Care Treatment Plan: Bed Mobility, Education, Functional Activity Denys, Functional Strength, Group Therapy, Gait, Safety, Therapeutic Exercise, Transfers Treatment Duration: Feb 21, 2021 Frequency: At least 5 of 7 days/Wk (IRF) Estimated Hrs Per Day: 1.5 hours per day Patient and/or Family Agrees t: Yes Safety Risks/Education Patient Education: Issued Written HEP, Correct Positioning Teaching Recipient: Patient Teaching Methods: Demonstration, Discussion Response to Teaching: Verbalize Understanding, Return Demonstration Time/GCodes Time In: 1400 Time Out: 1430 Total Billed Treatment Time: 30 Total Billed Treatment 1, EX x2 (30m) KATYT CARRANZA PLACER MINER Feb 04, 2021 15:06
--- NOTE | 2021-02-04 15:48 | Consultation - Ortho ---
Consult - Ortho Subjective Date of Exam 02/04/21 Chief Complaint Right knee pain HPI/Events since last exam Wants injection Medical, Surgical History not obtained Social History not obtained Family History not obtained Review of Systems not obtained Allergies: Coded Allergies: codeine (Verified Allergy, Unknown, 09/30/18) Home Meds Reported Medications Ipratropium/Albuterol Sulfate (Iprat-Albut 0.5-3(2.5) mg/3 ml) 3 Ml Ampul.neb, 3 ML IH Q4H PRN for SHORTNESS OF BREATH, EACH 01/31/21 Folic Acid/Vit Bcomp,C (Renal-Aleksandar Tablet) 0.8 Mg Tablet, 0.8 MG PO DAILY, TAB 01/31/21 Daptomycin (Cubicin) 500 Mg Vial, 850 MG IV Q24H STOP 02/06/21 PER [employer] P[employer]ER[employer]. 01/31/21 Dextran 70/Hypromellose (Artificial Tears) 1 Each Droperette, 1 EACH OP Q4H PRN for DRY EYES, DROP 01/31/21 Lisinopril (Lisinopril) 10 Mg Tablet, 10 MG PO DAILY, TAB 01/31/21 Amlodipine Besylate (Norvasc) 10 Mg Tablet, 10 MG PO DAILY, TAB 01/31/21 Oxycodone HCl/Acetaminophen (Oxycodone-Acetaminophen 5-325) 1 Each Tablet, 1 EACH PO Q8H PRN for PAIN-SEVERE MDD 6, TAB 01/31/21 Acetaminophen (Acetaminophen) 325 Mg Tablet, 650 MG PO Q6H PRN for PAIN-MILD (1- 4), TAB 01/31/21 Pregabalin (Lyrica) 50 Mg Capsule, 50 MG PO BID, CAP 01/31/21 Prednisone (Prednisone) 5 Mg Tablet, 10 MG PO DAILY, TAB 01/31/21 Polyethylene Glycol 3350 (Miralax) 17 Gm Powd.pack, 17 GM PO DAILY, EACH 01/31/21 Lactobacillus Acidophilus (Probiotic) 1 Each Capsule, 1 EACH PO BID, CAP 01/31/21 Finasteride (Finasteride) 5 Mg Tablet, 5 MG PO DAILY, TAB 01/31/21 Famotidine (Pepcid) 20 Mg Tablet, 20 MG PO DAILY, TAB 01/31/21 Docusate Sodium (Colace) 100 Mg Capsule, 100 MG PO BID, CAP 01/31/21 Darbepoetin Josse in [place]ys[place]bat (Aranesp) 60 Mcg/1 Ml Vial, 60 MCG SQ WEEKLY ON WEDNESDAY, EA 01/31/21 Bumetanide (Bumetanide) 1 Mg Tablet, 1 MG PO DAILY, TAB 01/31/21 Aspirin (Aspirin) 81 Mg Tab.chew, 81 MG PO DAILY, TAB 01/31/21 Apixaban (Eliquis) 5 Mg Tablet, 5 MG PO BID, TAB 01/31/21 Allopurinol (Allopurinol) 100 Mg Tablet, 300 MG PO DAILY, TAB 01/31/21 Discontinued Scripts Calcitonin,[place],Synthetic (Calcitonin-[place]) 3.7 Ml [place].pump, 200 UNITS NS DAILY for 28 Days, #1 EACH Prov:NIA JURADO APRN 09/30/18 Oxycodone HCl/Acetaminophen (Percocet 5-325 mg Tablet) 1 Each Tablet, 1 TAB PO Q4H for PAIN-MODERATE MDD 6 TABS for 7 Days, #30 TAB Prov:NIA JURADO APRN 09/30/18 Objective Exam PROCEDURE Right knee, 40 mg of Kenalog delivered intraarticularly under sterile conditions, dressed with a band-aid Vital Signs Vital Signs Date Time Temp Pulse Resp B/P (MAP) Pulse Ox O2 Delivery O2 Flow Rate FiO2 02/04/21 13:40 35.8 73 20 165/79 (107) 92 Room Air 02/04/21 09:00 94 Room Air 02/04/21 07:49 35.5 54 16 151/70 (97) 95 Room Air 02/04/21 07:20 95 Room Air 02/03/21 20:00 Room Air 02/03/21 19:49 36.9 70 16 159/71 (100) 95 Room Air I & O 02/04/21 07:00 Intake Total 1285 ml Output Total 1775 ml Balance -490 ml Lab Results Microbiology 01/31/21 Blood Culture - Preliminary, Resulted No growth Assessment and Plan Assessment Right Knee Pain Problem List Right Knee Pain Plan Injected Final Diagonsis Right Knee Pain Level of the visit: Level 3 (injection only) FLORENCE EMERSON MD Feb 04, 2021 15:48
[2021-02-04] MEDS: TAMSULOSIN 0.4 MG (FLOMAX) CAP PO SCH (17:56)
[2021-02-04 20:00] VITALS: BP 149/80
[2021-02-04] MEDS: ROSUVASTATIN 10 MG (CRESTOR) TABLET PO SCH (21:39)
[2021-02-04] MEDS: lisINopril 10 MG (PRINIVIL) TABLET PO SCH (21:40)
[2021-02-04] MEDS: diphenhydrAMINE 25 MG TAB (BENADRYL) PO PRN (21:40)
[2021-02-05] MEDS: oxyCODONE/APAP 5/325MG (PERCOCET 5) TABLET PO PRN (02:15)
[2021-02-05] MEDS: KCL 10 MEQ TAB (MICRO K) PO SCH (06:00)
[2021-02-05] MEDS: BETHANECHOL 10 MG (URECHOLINE) TAB PO SCH ×2 (06:00→12:25)
[2021-02-05] MEDS: MULTIVIT W/MINERALS TAB (THERAGRAN M) PO SCH (06:00)
[2021-02-05] MEDS: predniSONE 20 MG TAB PO SCH (06:01)
[2021-02-05] MEDS: CATHETER FLUSH 10 ML SYR IV SCH ×3 (06:01→21:05)
[2021-02-05 06:39] LABS: POTASSIUM 3.4 MMOL/L (3.6-5.0)
[2021-02-05 06:40] LABS: CALCIUM 9.3 MG/DL (8.5-10.1)
[2021-02-05 06:44] LABS: CREATININE SERUM 0.71 MG/DL (0.60-1.30)
[2021-02-05 07:03] LABS: HEMATOCRIT 36 % (40-54); MEAN CORPUSCULAR HEMOGLOBIN 28 pg (25-34); MEAN CORPUSCULAR HGB CONC 31 g/dL (32-36); MEAN CORPUSCULAR VOLUME 91 fL (80-99); MEAN PLATELET VOLUME 10.3 fL (9.0-12.2); PLATELET COUNT 510 10^3/uL (130-400); WHITE BLOOD COUNT 9.2 10^3/uL (4.3-11.0)
[2021-02-05 07:06] LABS: HEMOGLOBIN 11.2 g/dL (13.3-17.7)
--- NOTE | 2021-02-05 07:10 | Progress Note - Surgery ---
DEBORAH HURLEY MED STUDENT 02/05/21 0710: Subjective Date Seen by a Provider: Feb 05, 2021 Time Seen by a Provider: 07:00 Subjective/Events-last exam This is Jorge L a 75yo male with the chief complaint of critical illness myopathy. Surgery is following after hemodialysis catheter removal on 02/04. Pt was calm, cooperative, and engaged during questioning. He was sitting up in his chair watching TV upon entering the room. Pt states that he is not having any pain around surgical site and there is no blood or leaking around large bandage. He is eating and drinking well. Pt reports having 3 BMs yesterday. He is scheduled to return on Eliquis this morning. Only concern is wanting to take off the bandage so that he can shower. Review of Systems Cardiovascular: Edema (RLE 2+ pitting edema) Focused Exam Time of Focused Exam: 07:10 Respiratory: Chest Non Tender, Lungs Clear, Normal Breath Sounds, No Accessory Muscle Use, No Respiratory Distress Cardiovascular: Regular Rate, Rhythm, No Gallop, No Murmur Skin: normal color, warm/dry, other (large bandage in right upper chest covering surgical site) Objective Exam Vital Signs Date Time Temp Pulse Resp B/P (MAP) Pulse Ox O2 Delivery O2 Flow Rate FiO2 02/04/21 21:00 94 Room Air 02/04/21 20:00 36.3 69 20 149/80 (103) 97 Room Air 02/04/21 13:40 35.8 73 20 165/79 (107) 92 Room Air 02/04/21 09:00 94 Room Air 02/04/21 07:49 35.5 54 16 151/70 (97) 95 Room Air 02/04/21 07:20 95 Room Air I & O 02/05/21 07:00 Intake Total 1350 ml Output Total 4000 ml Balance -2650 ml Capillary Refill : General Appearance: No Apparent Distress, WD/WN, Chronically ill, Obese HEENT: PERRL/EOMI Neck: Normal Inspection, Non Tender, Supple Respiratory: Chest Non Tender, Lungs Clear, Normal Breath Sounds, No Accessory Muscle Use, No Respiratory Distress Cardiovascular: Regular Rate, Rhythm, No Gallop, No Murmur Peripheral Pulses: 1+ Dorsalis Pedis (R), 1+ Left Dors-Pedis (L); 2+ Radial Pulses (R), 2+ Radial Pulses (L) Gastrointestinal: non tender, soft Extremity: Normal Capillary Refill, Normal Inspection, Non Tender, No Calf Tenderness, Pedal Edema (RLE pitting edema 2+) Neurologic/Psychiatric: Alert, Oriented x3, Normal Mood/Affect, Motor Weakness (3/5) Skin: Normal Color, Warm/Dry Lymphatic: No Adenopathy (cervical and supraclavicular) Results Lab Laboratory Tests 02/05/21 06:10: Sodium Level 142, Potassium Level 3.4L, Chloride Level 104, Carbon Dioxide Level 26, Anion Gap 12, Blood Urea Nitrogen 12, Creatinine 0.71, Estimat Glomerular Filtration Rate 108, BUN/Creatinine Ratio 17, Glucose Level 111H, Calcium Level 9.3 Microbiology 01/31/21 Blood Culture - Preliminary, Resulted No growth Assessment/Plan Assessment/Plan Assessment/Plan Assessment: hemodialysis catheter removal on 02/04 surgical site bandage clean and without trace of blood RLE 2+ pitting edema Plan: restart Eliquis this morning remove bandage and inspect surgical site encourage ambulation MIKEY FOX DO 02/14/21 1234: Subjective Time Seen by a Provider: 13:41 Subjective/Events-last exam Pt seen and examined, no complaints and no changes. Review of Systems Pulmonary: No Dyspnea, No Cough Cardiovascular: Edema (RLE 2+ pitting edema); No: Chest Pain, Palpitations Gastrointestinal: No: Nausea, Vomiting, Abdominal Pain Objective Exam General Appearance: No Apparent Distress, Chronically ill, Obese HEENT: PERRL/EOMI Respiratory: Lungs Clear, Normal Breath Sounds, No Accessory Muscle Use, No Respiratory Distress Cardiovascular: Regular Rate, Rhythm, No Murmur Gastrointestinal: non tender, soft Extremity: Pedal Edema (RLE pitting edema 2+) Neurologic/Psychiatric: Motor Weakness (3/5) Skin: Other (incision looks good) Assessment/Plan Assessment/Plan Assessment/Plan hemodialysis catheter removal on 02/04 surgical site bandage clean and without trace of blood RLE 2+ pitting edema Plan: restart Eliquis this morning remove bandage and inspect surgical site encourage ambulation Supervisory-Addendum Brief Verification & Attestation Participated in pt care: history, MDM, physical Personally performed: exam, history, MDM, supervision of care Care discussed with: Medical Student Procedures: n/a Verification and Attestation of Medical Student E/M Service A medical student performed and documented this service. I then reviewed and verified all information documented by the medical student and made mo difications to such information, when appropriate. I personally performed a physical exam, medical decision making and then discussed any differences between the notes and made revisions as necessary to create one note. Mikey Fox , 02/14/21 , 12:34 DEBORAH HURLEY MED STUDENT Feb 05, 2021 07:10 MIKEY FOX DO Feb 14, 2021 12:34
--- NOTE | 2021-02-05 07:13 | PM&R Progress Note ---
Subjective HPI/CC On Admission Date Seen by Provider: Feb 05, 2021 Time Seen by Provider: 11:00 Subjective/Events-last exam 02/05/2021: Patient doing well Focused on getting Lasix and I have talked to cardiology about this Labs stable Denies any pain Hemodialysis catheter removed and everything looks good 02/04/2021: Patient doing well Right knee injected by Dr. Chappell Hemodialysis catheter removed by Dr. Michelle today Once Lasix due to overload per patient Dr. Haynes will be in charge of Lasix now Checked meds and labs 02/03/2021: Patient doing well No issues Dr. Chappell will see him for right knee injection Potassium 3.1 will supplement Laxatives ordered 02/02/2021: Patient doing well Low-sodium diet will be started Needs 1 dose of Lasix due to shortness of breath We will reach out to orthopedics for right knee injection tomorrow Marrero is in place but had to flush due to sediment Patient maintained on Eliquis 02/01/2021: Patient required Marrero reinsertion due to retention Started on Urecholine of 10 mg AC/at bedtime Consult urology Wants copies of all of his labs printed off He is requesting a right knee injection so we will reach out to one of the orthopedic surgeons on Wednesday Hemodialysis catheter will have to be discontinued after discharge unless general surgery is comfortable Review of Systems General: Fatigue, Malaise Focused Exam Time of Focused Exam: 07:40 Objective Exam Vital Signs Vital Signs Date Time Temp Pulse Resp B/P (MAP) Pulse Ox O2 Delivery O2 Flow Rate FiO2 02/05/21 21:00 91 Room Air 02/05/21 19:36 36.9 60 24 160/77 (104) Capillary Refill : General Appearance: No Apparent Distress, WD/WN, Chronically ill, Obese HEENT: PERRL/EOMI Neck: Normal Inspection, Non Tender, Supple Respiratory: Chest Non Tender, Lungs Clear, Normal Breath Sounds, No Accessory Muscle Use, No Respiratory Distress Cardiovascular: Regular Rate, Rhythm, No Gallop Gastrointestinal: Normal Bowel Sounds, No Organomegaly, No Pulsatile Mass, Non Tender, Soft Back: Normal Inspection, No CVA Tenderness, No Vertebral Tenderness Extremity: Normal Capillary Refill, Normal Inspection, Non Tender, No Calf Tenderness, Pedal Edema (bilateral LE pitting edema) Neurologic/Psychiatric: Alert, Oriented x3, Normal Mood/Affect, Motor Weakness (3/5) Skin: Normal Color, Warm/Dry Lymphatic: No Adenopathy (cervical and supraclavicular) Results/Procedures Lab Laboratory Tests 02/05/21 06:10 Patient resulted labs reviewed. FIM Transfers Therapy Code Descriptions/Definitions Functional [place] Measure: 0=Not Assessed/NA 4=Minimal Assistance 1=Total Assistance 5=Supervision or Setup 2=Maximal Assistance 6=Modified [place] 3=Moderate Assistance 7=Complete IndependenceSCALE: Activities may be completed with or without assistive devices. 9-Pxtivhcgvd-ojlgctq completes the activity by him/herself with no assistance from a helper. 5-Set-up or Clean-up Assistance-helper sets up or cleans up; patient completes activity. [place] assists only prior to or following the activity. 4-Supervision or Touching Assistance-helper provides verbal cues and/or touching/steadying and/or contact guard assistance as patient completes activity. Assistance may be provided throughout the activity or intermittently. 3-Partial/Moderate Assistance-helper does LESS THAN HALF the effort. [place] lifts, holds or supports trunk or limbs, but provides less than half the effort. 2-Substantial/Maximal Assistance-helper does MORE THAN HALF the effort. [place] lifts or holds trunk or limbs and provides more than half the effort. 6-Tsvyizunb-uadytm does ALL the effort. Patient does none of the effort to complete the activity. Or, the assistance of 2 or more helpers is required for the patient to complete the activity. If activity was not attempted, code reason: 7-Patient Refused. 9-Not Applicable-not attempted and the patient did not perform the activity before the current illness, exacerbation or injury. 10-Not Attempted due to Environmental Limitations-(lack of equipment, weather restraints, etc.). 88-Not Attempted due to Medical Conditions or Safety Concerns. Roll Left to Right (QC): 3 Sit to Lying (QC): 3 Sit to Stand (QC): 4 Chair/Bcz-qi-Xwwlw Xfer(QC): 4 Car Transfer (QC): 3 Gait Training Does the Patient Walk?: Yes Distance: 20', 50', 70' Walk 10 feet (QC): 4 Walk 50 ft with 2 Turns(QC): 4 Walk 150 ft (QC): 88 Walking 10ft/uneven surface-QC: 7 Gait Persons Needed: 1 Gait Assistive Device: FWW Wheelchair Training Wheel 50 ft with 2 turns (QC): 9 Wheel 150 ft (QC): 9 Stair Training 1 Step (curb) (QC): 7 4 Steps (QC): 88 12 Steps (QC): 88 Balance Picking up an Object (QC): 4 (SBA with bridge design engineer) ADL-Treatment Eating (QC): 88 (NPO this AM) Oral Hygiene (QC): 4 (SBA standing at sink) Shower/Bathe Self (QC): 7 Upper Body Dressing (QC): 5 (set up with box puller shirt.) Lower Body Dressing (QC): 4 (SBA, OT threaded catheter, pt then able to don pants.) On/Off Footwear (QC): 4 (SBA, pt able to don L shoe, doff R gripper sock and don R shoe.) Toileting Hygiene (QC): 4 (SBA) Toilet Transfer (QC): 4 (SBA ) Assessment/Plan Assessment and Plan Assess & Plan/Chief Complaint Assessment: Myopathy CHF diastolic type FAIZA on CRI recent HD now baseline AF OAC MSSA bactermia NATALEE on CPAP h/o splenectomy Anemia Obesity HTN HLP CAD CABG hx Plan: PT OT protocol IV abx Monitor closely 02/01/2021: Marrero catheter reinserted Urology consult 02/02/2021: Supportive care Urology consult 02/03/2021: Dr. Chappell consult appreciated Right knee injection tomorrow per patient request 02/04/2021: Right knee injection appreciated by Dr. Chappell Hemodialysis catheter to be removed today by Dr. Michelle 02/05/2021: Appreciate Dr. Michelle Diuresis (1) Coronary artery disease without angina pectoris Assessment & Plan: He has a previous history of coronary bypass surgery. He is not having any angina. He was taking both aspirin and apixaban at home. Given his age, this will increase the risk of hemorrhagic side effects. I stopped his aspirin. He is not tolerant of beta-blockers due to baseline bradycardia. His cholesterol level is slightly elevated. I ordered low-dose statin medication on 02/01. (2) Permanent atrial fibrillation Assessment & Plan: His heart rate is well controlled on no AV shlomo blocking agents. He is on apixaban for stroke prophylaxis. I stopped his aspirin to help reduce the risk of potential hemorrhagic side effects. The apixaban is now on hold for removing the tunneled dialysis catheter later today. The apixaban can either be restarted this evening if he has good hemostasis following the procedure or he can restart this tomorrow. (3) Primary hypertension Assessment & Plan: His blood pressure is intermittently elevated. He was started on amlodipine at the outside facility but has had edema from this in the past. I changed him back over to his usual dosing of lisinopril that he was taking at home prior to admission. He had also been on hydrochlorothiazide but in light of the recent acute renal failure that required dialysis, I would be hesitant to resume hydrochlorothiazide. I will increase his evening dose of lisinopril to 20 mg. I will obtain a follow-up basic metabolic panel in the morning. Today he told me he had also been taking clonidine at home. If his blood pressure does not improve on the higher dose of lisinopril, we could restart clonidine. (4) Thoracic aortic aneurysm without rupture Assessment & Plan: His echocardiogram obtained from [facility] in [place], [place] showed mild dilatation of the thoracic aorta. This will need to be followed longitudinally. The patient was not told about this in the past. I reassured him that this is only mild and will likely never become anything clinically significant for this patient. Nonetheless, this should be followed. (5) Bradycardia Assessment & Plan: As above, the patient states he is intolerant of beta- blockers due to baseline bradycardia. (6) Mixed hyperlipidemia Assessment & Plan: His LDL level is 123 and this is after being in the hospital for almost 1 month which would typically cause the LDL to go down. I ordered low-dose statin medication on 02/01. (7) Stage 2 chronic kidney disease Assessment & Plan: His renal function is probably now back to his baseline. He had acute renal failure at the outside hospital that temporarily required hemodialysis. As above, the dialysis catheter will be removed today. (8) Morbid obesity Assessment & Plan: He needs work on weight loss. ERICKA DANGELO DO Feb 05, 2021 07:13
[2021-02-05 07:38] VITALS: BP 160/84
[2021-02-05] MEDS: FOLIC ACID 1 MG TAB PO SCH (07:42)
[2021-02-05] MEDS: FAMOTIDINE 20 MG (PEPCID) TABLET PO SCH (07:42)
[2021-02-05] MEDS: DICLOFENAC 1% GEL 100 GM (VOLTAREN) TUBE TOP SCH ×4 (07:42→21:06)
[2021-02-05] MEDS: LACTOBACILLUS ACIDOPHILUS (PROBIOTIC) CAPSULE PO SCH ×2 (07:42→21:03)
[2021-02-05] MEDS: PREGABALIN 50 MG (LYRICA) CAP PO SCH ×2 (07:42→21:03)
[2021-02-05] MEDS: BUMETANIDE 1 MG (BUMEX) TAB PO SCH (07:42)
[2021-02-05] MEDS: FINASTERIDE (PROSCAR) 5 MG TAB PO SCH (07:42)
[2021-02-05] MEDS: lisINopril 20 MG (PRINIVIL) TABLET PO SCH (07:43)
[2021-02-05] MEDS: ALLOPURINOL 100 MG (ZYLOPRIM) TAB PO SCH (07:43)
[2021-02-05 08:06] LABS: ALBUMIN 3.2 GM/DL (3.2-4.5)
[2021-02-05 08:08] LABS: TOTAL PROTEIN 6.1 GM/DL (6.4-8.2)
[2021-02-05 08:10] LABS: BILIRUBIN,TOTAL 0.5 MG/DL (0.1-1.0)
[2021-02-05 08:14] LABS: BILIRUBIN,DIRECT 0.3 MG/DL (0.0-0.3); BILIRUBIN,INDIRECT 0.2 MG/DL
[2021-02-05] MEDS: APIXABAN 5 MG (ELIQUIS) TABLET PO SCH ×2 (09:14→21:03)
--- NOTE | 2021-02-05 09:37 | Occupational Ther Daily Note ---
OT Current Status-Daily Note Subjective Pt up in recliner, agreeable to OT tx. Pt reports his family is visiting so he would like to shower. Mental Status/Objective Patient Orientation: Person, Place, Situation Attachments: Marrero Catheter ADL-Treatment Therapy Code Descriptions/Definitions Functional [place] Measure: 0=Not Assessed/NA 4=Minimal Assistance 1=Total Assistance 5=Supervision or Setup 2=Maximal Assistance 6=Modified [place] 3=Moderate Assistance 7=Complete IndependenceSCALE: Activities may be completed with or without assistive devices. 3-Fxrrxufxiz-qvzwuuk completes the activity by him/herself with no assistance from a helper. 5-Set-up or Clean-up Assistance-helper sets up or cleans up; patient completes activity. [place] assists only prior to or following the activity. 4-Supervision or Touching Assistance-helper provides verbal cues and/or touching/steadying and/or contact guard assistance as patient completes activity. Assistance may be provided throughout the activity or intermittently. 3-Partial/Moderate Assistance-helper does LESS THAN HALF the effort. [place] lifts, holds or supports trunk or limbs, but provides less than half the effort. 2-Substantial/Maximal Assistance-helper does MORE THAN HALF the effort. [place] lifts or holds trunk or limbs and provides more than half the effort. 5-Smgizjxcv-djqmvf does ALL the effort. Patient does none of the effort to complete the activity. Or, the assistance of 2 or more helpers is required for the patient to complete the activity. If activity was not attempted, code reason: 7-Patient Refused. 9-Not Applicable-not attempted and the patient did not perform the activity before the current illness, exacerbation or injury. 10-Not Attempted due to Environmental Limitations-(lack of equipment, weather restraints, etc.). 88-Not Attempted due to Medical Conditions or Safety Concerns. Eating (QC): 6 (Per pt report) Oral Hygiene (QC): 6 (Based on clincial judgment, IND seated at sink.) Shower/Bathe Self (QC): 5 (set up, pt able to wash/dry all parts, using LH sponge as needed.) Upper Body Dressing (QC): 5 (set up) Lower Body Dressing (QC): 5 (set up. OT assisted with threading catheter. ) On/Off Footwear: 5 (set up) Other Treatment 5913-2776: Pt in recliner, used FWW to perform functional mobility into bathroom and onto SC. Pt doffed clothes and completed shower. He then dried off and transferred to w/c in order to don clothes. Pt sat at sink to shave with SBA. Pt propelled w/c to therapy gym. [id number]: OT/PT cotreat due to skill of 2 clinicians required which a rehabilitation engineer could not perform in order to coordinate UE/LEs, decrease fall risk, and focus on higher level balance tasks, and due to pt's limitations in strength, activity tolerance, R knee pain, and SOB with activity. OT focused on UE placement, cues for sequencing and safety, PT focused on LE placement, gross overall movement, and mobility/transfers. Pt completed balloon batting task x3 trials, with seated rest break between. Pt required CGA-SBA with task, reaching outside of his MYNOR with RUE and LUE. Pt encouraged only to use FWW for stabilization when needed, but to attempt without holding on. Post tx, pt in gym with PT, all needs met. Education OT Patient Education: Correct positioning, Energy conservation, Exercise program, Modified ADL techniques, Progress toward Goal/Update tx plan, Purpose of tx/functional activities Teaching Recipient: Patient Teaching Methods: Discussion Response to Teaching: Verbalize Understanding OT Short Term Goals Short Term Goals Time Frame: Feb 14, 2021 Toileting hygiene: 4 Shower/bathe self: 4 Lower body dressin Putting on/taking off footwear: 4 OT Poultry Breeder Goals Poultry Breeder Goals Time Frame: Feb 28, 2021 Eating (QC): 6 Oral Hygiene (QC): 6 Toileting Hygiene (QC): 6 Shower/Bathe Self (QC): 5 Upper Body Dressing (QC): 6 Lower Body Dressing (QC): 6 On/Off Footwear (QC): 6 Additional Goals: 1-Demonstrate ADL Tasks, 2-Verbalize Understanding, 3- ImproveStrength/Denys 1=Demonstrate adherence to instructed precautions during ADL tasks. 2=Patient will verbalize/demonstrate understanding of assistive devices/modifications for ADL. 3=Patient will improve strength/tolerance for activity to enable patient to perform ADL's. OT Education/Plan Problem List/Assessment Assessment: Decreased Activ Tolerance, Decreased UE Strength, Impaired Funct Balance, Impaired I ADL's, Impaired Self-Care Skills Discharge Recommendations Plan/Recommendations: Continue POC Treatment Plan/Plan of Care Patient would benefit from OT for education, treatment and training to promote independence in ADL's, mobility, safety and/or upper extremity function for ADL's. Plan of Care: ADL Retraining, Functional Mobility, Group Exercise/Act as Ind, UE Funct Exercise/Act Treatment Duration: Feb 28, 2021 Frequency: At least 5 of 7 days/Wk (IRF) Estimated Hrs Per Day: 1.5 hours per day Rehab Potential: Fair Time/GCodes Start Time: 08:00 Stop Time: 09:30 Total Time Billed (hr/min): 90 Billed Treatment Time 4225-7117 OT tx, 3079-6258 Cotreat 1, ADL 4 (60'), FA 2 (30') YOMI LEWIS OT Feb 05, 2021 09:37
[2021-02-05] MEDS: polyethylene glycoL POWDER 17 GM (MIRALAX) PACK PO SCH (09:57)
[2021-02-05] MEDS: SENNA W/DOCUSATE (SENOKOT S) TABLET PO SCH ×2 (09:57→21:38)
[2021-02-05] MEDS: DOCUSATE SODIUM 100 MG (COLACE) CAP PO SCH ×2 (09:57→21:38)
--- NOTE | 2021-02-05 10:01 | Physical Therapy Daily Note ---
PT Daily Note-Current Subjective Pt sitting in [facility] in Therapy Gym working with OT upon arrival. Pt agrees to partial PT/OT co-treat. Pain Location: Right Location Body Site: Knee Pain Description: Ache, Tightness Mental Status Patient Orientation: Person, Place, Time, Situation Attachments: Marrero Catheter Transfers SCALE: Activities may be completed with or without assistive devices. 3-Tpyazgwwjd-pdeubqu completes the activity by him/herself with no assistance from a helper. 5-Set-up or Clean-up Assistance-helper sets up or cleans up; patient completes activity. [place] assists only prior to or following the activity. 4-Supervision or Touching Assistance-helper provides verbal cues and/or touching/steadying and/or contact guard assistance as patient completes activity. Assistance may be provided throughout the activity or intermittently. 3-Partial/Moderate Assistance-helper does LESS THAN HALF the effort. [place] lifts, holds or supports trunk or limbs, but provides less than half the effort. 2-Substantial/Maximal Assistance-helper does MORE THAN HALF the effort. [place] lifts or holds trunk or limbs and provides more than half the effort. 6-Vntcurjhb-jdudnz does ALL the effort. Patient does none of the effort to complete the activity. Or, the assistance of 2 or more helpers is required for the patient to complete the activity. If activity was not attempted, code reason: 7-Patient Refused. 9-Not Applicable-not attempted and the patient did not perform the activity before the current illness, exacerbation or injury. 10-Not Attempted due to Environmental Limitations-(lack of equipment, weather restraints, etc.). 88-Not Attempted due to Medical Conditions or Safety Concerns. Sit to Stand (QC): 5 Weight Bearing Full Weight Bearing Full Weight Bearing Gait Training Does the Patient Walk?: Yes Distance: 150' Walk 10 feet (QC): 5 Walk 50 ft with 2 Turns(QC): 5 Walk 150 ft (QC): 5 Gait Persons Needed: 1 Gait Assistive Device: FWW Stair Training Attempted stairs but pt is unable to step up as R knee julissa with ascending w/L LE. Exercises NuStep Minutes: 10 NuStep Workload: 1 Treatments 0918-1169: OT/PT cotreat due to skill of 2 clinicians required which a instrument repair technician could not perform in order to coordinate UE/LEs, decrease fall risk, and focus on higher level balance tasks, and due to pt's limitations in strength, activity tolerance, R knee pain, and SOB with activity. OT focused on UE placement, cues for sequencing and safety, PT focused on LE placement, gross overall movement, and mobility/transfers. Pt completed balloon batting task x3 trials, with seated rest break between. Pt required CGA-SBA with task, reaching outside of his [place] with RUE and LUE. Pt encouraged only to use FWW for stabilization when needed, but to attempt without holding on. OT departs and PT continues tx. 930-1000: Pt uses NuStep for 10m at [facility] 1. Pt ambulates in hallway before returning to room. Pt resting in recliner with all needs met, call light in hand. 0464-5214: TF to standing and amb. in hallway ~ 225'. Pt takes RB before attempting stairwell. Pt reports R knee buckling when ascending w/L LE. Pt propels W[facility] back to room due to fatigue. Pt resting in recliner w/all needs met, call light in hand. Assessment Current Status: Fair Progress 900-1000: Pain and fatigue limit pt at this time. PHYSIOTHERAPY ASSISTANT encourages pt to push self. 0526-8883: Pt is limited by pain in R knee and reports knee buckling with attempt at stairs. PT Short Term Goals Short Term Goals Time Frame: Feb 07, 2021 Roll Left & Right: 6 Sit to lyin Lying to sitting on side of be: 4 Sit to stand: 4 (SBA) Chair/qlw-os-tbkxq transfer: 4 (SBA) Walk 10 feet: 4 Walk 50 feet with two turns: 4 Walk 150 feet: 4 PT Prison Goals Marketing Services Coordinator Goals PT Prison Goals Time Frame: Feb 21, 2021 Roll Left & Right (QC): 6 Sit to Lying (QC): 6 Lying-Sitting on Side/Bed(QC): 6 Sit to Stand (QC): 5 Chair/Lxv-yo-Sfcqx Xfer(QC): 5 Toilet Transfer (QC): 5 Car Transfer (QC): 5 Does the Patient Walk: Yes Walk 10 feet (QC): 5 Walk 50ft with 2 Turns (QC): 5 Walk 150 ft (QC): 5 Walking 10ft on Uneven Surface: 4 1 Step (curb) (QC): 4 4 Steps (QC): 4 12 Steps (QC): 4 Picking up an Object (QC): 6 Wheel 50 feet with 2 turns (QC: 9 Wheel 150 feet: 9 PT Plan Problem List Problem List: Activity Tolerance, Functional Strength Treatment/Plan Treatment Plan: Continue Plan of Care Treatment Plan: Bed Mobility, Education, Functional Activity Denys, Functional Strength, Group Therapy, Gait, Safety, Therapeutic Exercise, Transfers Treatment Duration: Feb 21, 2021 Frequency: At least 5 of 7 days/Wk (IRF) Estimated Hrs Per Day: 1.5 hours per day Patient and/or Family Agrees t: Yes Safety Risks/Education Patient Education: Gait Training, Steps, Correct Positioning Teaching Recipient: Patient Teaching Methods: Discussion Response to Teaching: Verbalize Understanding Time/GCodes Time In: 900 Time Out: 1000 Total Billed Treatment Time: 60 Total Billed Treatment 900-1000: Co-treat w/OT for 30m (900-930) 1, FA x2 (30m), GT (20m) & EX (10m) 2788-7168: 1, GT x2 (30m) KATTY CARRANZA PHYSIOTHERAPY ASSISTANT Feb 05, 2021 10:01
[2021-02-05] MEDS: DAPTOMYCIN IV SCH (14:05)
[2021-02-05] MEDS: NS IV SCH (14:05)
[2021-02-05] MEDS: TAMSULOSIN 0.4 MG (FLOMAX) CAP PO SCH (16:44)
[2021-02-05] MEDS: BETHANECHOL 25 MG (URECHOLINE) TAB PO SCH ×2 (16:44→21:03)
[2021-02-05 19:36] VITALS: BP 160/77
[2021-02-05] MEDS: lisINopril 10 MG (PRINIVIL) TABLET PO SCH (21:03)
[2021-02-05] MEDS: ROSUVASTATIN 10 MG (CRESTOR) TABLET PO SCH (21:03)
[2021-02-05] MEDS: diphenhydrAMINE 25 MG TAB (BENADRYL) PO PRN (21:03)
[2021-02-05] MEDS ORDERED: FUROSEMIDE 40 MG/4 ML INJ (LASIX) IVP ONE (21:30)
[2021-02-06] MEDS: BETHANECHOL 25 MG (URECHOLINE) TAB PO SCH ×4 (06:00→20:38)
[2021-02-06 07:54] VITALS: BP 157/74
--- NOTE | 2021-02-06 08:01 | Physical Therapy Daily Note ---
PT Daily Note-Current Subjective Pt. asleep upon entering room. Breakfast siting on tble. Pt. agrees to some bd exercise and TRFs then sit up for meal. Pain Location: No Pain Reported Mental Status Patient Orientation: Normal For Age Attachments: Marrero Catheter Transfers SCALE: Activities may be completed with or without assistive devices. 1-Upqibgkmpm-nlbkwsv completes the activity by him/herself with no assistance from a helper. 5-Set-up or Clean-up Assistance-helper sets up or cleans up; patient completes activity. [place] assists only prior to or following the activity. 4-Supervision or Touching Assistance-helper provides verbal cues and/or touching/steadying and/or contact guard assistance as patient completes activity. Assistance may be provided throughout the activity or intermittently. 3-Partial/Moderate Assistance-helper does LESS THAN HALF the effort. [place] lifts, holds or supports trunk or limbs, but provides less than half the effort. 2-Substantial/Maximal Assistance-helper does MORE THAN HALF the effort. [place] lifts or holds trunk or limbs and provides more than half the effort. 5-Pjnbxcibi-omkcbk does ALL the effort. Patient does none of the effort to complete the activity. Or, the assistance of 2 or more helpers is required for the patient to complete the activity. If activity was not attempted, code reason: 7-Patient Refused. 9-Not Applicable-not attempted and the patient did not perform the activity before the current illness, exacerbation or injury. 10-Not Attempted due to Environmental Limitations-(lack of equipment, weather restraints, etc.). 88-Not Attempted due to Medical Conditions or Safety Concerns. Sit to Lying (QC): 6 Lying to Sitting/Side of Bed(Q: 6 Weight Bearing Full Weight Bearing Full Weight Bearing Exercises Supine Ex: Ankle pumps, Quad Set, Rolling, Glut sets, Heel Slides, Hip abd/add Supine Reps: 10 Treatments bed exercises and sitting to EOB, pt. indep in meal set up Assessment Current Status: Good Progress PT Short Term Goals Short Term Goals Time Frame: Feb 07, 2021 Roll Left & Right: 6 Sit to lyin Lying to sitting on side of be: 4 Sit to stand: 4 (SBA) Chair/iib-mf-zgqjp transfer: 4 (SBA) Walk 10 feet: 4 Walk 50 feet with two turns: 4 Walk 150 feet: 4 PT Detention Goals Detention Goals PT Table Games Dealer Goals Time Frame: Feb 21, 2021 Roll Left & Right (QC): 6 Sit to Lying (QC): 6 Lying-Sitting on Side/Bed(QC): 6 Sit to Stand (QC): 5 Chair/Pdl-oq-Vxdfv Xfer(QC): 5 Toilet Transfer (QC): 5 Car Transfer (QC): 5 Does the Patient Walk: Yes Walk 10 feet (QC): 5 Walk 50ft with 2 Turns (QC): 5 Walk 150 ft (QC): 5 Walking 10ft on Uneven Surface: 4 1 Step (curb) (QC): 4 4 Steps (QC): 4 12 Steps (QC): 4 Picking up an Object (QC): 6 Wheel 50 feet with 2 turns (QC: 9 Wheel 150 feet: 9 PT Plan Treatment/Plan Treatment Plan: Continue Plan of Care Treatment Plan: Bed Mobility, Education, Functional Activity Denys, Functional Strength, Group Therapy, Gait, Safety, Therapeutic Exercise, Transfers Treatment Duration: Feb 21, 2021 Frequency: At least 5 of 7 days/Wk (IRF) Estimated Hrs Per Day: 1.5 hours per day Patient and/or Family Agrees t: Yes Safety Risks/Education Patient Education: Transfer Techniques, Correct Positioning, Disease Process, Safety Issues Teaching Recipient: Patient Teaching Methods: Demonstration, Discussion Response to Teaching: Verbalize Understanding, Return Demonstration, Reinforcement Needed Time/GCodes Time In: 730 Time Out: 800 Total Billed Treatment Time: 30 Total Billed Treatment 1,FA30m ANNETTE SILVEIRA LEAN S[employer] SENIOR SPECIALIST Feb 06, 2021 08:01
--- NOTE | 2021-02-06 09:30 | Cardiology Progress Note ---
Subjective Date Seen by Provider: Feb 06, 2021 Time Seen by Provider: 09:25 Subjective/Events-last exam Patient was seen at bedside, sitting comfortably, no new complaint, no chest pain Review of Systems General: No Chills, No Night Sweats; Fatigue; No Malaise, No Appetite, No Other HEENT: No Head Aches, No Visual Changes, No Eye Pain, No Ear Pain, No Dysphasia, No Sinus Congestion, No Post Nasal Drip, No Sore Throat, No Other Pulmonary: No Dyspnea, No Cough, No Pleuritic Chest Pain, No Other Cardiovascular: Edema; No: Chest Pain, Palpitations, Orthopnea, Paroxysmal Noc. Dyspnea, Lt Headedness, Other Focused Exam Time of Focused Exam: 07:10 Objective-Cardiology Exam Last Set of Vital Signs Vital Signs 02/06/21 07:54 Temp 36.4 Pulse 53 Resp 22 B/P (MAP) 157/74 (101) Pulse Ox 91 O2 Delivery Room Air I&O Intake and Output 02/06/21 00:00 Intake Total 1800 ml Output Total 2150 ml Balance -350 ml Intake Oral 1800 ml Output Urine Total 2150 ml # Bowel Movements 1 General: Alert, Oriented X3, Cooperative HEENT: Atraumatic, PERRLA Neck: Supple, No JVD, No Thyromegaly Lungs: Clear to Auscultation, Normal Air Movement Heart: Regular Rate, Normal S1, Normal S2, No Murmurs Abdomen: Normal Bowel Sounds, Soft, No Tenderness, No Hepatosplenomegaly, No Masses Extremities: No Clubbing, No Cyanosis, No Tenderness/Swelling, Other (Pedal edema) Skin: No Rashes, No Breakdown, No Significant Lesion Neuro: Normal Gait, Normal Speech, Strength at 5/5 X4 Ext, Normal Tone, Sensation Intact Psych/Mental Status: Mental Status NL, Mood NL A/P-Cardiology Admission Diagnosis Shortness of breath Coronary artery disease Hypertension Hyperlipidemia Assessment/Plan Shortness of breath, peripheral edema, fluid overload with chronic renal insufficiency. Received 1 dose of Lasix yesterday. I will give additional dose today and monitor renal function closely. Patient had increased salt intake yesterday, advised on avoiding salt. Coronary artery disease, history of CABG. Clinically stable, no active chest pain at this time. Permanent atrial fibrillation, rate is controlled, unable to tolerate beta- blockers due to bradycardia Patient is maintained on Eliquis. Continue to monitor Hypertension, poorly controlled. Intolerant to amlodipine due to peripheral edema He was restarted on lisinopril on this admission, blood pressure is still elevated, I will add hydralazine and evaluate tolerance and response Chronic renal insufficiency with episodes of renal failure required hemodialysis recently. Currently not requiring dialysis, continue to monitor renal function closely Thoracic aortic aneurysm, had echo from [facility] reporting dilatation of the thoracic aorta. Reported to be mild, and it will be followed as an outpatient Hyperlipidemia, started on statin and monitor closely Morbid obesity, BMI 42, educated on weight loss. BROOKLYN KOCH MD Feb 06, 2021 09:30
[2021-02-06] MEDS: FAMOTIDINE 20 MG (PEPCID) TABLET PO SCH (10:12)
[2021-02-06] MEDS: PREGABALIN 50 MG (LYRICA) CAP PO SCH ×2 (10:12→20:37)
[2021-02-06] MEDS: ALLOPURINOL 100 MG (ZYLOPRIM) TAB PO SCH (10:12)
[2021-02-06] MEDS: LACTOBACILLUS ACIDOPHILUS (PROBIOTIC) CAPSULE PO SCH ×2 (10:12→20:37)
[2021-02-06] MEDS: BUMETANIDE 1 MG (BUMEX) TAB PO SCH (10:12)
[2021-02-06] MEDS: FINASTERIDE (PROSCAR) 5 MG TAB PO SCH (10:12)
[2021-02-06] MEDS: FOLIC ACID 1 MG TAB PO SCH (10:12)
[2021-02-06] MEDS: lisINopril 20 MG (PRINIVIL) TABLET PO SCH (10:13)
[2021-02-06] MEDS: DOCUSATE SODIUM 100 MG (COLACE) CAP PO SCH ×2 (10:13→20:40)
[2021-02-06] MEDS: APIXABAN 5 MG (ELIQUIS) TABLET PO SCH ×2 (10:13→20:38)
[2021-02-06] MEDS: SENNA W/DOCUSATE (SENOKOT S) TABLET PO SCH ×2 (10:13→20:40)
--- NOTE | 2021-02-06 10:19 | Progress Note - Urology ---
Progress Note-Urology Progress Notes/Assess & Plan Progress/Assessment & Plan TOV TODAY. PATIENT AGREEABLE. Final Diagnosis RETENTION MUNDO MATOS MD Feb 06, 2021 10:19
--- NOTE | 2021-02-06 10:21 | PM&R Progress Note ---
Subjective HPI/CC On Admission Date Seen by Provider: Feb 06, 2021 Time Seen by Provider: 10:30 Subjective/Events-last exam 02/06/2021: Patient doing much better Urinary output from Lasix with 2000 and Marrero catheter Marrero will be discontinued tomorrow per urology Appreciate Dr. Garsia 02/05/2021: Patient doing well Focused on getting Lasix and I have talked to cardiology about this Labs stable Denies any pain Hemodialysis catheter removed and everything looks good 02/04/2021: Patient doing well Right knee injected by Dr. Chappell Hemodialysis catheter removed by Dr. Michelle today Once Lasix due to overload per patient Dr. Haynes will be in charge of Lasix now Checked meds and labs 02/03/2021: Patient doing well No issues Dr. Chappell will see him for right knee injection Potassium 3.1 will supplement Laxatives ordered 02/02/2021: Patient doing well Low-sodium diet will be started Needs 1 dose of Lasix due to shortness of breath We will reach out to orthopedics for right knee injection tomorrow Marrero is in place but had to flush due to sediment Patient maintained on Eliquis 02/01/2021: Patient required Marrero reinsertion due to retention Started on Urecholine of 10 mg AC/at bedtime Consult urology Wants copies of all of his labs printed off He is requesting a right knee injection so we will reach out to one of the orthopedic surgeons on Wednesday Hemodialysis catheter will have to be discontinued after discharge unless general surgery is comfortable Review of Systems General: Fatigue, Malaise Focused Exam Time of Focused Exam: 07:10 Objective Exam Vital Signs Vital Signs Date Time Temp Pulse Resp B/P (MAP) Pulse Ox O2 Delivery O2 Flow Rate FiO2 02/06/21 20:47 Room Air 02/06/21 19:14 36.4 60 20 150/74 (99) 95 Capillary Refill : General Appearance: No Apparent Distress, WD/WN, Chronically ill, Obese HEENT: PERRL/EOMI Neck: Normal Inspection, Non Tender, Supple Respiratory: Chest Non Tender, Lungs Clear, Normal Breath Sounds, No Accessory Muscle Use, No Respiratory Distress Cardiovascular: Regular Rate, Rhythm, No Gallop Gastrointestinal: Normal Bowel Sounds, No Organomegaly, No Pulsatile Mass, Non Tender, Soft Back: Normal Inspection, No CVA Tenderness, No Vertebral Tenderness Extremity: Normal Capillary Refill, Normal Inspection, Non Tender, No Calf Tenderness, Pedal Edema (bilateral LE pitting edema) Neurologic/Psychiatric: Alert, Oriented x3, Normal Mood/Affect, Motor Weakness (3/5) Skin: Normal Color, Warm/Dry Lymphatic: No Adenopathy (cervical and supraclavicular) Results/Procedures Lab Laboratory Tests 02/07/21 05:32 Patient resulted labs reviewed. FIM Transfers Therapy Code Descriptions/Definitions Functional [place] Measure: 0=Not Assessed/NA 4=Minimal Assistance 1=Total Assistance 5=Supervision or Setup 2=Maximal Assistance 6=Modified [place] 3=Moderate Assistance 7=Complete IndependenceSCALE: Activities may be completed with or without assistive devices. 4-Bsyyehladb-dlasdij completes the activity by him/herself with no assistance from a helper. 5-Set-up or Clean-up Assistance-helper sets up or cleans up; patient completes activity. [place] assists only prior to or following the activity. 4-Supervision or Touching Assistance-helper provides verbal cues and/or touching/steadying and/or contact guard assistance as patient completes activity. Assistance may be provided throughout the activity or intermittently. 3-Partial/Moderate Assistance-helper does LESS THAN HALF the effort. [place] lifts, holds or supports trunk or limbs, but provides less than half the effort. 2-Substantial/Maximal Assistance-helper does MORE THAN HALF the effort. [place] lifts or holds trunk or limbs and provides more than half the effort. 2-Vcdnrkwne-xscszy does ALL the effort. Patient does none of the effort to complete the activity. Or, the assistance of 2 or more helpers is required for the patient to complete the activity. If activity was not attempted, code reason: 7-Patient Refused. 9-Not Applicable-not attempted and the patient did not perform the activity before the current illness, exacerbation or injury. 10-Not Attempted due to Environmental Limitations-(lack of equipment, weather restraints, etc.). 88-Not Attempted due to Medical Conditions or Safety Concerns. Roll Left to Right (QC): 3 Sit to Lying (QC): 6 Sit to Stand (QC): 5 Chair/Iey-us-Lmrah Xfer(QC): 4 Car Transfer (QC): 3 Gait Training Does the Patient Walk?: Yes Distance: 150' Walk 10 feet (QC): 5 Walk 50 ft with 2 Turns(QC): 5 Walk 150 ft (QC): 5 Walking 10ft/uneven surface-QC: 7 Gait Persons Needed: 1 Gait Assistive Device: FWW Wheelchair Training Wheel 50 ft with 2 turns (QC): 9 Wheel 150 ft (QC): 9 Stair Training 1 Step (curb) (QC): 7 4 Steps (QC): 88 12 Steps (QC): 88 Balance Picking up an Object (QC): 4 (SBA with heading up machine operator) ADL-Treatment Eating (QC): 6 (Per pt report) Oral Hygiene (QC): 6 (Based on clincial judgment, IND seated at sink.) Shower/Bathe Self (QC): 5 (set up, pt able to wash/dry all parts, using LH sponge as needed.) Upper Body Dressing (QC): 5 (set up) Lower Body Dressing (QC): 5 (set up. OT assisted with threading catheter. ) On/Off Footwear (QC): 5 (set up) Toileting Hygiene (QC): 4 (SBA) Toilet Transfer (QC): 4 (SBA ) Assessment/Plan Assessment and Plan Assess & Plan/Chief Complaint 02/06/2021: Assessment: Myopathy CHF diastolic type FAIZA on CRI recent HD now baseline AF OAC MSSA bactermia NATALEE on CPAP h/o splenectomy Anemia Obesity HTN HLP CAD CABG hx Plan: PT OT protocol IV abx Monitor closely 02/01/2021: Marrero catheter reinserted Urology consult 02/02/2021: Supportive care Urology consult 02/03/2021: Dr. Chappell consult appreciated Right knee injection tomorrow per patient request 02/04/2021: Right knee injection appreciated by Dr. Chappell Hemodialysis catheter to be removed today by Dr. Michelle 02/05/2021: Appreciate Dr. Michelle Diuresis 02/06/2021: Supportive care Diuresis (1) Coronary artery disease without angina pectoris Assessment & Plan: He has a previous history of coronary bypass surgery. He is not having any angina. He was taking both aspirin and apixaban at home. Given his age, this will increase the risk of hemorrhagic side effects. I stopped his aspirin. He is not tolerant of beta-blockers due to baseline bradycardia. His cholesterol level is slightly elevated. I ordered low-dose statin medication on 02/01. (2) Permanent atrial fibrillation Assessment & Plan: His heart rate is well controlled on no AV shlomo blocking agents. He is on apixaban for stroke prophylaxis. I stopped his aspirin to help reduce the risk of potential hemorrhagic side effects. The apixaban is now on hold for removing the tunneled dialysis catheter later today. The apixaban can either be restarted this evening if he has good hemostasis following the procedure or he can restart this tomorrow. (3) Primary hypertension Assessment & Plan: His blood pressure is intermittently elevated. He was started on amlodipine at the outside facility but has had edema from this in the past. I changed him back over to his usual dosing of lisinopril that he was taking at home prior to admission. He had also been on hydrochlorothiazide but in light of the recent acute renal failure that required dialysis, I would be hesitant to resume hydrochlorothiazide. I will increase his evening dose of lisinopril to 20 mg. I will obtain a follow-up basic metabolic panel in the morning. Today he told me he had also been taking clonidine at home. If his blood pressure does not improve on the higher dose of lisinopril, we could re start clonidine. (4) Thoracic aortic aneurysm without rupture Assessment & Plan: His echocardiogram obtained from [facility] in [place], [place] showed mild dilatation of the thoracic aorta. This will need to be followed longitudinally. The patient was not told about this in the past. I reassured him that this is only mild and will likely never become anything clinically significant for this patient. Nonetheless, this should be followed. (5) Bradycardia Assessment & Plan: As above, the patient states he is intolerant of beta- blockers due to baseline bradycardia. (6) Mixed hyperlipidemia Assessment & Plan: His LDL level is 123 and this is after being in the hospital for almost 1 month which would typically cause the LDL to go down. I ordered low-dose statin medication on 02/01. (7) Stage 2 chronic kidney disease Assessment & Plan: His renal function is probably now back to his baseline. He had acute renal failure at the outside hospital that temporarily required hemodialysis. As above, the dialysis catheter will be removed today. (8) Morbid obesity Assessment & Plan: He needs work on weight loss. ERICKA DANGELO DO Feb 06, 2021 10:21
[2021-02-06] MEDS: predniSONE 20 MG TAB PO SCH (10:28)
[2021-02-06] MEDS: MULTIVIT W/MINERALS TAB (THERAGRAN M) PO SCH (10:28)
[2021-02-06] MEDS: KCL 10 MEQ TAB (MICRO K) PO SCH (10:28)
[2021-02-06] MEDS: DICLOFENAC 1% GEL 100 GM (VOLTAREN) TUBE TOP SCH ×4 (10:38→20:42)
[2021-02-06] MEDS: polyethylene glycoL POWDER 17 GM (MIRALAX) PACK PO SCH (10:50)
--- NOTE | 2021-02-06 11:43 | Physical Therapy Daily Note ---
PT Daily Note-Current Subjective Pt. up in recliner, agrees to Rx. Initially in presence of Dr Rhodes states "Yes, Im going home Mon so I want to go down there and do the stairs" Pt. states he has 2 sets of 14 steps at home to manage. Pt. later declines walking secondary to right knee pain and states he also has a bad right shoulder and also doesnt really feel comfortable to try the Nustep either. Pain Numeric Pain Scale: 5-Moderate Pain Location: Right Location Body Site: Knee Pain Description: Ache Mental Status Patient Orientation: Normal For Age Transfers SCALE: Activities may be completed with or without assistive devices. 0-Jtcocebzvn-gdnsftl completes the activity by him/herself with no assistance from a helper. 5-Set-up or Clean-up Assistance-helper sets up or cleans up; patient completes activity. [place] assists only prior to or following the activity. 4-Supervision or Touching Assistance-helper provides verbal cues and/or touching/steadying and/or contact guard assistance as patient completes activity. Assistance may be provided throughout the activity or intermittently. 3-Partial/Moderate Assistance-helper does LESS THAN HALF the effort. [place] lifts, holds or supports trunk or limbs, but provides less than half the effort. 2-Substantial/Maximal Assistance-helper does MORE THAN HALF the effort. [place] lifts or holds trunk or limbs and provides more than half the effort. 8-Tnxaxxgvh-gchyub does ALL the effort. Patient does none of the effort to complete the activity. Or, the assistance of 2 or more helpers is required for the patient to complete the activity. If activity was not attempted, code reason: 7-Patient Refused. 9-Not Applicable-not attempted and the patient did not perform the activity before the current illness, exacerbation or injury. 10-Not Attempted due to Environmental Limitations-(lack of equipment, weather restraints, etc.). 88-Not Attempted due to Medical Conditions or Safety Concerns. Sit to Stand (QC): 5 Weight Bearing Full Weight Bearing Full Weight Bearing Gait Training Does the Patient Walk?: Yes Walk 10 feet (QC): 5 Wheelchair Training Does the Pt Use a Wheelchair?: Yes Wheel 50 ft with 2 turns (QC): 6 Wheel 150 ft (QC): 6 Type of Wheelchair: Manual needs some cues for w/c mob Stair Training Stair Training: Handrails/: 2 handrails #of Steps: 4 4 Steps (QC): 3 Stairs: Pattern: Step to struggles to ascend steps using UEs considerable amt Exercises Seated Therapy Exercises: Ankle pumps, Sit to stand, Long arc quads, Hip flexion, Hip abd/add Seated Reps: 15 Assessment Current Status: Fair Progress pt. states he really needs steroids to address pain PT Short Term Goals Short Term Goals Time Frame: Feb 07, 2021 Roll Left & Right: 6 Sit to lyin Lying to sitting on side of be: 4 Sit to stand: 4 (SBA) Chair/lqo-wf-hctqf transfer: 4 (SBA) Walk 10 feet: 4 Walk 50 feet with two turns: 4 Walk 150 feet: 4 PT Shot Hole Driller Goals Shot Hole Driller Goals PT Shot Hole Driller Goals Time Frame: Feb 21, 2021 Roll Left & Right (QC): 6 Sit to Lying (QC): 6 Lying-Sitting on Side/Bed(QC): 6 Sit to Stand (QC): 5 Chair/Yah-dh-Euhep Xfer(QC): 5 Toilet Transfer (QC): 5 Car Transfer (QC): 5 Does the Patient Walk: Yes Walk 10 feet (QC): 5 Walk 50ft with 2 Turns (QC): 5 Walk 150 ft (QC): 5 Walking 10ft on Uneven Surface: 4 1 Step (curb) (QC): 4 4 Steps (QC): 4 12 Steps (QC): 4 Picking up an Object (QC): 6 Wheel 50 feet with 2 turns (QC: 9 Wheel 150 feet: 9 PT Plan Treatment/Plan Treatment Plan: Continue Plan of Care Treatment Plan: Bed Mobility, Education, Functional Activity Denys, Functional Strength, Group Therapy, Gait, Safety, Therapeutic Exercise, Transfers Treatment Duration: Feb 21, 2021 Frequency: At least 5 of 7 days/Wk (IRF) Estimated Hrs Per Day: 1.5 hours per day Patient and/or Family Agrees t: Yes Safety Risks/Education Patient Education: Gait Training, Transfer Techniques, Steps, Correct Positioning, W/C Management, Disease Process, Safety Issues Teaching Recipient: Patient Teaching Methods: Demonstration, Discussion Response to Teaching: Verbalize Understanding, Return Demonstration, Reinforcement Needed Time/GCodes Time In: 1030 Time Out: 1130 Total Billed Treatment Time: 60 Total Billed Treatment 1,FA45m,EX15m ANNETTE SILVEIRA RESTAURANT HOST Feb 06, 2021 11:43
--- NOTE | 2021-02-06 13:29 | Occupational Ther Daily Note ---
OT Current Status-Daily Note Subjective Pt seen in room, up in recliner, agreeable to OT. No pain mentioned. Appearance Alert, cooperative ADL-Treatment Pt indicated that he did not want a shower but agreed to "wash up" with bath pack, which he did. Declined changing clothes. Was concerned because he needed his steroid medication for functional use of R knee. R LE edematous and nursing applied jasbir wrap to help decrease edema. Pt has concerns about going home too soon. Care transferred to PT. Therapy Code Descriptions/Definitions Functional [place] Measure: 0=Not Assessed/NA 4=Minimal Assistance 1=Total Assistance 5=Supervision or Setup 2=Maximal Assistance 6=Modified [place] 3=Moderate Assistance 7=Complete IndependenceSCALE: Activities may be completed with or without assistive devices. 1-Vxvwtcsshd-feyrfxr completes the activity by him/herself with no assistance from a helper. 5-Set-up or Clean-up Assistance-helper sets up or cleans up; patient completes activity. [place] assists only prior to or following the activity. 4-Supervision or Touching Assistance-helper provides verbal cues and/or touching/steadying and/or contact guard assistance as patient completes activity. Assistance may be provided throughout the activity or intermittently. 3-Partial/Moderate Assistance-helper does LESS THAN HALF the effort. [place] lifts, holds or supports trunk or limbs, but provides less than half the effort. 2-Substantial/Maximal Assistance-helper does MORE THAN HALF the effort. [place] lifts or holds trunk or limbs and provides more than half the effort. 8-Bwirracqe-lejbwb does ALL the effort. Patient does none of the effort to complete the activity. Or, the assistance of 2 or more helpers is required for the patient to complete the activity. If activity was not attempted, code reason: 7-Patient Refused. 9-Not Applicable-not attempted and the patient did not perform the activity before the current illness, exacerbation or injury. 10-Not Attempted due to Environmental Limitations-(lack of equipment, weather restraints, etc.). 88-Not Attempted due to Medical Conditions or Safety Concerns. Education OT Patient Education: Modified ADL techniques, Progress toward Goal/Update tx plan, Purpose of tx/functional activities Teaching Recipient: Patient Teaching Methods: Discussion Response to Teaching: Verbalize Understanding OT Short Term Goals Short Term Goals Time Frame: Feb 14, 2021 Toileting hygiene: 4 Shower/bathe self: 4 Lower body dressin Putting on/taking off footwear: 4 OT Senior Care Goals Senior Care Goals Time Frame: Feb 28, 2021 Eating (QC): 6 Oral Hygiene (QC): 6 Toileting Hygiene (QC): 6 Shower/Bathe Self (QC): 5 Upper Body Dressing (QC): 6 Lower Body Dressing (QC): 6 On/Off Footwear (QC): 6 Additional Goals: 1-Demonstrate ADL Tasks, 2-Verbalize Understanding, 3- ImproveStrength/Denys 1=Demonstrate adherence to instructed precautions during ADL tasks. 2=Patient will verbalize/demonstrate understanding of assistive devices/modifications for ADL. 3=Patient will improve strength/tolerance for activity to enable patient to perform ADL's. OT Education/Plan Discharge Recommendations Plan/Recommendations: Continue POC Treatment Plan/Plan of Care Patient would benefit from OT for education, treatment and training to promote independence in ADL's, mobility, safety and/or upper extremity function for ADL's. Plan of Care: ADL Retraining, Functional Mobility, Group Exercise/Act as Ind, UE Funct Exercise/Act Treatment Duration: Feb 28, 2021 Frequency: At least 5 of 7 days/Wk (IRF) Estimated Hrs Per Day: 1.5 hours per day Rehab Potential: Fair Time/GCodes Start Time: 10:00 Stop Time: 10:30 Total Time Billed (hr/min): 30 Billed Treatment Time visit, ADL 30 minutes CLARA CLARK OT Feb 06, 2021 13:29
--- NOTE | 2021-02-06 13:37 | Occupational Ther Daily Note ---
OT Current Status-Daily Note Subjective Pt seen in gym after PT, agreeable to OT. Some discomfort in R knee but unrated. Appearance Alert, cooperative ADL-Treatment Therapy Code Descriptions/Definitions Functional [place] Measure: 0=Not Assessed/NA 4=Minimal Assistance 1=Total Assistance 5=Supervision or Setup 2=Maximal Assistance 6=Modified [place] 3=Moderate Assistance 7=Complete IndependenceSCALE: Activities may be completed with or without assistive devices. 1-Uoujksfqpk-paubncl completes the activity by him/herself with no assistance from a helper. 5-Set-up or Clean-up Assistance-helper sets up or cleans up; patient completes activity. [place] assists only prior to or following the activity. 4-Supervision or Touching Assistance-helper provides verbal cues and/or touching/steadying and/or contact guard assistance as patient completes activity. Assistance may be provided throughout the activity or intermittently. 3-Partial/Moderate Assistance-helper does LESS THAN HALF the effort. [place] lifts, holds or supports trunk or limbs, but provides less than half the effort. 2-Substantial/Maximal Assistance-helper does MORE THAN HALF the effort. [place] lifts or holds trunk or limbs and provides more than half the effort. 7-Lrmlsebhu-upoacd does ALL the effort. Patient does none of the effort to complete the activity. Or, the assistance of 2 or more helpers is required for the patient to complete the activity. If activity was not attempted, code reason: 7-Patient Refused. 9-Not Applicable-not attempted and the patient did not perform the activity before the current illness, exacerbation or injury. 10-Not Attempted due to Environmental Limitations-(lack of equipment, weather restraints, etc.). 88-Not Attempted due to Medical Conditions or Safety Concerns. Other Treatment Pt has hx of CVA affecting L UE and he noted that he has not been able to use L UE as well as he normally does since his illness. He also has significant rotator cuff tears on R shoulder, with decreased use at shoulder. Pt completed 10 minutes bilat UE exercise on arm bike, set at 15W resistance, with no breaks. Also completed all but top level of nuts and bolts board, limited by r shoulder movement and decreased R hand function (per his report). Required extra time. he did 10 reps L UE exercise with 1# weight at shoulder, elbow, forearm and wrist. On R UE, completed 10 reps wrist, forearm and elbow flexion but not shoulder, with 1# weight. Pt propelled w/c back to room, using both arms and legs. Positioned and locked w/c and stood SBA, FWW. transferred to recliner CGA, FWW. Pt left up in recliner with lunch, able to feed himself without setup. Pt encouraged to be advocate for himself for discharge planning. Daughter present and also concerned about DC too soon. All needs met. Education OT Patient Education: Exercise program, Purpose of tx/functional activities, Transfer techniques Teaching Recipient: Patient Teaching Methods: Discussion Response to Teaching: Verbalize Understanding, Return Demonstration OT Short Term Goals Short Term Goals Time Frame: Feb 14, 2021 Toileting hygiene: 4 Shower/bathe self: 4 Lower body dressin Putting on/taking off footwear: 4 OT Mcfp Goals Wire Mesh Gate Assembler Goals Time Frame: Feb 28, 2021 Eating (QC): 6 Oral Hygiene (QC): 6 Toileting Hygiene (QC): 6 Shower/Bathe Self (QC): 5 Upper Body Dressing (QC): 6 Lower Body Dressing (QC): 6 On/Off Footwear (QC): 6 Additional Goals: 1-Demonstrate ADL Tasks, 2-Verbalize Understanding, 3- ImproveStrength/Denys 1=Demonstrate adherence to instructed precautions during ADL tasks. 2=Patient will verbalize/demonstrate understanding of assistive devices/modifications for ADL. 3=Patient will improve strength/tolerance for activity to enable patient to perform ADL's. OT Education/Plan Discharge Recommendations Plan/Recommendations: Continue POC Treatment Plan/Plan of Care Patient would benefit from OT for education, treatment and training to promote independence in ADL's, mobility, safety and/or upper extremity function for ADL's. Plan of Care: ADL Retraining, Functional Mobility, Group Exercise/Act as Ind, UE Funct Exercise/Act Treatment Duration: Feb 28, 2021 Frequency: At least 5 of 7 days/Wk (IRF) Estimated Hrs Per Day: 1.5 hours per day Rehab Potential: Fair Time/GCodes Start Time: 11:30 Stop Time: 12:30 Total Time Billed (hr/min): 60 Billed Treatment Time visit, 60 minutes exercise CLARA CLARK OT Feb 06, 2021 13:36
[2021-02-06 14:38] VITALS: BP 161/77
[2021-02-06] MEDS: ACETAMINOPHEN 325 MG TABLET PO PRN (14:48)
[2021-02-06] MEDS: CATHETER FLUSH 10 ML SYR IV SCH ×3 (15:20→22:08)
[2021-02-06] MEDS ORDERED: cloNIDine 0.1 MG (CATAPRES) TAB PO ONE (15:30)
[2021-02-06] MEDS: DAPTOMYCIN IV SCH (15:32)
[2021-02-06] MEDS: NS IV SCH (15:32)
[2021-02-06] MEDS: TAMSULOSIN 0.4 MG (FLOMAX) CAP PO SCH (17:50)
[2021-02-06 19:14] VITALS: BP 150/74
[2021-02-06] MEDS: ROSUVASTATIN 10 MG (CRESTOR) TABLET PO SCH (20:38)
[2021-02-06] MEDS: cloNIDine 0.1 MG (CATAPRES) TAB PO SCH (20:38)
[2021-02-06] MEDS: lisINopril 10 MG (PRINIVIL) TABLET PO SCH (20:38)
[2021-02-07 05:44] LABS: HEMATOCRIT 28 % (40-54); HEMOGLOBIN 8.5 g/dL (13.3-17.7); MEAN CORPUSCULAR HEMOGLOBIN 28 pg (25-34); MEAN CORPUSCULAR HGB CONC 31 g/dL (32-36); MEAN CORPUSCULAR VOLUME 91 fL (80-99); MEAN PLATELET VOLUME 9.8 fL (9.0-12.2); PLATELET COUNT 641 10^3/uL (130-400); WHITE BLOOD COUNT 12.6 10^3/uL (4.3-11.0)
[2021-02-07 05:49] LABS: POTASSIUM 3.2 MMOL/L (3.6-5.0)
[2021-02-07 05:50] LABS: CALCIUM 8.8 MG/DL (8.5-10.1)
[2021-02-07 05:54] LABS: CREATININE SERUM 0.72 MG/DL (0.60-1.30)
[2021-02-07 05:57] LABS: MAGNESIUM 1.8 MG/DL (1.6-2.4)
[2021-02-07] MEDS: predniSONE 20 MG TAB PO SCH (06:23)
[2021-02-07] MEDS: MULTIVIT W/MINERALS TAB (THERAGRAN M) PO SCH (06:23)
[2021-02-07] MEDS: KCL 10 MEQ TAB (MICRO K) PO SCH (06:23)
[2021-02-07] MEDS: BETHANECHOL 25 MG (URECHOLINE) TAB PO SCH ×4 (06:27→20:18)
[2021-02-07] MEDS: CATHETER FLUSH 10 ML SYR IV SCH ×3 (06:29→20:19)
[2021-02-07] MEDS: oxyCODONE/APAP 5/325MG (PERCOCET 5) TABLET PO PRN (06:42)
[2021-02-07] MEDS ORDERED: KCL 20 MEQ TAB (K-DUR) PO ONE (07:00)
[2021-02-07] MEDS ORDERED: FUROSEMIDE 40 MG (LASIX) TAB PO ONE (07:00)
[2021-02-07 07:45] VITALS: BP 148/73
[2021-02-07] MEDS: lisINopril 20 MG (PRINIVIL) TABLET PO SCH (08:07)
[2021-02-07] MEDS: LACTOBACILLUS ACIDOPHILUS (PROBIOTIC) CAPSULE PO SCH ×2 (08:08→20:18)
[2021-02-07] MEDS: FINASTERIDE (PROSCAR) 5 MG TAB PO SCH (08:08)
[2021-02-07] MEDS: cloNIDine 0.1 MG (CATAPRES) TAB PO SCH ×2 (08:08→20:18)
[2021-02-07] MEDS: DOCUSATE SODIUM 100 MG (COLACE) CAP PO SCH ×2 (08:08→20:56)
[2021-02-07] MEDS: BUMETANIDE 1 MG (BUMEX) TAB PO SCH (08:08)
[2021-02-07] MEDS: PREGABALIN 50 MG (LYRICA) CAP PO SCH ×2 (08:08→20:18)
[2021-02-07] MEDS: ALLOPURINOL 100 MG (ZYLOPRIM) TAB PO SCH (08:08)
[2021-02-07] MEDS: FOLIC ACID 1 MG TAB PO SCH (08:08)
[2021-02-07] MEDS: APIXABAN 5 MG (ELIQUIS) TABLET PO SCH ×2 (08:09→20:18)
[2021-02-07] MEDS: FAMOTIDINE 20 MG (PEPCID) TABLET PO SCH (08:09)
[2021-02-07] MEDS: polyethylene glycoL POWDER 17 GM (MIRALAX) PACK PO SCH ×2 (08:12→18:27)
[2021-02-07] MEDS: SENNA W/DOCUSATE (SENOKOT S) TABLET PO SCH ×2 (08:13→20:18)
[2021-02-07] MEDS: DICLOFENAC 1% GEL 100 GM (VOLTAREN) TUBE TOP SCH ×4 (08:13→20:20)
--- NOTE | 2021-02-07 08:55 | Physical Therapy Daily Note ---
PT Daily Note-Current Subjective Pt. up in recliner, already had breakfast but states he is still in so much pain in right knee as well as nausea c/o this morning. Pt. states the prednisone has helped him in the past and he had it 2 hrs ago but pt is resistive of gait and activity secondary to pain and nausea. Pt. states it usually takes 2 to 3 hrs for it to kick in and help him .Nursing in to give nausea meds. Discussed safe activity and exercises we can do . Pain Numeric Pain Scale: 6 Location: Right Location Body Site: Knee Pain Description: Ache Mental Status Patient Orientation: Normal For Age Transfers SCALE: Activities may be completed with or without assistive devices. 5-Thzcvrgcti-oxwlwiy completes the activity by him/herself with no assistance from a helper. 5-Set-up or Clean-up Assistance-helper sets up or cleans up; patient completes activity. [place] assists only prior to or following the activity. 4-Supervision or Touching Assistance-helper provides verbal cues and/or touching/steadying and/or contact guard assistance as patient completes activity. Assistance may be provided throughout the activity or intermittently. 3-Partial/Moderate Assistance-helper does LESS THAN HALF the effort. [place] lifts, holds or supports trunk or limbs, but provides less than half the effort. 2-Substantial/Maximal Assistance-helper does MORE THAN HALF the effort. [place] lifts or holds trunk or limbs and provides more than half the effort. 2-Qrsjpcylw-vpkvsc does ALL the effort. Patient does none of the effort to complete the activity. Or, the assistance of 2 or more helpers is required for the patient to complete the activity. If activity was not attempted, code reason: 7-Patient Refused. 9-Not Applicable-not attempted and the patient did not perform the activity before the current illness, exacerbation or injury. 10-Not Attempted due to Environmental Limitations-(lack of equipment, weather restraints, etc.). 88-Not Attempted due to Medical Conditions or Safety Concerns. Sit to Stand (QC): 6 Weight Bearing Full Weight Bearing Full Weight Bearing Gait Training pt. declines gait secondary to nausea as well as pain in right knee. Difficult to motivate pt. to at least trial a few steps to see if it helps his knee and nausea Exercises Supine Ex: Ankle pumps, Quad Set, Glut sets, Heel Slides, Scooting (up in reclined recliner), Straight leg raise (asssited), Hip abd/add Supine Reps: 15 Standing: Heel/toe raises, Marching Standing Reps: 15 Treatments jasbir wraps were applied to right LE ankle and calf, shoes were donned with assist so pts gut would not be upset by bending over, cool damp cloth applied to neck for nausea soothe Assessment Current Status: Fair Progress difficult to assess pts c/o. He appears resistive to activity even in trial spurts to see if he may be able to find a way to decrease his discomfort through activity. Pt. weak in LEs and required assist for SLR bilat. Pt. has 14 steps x 2 in his home to manage and will need to strengthen and affirm safety techniques for DC as well as safe gait at least to from bathroom PT Short Term Goals Short Term Goals Time Frame: Feb 07, 2021 Roll Left & Right: 6 Sit to lyin Lying to sitting on side of be: 4 Sit to stand: 4 (SBA) Chair/fde-nb-inhrx transfer: 4 (SBA) Walk 10 feet: 4 Walk 50 feet with two turns: 4 Walk 150 feet: 4 PT Director Alumni Relations Goals Director Alumni Relations Goals PT Director Alumni Relations Goals Time Frame: Feb 21, 2021 Roll Left & Right (QC): 6 Sit to Lying (QC): 6 Lying-Sitting on Side/Bed(QC): 6 Sit to Stand (QC): 5 Chair/Zqc-nq-Ftfpt Xfer(QC): 5 Toilet Transfer (QC): 5 Car Transfer (QC): 5 Does the Patient Walk: Yes Walk 10 feet (QC): 5 Walk 50ft with 2 Turns (QC): 5 Walk 150 ft (QC): 5 Walking 10ft on Uneven Surface: 4 1 Step (curb) (QC): 4 4 Steps (QC): 4 12 Steps (QC): 4 Picking up an Object (QC): 6 Wheel 50 feet with 2 turns (QC: 9 Wheel 150 feet: 9 PT Plan Treatment/Plan Treatment Plan: Continue Plan of Care Treatment Plan: Bed Mobility, Education, Functional Activity Denys, Functional Strength, Group Therapy, Gait, Safety, Therapeutic Exercise, Transfers Treatment Duration: Feb 21, 2021 Frequency: At least 5 of 7 days/Wk (IRF) Estimated Hrs Per Day: 1.5 hours per day Patient and/or Family Agrees t: Yes Safety Risks/Education Patient Education: Transfer Techniques, Correct Positioning, Disease Process, Safety Issues Teaching Recipient: Patient Teaching Methods: Demonstration, Discussion Response to Teaching: Verbalize Understanding, Return Demonstration, Reinforcement Needed Time/GCodes Time In: 800 Time Out: 900 Total Billed Treatment Time: 60 Total Billed Treatment 1,FA30m,EX30m ANNETTE SILVEIRA HOUSEKEEPER CAREGIVER Feb 07, 2021 08:55
--- NOTE | 2021-02-07 09:26 | Occupational Ther Daily Note ---
OT Current Status-Daily Note Subjective Pt in recliner, states nauseous but waiting on medications. Pt states he already had nausea medication but it wasn't working and would like something different. OT notified nurse. Pt had just requested nursing staff to place him on 2L O2 due to not feeling well. Pt declined taking it off for tx, as it makes him feel better. Mental Status/Objective Patient Orientation: Person, Place, Situation Attachments: Oxygen (2L) ADL-Treatment Therapy Code Descriptions/Definitions Functional [place] Measure: 0=Not Assessed/NA 4=Minimal Assistance 1=Total Assistance 5=Supervision or Setup 2=Maximal Assistance 6=Modified [place] 3=Moderate Assistance 7=Complete IndependenceSCALE: Activities may be completed with or without assistive devices. 3-Qeszberxrj-kjvcyze completes the activity by him/herself with no assistance from a helper. 5-Set-up or Clean-up Assistance-helper sets up or cleans up; patient completes activity. [place] assists only prior to or following the activity. 4-Supervision or Touching Assistance-helper provides verbal cues and/or touching/steadying and/or contact guard assistance as patient completes activity. Assistance may be provided throughout the activity or intermittently. 3-Partial/Moderate Assistance-helper does LESS THAN HALF the effort. [place] lifts, holds or supports trunk or limbs, but provides less than half the effort. 2-Substantial/Maximal Assistance-helper does MORE THAN HALF the effort. [place] lifts or holds trunk or limbs and provides more than half the effort. 0-Vsjxoxska-hjoybv does ALL the effort. Patient does none of the effort to complete the activity. Or, the assistance of 2 or more helpers is required for the patient to complete the activity. If activity was not attempted, code reason: 7-Patient Refused. 9-Not Applicable-not attempted and the patient did not perform the activity before the current illness, exacerbation or injury. 10-Not Attempted due to Environmental Limitations-(lack of equipment, weather restraints, etc.). 88-Not Attempted due to Medical Conditions or Safety Concerns. Other Treatment Pt seated in recliner, agreeable to OT Tx with encouragement. Pt transferred from recliner to w/c using FWW, SBA. Pt propelled w/c to therapy gym at a slow pace. OT tx with focus on increasing BUE strength and activity tolerance. Pt completed arm bike, 15 W resistance, slow pace, x15 mins. At the 12 minute elina, pt stopped for a rest break. When asked if he was okay, he shook his head no. OT asked what was wrong but pt did not respond, instead continued on arm bike up to 15 mins. Pt propelled w/c back to his room, very slow pace with frequent rest breaks. Pt transferred from w/c to recliner using FWW, Supervision. Post tx, pt in recliner, call light in reach and all needs met. Education OT Patient Education: Correct positioning, Energy conservation, Exercise program, Modified ADL techniques, Progress toward Goal/Update tx plan, Purpose of tx/functional activities, Rehab process Teaching Recipient: Patient Teaching Methods: Discussion Response to Teaching: Verbalize Understanding OT Short Term Goals Short Term Goals Time Frame: Feb 14, 2021 Toileting hygiene: 4 Shower/bathe self: 4 Lower body dressin Putting on/taking off footwear: 4 OT Web Production Designer Goals Web Production Designer Goals Time Frame: Feb 28, 2021 Eating (QC): 6 Oral Hygiene (QC): 6 Toileting Hygiene (QC): 6 Shower/Bathe Self (QC): 5 Upper Body Dressing (QC): 6 Lower Body Dressing (QC): 6 On/Off Footwear (QC): 6 Additional Goals: 1-Demonstrate ADL Tasks, 2-Verbalize Understanding, 3- ImproveStrength/Denys 1=Demonstrate adherence to instructed precautions during ADL tasks. 2=Patient will verbalize/demonstrate understanding of assistive devices/modifications for ADL. 3=Patient will improve strength/tolerance for activity to enable patient to perform ADL's. OT Education/Plan Problem List/Assessment Assessment: Decreased Activ Tolerance, Decreased UE Strength, Impaired Funct Balance, Impaired I ADL's, Impaired Self-Care Skills Discharge Recommendations Plan/Recommendations: Continue POC Treatment Plan/Plan of Care Patient would benefit from OT for education, treatment and training to promote independence in ADL's, mobility, safety and/or upper extremity function for ADL's. Plan of Care: ADL Retraining, Functional Mobility, Group Exercise/Act as Ind, UE Funct Exercise/Act Treatment Duration: Feb 28, 2021 Frequency: At least 5 of 7 days/Wk (IRF) Estimated Hrs Per Day: 1.5 hours per day Rehab Potential: Fair Time/GCodes Start Time: 09:00 Stop Time: 10:00 Total Time Billed (hr/min): 60 Billed Treatment Time 1, FA 3 (40'), EX (20') YOMI LEWIS OT Feb 07, 2021 09:26
--- NOTE | 2021-02-07 10:31 | Cardiology Progress Note ---
Subjective Date Seen by Provider: Feb 07, 2021 Time Seen by Provider: 10:28 Subjective/Events-last exam Patient was seen at bedside, complaining of nausea. Reporting that Zofran did not help him and requesting Phenergan Review of Systems General: No Chills, No Night Sweats, No Fatigue, No Malaise, No Appetite, No Other HEENT: No Head Aches, No Visual Changes, No Eye Pain, No Ear Pain, No Dysphasia, No Sinus Congestion, No Post Nasal Drip, No Sore Throat, No Other Pulmonary: No Dyspnea, No Cough, No Pleuritic Chest Pain, No Other Cardiovascular: No: Chest Pain, Palpitations, Orthopnea, Paroxysmal Noc. Dyspnea, Edema, Lt Headedness, Other Focused Exam Time of Focused Exam: 07:10 Objective-Cardiology Exam Last Set of Vital Signs Vital Signs 02/07/21 02/07/21 07:45 09:00 Temp 36.2 Pulse 56 Resp 18 B/P (MAP) 148/73 (98) Pulse Ox 93 O2 Delivery Room Air I&O Intake and Output 02/07/21 00:00 Intake Total 1640 ml Output Total 3500 ml Balance -1860 ml Intake Oral 1640 ml Output Urine Total 3500 ml # Bowel Movements 1 General: Alert, Oriented X3, Cooperative HEENT: Atraumatic, PERRLA Neck: Supple, No JVD, No Thyromegaly Lungs: Clear to Auscultation, Normal Air Movement Heart: Regular Rate, Normal S1, Normal S2, No Murmurs Abdomen: Normal Bowel Sounds, Soft, No Tenderness, No Hepatosplenomegaly, No Masses Extremities: No Clubbing, No Cyanosis, No Tenderness/Swelling, Other (Pedal edema) Skin: No Rashes, No Breakdown, No Significant Lesion Neuro: Normal Gait, Normal Speech, Strength at 5/5 X4 Ext, Normal Tone, Sen sation Intact Psych/Mental Status: Mental Status NL, Mood NL Results Lab Laboratory Tests 02/07/21 05:32 A/P-Cardiology Admission Diagnosis Shortness of breath Coronary artery disease Hypertension Hyperlipidemia Assessment/Plan Shortness of breath, peripheral edema, fluid overload with chronic renal insufficiency. Feeling better today. Continue to monitor Coronary artery disease, history of CABG. Clinically stable, no active chest pain at this time. Permanent atrial fibrillation, rate is controlled, unable to tolerate beta- blockers due to bradycardia Patient is maintained on Eliquis. Continue to monitor Hypertension, poorly controlled. Intolerant to amlodipine due to peripheral edema He was restarted on lisinopril on this admission, Did not want to take hydralazine every 6 hours, requested to go back on clonidine 0.1 mg twice daily. I restarted the medication and will monitor blood pressure Chronic renal insufficiency with episodes of renal failure required hemodialysis recently. Currently not requiring dialysis, continue to monitor renal function closely Thoracic aortic aneurysm, had echo from [facility] reporting dilatation of the thoracic aorta. Reported to be mild, and it will be followed as an outpatient Hyperlipidemia, started on statin and monitor closely Morbid obesity, BMI 42, educated on weight loss. BROOKLYN KOCH MD Feb 07, 2021 10:31
--- NOTE | 2021-02-07 10:41 | PM&R Progress Note ---
Subjective HPI/CC On Admission Date Seen by Provider: Feb 07, 2021 Time Seen by Provider: 11:15 Subjective/Events-last exam 02/07/21: Patient nauseated today Having a lot of anxiety Behaviors are interrupting therapy Checked meds and labs UA will be ordered Completed Daptomycin yesterday 02/06/2021: Patient doing much better Urinary output from Lasix with 2000 and Marrero catheter Marrero will be discontinued tomorrow per urology Appreciate Dr. Garsia 02/05/2021: Patient doing well Focused on getting Lasix and I have talked to cardiology about this Labs stable Denies any pain Hemodialysis catheter removed and everything looks good 02/04/2021: Patient doing well Right knee injected by Dr. Chappell Hemodialysis catheter removed by Dr. Michelle today Once Lasix due to overload per patient Dr. Haynes will be in charge of Lasix now Checked meds and labs 02/03/2021: Patient doing well No issues Dr. Chappell will see him for right knee injection Potassium 3.1 will supplement Laxatives ordered 02/02/2021: Patient doing well Low-sodium diet will be started Needs 1 dose of Lasix due to shortness of breath We will reach out to orthopedics for right knee injection tomorrow Marrero is in place but had to flush due to sediment Patient maintained on Eliquis 02/01/2021: Patient required Marrero reinsertion due to retention Started on Urecholine of 10 mg AC/at bedtime Consult urology Wants copies of all of his labs printed off He is requesting a right knee injection so we will reach out to one of the orthopedic surgeons on Wednesday Hemodialysis catheter will have to be discontinued after discharge unless ge neral surgery is comfortable Review of Systems General: Fatigue, Malaise Focused Exam Time of Focused Exam: 07:10 Objective Exam Vital Signs Vital Signs Date Time Temp Pulse Resp B/P (MAP) Pulse Ox O2 Delivery O2 Flow Rate FiO2 02/07/21 09:00 Room Air 02/07/21 07:45 36.2 56 18 148/73 (98) 93 Capillary Refill : General Appearance: No Apparent Distress, WD/WN, Chronically ill, Obese HEENT: PERRL/EOMI Neck: Normal Inspection, Non Tender, Supple Respiratory: Chest Non Tender, Lungs Clear, Normal Breath Sounds, No Accessory Muscle Use, No Respiratory Distress Cardiovascular: Regular Rate, Rhythm, No Gallop Gastrointestinal: Normal Bowel Sounds, No Organomegaly, No Pulsatile Mass, Non Tender, Soft Back: Normal Inspection, No CVA Tenderness, No Vertebral Tenderness Extremity: Normal Capillary Refill, Normal Inspection, Non Tender, No Calf Tenderness, Pedal Edema (bilateral LE pitting edema) Neurologic/Psychiatric: Alert, Oriented x3, Normal Mood/Affect, Motor Weakness (3/5) Skin: Normal Color, Warm/Dry Lymphatic: No Adenopathy (cervical and supraclavicular) Results/Procedures Lab Laboratory Tests 02/07/21 05:32 Patient resulted labs reviewed. FIM Transfers Therapy Code Descriptions/Definitions Functional [place] Measure: 0=Not Assessed/NA 4=Minimal Assistance 1=Total Assistance 5=Supervision or Setup 2=Maximal Assistance 6=Modified [place] 3=Moderate Assistance 7=Complete IndependenceSCALE: Activities may be completed with or without assistive devices. 7-Ruclufrzlv-srslahz completes the activity by him/herself with no assistance from a helper. 5-Set-up or Clean-up Assistance-helper sets up or cleans up; patient completes activity. [place] assists only prior to or following the activity. 4-Supervision or Touching Assistance-helper provides verbal cues and/or touching/steadying and/or contact guard assistance as patient completes activity. Assistance may be provided throughout the activity or intermittently. 3-Partial/Moderate Assistance-helper does LESS THAN HALF the effort. [place] lifts, holds or supports trunk or limbs, but provides less than half the effort. 2-Substantial/Maximal Assistance-helper does MORE THAN HALF the effort. [place] lifts or holds trunk or limbs and provides more than half the effort. 6-Tdgwwjbxu-bhnrmc does ALL the effort. Patient does none of the effort to complete the activity. Or, the assistance of 2 or more helpers is required for the patient to complete the activity. If activity was not attempted, code reason: 7-Patient Refused. 9-Not Applicable-not attempted and the patient did not perform the activity before the current illness, exacerbation or injury. 10-Not Attempted due to Environmental Limitations-(lack of equipment, weather restraints, etc.). 88-Not Attempted due to Medical Conditions or Safety Concerns. Roll Left to Right (QC): 3 Sit to Lying (QC): 6 Sit to Stand (QC): 6 Chair/Uxo-dr-Kwjez Xfer(QC): 4 Car Transfer (QC): 3 Gait Training Does the Patient Walk?: Yes Distance: 150' Walk 10 feet (QC): 5 Walk 50 ft with 2 Turns(QC): 5 Walk 150 ft (QC): 5 Walking 10ft/uneven surface-QC: 7 Gait Persons Needed: 1 Gait Assistive Device: FWW Wheelchair Training Does the Pt Use a Wheelchair?: Yes Wheel 50 ft with 2 turns (QC): 6 Wheel 150 ft (QC): 6 Type of Wheelchair: Manual Stair Training Stair Training: Handrails/: 2 handrails #of Steps: 4 1 Step (curb) (QC): 7 4 Steps (QC): 3 12 Steps (QC): 88 Stairs: Pattern: Step to Balance Picking up an Object (QC): 4 (SBA with poultry pinner) ADL-Treatment Eating (QC): 6 (Per pt report) Oral Hygiene (QC): 6 (Based on clincial judgment, IND seated at sink.) Shower/Bathe Self (QC): 5 (set up, pt able to wash/dry all parts, using LH sponge as needed.) Upper Body Dressing (QC): 5 (set up) Lower Body Dressing (QC): 5 (set up. OT assisted with threading catheter. ) On/Off Footwear (QC): 5 (set up) Toileting Hygiene (QC): 4 (SBA) Toilet Transfer (QC): 4 (SBA ) Assessment/Plan Assessment and Plan Assess & Plan/Chief Complaint 02/06/2021: Assessment: Myopathy CHF diastolic type FAIZA on CRI recent HD now baseline AF OAC MSSA bactermia NATALEE on CPAP h/o splenectomy Anemia Obesity HTN HLP CAD CABG hx Plan: PT OT protocol IV abx Monitor closely 02/01/2021: Marrero catheter reinserted Urology consult 02/02/2021: Supportive care Urology consult 02/03/2021: Dr. Chappell consult appreciated Right knee injection tomorrow per patient request 02/04/2021: Right knee injection appreciated by Dr. Chappell Hemodialysis catheter to be removed today by Dr. Michelle 02/05/2021: Appreciate Dr. Michelle Diuresis 02/06/2021: Supportive care Diuresis 02/07/21: UA check Nausea treatment (1) Coronary artery disease without angina pectoris Assessment & Plan: He has a previous history of coronary bypass surgery. He is not having any angina. He was taking both aspirin and apixaban at home. Given his age, this will increase the risk of hemorrhagic side effects. I stopped his aspirin. He is not tolerant of beta-blockers due to baseline bradycardia. His cholesterol level is slightly elevated. I ordered low-dose statin medication on 02/01. (2) Permanent atrial fibrillation Assessment & Plan: His heart rate is well controlled on no AV shlomo blocking agents. He is on apixaban for stroke prophylaxis. I stopped his aspirin to help reduce the risk of potential hemorrhagic side effects. The apixaban is now on hold for removing the tunneled dialysis catheter later today. The apixaban can either be restarted this evening if he has good hemostasis following the procedure or he can restart this tomorrow. (3) Primary hypertension Assessment & Plan: His blood pressure is intermittently elevated. He was started on amlodipine at the outside facility but has had edema from this in the past. I changed him back over to his usual dosing of lisinopril that he was taking at home prior to admission. He had also been on hydrochlorothiazide but in light of the recent acute renal failure that required dialysis, I would be hesitant to resume hydrochlorothiazide. I will increase his evening dose of lisinopril to 20 mg. I will obtain a follow-up basic metabolic panel in the morning. Today he told me he had also been taking clonidine at home. If his blood pressure does not improve on the higher dose of lisinopril, we could restart clonidine. (4) Thoracic aortic aneurysm without rupture Assessment & Plan: His echocardiogram obtained from [facility] in [place], [place] showed mild dilatation of the thoracic aorta. This will need to be followed longitudinally. The patient was not told about this in the past. I reassured him that this is only mild and will likely never become anything clinically significant for this patient. Nonetheless, this should be followed. (5) Bradycardia Assessment & Plan: As above, the patient states he is intolerant of beta- blockers due to baseline bradycardia. (6) Mixed hyperlipidemia Assessment & Plan: His LDL level is 123 and this is after being in the hospital for almost 1 month which would typically cause the LDL to go down. I ordered low-dose statin medication on 02/01. (7) Stage 2 chronic kidney disease Assessment & Plan: His renal function is probably now back to his baseline. He had acute renal failure at the outside hospital that temporarily required hemodialysis. As above, the dialysis catheter will be removed today. (8) Morbid obesity Assessment & Plan: He needs work on weight loss. ERICKA DANGELO DO Feb 07, 2021 10:41
[2021-02-07] MEDS: PROMETHAZINE 25 MG (PHENERGAN) TAB PO PRN (11:19)
--- NOTE | 2021-02-07 12:42 | Physical Therapy Daily Note ---
PT Daily Note-Current Subjective Pt. sitting up in recliner eyes closed, emesis basin between legs. Pt. continues to decline gait and activity and states he still feels very nauseous, so much he doesnt feel he can take his zophran. Pt. declines TRFing from recliner to bed x 3 trials , this SOFT WATER MECHANIC offering to assist . Pain Numeric Pain Scale: 5-Moderate Pain Location: Right Location Body Site: Knee Pain Description: Ache Appearance pale, lethargic Mental Status Patient Orientation: Person, Place, Situation Attachments: Oxygen Transfers SCALE: Activities may be completed with or without assistive devices. 3-Opoycaftjk-uvpyzuq completes the activity by him/herself with no assistance from a helper. 5-Set-up or Clean-up Assistance-helper sets up or cleans up; patient completes activity. [place] assists only prior to or following the activity. 4-Supervision or Touching Assistance-helper provides verbal cues and/or touching/steadying and/or contact guard assistance as patient completes activity. Assistance may be provided throughout the activity or intermittently. 3-Partial/Moderate Assistance-helper does LESS THAN HALF the effort. [place] lifts, holds or supports trunk or limbs, but provides less than half the effort. 2-Substantial/Maximal Assistance-helper does MORE THAN HALF the effort. [place] lifts or holds trunk or limbs and provides more than half the effort. 9-Bcsnkwodm-bbdixs does ALL the effort. Patient does none of the effort to complete the activity. Or, the assistance of 2 or more helpers is required for the patient to complete the activity. If activity was not attempted, code reason: 7-Patient Refused. 9-Not Applicable-not attempted and the patient did not perform the activity before the current illness, exacerbation or injury. 10-Not Attempted due to Environmental Limitations-(lack of equipment, weather restraints, etc.). 88-Not Attempted due to Medical Conditions or Safety Concerns. Weight Bearing Full Weight Bearing Full Weight Bearing Exercises Seated Therapy Exercises: Ankle pumps, Long arc quads, Hip abd/add Seated Reps: 10 Treatments pts vitals were taken by this SOFT WATER MECHANIC as he was previously at group where he vomited on floor and was taken back to his room after 35 mins at group session. BP139/64 HR 38 to 40 BPMs ( per vitals machine and taken radially manually x3) O2 sat 97% on 2 L O2. Nursing was alerted right away with HR findings. Assessment Current Status: Poor Progress Nausea, pain c/o , lethargy and low HR findings greatly limiting participation this date PT Short Term Goals Short Term Goals Time Frame: Feb 07, 2021 Roll Left & Right: 6 Sit to lyin Lying to sitting on side of be: 4 Sit to stand: 4 (SBA) Chair/bhd-rc-qnxry transfer: 4 (SBA) Walk 10 feet: 4 Walk 50 feet with two turns: 4 Walk 150 feet: 4 PT Snf Goals Snf Goals PT Brine Maker Goals Time Frame: Feb 21, 2021 Roll Left & Right (QC): 6 Sit to Lying (QC): 6 Lying-Sitting on Side/Bed(QC): 6 Sit to Stand (QC): 5 Chair/Fmn-vj-Ilkqa Xfer(QC): 5 Toilet Transfer (QC): 5 Car Transfer (QC): 5 Does the Patient Walk: Yes Walk 10 feet (QC): 5 Walk 50ft with 2 Turns (QC): 5 Walk 150 ft (QC): 5 Walking 10ft on Uneven Surface: 4 1 Step (curb) (QC): 4 4 Steps (QC): 4 12 Steps (QC): 4 Picking up an Object (QC): 6 Wheel 50 feet with 2 turns (QC: 9 Wheel 150 feet: 9 PT Plan Treatment/Plan Treatment Plan: Continue Plan of Care Treatment Plan: Bed Mobility, Education, Functional Activity Denys, Functional Strength, Group Therapy, Gait, Safety, Therapeutic Exercise, Transfers Treatment Duration: Feb 21, 2021 Frequency: At least 5 of 7 days/Wk (IRF) Estimated Hrs Per Day: 1.5 hours per day Patient and/or Family Agrees t: Yes Safety Risks/Education Patient Education: Disease Process Time/GCodes Time In: 1200 Time Out: 1225 Total Billed Treatment Time: 25 Total Billed Treatment 1,FA25m ANNETTE SILVEIRA SOFT WATER MECHANIC Feb 07, 2021 12:42
--- NOTE | 2021-02-07 12:48 | Therapy Group Daily Note ---
Therapy Daily Group Note Patient Education Topic Home Safety, Other List Below (ARU ) Exercises LE Seated Exercise, Sit to/from Stand, UE Exercise Session Ratio (pt:therapist): 4:1 Goal of Session: Education on ARU Expectations, Home Safety Strategies, Safety with Transfers Goal Met for this Session: Yes Pt Benefit of Group: Contributions to Others, Socialization Other/Notes Pt. participated in group session this date. Pt was rolled out in his recliner this Rx as he stated he still does not feel well/ nausea. Pts. introduced themselves and shared something in life they had accomplished and felt proud of. Pt. participated in some discussion and some exercises upper and lower extremity and then became ill and vomited on the floor beside his chair. Pt. was returned to his room with assist. Start Time: 11:00 Stop Time: 11:35 Total Billed Treatment Time: 35 Total Billed Treatment 1,[facility] 35m ANNETTE SILVEIRA CRIB TENDER Feb 07, 2021 12:48
[2021-02-07 15:24] LABS: BILIRUBIN,URINE NEGATIVE (NEGATIVE); CLARITY,URINE CLEAR; COLOR,URINE YELLOW; GLUCOSE, URINE (UA) NEGATIVE (NEGATIVE); KETONES,URINE NEGATIVE (NEGATIVE); LEUKOCYTE ESTERASE ,URINE NEGATIVE (NEGATIVE); NITRITE,URINE NEGATIVE (NEGATIVE); PROTEIN,URINE NEGATIVE (NEGATIVE)
[2021-02-07 15:31] LABS: BACTERIA,URINE NEGATIVE /HPF; SQUAMOUS EPITHELIAL CELL,UR RARE /HPF; WBC,URINE RARE /HPF
[2021-02-07] MEDS: TAMSULOSIN 0.4 MG (FLOMAX) CAP PO SCH (17:09)
[2021-02-07 19:34] VITALS: BP 154/72
[2021-02-07] MEDS: ROSUVASTATIN 10 MG (CRESTOR) TABLET PO SCH (20:17)
[2021-02-07] MEDS: lisINopril 10 MG (PRINIVIL) TABLET PO SCH (20:18)
[2021-02-08] MEDS: KCL 10 MEQ TAB (MICRO K) PO SCH (06:42)
[2021-02-08] MEDS: predniSONE 20 MG TAB PO SCH (06:42)
[2021-02-08] MEDS: MULTIVIT W/MINERALS TAB (THERAGRAN M) PO SCH (06:42)
[2021-02-08] MEDS: CATHETER FLUSH 10 ML SYR IV SCH ×3 (06:42→21:21)
[2021-02-08] MEDS: BETHANECHOL 25 MG (URECHOLINE) TAB PO SCH ×4 (06:42→20:20)
--- NOTE | 2021-02-08 06:52 | PM&R Progress Note ---
Subjective HPI/CC On Admission Date Seen by Provider: Feb 08, 2021 Time Seen by Provider: 12:45 Subjective/Events-last exam 02/08/2021: Patient doing well Short of breath is improved Status post suppository did evacuate but not completely adding milk of magnesia Has not done stairs yet he has 14 steps at home Patient appears to be hesitant about leaving but he has caregivers at home 02/07/21: Patient nauseated today Having a lot of anxiety Behaviors are interrupting therapy Checked meds and labs UA will be ordered Completed Daptomycin yesterday 02/06/2021: Patient doing much better Urinary output from Lasix with 2000 and Marrero catheter Marrero will be discontinued tomorrow per urology Appreciate Dr. Garsia 02/05/2021: Patient doing well Focused on getting Lasix and I have talked to cardiology about this Labs stable Denies any pain Hemodialysis catheter removed and everything looks good 02/04/2021: Patient doing well Right knee injected by Dr. Chappell Hemodialysis catheter removed by Dr. Michelle today Once Lasix due to overload per patient Dr. Haynes will be in charge of Lasix now Checked meds and labs 02/03/2021: Patient doing well No issues Dr. Chappell will see him for right knee injection Potassium 3.1 will supplement Laxatives ordered 02/02/2021: Patient doing well Low-sodium diet will be started Needs 1 dose of Lasix due to shortness of breath We will reach out to orthopedics for right knee injection tomorrow Marrero is in place but had to flush due to sediment Patient maintained on Eliquis 02/01/2021: Patient required Marrero reinsertion due to retention Started on Urecholine of 10 mg AC/at bedtime Consult urology Wants copies of all of his labs printed off He is requesting a right knee injection so we will reach out to one of the orthopedic surgeons on Wednesday Hemodialysis catheter will have to be discontinued after discharge unless general surgery is comfortable Review of Systems General: Fatigue Pulmonary: Dyspnea Gastrointestinal: Constipation Focused Exam Time of Focused Exam: 07:10 Objective Exam Vital Signs Vital Signs Date Time Temp Pulse Resp B/P (MAP) Pulse Ox O2 Delivery O2 Flow Rate FiO2 02/08/21 21:15 95 Room Air 02/08/21 20:34 35.8 60 18 176/81 (112) Capillary Refill : General Appearance: No Apparent Distress, WD/WN, Chronically ill, Obese HEENT: PERRL/EOMI Neck: Normal Inspection, Non Tender, Supple Respiratory: Chest Non Tender, Lungs Clear, Normal Breath Sounds, No Accessory Muscle Use, No Respiratory Distress Cardiovascular: Regular Rate, Rhythm, No Gallop Gastrointestinal: Normal Bowel Sounds, No Organomegaly, No Pulsatile Mass, Non Tender, Soft Back: Normal Inspection, No CVA Tenderness, No Vertebral Tenderness Extremity: Normal Capillary Refill, Normal Inspection, Non Tender, No Calf Tenderness, Pedal Edema Neurologic/Psychiatric: Alert, Oriented x3, Normal Mood/Affect, Motor Weakness Skin: Normal Color, Warm/Dry Lymphatic: No Adenopathy Results/Procedures Lab Laboratory Tests 02/09/21 06:00 Patient resulted labs reviewed. FIM Transfers Therapy Code Descriptions/Definitions Functional [place] Measure: 0=Not Assessed/NA 4=Minimal Assistance 1=Total Assistance 5=Supervision or Setup 2=Maximal Assistance 6=Modified [place] 3=Moderate Assistance 7=Complete IndependenceSCALE: Activities may be completed with or without assistive devices. 5-Olzkqmsdgx-yqiepxz completes the activity by him/herself with no assistance from a helper. 5-Set-up or Clean-up Assistance-helper sets up or cleans up; patient completes activity. [place] assists only prior to or following the activity. 4-Supervision or Touching Assistance-helper provides verbal cues and/or touching/steadying and/or contact guard assistance as patient completes activity. Assistance may be provided throughout the activity or intermittently. 3-Partial/Moderate Assistance-helper does LESS THAN HALF the effort. [place] lifts, holds or supports trunk or limbs, but provides less than half the effort. 2-Substantial/Maximal Assistance-helper does MORE THAN HALF the effort. [place] lifts or holds trunk or limbs and provides more than half the effort. 5-Flngpvptr-wauqnj does ALL the effort. Patient does none of the effort to complete the activity. Or, the assistance of 2 or more helpers is required for the patient to complete the activity. If activity was not attempted, code reason: 7-Patient Refused. 9-Not Applicable-not attempted and the patient did not perform the activity before the current illness, exacerbation or injury. 10-Not Attempted due to Environmental Limitations-(lack of equipment, weather restraints, etc.). 88-Not Attempted due to Medical Conditions or Safety Concerns. Roll Left to Right (QC): 3 Sit to Lying (QC): 6 Sit to Stand (QC): 6 Chair/Qix-lt-[facility] Xfer(QC): 4 Car Transfer (QC): 3 Gait Training Does the Patient Walk?: Yes Distance: 150' Walk 10 feet (QC): 5 Walk 50 ft with 2 Turns(QC): 5 Walk 150 ft (QC): 5 Walking 10ft/uneven surface-QC: 7 Gait Persons Needed: 1 Gait Assistive Device: FWW Wheelchair Training Does the Pt Use a Wheelchair?: Yes Wheel 50 ft with 2 turns (QC): 6 Wheel 150 ft (QC): 6 Type of Wheelchair: Manual Stair Training Stair Training: Handrails/: 2 handrails #of Steps: 4 1 Step (curb) (QC): 7 4 Steps (QC): 3 12 Steps (QC): 88 Stairs: Pattern: Step to Balance Picking up an Object (QC): 4 (SBA with broom builder) ADL-Treatment Eating (QC): 6 (Per pt report) Oral Hygiene (QC): 6 (Based on clincial judgment, IND seated at sink.) Shower/Bathe Self (QC): 5 (set up, pt able to wash/dry all parts, using LH sponge as needed.) Upper Body Dressing (QC): 5 (set up) Lower Body Dressing (QC): 5 (set up. OT assisted with threading catheter. ) On/Off Footwear (QC): 5 (set up) Toileting Hygiene (QC): 4 (SBA) Toilet Transfer (QC): 4 (SBA ) Assessment/Plan Assessment and Plan Assess & Plan/Chief Complaint Assessment: Myopathy CHF diastolic type FAIZA on CRI recent HD now baseline AF OAC MSSA bactermia NATALEE on CPAP h/o splenectomy Anemia Obesity HTN HLP CAD CABG hx Plan: PT OT protocol IV abx Monitor closely 02/01/2021: Marrero catheter reinserted Urology consult 02/02/2021: Supportive care Urology consult 02/03/2021: Dr. Chappell consult appreciated Right knee injection tomorrow per patient request 02/04/2021: Right knee injection appreciated by Dr. Chappell Hemodialysis catheter to be removed today by Dr. Michelle 02/05/2021: Appreciate Dr. Michelle Diuresis 02/06/2021: Supportive care Diuresis 02/07/21: UA check Nausea treatment 02/08/2021: Much improved today Work on stairs (1) Coronary artery disease without angina pectoris Assessment & Plan: He has a previous history of coronary bypass surgery. He is not having any angina. He was taking both aspirin and apixaban at home. Given his age, this will increase the risk of hemorrhagic side effects. I stopped his aspirin. He is not tolerant of beta-blockers due to baseline bradycardia. His cholesterol level is slightly elevated. I ordered low-dose statin medication on 02/01. (2) Permanent atrial fibrillation Assessment & Plan: His heart rate is well controlled on no AV shlomo blocking agents. He is on apixaban for stroke prophylaxis. I stopped his aspirin to help reduce the risk of potential hemorrhagic side effects. The apixaban is now on hold for removing the tunneled dialysis catheter later today. The apixaban can either be restarted this evening if he has good hemostasis following the procedure or he can restart this tomorrow. (3) Primary hypertension Assessment & Plan: His blood pressure is intermittently elevated. He was started on amlodipine at the outside facility but has had edema from this in the past. I changed him back over to his usual dosing of lisinopril that he was taking at home prior to admission. He had also been on hydrochlorothiazide but in light of the recent acute renal failure that required dialysis, I would be hesitant to resume hydrochlorothiazide. I will increase his evening dose of lisinopril to 20 mg. I will obtain a follow-up basic metabolic panel in the morning. Today he told me he had also been taking clonidine at home. If his bl ood pressure does not improve on the higher dose of lisinopril, we could restart clonidine. (4) Thoracic aortic aneurysm without rupture Assessment & Plan: His echocardiogram obtained from [facility] in [place], [place] showed mild dilatation of the thoracic aorta. This will need to be followed longitudinally. The patient was not told about this in the past. I reassured him that this is only mild and will likely never become anything clinically signific ant for this patient. Nonetheless, this should be followed. (5) Bradycardia Assessment & Plan: As above, the patient states he is intolerant of beta-blockers due to baseline bradycardia. (6) Mixed hyperlipidemia Assessment & Plan: His LDL level is 123 and this is after being in the hospital for almost 1 month which would typically cause the LDL to go down. I ordered low-dose statin medication on 02/01. (7) Stage 2 chronic kidney disease Assessment & Plan: His renal function is probably now back to his baseline. He had acute renal failure at the outside hospital that temporarily required hemodialysis. As above, the dialysis catheter will be removed today. (8) Morbid obesity Assessment & Plan: He needs work on weight loss. ERICKA DANGELO DO Feb 08, 2021 06:52
[2021-02-08 07:22] VITALS: BP 137/62
[2021-02-08] MEDS: cloNIDine 0.1 MG (CATAPRES) TAB PO SCH ×2 (08:24→20:19)
[2021-02-08] MEDS: SENNA W/DOCUSATE (SENOKOT S) TABLET PO SCH ×2 (08:24→20:19)
[2021-02-08] MEDS: BUMETANIDE 1 MG (BUMEX) TAB PO SCH (08:24)
[2021-02-08] MEDS: LACTOBACILLUS ACIDOPHILUS (PROBIOTIC) CAPSULE PO SCH ×2 (08:25→20:19)
[2021-02-08] MEDS: FOLIC ACID 1 MG TAB PO SCH (08:25)
[2021-02-08] MEDS: PREGABALIN 50 MG (LYRICA) CAP PO SCH ×2 (08:25→20:20)
[2021-02-08] MEDS: FAMOTIDINE 20 MG (PEPCID) TABLET PO SCH (08:25)
[2021-02-08] MEDS: oxyCODONE/APAP 5/325MG (PERCOCET 5) TABLET PO PRN (08:25)
[2021-02-08] MEDS: DOCUSATE SODIUM 100 MG (COLACE) CAP PO SCH ×2 (08:25→20:19)
[2021-02-08] MEDS: polyethylene glycoL POWDER 17 GM (MIRALAX) PACK PO SCH (08:25)
[2021-02-08] MEDS: FINASTERIDE (PROSCAR) 5 MG TAB PO SCH (08:25)
[2021-02-08] MEDS: APIXABAN 5 MG (ELIQUIS) TABLET PO SCH ×2 (08:26→20:20)
[2021-02-08] MEDS: lisINopril 20 MG (PRINIVIL) TABLET PO SCH (08:26)
[2021-02-08] MEDS: ALLOPURINOL 100 MG (ZYLOPRIM) TAB PO SCH (08:26)
[2021-02-08] MEDS: DICLOFENAC 1% GEL 100 GM (VOLTAREN) TUBE TOP SCH ×4 (08:45→20:23)
[2021-02-08] MEDS: DARBEPOETIN 60 MCG/ML (ARANESP) HOSPITAL SQ SCH (09:05)
--- NOTE | 2021-02-08 10:13 | Physical Therapy Daily Note ---
PT Daily Note-Current Subjective Patient sitting in the chair upon arrival, agreeable to treatment. Patient reports 0/10 pain in the right knee while sitting. Patient states "If I get the prednisone early, then it takes about 3-4 hours to really get into my system and then the right knee doesn't hurt as much." Nurse notified as if the patient is given medication at 7, treatment from PT/OT could begin at 10-11 and patient agrees this would be the best option for him and his right knee pain. Mental Status Patient Orientation: Person, Place, Time, Situation Transfers SCALE: Activities may be completed with or without assistive devices. 6-Rcngizbazj-asxdcpn completes the activity by him/herself with no assistance from a helper. 5-Set-up or Clean-up Assistance-helper sets up or cleans up; patient completes activity. [place] assists only prior to or following the activity. 4-Supervision or Touching Assistance-helper provides verbal cues and/or touching/steadying and/or contact guard assistance as patient completes activity. Assistance may be provided throughout the activity or intermittently. 3-Partial/Moderate Assistance-helper does LESS THAN HALF the effort. [place] lifts, holds or supports trunk or limbs, but provides less than half the effort. 2-Substantial/Maximal Assistance-helper does MORE THAN HALF the effort. [place] lifts or holds trunk or limbs and provides more than half the effort. 5-Ckrensuzg-znyzbz does ALL the effort. Patient does none of the effort to complete the activity. Or, the assistance of 2 or more helpers is required for the patient to complete the activity. If activity was not attempted, code reason: 7-Patient Refused. 9-Not Applicable-not attempted and the patient did not perform the activity before the current illness, exacerbation or injury. 10-Not Attempted due to Environmental Limitations-(lack of equipment, weather restraints, etc.). 88-Not Attempted due to Medical Conditions or Safety Concerns. Sit to Stand (QC): 4 Chair/Rae-de-Fcxuz Xfer(QC): 4 Weight Bearing Full Weight Bearing Full Weight Bearing Gait Training Does the Patient Walk?: Yes Distance: 150 feet x 2 Walk 10 feet (QC): 5 Walk 50 ft with 2 Turns(QC): 5 Walk 150 ft (QC): 5 Gait Assistive Device: FWW Assessment Current Status: Fair Progress Patient tolerated treatment fair. Reports less knee pain while at rest, but as soon as he begins ambulating the right knee pain increases. Patient ambulates 150 feet x 2 with FWW, with SBA and verbal cues for safety, progression, balance and conservation of energy. Patient ambulates to the gym and reports upon arrival, that the right knee is hurting too much to attempt stairs. Reports he has 2 sets of 14 steps at home, 14 to get into the house and 14 to get to the second level. Patient in chair post treatment with all needs met, nursing notified, call light in reach. PT Short Term Goals Short Term Goals Time Frame: Feb 07, 2021 Roll Left & Right: 6 Sit to lyin Lying to sitting on side of be: 4 Sit to stand: 4 (SBA) Chair/owf-my-ahyjz transfer: 4 (SBA) Walk 10 feet: 4 Walk 50 feet with two turns: 4 Walk 150 feet: 4 PT Long-Term Goals Long-Term Goals PT Long-Term Goals Time Frame: Feb 21, 2021 Roll Left & Right (QC): 6 Sit to Lying (QC): 6 Lying-Sitting on Side/Bed(QC): 6 Sit to Stand (QC): 5 Chair/Jpv-jd-Qofom Xfer(QC): 5 Toilet Transfer (QC): 5 Car Transfer (QC): 5 Does the Patient Walk: Yes Walk 10 feet (QC): 5 Walk 50ft with 2 Turns (QC): 5 Walk 150 ft (QC): 5 Walking 10ft on Uneven Surface: 4 1 Step (curb) (QC): 4 4 Steps (QC): 4 12 Steps (QC): 4 Picking up an Object (QC): 6 Wheel 50 feet with 2 turns (QC: 9 Wheel 150 feet: 9 PT Plan Treatment/Plan Treatment Plan: Continue Plan of Care Treatment Plan: Bed Mobility, Education, Functional Activity Denys, Functional Strength, Group Therapy, Gait, Safety, Therapeutic Exercise, Transfers Treatment Duration: Feb 21, 2021 Frequency: At least 5 of 7 days/Wk (IRF) Estimated Hrs Per Day: 1.5 hours per day Patient and/or Family Agrees t: Yes Safety Risks/Education Patient Education: Gait Training Teaching Recipient: Patient Teaching Methods: Demonstration, Discussion Response to Teaching: Verbalize Understanding, Return Demonstration Time/GCodes Time In: 0944 Time Out: 1008 Total Billed Treatment Time: 24 Total Billed Treatment Visit, Gait x 2 NOAH PERDUE PT Feb 08, 2021 10:13
--- NOTE | 2021-02-08 10:17 | Cardiology Progress Note ---
Subjective Date Seen by Provider: Feb 08, 2021 Time Seen by Provider: 10:15 Subjective/Events-last exam Patient was seen at bedside, sitting comfortably, complaining of constipation. Review of Systems General: No Chills, No Night Sweats, No Fatigue, No Malaise, No Appetite, No Other HEENT: No Head Aches, No Visual Changes, No Eye Pain, No Ear Pain, No Dysphasia, No Sinus Congestion, No Post Nasal Drip, No Sore Throat, No Other Pulmonary: No Dyspnea, No Cough, No Pleuritic Chest Pain, No Other Cardiovascular: No: Chest Pain, Palpitations, Orthopnea, Paroxysmal Noc. Dyspnea, Edema, Lt Headedness, Other Focused Exam Time of Focused Exam: 07:10 Objective-Cardiology Exam Last Set of Vital Signs Vital Signs 02/08/21 07:22 Temp 35.4 Pulse 53 Resp 20 B/P (MAP) 137/62 (87) Pulse Ox 93 O2 Delivery Room Air I&O Intake and Output 02/08/21 00:00 Intake Total 1190 ml Output Total 1550 ml Balance -360 ml Intake Oral 1190 ml Output Urine Total 1550 ml Bladder Scan Volume Amount 195 ml General: Alert, Oriented X3, Cooperative HEENT: Atraumatic, PERRLA Neck: Supple, No JVD, No Thyromegaly Lungs: Clear to Auscultation, Normal Air Movement Heart: Regular Rate, Normal S1, Normal S2, No Murmurs Abdomen: Normal Bowel Sounds, Soft, No Tenderness, No Hepatosplenomegaly, No Masses Extremities: No Clubbing, No Cyanosis, No Tenderness/Swelling, Other (Pedal edema) Skin: No Rashes, No Breakdown, No Significant Lesion Neuro: Normal Gait, Normal Speech, Strength at 5/5 X4 Ext, Normal Tone, Sensation Intact Psych/Mental Status: Mental Status NL, Mood NL A/P-Cardiology Admission Diagnosis Shortness of breath Coronary artery disease Hypertension Hyperlipidemia Assessment/Plan Shortness of breath, peripheral edema, fluid overload with chronic renal insufficiency. Feeling better today. Continue to monitor Coronary artery disease, history of CABG. Clinically stable, no active chest pain at this time. Permanent atrial fibrillation, rate is controlled, unable to tolerate beta- blockers due to bradycardia Patient is maintained on Eliquis. Continue to monitor Hypertension, better controlled today. Intolerant to amlodipine due to peripheral edema He was restarted on lisinopril on this admission, Did not want to take hydralazine every 6 hours, requested to go back on clonidine 0.1 mg twice daily. I restarted the medication and will monitor blood pressure Chronic renal insufficiency with episodes of renal failure required hemodialysis recently. Currently not requiring dialysis, continue to monitor renal function closely Thoracic aortic aneurysm, had echo from [facility] reporting dilatation of the thoracic aorta. Reported to be mild, and it will be followed as an outpatient Hyperlipidemia, started on statin and monitor closely Morbid obesity, BMI 42, educated on weight loss. Constipation, requesting laxative. Will give him Dulcolax suppository BROOKLYN KOCH MD Feb 08, 2021 10:17
[2021-02-08] MEDS ORDERED: MILK OF MAGNESIA 400 MG/5 ML 30 ML UDC PO PRN (13:00)
[2021-02-08] MEDS ORDERED: MILK OF MAGNESIA 400 MG/5 ML 30 ML UDC PO ONE (13:00)
[2021-02-08] MEDS: TAMSULOSIN 0.4 MG (FLOMAX) CAP PO SCH (18:17)
[2021-02-08] MEDS: ROSUVASTATIN 10 MG (CRESTOR) TABLET PO SCH (20:20)
[2021-02-08] MEDS: lisINopril 10 MG (PRINIVIL) TABLET PO SCH (20:20)
[2021-02-08 20:34] VITALS: BP 176/81
[2021-02-09] MEDS: CATHETER FLUSH 10 ML SYR IV SCH ×3 (06:04→22:58)
[2021-02-09] MEDS: predniSONE 20 MG TAB PO SCH (06:05)
[2021-02-09] MEDS: KCL 10 MEQ TAB (MICRO K) PO SCH (06:05)
[2021-02-09] MEDS: MULTIVIT W/MINERALS TAB (THERAGRAN M) PO SCH (06:05)
[2021-02-09] MEDS: BETHANECHOL 25 MG (URECHOLINE) TAB PO SCH ×4 (06:05→20:37)
[2021-02-09 06:36] LABS: POTASSIUM 3.2 MMOL/L (3.6-5.0)
[2021-02-09 06:37] LABS: CALCIUM 8.8 MG/DL (8.5-10.1)
[2021-02-09 06:41] LABS: CREATININE SERUM 0.75 MG/DL (0.60-1.30)
[2021-02-09 06:43] LABS: MAGNESIUM 2.1 MG/DL (1.6-2.4)
[2021-02-09] MEDS: oxyCODONE/APAP 5/325MG (PERCOCET 5) TABLET PO PRN (07:25)
[2021-02-09 07:28] VITALS: BP 148/68
[2021-02-09] MEDS: polyethylene glycoL POWDER 17 GM (MIRALAX) PACK PO SCH (10:01)
[2021-02-09] MEDS: APIXABAN 5 MG (ELIQUIS) TABLET PO SCH ×2 (10:01→20:36)
[2021-02-09] MEDS: SENNA W/DOCUSATE (SENOKOT S) TABLET PO SCH ×2 (10:01→20:39)
[2021-02-09] MEDS: PREGABALIN 50 MG (LYRICA) CAP PO SCH ×2 (10:01→20:36)
[2021-02-09] MEDS: cloNIDine 0.1 MG (CATAPRES) TAB PO SCH ×2 (10:01→20:36)
[2021-02-09] MEDS: DOCUSATE SODIUM 100 MG (COLACE) CAP PO SCH ×2 (10:01→20:39)
[2021-02-09] MEDS: BUMETANIDE 1 MG (BUMEX) TAB PO SCH (10:01)
[2021-02-09] MEDS: FOLIC ACID 1 MG TAB PO SCH (10:01)
[2021-02-09] MEDS: FAMOTIDINE 20 MG (PEPCID) TABLET PO SCH (10:01)
[2021-02-09] MEDS: lisINopril 20 MG (PRINIVIL) TABLET PO SCH (10:01)
[2021-02-09] MEDS: LACTOBACILLUS ACIDOPHILUS (PROBIOTIC) CAPSULE PO SCH ×2 (10:01→20:36)
[2021-02-09] MEDS: FINASTERIDE (PROSCAR) 5 MG TAB PO SCH (10:02)
[2021-02-09] MEDS: ALLOPURINOL 100 MG (ZYLOPRIM) TAB PO SCH (10:02)
[2021-02-09] MEDS: DICLOFENAC 1% GEL 100 GM (VOLTAREN) TUBE TOP SCH ×4 (10:03→20:41)
--- NOTE | 2021-02-09 11:13 | Progress Note - Urology ---
Progress Note-Urology Progress Notes/Assess & Plan Progress/Assessment & Plan voiding on own. check pvr Final Diagnosis RETENTION MUNDO MATOS MD Feb 09, 2021 11:13
--- NOTE | 2021-02-09 13:06 | PM&R Progress Note ---
Subjective HPI/CC On Admission Date Seen by Provider: Feb 09, 2021 Time Seen by Provider: 13:10 Subjective/Events-last exam 02/09/2021: Patient doing really well today Wants to work on steps tomorrow Discharge will likely not be tomorrow since he has 14 steps at home Checked meds and labs Bowels are moving 02/08/2021: Patient doing well Short of breath is improved Status post suppository did evacuate but not completely adding milk of magnesia Has not done stairs yet he has 14 steps at home Patient appears to be hesitant about leaving but he has caregivers at home 02/07/21: Patient nauseated today Having a lot of anxiety Behaviors are interrupting therapy Checked meds and labs UA will be ordered Completed Daptomycin yesterday 02/06/2021: Patient doing much better Urinary output from Lasix with 2000 and Marrero catheter Marrero will be discontinued tomorrow per urology Appreciate Dr. Garsia 02/05/2021: Patient doing well Focused on getting Lasix and I have talked to cardiology about this Labs stable Denies any pain Hemodialysis catheter removed and everything looks good 02/04/2021: Patient doing well Right knee injected by Dr. Chappell Hemodialysis catheter removed by Dr. Michelle today Once Lasix due to overload per patient Dr. Haynes will be in charge of Lasix now Checked meds and labs 02/03/2021: Patient doing well No issues Dr. Chappell will see him for right knee injection Potassium 3.1 will supplement Laxatives ordered 02/02/2021: Patient doing well Low-sodium diet will be started Needs 1 dose of Lasix due to shortness of breath We will reach out to orthopedics for right knee injection tomorrow Marrero is in place but had to flush due to sediment Patient maintained on Eliquis 02/01/2021: Patient required Marrero reinsertion due to retention Started on Urecholine of 10 mg AC/at bedtime Consult urology Wants copies of all of his labs printed off He is requesting a right knee injection so we will reach out to one of the orthopedic surgeons on Wednesday Hemodialysis catheter will have to be discontinued after discharge unless general surgery is comfortable Review of Systems General: Fatigue, Malaise Focused Exam Time of Focused Exam: 07:10 Objective Exam Vital Signs Vital Signs Date Time Temp Pulse Resp B/P (MAP) Pulse Ox O2 Delivery O2 Flow Rate FiO2 02/09/21 20:44 95 Room Air 02/09/21 20:00 36.6 50 18 152/74 (100) Capillary Refill : General Appearance: No Apparent Distress, WD/WN, Chronically ill, Obese HEENT: PERRL/EOMI Neck: Normal Inspection, Non Tender, Supple Respiratory: Chest Non Tender, Lungs Clear, Normal Breath Sounds, No Accessory Muscle Use, No Respiratory Distress Cardiovascular: Regular Rate, Rhythm, No Gallop Gastrointestinal: Normal Bowel Sounds, No Organomegaly, No Pulsatile Mass, Non Tender, Soft Back: Normal Inspection, No CVA Tenderness, No Vertebral Tenderness Extremity: Normal Capillary Refill, Normal Inspection, Non Tender, No Calf Tenderness, Pedal Edema Neurologic/Psychiatric: Alert, Oriented x3, Normal Mood/Affect, Motor Weakness Skin: Normal Color, Warm/Dry Lymphatic: No Adenopathy Results/Procedures Lab Laboratory Tests 02/09/21 06:00 Patient resulted labs reviewed. FIM Transfers Therapy Code Descriptions/Definitions Functional [place] Measure: 0=Not Assessed/NA 4=Minimal Assistance 1=Total Assistance 5=Supervision or Setup 2=Maximal Assistance 6=Modified [place] 3=Moderate Assistance 7=Complete IndependenceSCALE: Activities may be completed with or without assistive devices. 8-Yqxdfireyq-mecuwty completes the activity by him/herself with no assistance from a helper. 5-Set-up or Clean-up Assistance-helper sets up or cleans up; patient completes activity. [place] assists only prior to or following the activity. 4-Supervision or Touching Assistance-helper provides verbal cues and/or touching/steadying and/or contact guard assistance as patient completes activity. Assistance may be provided throughout the activity or intermittently. 3-Partial/Moderate Assistance-helper does LESS THAN HALF the effort. [place] lifts, holds or supports trunk or limbs, but provides less than half the effort. 2-Substantial/Maximal Assistance-helper does MORE THAN HALF the effort. [place] lifts or holds trunk or limbs and provides more than half the effort. 9-Gmyhxtnee-gifjaw does ALL the effort. Patient does none of the effort to complete the activity. Or, the assistance of 2 or more helpers is required for the patient to complete the activity. If activity was not attempted, code reason: 7-Patient Refused. 9-Not Applicable-not attempted and the patient did not perform the activity before the current illness, exacerbation or injury. 10-Not Attempted due to Environmental Limitations-(lack of equipment, weather restraints, etc.). 88-Not Attempted due to Medical Conditions or Safety Concerns. Roll Left to Right (QC): 3 Sit to Lying (QC): 6 Sit to Stand (QC): 4 Chair/Dxm-td-Rnvzp Xfer(QC): 4 Car Transfer (QC): 3 Gait Training Does the Patient Walk?: Yes Distance: 150 feet x 2 Walk 10 feet (QC): 5 Walk 50 ft with 2 Turns(QC): 5 Walk 150 ft (QC): 5 Walking 10ft/uneven surface-QC: 7 Gait Persons Needed: 1 Gait Assistive Device: FWW Wheelchair Training Does the Pt Use a Wheelchair?: Yes Wheel 50 ft with 2 turns (QC): 6 Wheel 150 ft (QC): 6 Type of Wheelchair: Manual Stair Training Stair Training: Handrails/: 2 handrails #of Steps: 4 1 Step (curb) (QC): 7 4 Steps (QC): 3 12 Steps (QC): 88 Stairs: Pattern: Step to Balance Picking up an Object (QC): 4 (SBA with lead sql developer) ADL-Treatment Eating (QC): 6 (Per pt report) Oral Hygiene (QC): 6 (Based on clincial judgment, IND seated at sink.) Shower/Bathe Self (QC): 5 (set up, pt able to wash/dry all parts, using LH sponge as needed.) Upper Body Dressing (QC): 5 (set up) Lower Body Dressing (QC): 5 (set up. OT assisted with threading catheter. ) On/Off Footwear (QC): 5 (set up) Toileting Hygiene (QC): 4 (SBA) Toilet Transfer (QC): 4 (SBA ) Assessment/Plan Assessment and Plan Assess & Plan/Chief Complaint Assessment: Myopathy CHF diastolic type FAIZA on CRI recent HD now baseline AF OAC MSSA bactermia NATALEE on CPAP h/o splenectomy Anemia Obesity HTN HLP CAD CABG hx Plan: PT OT protocol IV abx Monitor closely 02/01/2021: Marrero catheter reinserted Urology consult 02/02/2021: Supportive care Urology consult 02/03/2021: Dr. Chappell consult appreciated Right knee injection tomorrow per patient request 02/04/2021: Right knee injection appreciated by Dr. Chappell Hemodialysis catheter to be removed today by Dr. Michelle 02/05/2021: Appreciate Dr. Michelle Diuresis 02/06/2021: Supportive care Diuresis 02/07/21: UA check Nausea treatment 02/08/2021: Much improved today Work on stairs 02/09/2021: Work on stairs Discharge planned (1) Coronary artery disease without angina pectoris Assessment & Plan: He has a previous history of coronary bypass surgery. He is not having any angina. He was taking both aspirin and apixaban at home. Given his age, this will increase the risk of hemorrhagic side effects. I stopped his aspirin. He is not tolerant of beta-blockers due to baseline bradycardia. His cholesterol level is slightly elevated. I ordered low-dose statin medication on 02/01. (2) Permanent atrial fibrillation Assessment & Plan: His heart rate is well controlled on no AV shlomo blocking agents. He is on apixaban for stroke prophylaxis. I stopped his aspirin to help reduce the risk of potential hemorrhagic side effects. The apixaban is now on hold for removing the tunneled dialysis catheter later today. The apixaban can either be restarted this evening if he has good hemostasis following the procedure or he can restart this tomorrow. (3) Primary hypertension Assessment & Plan: His blood pressure is intermittently elevated. He was started on amlodipine at the outside facility but has had edema from this in the past. I changed him back over to his usual dosing of lisinopril that he was taking at home prior to admission. He had also been on hydrochlorothiazide but in light of the recent acute renal failure that required dialysis, I would be hesitant to resume hydrochlorothiazide. I will increase his evening dose of li sinopril to 20 mg. I will obtain a follow-up basic metabolic panel in the morning. Today he told me he had also been taking clonidine at home. If his blood pressure does not improve on the higher dose of lisinopril, we could restart clonidine. (4) Thoracic aortic aneurysm without rupture Assessment & Plan: His echocardiogram obtained from [facility] in [place], [place] showed mild dilatation of the thoracic aorta. This will need to be followed longitudinally. The patient was not told about this in the past. I reassured him that this is only mild and will likely never become anything clinically significant for this patient. Nonetheless, this should be followed. (5) Bradycardia Assessment & Plan: As above, the patient states he is intolerant of beta- blockers due to baseline bradycardia. (6) Mixed hyperlipidemia Assessment & Plan: His LDL level is 123 and this is after being in the hospital for almost 1 month which would typically cause the LDL to go down. I ordered low-dose statin medication on 02/01. (7) Stage 2 chronic kidney disease Assessment & Plan: His renal function is probably now back to his baseline. He had acute renal failure at the outside hospital that temporarily required hemodialysis. As above, the dialysis catheter will be removed today. (8) Morbid obesity Assessment & Plan: He needs work on weight loss. ERICKA DANGELO DO Feb 09, 2021 13:06
[2021-02-09] MEDS: TAMSULOSIN 0.4 MG (FLOMAX) CAP PO SCH (18:02)
[2021-02-09 20:00] VITALS: BP 152/74
[2021-02-09] MEDS: lisINopril 10 MG (PRINIVIL) TABLET PO SCH (20:36)
[2021-02-09] MEDS: ROSUVASTATIN 10 MG (CRESTOR) TABLET PO SCH (20:36)
[2021-02-10] MEDS: CATHETER FLUSH 10 ML SYR IV SCH ×3 (06:12→21:56)
[2021-02-10] MEDS: MULTIVIT W/MINERALS TAB (THERAGRAN M) PO SCH (06:12)
[2021-02-10] MEDS: BETHANECHOL 25 MG (URECHOLINE) TAB PO SCH ×4 (06:12→21:55)
[2021-02-10] MEDS: KCL 10 MEQ TAB (MICRO K) PO SCH ×3 (06:12→21:55)
[2021-02-10] MEDS: predniSONE 20 MG TAB PO SCH (06:13)
[2021-02-10 06:32] LABS: BASOPHILS # (AUTO) 0.1 10^3/uL (0.0-0.1); BASOPHILS % (AUTO) 1 % (0-10); EOSINOPHILS # (AUTO) 0.5 10^3/uL (0.0-0.3); EOSINOPHILS % (AUTO) 5 % (0-10); HEMATOCRIT 28 % (40-54); HEMOGLOBIN 8.6 g/dL (13.3-17.7); LYMPHOCYTES # (AUTO) 2.4 10^3/uL (1.0-4.0); LYMPHOCYTES % (AUTO) 21 % (12-44); MEAN CORPUSCULAR HEMOGLOBIN 28 pg (25-34); MEAN CORPUSCULAR HGB CONC 31 g/dL (32-36); MEAN CORPUSCULAR VOLUME 91 fL (80-99); MONOCYTES # (AUTO) 1.5 10^3/uL (0.0-1.0); MONOCYTES % (AUTO) 12 % (0-12); NEUTROPHILS # (AUTO) 7.3 10^3/uL (1.8-7.8); NEUTROPHILS % (AUTO) 61 % (42-75); PLATELET COUNT 635 10^3/uL (130-400); WHITE BLOOD COUNT 11.9 10^3/uL (4.3-11.0)
[2021-02-10 06:47] LABS: ALBUMIN 2.9 GM/DL (3.2-4.5); BILIRUBIN,TOTAL 0.4 MG/DL (0.1-1.0); CALCIUM 8.7 MG/DL (8.5-10.1); CREATININE SERUM 0.74 MG/DL (0.60-1.30); POTASSIUM 3.2 MMOL/L (3.6-5.0); TOTAL PROTEIN 5.3 GM/DL (6.4-8.2)
[2021-02-10 08:03] VITALS: BP 166/78
[2021-02-10] MEDS: FINASTERIDE (PROSCAR) 5 MG TAB PO SCH (08:08)
[2021-02-10] MEDS: FAMOTIDINE 20 MG (PEPCID) TABLET PO SCH (08:08)
[2021-02-10] MEDS: cloNIDine 0.1 MG (CATAPRES) TAB PO SCH ×2 (08:08→21:53)
[2021-02-10] MEDS: lisINopril 20 MG (PRINIVIL) TABLET PO SCH (08:08)
[2021-02-10] MEDS: BUMETANIDE 1 MG (BUMEX) TAB PO SCH (08:08)
[2021-02-10] MEDS: PREGABALIN 50 MG (LYRICA) CAP PO SCH ×2 (08:08→21:55)
[2021-02-10] MEDS: ALLOPURINOL 100 MG (ZYLOPRIM) TAB PO SCH (08:08)
[2021-02-10] MEDS: LACTOBACILLUS ACIDOPHILUS (PROBIOTIC) CAPSULE PO SCH ×2 (08:08→21:53)
[2021-02-10] MEDS: FOLIC ACID 1 MG TAB PO SCH (08:08)
[2021-02-10] MEDS: APIXABAN 5 MG (ELIQUIS) TABLET PO SCH ×2 (08:08→21:54)
[2021-02-10] MEDS: DICLOFENAC 1% GEL 100 GM (VOLTAREN) TUBE TOP SCH ×4 (08:09→22:03)
--- NOTE | 2021-02-10 08:43 | PM&R Progress Note ---
Subjective HPI/CC On Admission Date Seen by Provider: Feb 10, 2021 Time Seen by Provider: 11:00 Subjective/Events-last exam 02/10/2021: Pt doing well Bowels are moving Walked up 16 steps DC planned for tomorrow Potassium 3.1 increase potassium supplement Started therapy 3 hours after Prednisone given 02/09/2021: Patient doing really well today Wants to work on steps tomorrow Discharge will likely not be tomorrow since he has 14 steps at home Checked meds and labs Bowels are moving 02/08/2021: Patient doing well Short of breath is improved Status post suppository did evacuate but not completely adding milk of magnesia Has not done stairs yet he has 14 steps at home Patient appears to be hesitant about leaving but he has caregivers at home 02/07/21: Patient nauseated today Having a lot of anxiety Behaviors are interrupting therapy Checked meds and labs UA will be ordered Completed Daptomycin yesterday 02/06/2021: Patient doing much better Urinary output from Lasix with 2000 and Marrero catheter Marrero will be discontinued tomorrow per urology Appreciate Dr. Garsia 02/05/2021: Patient doing well Focused on getting Lasix and I have talked to cardiology about this Labs stable Denies any pain Hemodialysis catheter removed and everything looks good 02/04/2021: Patient doing well Right knee injected by Dr. Chappell Hemodialysis catheter removed by Dr. Michelle today Once Lasix due to overload per patient Dr. Haynes will be in charge of Lasix now Checked meds and labs 02/03/2021: Patient doing well No issues Dr. Chappell will see him for right knee injection Potassium 3.1 will supplement Laxatives ordered 02/02/2021: Patient doing well Low-sodium diet will be started Needs 1 dose of Lasix due to shortness of breath We will reach out to orthopedics for right knee injection tomorrow Marrero is in place but had to flush due to sediment Patient maintained on Eliquis 02/01/2021: Patient required Marrero reinsertion due to retention Started on Urecholine of 10 mg AC/at bedtime Consult urology Wants copies of all of his labs printed off He is requesting a right knee injection so we will reach out to one of the orthopedic surgeons on Wednesday Hemodialysis catheter will have to be discontinued after discharge unless general surgery is comfortable Review of Systems General: Fatigue, Malaise Musculoskeletal: leg pain Focused Exam Time of Focused Exam: 07:10 Objective Exam Vital Signs Vital Signs Date Time Temp Pulse Resp B/P (MAP) Pulse Ox O2 Delivery O2 Flow Rate FiO2 02/10/21 20:45 Room Air 02/10/21 19:57 36.5 58 22 167/75 (105) 95 Capillary Refill : General Appearance: No Apparent Distress, WD/WN, Chronically ill, Obese HEENT: PERRL/EOMI Neck: Normal Inspection, Non Tender, Supple Respiratory: Chest Non Tender, Lungs Clear, Normal Breath Sounds, No Accessory Muscle Use, No Respiratory Distress Cardiovascular: Regular Rate, Rhythm, No Gallop Gastrointestinal: Normal Bowel Sounds, No Organomegaly, No Pulsatile Mass, Non Tender, Soft Back: Normal Inspection, No CVA Tenderness, No Vertebral Tenderness Extremity: Normal Capillary Refill, Normal Inspection, Non Tender, No Calf Tenderness, Pedal Edema Neurologic/Psychiatric: Alert, Oriented x3, Normal Mood/Affect, Motor Weakness Skin: Normal Color, Warm/Dry Lymphatic: No Adenopathy Results/Procedures Lab Laboratory Tests 02/10/21 06:15 Patient resulted labs reviewed. FIM Transfers Therapy Code Descriptions/Definitions Functional [place] Measure: 0=Not Assessed/NA 4=Minimal Assistance 1=Total Assistance 5=Supervision or Setup 2=Maximal Assistance 6=Modified [place] 3=Moderate Assistance 7=Complete IndependenceSCALE: Activities may be completed with or without assistive devices. 1-Prpfmgzrcl-cltgice completes the activity by him/herself with no assistance from a helper. 5-Set-up or Clean-up Assistance-helper sets up or cleans up; patient completes activity. [place] assists only prior to or following the activity. 4-Supervision or Touching Assistance-helper provides verbal cues and/or touching/steadying and/or contact guard assistance as patient completes activity. Assistance may be provided throughout the activity or intermittently. 3-Partial/Moderate Assistance-helper does LESS THAN HALF the effort. [place] lifts, holds or supports trunk or limbs, but provides less than half the effort. 2-Substantial/Maximal Assistance-helper does MORE THAN HALF the effort. [place] lifts or holds trunk or limbs and provides more than half the effort. 8-Bctpkakvo-vlznzo does ALL the effort. Patient does none of the effort to complete the activity. Or, the assistance of 2 or more helpers is required for the patient to complete the activity. If activity was not attempted, code reason: 7-Patient Refused. 9-Not Applicable-not attempted and the patient did not perform the activity before the current illness, exacerbation or injury. 10-Not Attempted due to Environmental Limitations-(lack of equipment, weather restraints, etc.). 88-Not Attempted due to Medical Conditions or Safety Concerns. Roll Left to Right (QC): 3 Sit to Lying (QC): 6 Sit to Stand (QC): 4 Chair/Sng-la-Xagcx Xfer(QC): 4 Car Transfer (QC): 3 Gait Training Does the Patient Walk?: Yes Distance: 150 feet x 2 Walk 10 feet (QC): 5 Walk 50 ft with 2 Turns(QC): 5 Walk 150 ft (QC): 5 Walking 10ft/uneven surface-QC: 7 Gait Persons Needed: 1 Gait Assistive Device: FWW Wheelchair Training Does the Pt Use a Wheelchair?: Yes Wheel 50 ft with 2 turns (QC): 6 Wheel 150 ft (QC): 6 Type of Wheelchair: Manual Stair Training Stair Training: Handrails/: 2 handrails #of Steps: 4 1 Step (curb) (QC): 7 4 Steps (QC): 3 12 Steps (QC): 88 Stairs: Pattern: Step to Balance Picking up an Object (QC): 4 (SBA with business support coordinator) ADL-Treatment Eating (QC): 6 (Per pt report) Oral Hygiene (QC): 6 (Based on clincial judgment, IND seated at sink.) Shower/Bathe Self (QC): 5 (set up, pt able to wash/dry all parts, using LH sponge as needed.) Upper Body Dressing (QC): 5 (set up) Lower Body Dressing (QC): 5 (set up. OT assisted with threading catheter. ) On/Off Footwear (QC): 5 (set up) Toileting Hygiene (QC): 4 (SBA) Toilet Transfer (QC): 4 (SBA ) Assessment/Plan Assessment and Plan Assess & Plan/Chief Complaint Assessment: Myopathy CHF diastolic type FAIZA on CRI recent HD now baseline AF OAC MSSA bactermia NATALEE on CPAP h/o splenectomy Anemia Obesity HTN HLP CAD CABG hx Plan: PT OT protocol IV abx Monitor closely 02/01/2021: Marrero catheter reinserted Urology consult 02/02/2021: Supportive care Urology consult 02/03/2021: Dr. Chappell consult appreciated Right knee injection tomorrow per patient request 02/04/2021: Right knee injection appreciated by Dr. Chappell Hemodialysis catheter to be removed today by Dr. Michelle 02/05/2021: Appreciate Dr. Michelle Diuresis 02/06/2021: Supportive care Diuresis 02/07/21: UA check Nausea treatment 02/08/2021: Much improved today Work on stairs 02/09/2021: Work on stairs Discharge planned 02/10/2021: Complete stairs Discharge plan (1) Coronary artery disease without angina pectoris Assessment & Plan: He has a previous history of coronary bypass surgery. He is not having any angina. He was taking both aspirin and apixaban at home. Given his age, this will increase the risk of hemorrhagic side effects. I stopped his aspirin. He is not tolerant of beta-blockers due to baseline bradycardia. His cholesterol level is slightly elevated. I ordered low-dose statin medication on 02/01. (2) Permanent atrial fibrillation Assessment & Plan: His heart rate is well controlled on no AV shlomo blocking agents. He is on apixaban for stroke prophylaxis. I stopped his aspirin to help reduce the risk of potential hemorrhagic side effects. The apixaban is now on hold for removing the tunneled dialysis catheter later today. The apixaban can either be restarted this evening if he has good hemostasis following the procedure or he can restart this tomorrow. (3) Primary hypertension Assessment & Plan: His blood pressure is intermittently elevated. He was started on amlodipine at the outside facility but has had edema from this in the past. I changed him back over to his usual dosing of lisinopril that he was taking at home prior to admission. He had also been on hydrochlorothiazide but in light of the recent acute renal failure that required dialysis, I would be hesitant to resume hydrochlorothiazide. I will increase his evening dose of lisinopril to 20 mg. I will obtain a follow-up basic metabolic panel in the morning. Today he told me he had also been taking clonidine at home. If his blood pressure does not improve on the higher dose of lisinopril, we could restart clonidine. (4) Thoracic aortic aneurysm without rupture Assessment & Plan: His echocardiogram obtained from [facility] in [place], [place] showed mild dilatation of the thoracic aorta. This will need to be followed longitudinally. The patient was not told about this in the past. I reassured him that this is only mild and will likely never become anything clinically significant for this patient. Nonetheless, this should be followed. (5) Bradycardia Assessment & Plan: As above, the patient states he is intolerant of beta- blockers due to baseline bradycardia. (6) Mixed hyperlipidemia Assessment & Plan: His LDL level is 123 and this is after being in the hospital for almost 1 month which would typically cause the LDL to go down. I ordered low-dose statin medication on 02/01. (7) Stage 2 chronic kidney disease Assessment & Plan: His renal function is probably now back to his baseline. He had acute renal failure at the outside hospital that temporarily required hemodialysis. As above, the dialysis catheter will be removed today. (8) Morbid obesity Assessment & Plan: He needs work on weight loss. ERICKA DANGELO DO Feb 10, 2021 08:43
[2021-02-10] MEDS: polyethylene glycoL POWDER 17 GM (MIRALAX) PACK PO SCH (09:00)
[2021-02-10] MEDS: DOCUSATE SODIUM 100 MG (COLACE) CAP PO SCH ×2 (09:00→22:07)
[2021-02-10] MEDS: SENNA W/DOCUSATE (SENOKOT S) TABLET PO SCH ×2 (09:00→22:07)
--- NOTE | 2021-02-10 09:01 | Cardiology Progress Note ---
Progress Note-Cardiology Events since last exam Date Seen by Provider: Feb 10, 2021 Time Seen by Provider: 08:59 Events since last exam I am following him due to coronary artery disease, atrial fibrillation, and peripheral edema. He has reduced his sodium intake and his breathing and peripheral edema have improved. He plans to decrease his sodium intake at home so that he can reduce his dose of diuretic. He denies chest pain. His breathing is improved. He denies palpitations or syncope. Certain portions of this document may have been dictated utilizing voice recognition technology. Inherent to this technology, typographical and grammatical errors may exist. As much as I am diligent to identify and correct these mistakes, some errors may remain in the document. Vitals Last set of Vitals Signs Vital Signs 02/10/21 02/10/21 02/10/21 08:03 08:47 08:57 Temp 36.2 Pulse 60 Resp 18 B/P (MAP) 166/78 (107) Pulse Ox 95 O2 Delivery Room Air Labs Labs Laboratory Tests 02/10/21 06:15 Exam Vital Signs Vital Signs Date Time Temp Pulse Resp B/P (MAP) Pulse Ox O2 Delivery O2 Flow Rate FiO2 02/10/21 08:57 Room Air 02/10/21 08:47 95 02/10/21 08:03 36.2 60 18 166/78 (107) Physical Exam General: Alert. No acute distress. He is obese. Eye: No xanthelasma. HENT: Normocephalic. Neck: Jugular venous pressure does not appear elevated. Respiratory: Lungs are clear to auscultation. Respirations are non-labored. Breath sounds are equal. Symmetrical chest wall expansion. Cardiovascular: Normal rate. Irregular rhythm. No murmur. No gallop. 1-2+ bilateral pretibial edema. Gastrointestinal: Soft. Normal bowel sounds. Skin: Warm. Dry. Neurologic: Alert and oriented to person, place, time. Cranial nerves 3-11 grossly intact. Psychiatric: Cooperative. Appropriate mood & affect. Labs Laboratory Tests Test 02/10/21 06:15 Range/Units White Blood Count 11.9 H 4.3-11.0 10^3/uL Red Blood Count 3.08 L 4.30-5.52 10^6/uL Hemoglobin 8.6 L 13.3-17.7 g/dL Hematocrit 28 L 40-54 % Mean Corpuscular Volume 91 80-99 fL Mean Corpuscular Hemoglobin 28 25-34 pg Mean Corpuscular Hemoglobin Concent 31 L 32-36 g/dL Red Cell Distribution Width 20.7 H 10.0-14.5 % Platelet Count 635 H 130-400 10^3/uL Mean Platelet Volume 10.0 9.0-12.2 fL Immature Granulocyte % (Auto) 1 % Neutrophils (%) (Auto) 61 42-75 % Lymphocytes (%) (Auto) 21 12-44 % Monocytes (%) (Auto) 12 0-12 % Eosinophils (%) (Auto) 5 0-10 % Basophils (%) (Auto) 1 0-10 % Neutrophils # (Auto) 7.3 1.8-7.8 10^3/uL Lymphocytes # (Auto) 2.4 1.0-4.0 10^3/uL Monocytes # (Auto) 1.5 H 0.0-1.0 10^3/uL Eosinophils # (Auto) 0.5 H 0.0-0.3 10^3/uL Basophils # (Auto) 0.1 0.0-0.1 10^3/uL Immature Granulocyte # (Auto) 0.1 0.0-0.1 10^3/uL Sodium Level 142 135-145 MMOL/L Potassium Level 3.2 L 3.6-5.0 MMOL/L Chloride Level 105 98-107 MMOL/L Carbon Dioxide Level 27 21-32 MMOL/L Anion Gap 10 5-14 MMOL/L Blood Urea Nitrogen 22 H 7-18 MG/DL Creatinine 0.74 0.60-1.30 MG/DL Estimat Glomerular Filtration Rate 103 BUN/Creatinine Ratio 30 Glucose Level 97 70-105 MG/DL Calcium Level 8.7 8.5-10.1 MG/DL Corrected Calcium 9.6 8.5-10.1 MG/DL Total Bilirubin 0.4 0.1-1.0 MG/DL Aspartate Amino Transf (AST/SGOT) 15 5-34 U/L Alanine Aminotransferase (ALT/SGPT) 17 0-55 U/L Alkaline Phosphatase 52 40-136 U/L Total Protein 5.3 L 6.4-8.2 GM/DL Albumin 2.9 L 3.2-4.5 GM/DL Diagnosis/Problems Diagnosis/Problems (1) Primary hypertension Assessment & Plan: His blood pressure is intermittently elevated. He was started on amlodipine at the outside facility but had edema from this in the past though I discontinued this soon after he was admitted to our facility. He is now on the maximal dose of lisinopril and also on clonidine, both of which he was taking at home. I would suggest we continue the present medication as is. He has also reduced his sodium intake which may help with the hypertension. (2) Lower extremity edema Assessment & Plan: I suspect this is predominantly related to his obesity with chronic venous stasis. He has not required or requested intravenous furosemide in a few days. I recommend we continue the present dose of oral diuretic. When he is discharged, he can go back to his torsemide that he was taking at home but he plans to reduce the dose from twice daily to once daily. (3) Coronary artery disease without angina pectoris Assessment & Plan: He has a previous history of coronary bypass surgery. He is not having any angina. He was taking both aspirin and apixaban at home. Given his age, this will increase the risk of hemorrhagic side effects. I stopped his aspirin. He is not tolerant of beta-blockers due to baseline bradycardia. His cholesterol level is slightly elevated. I ordered low-dose statin medication on 02/01. (4) Permanent atrial fibrillation Assessment & Plan: His heart rate is well controlled on no AV shlomo blocking agents. He is on apixaban for stroke prophylaxis. Above, I stopped his aspirin to help reduce the risk of potential hemorrhagic side effects. (5) Thoracic aortic aneurysm without rupture Assessment & Plan: His echocardiogram obtained from [facility] in [place], [place] showed mild dilatation of the thoracic aorta. This will need to be followed longitudinally. The patient was not told about this in the past. I reassured him that this is only mild and will likely never become anything clinically significant for this patient. Nonetheless, this should be followed. (6) Bradycardia Assessment & Plan: As above, the patient states he is intolerant of beta- blockers due to baseline bradycardia. (7) Mixed hyperlipidemia Assessment & Plan: His LDL level is 123 and this is after being in the hospital for almost 1 month which would typically cause the LDL to go down. I ordered low-dose statin medication on 02/01. (8) Stage 2 chronic kidney disease Assessment & Plan: His renal function is probably now back to his baseline. He had acute renal failure at the outside hospital that temporarily required hemodi alysis. His tunneled dialysis catheter was removed without incident. (9) Morbid obesity Assessment & Plan: He needs work on weight loss. CAR DAUGHERTY JR, MD Feb 10, 2021 09:01
--- NOTE | 2021-02-10 09:54 | Occupational Ther Daily Note ---
OT Current Status-Daily Note Subjective Pt up in recliner, agreeable to OT tx with focus on showering. Pt states he would like to complete stairs, as he has 14 steps into his house from the garage. OT informed PT staff. Mental Status/Objective Patient Orientation: Person, Place, Time, Situation ADL-Treatment Therapy Code Descriptions/Definitions Functional [place] Measure: 0=Not Assessed/NA 4=Minimal Assistance 1=Total Assistance 5=Supervision or Setup 2=Maximal Assistance 6=Modified [place] 3=Moderate Assistance 7=Complete IndependenceSCALE: Activities may be completed with or without assistive devices. 4-Khnhvdscqm-uzfvaep completes the activity by him/herself with no assistance from a helper. 5-Set-up or Clean-up Assistance-helper sets up or cleans up; patient completes activity. [place] assists only prior to or following the activity. 4-Supervision or Touching Assistance-helper provides verbal cues and/or touching/steadying and/or contact guard assistance as patient completes activity. Assistance may be provided throughout the activity or intermittently. 3-Partial/Moderate Assistance-helper does LESS THAN HALF the effort. [place] lifts, holds or supports trunk or limbs, but provides less than half the effort. 2-Substantial/Maximal Assistance-helper does MORE THAN HALF the effort. [place] lifts or holds trunk or limbs and provides more than half the effort. 9-Nwgvxivhu-ncymaw does ALL the effort. Patient does none of the effort to complete the activity. Or, the assistance of 2 or more helpers is required for the patient to complete the activity. If activity was not attempted, code reason: 7-Patient Refused. 9-Not Applicable-not attempted and the patient did not perform the activity b efore the current illness, exacerbation or injury. 10-Not Attempted due to Environmental Limitations-(lack of equipment, weather restraints, etc.). 88-Not Attempted due to Medical Conditions or Safety Concerns. Eating (QC): 6 (IND per pt report.) Oral Hygiene (QC): 6 (IND seated at sink.) Shower/Bathe Self (QC): 5 (Set up assistance, pt able to wash/dry all parts.) Upper Body Dressing (QC): 5 (set up, pt able to doff/don pick pulling machine operator shirt.) Lower Body Dressing (QC): 6 (IND, pt able to doff/don pants.) On/Off Footwear: 6 (IND with donning/doffing gripper socks.) Toileting Hygiene (QC): 6 (IND. Pt able to wash buttocks/periarea and manage clothing.) Other Treatment Pt seated in recliner, agreeable to OT Tx. Pt used FWW to perform functional mobility into bathroom and onto SC independently. Pt doffed clothes, completed shower, then dried off on SC. OT handed pt shirt, pt donned at SC. Pt transferred to chair using GBs, IND in order to dry LEs and don LE clothing/foot wear. Pt used FWW to walk to sink, sat in chair. Pt completed oral care seated at sink independently. Pt then used FWW to transfer back to recliner independently. Post tx, pt seated in recliner, call light in reach and all needs met. Education OT Patient Education: Correct positioning, Modified ADL techniques, Progress toward Goal/Update tx plan, Purpose of tx/functional activities, Rehab process Teaching Recipient: Patient Teaching Methods: Discussion Response to Teaching: Verbalize Understanding OT Short Term Goals Short Term Goals Time Frame: Feb 14, 2021 Toileting hygiene: 4 Shower/bathe self: 4 Lower body dressin Putting on/taking off footwear: 4 OT Halfway Goals Practice Clinician Goals Time Frame: Feb 28, 2021 Eating (QC): 6 (met) Oral Hygiene (QC): 6 (met) Toileting Hygiene (QC): 6 (met) Shower/Bathe Self (QC): 5 (met) Upper Body Dressing (QC): 6 Lower Body Dressing (QC): 6 (met) On/Off Footwear (QC): 6 (met) Additional Goals: 1-Demonstrate ADL Tasks, 2-Verbalize Understanding, 3- ImproveStrength/Denys 1=Demonstrate adherence to instructed precautions during ADL tasks. 2=Patient will verbalize/demonstrate understanding of assistive devices/modifications for ADL. 3=Patient will improve strength/tolerance for activity to enable patient to perform ADL's. OT Education/Plan Problem List/Assessment Assessment: Decreased Activ Tolerance, Decreased UE Strength, Impaired I ADL's Discharge Recommendations Plan/Recommendations: Continue POC Treatment Plan/Plan of Care Patient would benefit from OT for education, treatment and training to promote independence in ADL's, mobility, safety and/or upper extremity function for ADL's. Plan of Care: ADL Retraining, Functional Mobility, Group Exercise/Act as Ind, UE Funct Exercise/Act Treatment Duration: Feb 28, 2021 Frequency: At least 5 of 7 days/Wk (IRF) Estimated Hrs Per Day: 1.5 hours per day Rehab Potential: Fair Time/GCodes Start Time: 08:00 Stop Time: 09:00 Total Time Billed (hr/min): 60 Billed Treatment Time 1, ADL 4 YOMI LEWIS OT Feb 10, 2021 09:54
--- NOTE | 2021-02-10 10:27 | Progress Note - Urology ---
Progress Note-Urology Progress Notes/Assess & Plan Progress/Assessment & Plan PVR WAS 230. PLAN CYSTOSCOPY AT BEDSIDE TOMORROW. PLAN FULLY EXPLAINED TO PATIENT (20MNS) Final Diagnosis RETENTION MUNDO MATOS MD Feb 10, 2021 10:27
--- NOTE | 2021-02-10 10:56 | Physical Therapy Daily Note ---
PT Daily Note-Current Subjective Pt. agrees to Rx and states initially that he cannot do any therapies until about 3 hrs after taking prednisone. PT was rescheduled for 10 am to meet this goal. Pt expressed fatigue and SOB during Rx but was very cooperative to press on and show he could do 16 steps and walk simulating his home situation Pain Location: No Pain Reported Mental Status Patient Orientation: Normal For Age Attachments: Other-See Comments (mask, knee neeoprene knee brace) Transfers SCALE: Activities may be completed with or without assistive devices. 6-Ieptwcylmh-cphalqy completes the activity by him/herself with no assistance from a helper. 5-Set-up or Clean-up Assistance-helper sets up or cleans up; patient completes activity. [place] assists only prior to or following the activity. 4-Supervision or Touching Assistance-helper provides verbal cues and/or touching/steadying and/or contact guard assistance as patient completes activity. Assistance may be provided throughout the activity or intermittently. 3-Partial/Moderate Assistance-helper does LESS THAN HALF the effort. [place] lifts, holds or supports trunk or limbs, but provides less than half the effort. 2-Substantial/Maximal Assistance-helper does MORE THAN HALF the effort. [place] lifts or holds trunk or limbs and provides more than half the effort. 8-Ytodtvrui-knslmg does ALL the effort. Patient does none of the effort to complete the activity. Or, the assistance of 2 or more helpers is required for the patient to complete the activity. If activity was not attempted, code reason: 7-Patient Refused. 9-Not Applicable-not attempted and the patient did not perform the activity before the current illness, exacerbation or injury. 10-Not Attempted due to Environmental Limitations-(lack of equipment, weather restraints, etc.). 88-Not Attempted due to Medical Conditions or Safety Concerns. Roll Left & Right (QC): 6 Sit to Lying (QC): 6 Lying to Sitting/Side of Bed(Q: 6 Sit to Stand (QC): 6 Chair/Nzc-me-Vhzfk Xfer(QC): 6 Weight Bearing Full Weight Bearing Full Weight Bearing Gait Training Does the Patient Walk?: Yes Walk 10 feet (QC): 5 Walk 50 ft with 2 Turns(QC): 5 Walk 150 ft (QC): 5 Gait Persons Needed: 1 Gait Assistive Device: FWW w/c to follow as pt is heavy wt bearing on FWW and has periods of SOB Wheelchair Training Does the Pt Use a Wheelchair?: Yes Wheel 50 ft with 2 turns (QC): 6 Wheel 150 ft (QC): 6 Type of Wheelchair: Manual needs reminders to lock w/c brakes when needed Stair Training Stair Training: Handrails/: 2 handrails #of Steps: 16 4 Steps (QC): 4 12 Steps (QC): 4 Stairs: Pattern: Step to pt. was reminded of sequence and rail use, heavy wt bearing on rails, dyspnea noted with pt. continuing climb at 4 and 8 step point. O2 sats just after steps 97% with HR 107. Recovered quickly to 80 BPM Exercises Supine Ex: Ankle pumps, Quad Set, Glut sets, Heel Slides, Short Arc Quads, Straight leg raise, Hip abd/add Supine Reps: 15 (bilat) Treatments gait, steps, TRFs, ther ex Assessment Current Status: Good Progress pt. gave full effort and did fatigue and was slightly SOB but accomplished a scenario of approaching his own steps from garage at home and entering his home by climbing 14 steps, then in out bed approx height of his all indep PT Short Term Goals Short Term Goals Time Frame: Feb 07, 2021 Roll Left & Right: 6 Sit to lyin Lying to sitting on side of be: 4 Sit to stand: 4 (SBA) Chair/kuh-xt-qifku transfer: 4 (SBA) Walk 10 feet: 4 Walk 50 feet with two turns: 4 Walk 150 feet: 4 PT Office Helper Clerical Goals Alf Goals PT Alf Goals Time Frame: Feb 21, 2021 Roll Left & Right (QC): 6 Sit to Lying (QC): 6 Lying-Sitting on Side/Bed(QC): 6 Sit to Stand (QC): 5 Chair/Hmb-fl-Ybpqk Xfer(QC): 5 Toilet Transfer (QC): 5 Car Transfer (QC): 5 Does the Patient Walk: Yes Walk 10 feet (QC): 5 Walk 50ft with 2 Turns (QC): 5 Walk 150 ft (QC): 5 Walking 10ft on Uneven Surface: 4 1 Step (curb) (QC): 4 4 Steps (QC): 4 12 Steps (QC): 4 Picking up an Object (QC): 6 Wheel 50 feet with 2 turns (QC: 9 Wheel 150 feet: 9 PT Plan Treatment/Plan Treatment Plan: Continue Plan of Care Treatment Plan: Bed Mobility, Education, Functional Activity Denys, Functional Strength, Group Therapy, Gait, Safety, Therapeutic Exercise, Transfers Treatment Duration: Feb 21, 2021 Frequency: At least 5 of 7 days/Wk (IRF) Estimated Hrs Per Day: 1.5 hours per day Patient and/or Family Agrees t: Yes Safety Risks/Education Patient Education: Gait Training, Transfer Techniques, Steps, Correct Positioning, W/C Management, Disease Process, Safety Issues Teaching Recipient: Patient Teaching Methods: Demonstration, Discussion Response to Teaching: Verbalize Understanding, Return Demonstration, Reinforcement Needed Time/GCodes Time In: 1000 Time Out: 1100 Total Billed Treatment Time: 60 Total Billed Treatment 1,FA25m,GT15m,EX20m ANNETTE SILVEIRA BAKER CHEF Feb 10, 2021 10:56
--- NOTE | 2021-02-10 11:38 | Occupational Ther Daily Note ---
OT Current Status-Daily Note Subjective Pt in bathroom, agreeable to OT Tx. Pt wants to conserve his energy in order to complete steps again this afternoon with PT. Mental Status/Objective Patient Orientation: Person, Place, Time, Situation ADL-Treatment Therapy Code Descriptions/Definitions Functional [place] Measure: 0=Not Assessed/NA 4=Minimal Assistance 1=Total Assistance 5=Supervision or Setup 2=Maximal Assistance 6=Modified [place] 3=Moderate Assistance 7=Complete IndependenceSCALE: Activities may be completed with or without assistive devices. 7-Tbfvwbkwpm-gjrdmcb completes the activity by him/herself with no assistance from a helper. 5-Set-up or Clean-up Assistance-helper sets up or cleans up; patient completes activity. [place] assists only prior to or following the activity. 4-Supervision or Touching Assistance-helper provides verbal cues and/or touching/steadying and/or contact guard assistance as patient completes activity. Assistance may be provided throughout the activity or intermittently. 3-Partial/Moderate Assistance-helper does LESS THAN HALF the effort. [place] lifts, holds or supports trunk or limbs, but provides less than half the effort. 2-Substantial/Maximal Assistance-helper does MORE THAN HALF the effort. [place] lifts or holds trunk or limbs and provides more than half the effort. 4-Wrdwaurjr-ctfwsb does ALL the effort. Patient does none of the effort to complete the activity. Or, the assistance of 2 or more helpers is required for the patient to complete the activity. If activity was not attempted, code reason: 7-Patient Refused. 9-Not Applicable-not attempted and the patient did not perform the activity before the current illness, exacerbation or injury. 10-Not Attempted due to Environmental Limitations-(lack of equipment, weather restraints, etc.). 88-Not Attempted due to Medical Conditions or Safety Concerns. Toileting Hygiene (QC): 6 Toilet Transfer (QC): 6 Other Treatment Pt done in bathroom, independent with toileting. Pt used FWW to transfer to recliner independently. After a rest break, pt transferred to w/c, and propelled w/c to therapy gym. Pt declined walking to therapy gym, as he would like to conserve his energy for PT this afternoon, as he wants to attempt the stairs again. In order to increase BUE strength and activity tolerance, pt completed arm bike, 20 Watt resistance, x15 mins, no rest breaks. Pt propelled w/c back to his room, transferring to recliner. Post tx, pt in recliner, call light in reach and all needs met. Education OT Patient Education: Correct positioning, Energy conservation, Exercise program, Modified ADL techniques, Progress toward Goal/Update tx plan, Purpose of tx/functional activities, Rehab process Teaching Recipient: Patient Teaching Methods: Discussion Response to Teaching: Verbalize Understanding OT Short Term Goals Short Term Goals Time Frame: Feb 14, 2021 Toileting hygiene: 4 Shower/bathe self: 4 Lower body dressin Putting on/taking off footwear: 4 OT Correction Goals C D Stripper Goals Time Frame: Feb 28, 2021 Eating (QC): 6 (met) Oral Hygiene (QC): 6 (met) Toileting Hygiene (QC): 6 (met) Shower/Bathe Self (QC): 5 (met) Upper Body Dressing (QC): 6 Lower Body Dressing (QC): 6 (met) On/Off Footwear (QC): 6 (met) Additional Goals: 1-Demonstrate ADL Tasks, 2-Verbalize Understanding, 3- ImproveStrength/Denys 1=Demonstrate adherence to instructed precautions during ADL tasks. 2=Patient will verbalize/demonstrate understanding of assistive devices/modifications for ADL. 3=Patient will improve strength/tolerance for activity to enable patient to perform ADL's. OT Education/Plan Problem List/Assessment Assessment: Decreased Activ Tolerance, Decreased UE Strength, Impaired I ADL's Discharge Recommendations Plan/Recommendations: Continue POC Treatment Plan/Plan of Care Patient would benefit from OT for education, treatment and training to promote independence in ADL's, mobility, safety and/or upper extremity function for ADL's. Plan of Care: ADL Retraining, Functional Mobility, Group Exercise/Act as Ind, UE Funct Exercise/Act Treatment Duration: Feb 28, 2021 Frequency: At least 5 of 7 days/Wk (IRF) Estimated Hrs Per Day: 1.5 hours per day Rehab Potential: Fair Time/GCodes Start Time: 11:20 Stop Time: 11:50 Total Time Billed (hr/min): 30 Billed Treatment Time 1, FA (15'), EX (15') YOMI LEWIS OT Feb 10, 2021 11:38
[2021-02-10] MEDS ORDERED: FUROSEMIDE 40 MG/4 ML INJ (LASIX) IVP ONE (12:00)
--- NOTE | 2021-02-10 13:41 | Physical Therapy Daily Note ---
PT Daily Note-Current Subjective Pt. agrees to Rx, wants to be up ad mauri to bathroom. States he wants Lasix for edema Pain Numeric Pain Scale: 4 Location: Right Location Body Site: Knee Pain Description: Ache Mental Status Patient Orientation: Person, Place, Time, Situation Attachments: Other-See Comments (neoprene knee brace, mask) Transfers SCALE: Activities may be completed with or without assistive devices. 0-Jmyttxenxv-asumfzm completes the activity by him/herself with no assistance from a helper. 5-Set-up or Clean-up Assistance-helper sets up or cleans up; patient completes activity. [place] assists only prior to or following the activity. 4-Supervision or Touching Assistance-helper provides verbal cues and/or touching/steadying and/or contact guard assistance as patient completes activity. Assistance may be provided throughout the activity or intermittently. 3-Partial/Moderate Assistance-helper does LESS THAN HALF the effort. [place] lifts, holds or supports trunk or limbs, but provides less than half the effort. 2-Substantial/Maximal Assistance-helper does MORE THAN HALF the effort. [place] lifts or holds trunk or limbs and provides more than half the effort. 7-Saxytrypy-gzkwyk does ALL the effort. Patient does none of the effort to complete the activity. Or, the assistance of 2 or more helpers is required for the patient to complete the activity. If activity was not attempted, code reason: 7-Patient Refused. 9-Not Applicable-not attempted and the patient did not perform the activity before the current illness, exacerbation or injury. 10-Not Attempted due to Environmental Limitations-(lack of equipment, weather restraints, etc.). 88-Not Attempted due to Medical Conditions or Safety Concerns. Sit to Stand (QC): 6 Toilet Transfer (QC): 6 Car Transfer (QC): 6 Weight Bearing Full Weight Bearing Full Weight Bearing Gait Training Does the Patient Walk?: Yes Walking 10ft/uneven surface-QC: 6 Gait Assistive Device: FWW pt. ambulated 100ft x 2 for Rx, no LOB SBA to indep Treatments pt. demonstrated indep toilet TRF, Ambulated to car simulator approx 100 ft, TRFd in out car indep, ambulated on uneven surface 12 ft with SBA to indep and back to room indep. Assessment Current Status: Good Progress pt. upgraded to up ad mauri status PT Short Term Goals Short Term Goals Time Frame: Feb 07, 2021 Roll Left & Right: 6 Sit to lyin Lying to sitting on side of be: 4 Sit to stand: 4 (SBA) Chair/ift-yn-untva transfer: 4 (SBA) Walk 10 feet: 4 Walk 50 feet with two turns: 4 Walk 150 feet: 4 PT Correction Goals Correction Goals PT Coal Trimmer Machine Operator Goals Time Frame: Feb 21, 2021 Roll Left & Right (QC): 6 Sit to Lying (QC): 6 Lying-Sitting on Side/Bed(QC): 6 Sit to Stand (QC): 5 Chair/Yyp-uq-Bgegk Xfer(QC): 5 Toilet Transfer (QC): 5 Car Transfer (QC): 5 Does the Patient Walk: Yes Walk 10 feet (QC): 5 Walk 50ft with 2 Turns (QC): 5 Walk 150 ft (QC): 5 Walking 10ft on Uneven Surface: 4 1 Step (curb) (QC): 4 4 Steps (QC): 4 12 Steps (QC): 4 Picking up an Object (QC): 6 Wheel 50 feet with 2 turns (QC: 9 Wheel 150 feet: 9 PT Plan Treatment/Plan Treatment Plan: Continue Plan of Care Treatment Plan: Bed Mobility, Education, Functional Activity Denys, Functional Strength, Group Therapy, Gait, Safety, Therapeutic Exercise, Transfers Treatment Duration: Feb 21, 2021 Frequency: At least 5 of 7 days/Wk (IRF) Estimated Hrs Per Day: 1.5 hours per day Patient and/or Family Agrees t: Yes Safety Risks/Education Patient Education: Gait Training, Transfer Techniques, Correct Positioning, Safety Issues Teaching Recipient: Patient Teaching Methods: Demonstration, Discussion Response to Teaching: Verbalize Understanding, Return Demonstration, Reinforcement Needed Time/GCodes Time In: 1245 Time Out: 1315 Total Billed Treatment Time: 30 Total Billed Treatment 1,FA20m,GT10m ANNETTE SILVEIRA STAFF VETERINARIAN Feb 10, 2021 13:41
[2021-02-10] MEDS: TAMSULOSIN 0.4 MG (FLOMAX) CAP PO SCH (18:04)
[2021-02-10 19:57] VITALS: BP 167/75
[2021-02-10] MEDS: TORSEMIDE 20 MG (DEMADEX) TAB PO SCH (21:54)
[2021-02-10] MEDS: ROSUVASTATIN 10 MG (CRESTOR) TABLET PO SCH (21:54)
[2021-02-10] MEDS: lisINopril 10 MG (PRINIVIL) TABLET PO SCH (21:56)
[2021-02-10] MEDS: ACETAMINOPHEN 325 MG TABLET PO PRN (23:27)
--- NOTE | 2021-02-11 06:59 | PM&R Progress Note ---
Subjective HPI/CC On Admission Date Seen by Provider: Feb 11, 2021 Time Seen by Provider: 12:00 Subjective/Events-last exam 02/11/2021: Discharge plan 02/10/2021: Pt doing well Bowels are moving Walked up 16 steps DC planned for tomorrow Potassium 3.1 increase potassium supplement Started therapy 3 hours after Prednisone given 02/09/2021: Patient doing really well today Wants to work on steps tomorrow Discharge will likely not be tomorrow since he has 14 steps at home Checked meds and labs Bowels are moving 02/08/2021: Patient doing well Short of breath is improved Status post suppository did evacuate but not completely adding milk of magnesia Has not done stairs yet he has 14 steps at home Patient appears to be hesitant about leaving but he has caregivers at home 02/07/21: Patient nauseated today Having a lot of anxiety Behaviors are interrupting therapy Checked meds and labs UA will be ordered Completed Daptomycin yesterday 02/06/2021: Patient doing much better Urinary output from Lasix with 2000 and Marrero catheter Marrero will be discontinued tomorrow per urology Appreciate Dr. aGrsia 02/05/2021: Patient doing well Focused on getting Lasix and I have talked to cardiology about this Labs stable Denies any pain Hemodialysis catheter removed and everything looks good 02/04/2021: Patient doing well Right knee injected by Dr. Chappell Hemodialysis catheter removed by Dr. Michelle today Once Lasix due to overload per patient Dr. Haynes will be in charge of Lasix now Checked meds and labs 02/03/2021: Patient doing well No issues Dr. Chappell will see him for right knee injection Potassium 3.1 will supplement Laxatives ordered 02/02/2021: Patient doing well Low-sodium diet will be started Needs 1 dose of Lasix due to shortness of breath We will reach out to orthopedics for right knee injection tomorrow Marrero is in place but had to flush due to sediment Patient maintained on Eliquis 02/01/2021: Patient required Marrero reinsertion due to retention Started on Urecholine of 10 mg AC/at bedtime Consult urology Wants copies of all of his labs printed off He is requesting a right knee injection so we will reach out to one of the orthopedic surgeons on [place] Hemodialysis catheter will have to be discontinued after discharge unless general surgery is comfortable Focused Exam Time of Focused Exam: 07:10 Objective Exam Vital Signs Vital Signs Date Time Temp Pulse Resp B/P (MAP) Pulse Ox O2 Delivery O2 Flow Rate FiO2 02/11/21 13:50 36.4 54 20 161/82 95 Room Air Capillary Refill : General Appearance: No Apparent Distress, WD/WN, Chronically ill, Obese HEENT: PERRL/EOMI Neck: Normal Inspection, Non Tender, Supple Respiratory: Chest Non Tender, Lungs Clear, Normal Breath Sounds, No Accessory Muscle Use, No Respiratory Distress Cardiovascular: Regular Rate, Rhythm, No Gallop Gastrointestinal: Normal Bowel Sounds, No Organomegaly, No Pulsatile Mass, Non Tender, Soft Back: Normal Inspection, No CVA Tenderness, No Vertebral Tenderness Extremity: Normal Capillary Refill, Normal Inspection, Non Tender, No Calf Tenderness, Pedal Edema Neurologic/Psychiatric: Alert, Oriented x3, Normal Mood/Affect, Motor Weakness Skin: Normal Color, Warm/Dry Lymphatic: No Adenopathy Results/Procedures Lab Laboratory Tests 02/11/21 06:15 Patient resulted labs reviewed. FIM Transfers Therapy Code Descriptions/Definitions Functional [place] Measure: 0=Not Assessed/NA 4=Minimal Assistance 1=Total Assistance 5=Supervision or Setup 2=Maximal Assistance 6=Modified [place] 3=Moderate Assistance 7=Complete IndependenceSCALE: Activities may be completed with or without assistive devices. 7-Ctiumjuxpz-nszxlxy completes the activity by him/herself with no assistance from a helper. 5-Set-up or Clean-up Assistance-helper sets up or cleans up; patient completes activity. [place] assists only prior to or following the activity. 4-Supervision or Touching Assistance-helper provides verbal cues and/or touching/steadying and/or contact guard assistance as patient completes activity. Assistance may be provided throughout the activity or intermittently. 3-Partial/Moderate Assistance-helper does LESS THAN HALF the effort. [place] lifts, holds or supports trunk or limbs, but provides less than half the effort. 2-Substantial/Maximal Assistance-helper does MORE THAN HALF the effort. [place] lifts or holds trunk or limbs and provides more than half the effort. 9-Dmnyeeyon-vaarpj does ALL the effort. Patient does none of the effort to complete the activity. Or, the assistance of 2 or more helpers is required for the patient to complete the activity. If activity was not attempted, code reason: 7-Patient Refused. 9-Not Applicable-not attempted and the patient did not perform the activity before the current illness, exacerbation or injury. 10-Not Attempted due to Environmental Limitations-(lack of equipment, weather restraints, etc.). 88-Not Attempted due to Medical Conditions or Safety Concerns. Roll Left to Right (QC): 6 Sit to Lying (QC): 6 Sit to Stand (QC): 6 Chair/Ifv-ad-Utrka Xfer(QC): 6 Car Transfer (QC): 6 Gait Training Does the Patient Walk?: Yes Distance: 150 feet x 2 Walk 10 feet (QC): 5 Walk 50 ft with 2 Turns(QC): 5 Walk 150 ft (QC): 5 Walking 10ft/uneven surface-QC: 6 Gait Persons Needed: 1 Gait Assistive Device: FWW Wheelchair Training Does the Pt Use a Wheelchair?: Yes Wheel 50 ft with 2 turns (QC): 6 Wheel 150 ft (QC): 6 Type of Wheelchair: Manual Stair Training Stair Training: Handrails/: 2 handrails #of Steps: 16 1 Step (curb) (QC): 7 4 Steps (QC): 4 12 Steps (QC): 4 Stairs: Pattern: Step to Balance Picking up an Object (QC): 4 (SBA with integrated specialist) ADL-Treatment Eating (QC): 6 (IND per pt report.) Oral Hygiene (QC): 6 (IND seated at sink.) Shower/Bathe Self (QC): 5 (Set up assistance, pt able to wash/dry all parts.) Upper Body Dressing (QC): 5 (set up, pt able to doff/don plant puller shirt.) Lower Body Dressing (QC): 6 (IND, pt able to doff/don pants.) On/Off Footwear (QC): 6 (IND with donning/doffing gripper socks.) Toileting Hygiene (QC): 6 Toilet Transfer (QC): 6 Assessment/Plan Assessment and Plan Assess & Plan/Chief Complaint Assessment: Myopathy CHF diastolic type FAIZA on CRI recent HD now baseline AF OAC MSSA bactermia NATALEE on CPAP h/o splenectomy Anemia Obesity HTN HLP CAD CABG hx Plan: PT OT protocol IV abx Monitor closely 02/01/2021: Marrero catheter reinserted Urology consult 02/02/2021: Supportive care Urology consult 02/03/2021: Dr. Chappell consult appreciated Right knee injection tomorrow per patient request 02/04/2021: Right knee injection appreciated by Dr. Chappell Hemodialysis catheter to be removed today by Dr. Michelle 02/05/2021: Appreciate Dr. Michelle Diuresis 02/06/2021: Supportive care Diuresis 02/07/21: UA check Nausea treatment 02/08/2021: Much improved today Work on stairs 02/09/2021: Work on stairs Discharge planned 02/10/2021: Complete stairs Discharge plan 02/11/2021: Discharge home (1) Primary hypertension Assessment & Plan: His blood pressure is intermittently elevated. He was started on amlodipine at the outside facility but had edema from this in the past though I discontinued this soon after he was admitted to our facility. He is now on the maximal dose of lisinopril and also on clonidine, both of which he was taking at home. I would suggest we continue the present medication as is. He has also reduced his sodium intake which may help with the hypertension. (2) Lower extremity edema Assessment & Plan: I suspect this is predominantly related to his obesity with chronic venous stasis. He has not required or requested intravenous furosemide in a few days. I recommend we continue the present dose of oral diuretic. When he is discharged, he can go back to his torsemide that he was taking at home but he plans to reduce the dose from twice daily to once daily. (3) Coronary artery disease without angina pectoris Assessment & Plan: He has a previous history of coronary bypass surgery. He is not having any angina. He was taking both aspirin and apixaban at home. Given his age, this will increase the risk of hemorrhagic side effects. I stopped his aspirin. He is not tolerant of beta-blockers due to baseline bradycardia. His cholesterol level is slightly elevated. I ordered low-dose statin medication on 02/01. (4) Permanent atrial fibrillation Assessment & Plan: His heart rate is well controlled on no AV shlomo blocking agents. He is on apixaban for stroke prophylaxis. Above, I stopped his aspirin to help reduce the risk of potential hemorrhagic side effects. (5) Thoracic aortic aneurysm without rupture Assessment & Plan: His echocardiogram obtained from [facility] in [place], [place] showed mild dilatation of the thoracic aorta. This will need to be followed longitudinally. The patient was not told about this in the past. I reassured him that this is only mild and will likely never become anything clinically significant for this patient. Nonetheless, this should be followed. (6) Bradycardia Assessment & Plan: As above, the patient states he is intolerant of beta- blockers due to baseline bradycardia. (7) Mixed hyperlipidemia Assessment & Plan: His LDL level is 123 and this is after being in the hospital for almost 1 month which would typically cause the LDL to go down. I ordered low-dose statin medication on 02/01. (8) Stage 2 chronic kidney disease Assessment & Plan: His renal function is probably now back to his baseline. He had acute renal failure at the outside hospital that temporarily required hemodialysis. His tunneled dialysis catheter was removed without incident. (9) Morbid obesity Assessment & Plan: He needs work on weight loss. ERICKA DANGELO DO Feb 11, 2021 06:59
[2021-02-11 07:00] LABS: POTASSIUM 3.2 MMOL/L (3.6-5.0)
[2021-02-11] MEDS: CATHETER FLUSH 10 ML SYR IV SCH (07:00)
[2021-02-11 07:01] LABS: CALCIUM 8.6 MG/DL (8.5-10.1)
[2021-02-11 07:05] LABS: CREATININE SERUM 0.73 MG/DL (0.60-1.30)
--- NOTE | 2021-02-11 07:07 | Progress Note-Pre Operative ---
Pre-Operative Progress Note H&P Reviewed The H&P was reviewed, patient examined and no changes noted. Date Seen by Provider: Feb 11, 2021 Time Seen by Provider: 07:06 Date H&P Reviewed: Feb 11, 2021 Time H&P Reviewed: 07:06 Pre-Operative Diagnosis: URINE RETENTION MUNDO MATOS MD Feb 11, 2021 07:06
[2021-02-11] MEDS: BETHANECHOL 25 MG (URECHOLINE) TAB PO SCH ×2 (07:31→11:30)
[2021-02-11] MEDS: MULTIVIT W/MINERALS TAB (THERAGRAN M) PO SCH (07:31)
[2021-02-11] MEDS: predniSONE 20 MG TAB PO SCH (07:31)
[2021-02-11] MEDS: oxyCODONE/APAP 5/325MG (PERCOCET 5) TABLET PO PRN (07:48)
[2021-02-11 07:49] VITALS: BP 161/82
--- NOTE | 2021-02-11 07:49 | Progress Note-Post Operative ---
Post-Operative Progess Note Surgeon (s)/[facility] (s) Surgeon MUNDO MATOS MD [facility]: NONE Pre-Operative Diagnosis URINE RETENTION Post-Operative Diagnosis SAME Procedure & Operative Findings Date of Procedure 02/11/21 Procedure Performed/Findings CYSTOSCOPY Anesthesia Type LOCAL Estimated Blood Loss Estimated blood loss (mL): NONE Specimens/Packing Specimens Removed NONE Packing: NONE MUNDO MATOS MD Feb 11, 2021 07:48
[2021-02-11] MEDS: TORSEMIDE 20 MG (DEMADEX) TAB PO SCH (08:34)
[2021-02-11] MEDS: FAMOTIDINE 20 MG (PEPCID) TABLET PO SCH (08:35)
[2021-02-11] MEDS: FINASTERIDE (PROSCAR) 5 MG TAB PO SCH (08:36)
[2021-02-11] MEDS: KCL 10 MEQ TAB (MICRO K) PO SCH (08:36)
[2021-02-11] MEDS: lisINopril 20 MG (PRINIVIL) TABLET PO SCH (08:36)
[2021-02-11] MEDS: APIXABAN 5 MG (ELIQUIS) TABLET PO SCH (08:36)
[2021-02-11] MEDS: FOLIC ACID 1 MG TAB PO SCH (08:36)
[2021-02-11] MEDS: LACTOBACILLUS ACIDOPHILUS (PROBIOTIC) CAPSULE PO SCH (08:36)
[2021-02-11] MEDS: ALLOPURINOL 100 MG (ZYLOPRIM) TAB PO SCH (08:36)
[2021-02-11] MEDS: cloNIDine 0.1 MG (CATAPRES) TAB PO SCH (08:36)
[2021-02-11] MEDS: PREGABALIN 50 MG (LYRICA) CAP PO SCH (08:36)
[2021-02-11] MEDS: DICLOFENAC 1% GEL 100 GM (VOLTAREN) TUBE TOP SCH (08:37)
--- NOTE | 2021-02-11 08:43 | OPERATIVE REPORT ---
DATE OF SERVICE: 02/11/2021 PREOPERATIVE DIAGNOSIS: Urinary retention. POSTOPERATIVE DIAGNOSIS: Urinary retention. OPERATION PERFORMED: Cystoscopy. SURGEON: Trey Matos MD ANESTHESIA: Local. COMPLICATIONS: None. DESCRIPTION OF PROCEDURE: With the patient supine in his bed, genitalia were prepped and draped in the usual sterile fashion. urethra was infiltrated with 2% lidocaine jelly and penile clamp was applied. This was then removed, and a flexible cystoscope was introduced under vision. The anterior urethra was normal. The prostate was mildly enlarged with some bladder neck obstruction. Bladder was entered and revealed some trabeculations, no foreign body, bladder tumor or stone visualized. Cystoscopy was confirmed in an antegrade fashion and the cystoscope was removed. The patient tolerated the procedure and anesthesia well and remained in his bed in stable condition. Examination of genitalia, adequate male configuration. Rectal exam flat, 1+ benign, nontender elastic prostate. PLAN: Check his postvoid residual bladder scan today and manage accordingly. We may have to increase his Urecholine to 50 mg according to the results. The plan was explained to the patient. Job ID: [id number] DocumentID: [id number] Dictated Date: 02/11/2021 08:34:20 Music Adapter Date: 02/11/2021 08:43:21 Dictated By: TREY MATOS MD
[2021-02-11] MEDS: DOCUSATE SODIUM 100 MG (COLACE) CAP PO SCH (08:47)
[2021-02-11] MEDS: polyethylene glycoL POWDER 17 GM (MIRALAX) PACK PO SCH (08:47)
[2021-02-11] MEDS: SENNA W/DOCUSATE (SENOKOT S) TABLET PO SCH (08:48)
[2021-02-11] MEDS ORDERED: TORSEMIDE 20 MG (DEMADEX) TAB PO SCH (09:00)
--- NOTE | 2021-02-11 09:35 | Cardiology Progress Note ---
Progress Note-Cardiology Events since last exam Date Seen by Provider: Feb 11, 2021 Time Seen by Provider: 09:31 Events since last exam I'm following him due to his cardiac issues. When I saw him yesterday morning, his breathing was good. However, a couple of hours later he told the nurse he was more short of breath and wanted intravenous furosemide. I ordered 40 mg of intravenous furosemide and he states he diuresed 1700 mL and his breathing improved. He feels better today. He denies chest discomfort, palpitations, or syncope. His chronic ankle edema is about the same. Certain portions of this document may have been dictated utilizing voice recognition technology. Inherent to this technology, typographical and grammatical errors may exist. As much as I am diligent to identify and correct these mistakes, some errors may remain in the document. Vitals Last set of Vitals Signs Vital Signs 02/11/21 02/11/21 07:49 08:52 Temp 36.4 Pulse 54 Resp 20 B/P (MAP) 161/82 (108) Pulse Ox 95 O2 Delivery Room Air Labs Labs Laboratory Tests 02/11/21 06:15 Exam Vital Signs Vital Signs Date Time Temp Pulse Resp B/P (MAP) Pulse Ox O2 Delivery O2 Flow Rate FiO2 02/11/21 08:52 Room Air 02/11/21 07:49 36.4 54 20 161/82 (108) 95 Physical Exam General: Alert. No acute distress. He is obese. Eye: No xanthelasma. HENT: Normocephalic. Neck: Jugular venous pressure does not appear elevated. Respiratory: Lungs are clear to auscultation. Respirations are non-labored. Breath sounds are equal. Symmetrical chest wall expansion. Cardiovascular: Normal rate. Irregular rhythm. No murmur. No gallop. 2+ bilateral pretibial edema. Gastrointestinal: Soft. Normal bowel sounds. Skin: Warm. Dry. Neurologic: Alert and oriented to person, place, time. Cranial nerves 3-11 grossly intact. Psychiatric: Cooperative. Appropriate mood & affect. Labs Laboratory Tests Test 02/11/21 06:15 Range/Units Sodium Level 144 135-145 MMOL/L Potassium Level 3.2 L 3.6-5.0 MMOL/L Chloride Level 106 98-107 MMOL/L Carbon Dioxide Level 27 21-32 MMOL/L Anion Gap 11 5-14 MMOL/L Blood Urea Nitrogen 21 H 7-18 MG/DL Creatinine 0.73 0.60-1.30 MG/DL Estimat Glomerular Filtration Rate 105 BUN/Creatinine Ratio 29 Glucose Level 95 70-105 MG/DL Calcium Level 8.6 8.5-10.1 MG/DL Diagnosis/Problems Diagnosis/Problems (1) Primary hypertension Assessment & Plan: His blood pressure is intermittently elevated. He was started on amlodipine at the outside facility but had edema from this in the past so I discontinued this soon after he was admitted to our facility. He is now on the maximal dose of lisinopril and also on clonidine, both of which he was taking at home. I would suggest we continue the present medication as is. He has also reduced his sodium intake which may help with the hypertension. (2) Lower extremity edema Assessment & Plan: I suspect this is predominantly related to his obesity with chronic venous stasis. He had not requested intravenous furosemide since last week but then requested some yesterday. I have changed his diuretic back to twice daily dosing of torsemide which he was taking at home. Because of the shortness of breath he experienced yesterday, I will have him undergo a chest x- ray today. (3) Coronary artery disease without angina pectoris Assessment & Plan: He has a previous history of coronary bypass surgery. He is not having any angina. He was taking both aspirin and apixaban at home. Given his age, this will increase the risk of hemorrhagic side effects. I stopped his aspirin. He is not tolerant of beta-blockers due to baseline bradycardia. His cholesterol level is slightly elevated. I ordered low-dose statin medication on 02/01. (4) Permanent atrial fibrillation Assessment & Plan: His heart rate is well controlled on no AV shlomo blocking agents. He is on apixaban for stroke prophylaxis. Above, I stopped his aspirin to help reduce the risk of potential hemorrhagic side effects. (5) Mixed hyperlipidemia Assessment & Plan: His LDL level is 123 and this is after being in the hospital for almost 1 month which would typically cause the LDL to go down. I ordered low-dose statin medication on 02/01. (6) Thoracic aortic aneurysm without rupture Assessment & Plan: His echocardiogram obtained from [facility] in [place], [place] showed mild dilatation of the thoracic aorta. This will need to be followed longitudinally. The patient was not told about this in the past. I reassured him that this is only mild and will likely never become anything clinically significant for this patient. Nonetheless, this should be followed. (7) Bradycardia Assessment & Plan: As above, the patient states he is intolerant of beta- blockers due to baseline bradycardia. (8) Stage 2 chronic kidney disease Assessment & Plan: His renal function is probably now back to his baseline. He had acute renal failure at the outside hospital that temporarily required hemodialysis. His tunneled dialysis catheter was removed without incident. (9) Morbid obesity Assessment & Plan: He needs work on weight loss. CAR DAUGHETRY JR, MD Feb 11, 2021 09:35
--- NOTE | 2021-02-11 09:44 | Occupational Ther Daily Note ---
OT Current Status-Daily Note Subjective Pt seated in recliner, states slightly dizzy requesting medication. OT notified nurse, BP 161/72. Pt states overnight he has had a tooth ache, elbow pain and worsening R knee pain. Mental Status/Objective Patient Orientation: Person, Place, Time, Situation ADL-Treatment Therapy Code Descriptions/Definitions Functional [place] Measure: 0=Not Assessed/NA 4=Minimal Assistance 1=Total Assistance 5=Supervision or Setup 2=Maximal Assistance 6=Modified [place] 3=Moderate Assistance 7=Complete IndependenceSCALE: Activities may be completed with or without assistive devices. 1-Jbvnhmhozs-adseema completes the activity by him/herself with no assistance from a helper. 5-Set-up or Clean-up Assistance-helper sets up or cleans up; patient completes activity. [place] assists only prior to or following the activity. 4-Supervision or Touching Assistance-helper provides verbal cues and/or touching/steadying and/or contact guard assistance as patient completes activity. Assistance may be provided throughout the activity or intermittently. 3-Partial/Moderate Assistance-helper does LESS THAN HALF the effort. [place] lifts, holds or supports trunk or limbs, but provides less than half the effort. 2-Substantial/Maximal Assistance-helper does MORE THAN HALF the effort. [place] lifts or holds trunk or limbs and provides more than half the effort. 7-Nihxokfsa-qfeinb does ALL the effort. Patient does none of the effort to complete the activity. Or, the assistance of 2 or more helpers is required for the patient to complete the activity. If activity was not attempted, code reason: 7-Patient Refused. 9-Not Applicable-not attempted and the patient did not perform the activity before the current illness, exacerbation or injury. 10-Not Attempted due to Environmental Limitations-(lack of equipment, weather restraints, etc.). 88-Not Attempted due to Medical Conditions or Safety Concerns. Toileting Hygiene (QC): 6 Toilet Transfer (QC): 6 Other Treatment Pt seated in recliner, agreeable to OT Tx. Pt used FWW to perform functional mobility into bathroom and onto toilet independently. He completed toileting, then transferred to w/c. Pt propelled w/c to therapy gym instead of walking as he wanted to conserve his energy and not make his knee pain worse. Once in gym, pt completed arm bike x15 mins, 20 watt resistance in order to increase BUE strength and activity tolerance. During task, pt states dizziness was getting slightly worse and he was slightly nauseous. Nurse notified. As pt progressed with task, he states his dizziness is better, completing arm bike at slow pace. Pt taken back to his room via w/c, transferring to recliner. Post tx, pt in recliner, call light in reach and all needs met. Education OT Patient Education: Correct positioning, Energy conservation, Exercise program, Modified ADL techniques, Progress toward Goal/Update tx plan, Purpose of tx/functional activities Teaching Recipient: Patient Teaching Methods: Discussion Response to Teaching: Verbalize Understanding OT Short Term Goals Short Term Goals Time Frame: Feb 14, 2021 Toileting hygiene: 4 Shower/bathe self: 4 Lower body dressin Putting on/taking off footwear: 4 OT Wind Turbine Sheet Metal Worker Goals Wind Turbine Sheet Metal Worker Goals Time Frame: Feb 28, 2021 Eating (QC): 6 (met) Oral Hygiene (QC): 6 (met) Toileting Hygiene (QC): 6 (met) Shower/Bathe Self (QC): 5 (met) Upper Body Dressing (QC): 6 (not met) Lower Body Dressing (QC): 6 (met) On/Off Footwear (QC): 6 (met) Additional Goals: 1-Demonstrate ADL Tasks, 2-Verbalize Understanding, 3- ImproveStrength/Denys 1=Demonstrate adherence to instructed precautions during ADL tasks. 2=Patient will verbalize/demonstrate understanding of assistive devices/modifications for ADL. 3=Patient will improve strength/tolerance for activity to enable patient to perform ADL's. OT Education/Plan Problem List/Assessment Assessment: Decreased Activ Tolerance, Decreased UE Strength, Impaired I ADL's Discharge Recommendations Plan/Recommendations: Continue POC Treatment Plan/Plan of Care Patient would benefit from OT for education, treatment and training to promote independence in ADL's, mobility, safety and/or upper extremity function for ADL's. Plan of Care: ADL Retraining, Functional Mobility, Group Exercise/Act as Ind, UE Funct Exercise/Act Treatment Duration: Feb 28, 2021 Frequency: At least 5 of 7 days/Wk (IRF) Estimated Hrs Per Day: 1.5 hours per day Rehab Potential: Fair Time/GCodes Start Time: 09:00 Stop Time: 10:00 Total Time Billed (hr/min): 60 Billed Treatment Time 1, ADL (15'), FA 2 (30'), EX (15') YOMI LEWIS OT Feb 11, 2021 09:44
[2021-02-11] MEDS: PROMETHAZINE 25 MG (PHENERGAN) TAB PO PRN (09:50)
[2021-02-11] MEDS ORDERED: BETH25TA2 PO ×2 (09:51→11:37)
[2021-02-11] MEDS ORDERED: ROSU10TA28 PO (09:51)
[2021-02-11] MEDS ORDERED: POTA-160 PO (09:51)
[2021-02-11] MEDS ORDERED: LISI10TA25 PO (09:51)
[2021-02-11] MEDS ORDERED: CLN.1T PO (09:51)
[2021-02-11] MEDS ORDERED: DICL100G13 TOP (09:51)
[2021-02-11] MEDS ORDERED: PRD20T PO (09:51)
[2021-02-11] MEDS ORDERED: TMSL.4C PO ×2 (09:51→11:37)
[2021-02-11] MEDS ORDERED: PROM25TA14 PO (09:51)
--- NOTE | 2021-02-11 09:52 | D/C HH Face to Face Order ---
D/C HH Face to Face Orders Reconcile Patient Problems Problems Reviewed?: Yes Instructions for Patient HH Patient Instructions/FollowUp: PCP 1 week Physician to follow Patient: PCP Discharge Diet for Home: No Restrictions Patient Problems: Debility Patient Data-Allergies,Ht & Wt Patient Allergies: Coded Allergies: codeine (Verified Allergy, Unknown, 09/30/18) Height (Feet): 5 Height (Inches): 9.00 Weight (Pounds): 300 Home Health Need/Face to Face Date of Face to Face: Feb 11, 2021 Clinical Findings: Generalized weakness and fatigue, Instability, Muscle wea kness, Unsteady gait I have seen Pt [id number]: Yes Discharged To: Home Diagnosis/Conditions: Debility Patient is Homebound due to: Russell fall risk due to instabilty, Muscle weakness Homebound Status Due to the above stated illness, injury or surgical procedure (medical condition or diagnosis) and associated clinical findings, the patient is homebound because of his/her inability to leave home except with aid of a supportive device and/or person AND leaving the home requires a considerable and taxing effort or is medically contraindicated. Pt req the following assistanc: [facility] Nursing Orders Home Health Services Order: Nursing Services, Thermal Cutting Tracer Machine Operator-Evaluate & Treat, Physical Therapy-Evaluate & Treat Certify Stmt I certify that this patient is under my care and that I, a nurse practitioner or a physician; a human resources assistant manager working with me, had a face to face encounter that - meets the physician face to face encounter requirements with this patient as dated. ERICKA DANGELO DO Feb 11, 2021 09:52
--- NOTE | 2021-02-11 09:53 | Discharge Summary ---
Diagnosis/Chief Complaint Date of Admission Jan 31, 2021 at 10:25 Date of Discharge Discharge Date: Feb 11, 2021 Discharge Diagnosis Assessment: Myopathy CHF diastolic type FAIZA on CRI recent HD now baseline AF OAC MSSA bactermia NATALEE on CPAP h/o splenectomy Anemia Obesity HTN HLP CAD CABG hx Plan: PT OT protocol IV abx Monitor closely 02/01/2021: Marrero catheter reinserted Urology consult 02/02/2021: Supportive care Urology consult 02/03/2021: Dr. Chappell consult appreciated Right knee injection tomorrow per patient request 02/04/2021: Right knee injection appreciated by Dr. Chappell Hemodialysis catheter to be removed today by Dr. Michelle 02/05/2021: Appreciate Dr. Michelle Diuresis 02/06/2021: Supportive care Diuresis 02/07/21: UA check Nausea treatment 02/08/2021: Much improved today Work on stairs 02/09/2021: Work on stairs Discharge planned 02/10/2021: Complete stairs Discharge plan 02/11/2021: Discharge home Discharge Summary Discharge Physical Examination Allergies: Coded Allergies: codeine (Verified Allergy, Unknown, 09/30/18) Vitals & I&Os Vital Signs Date Time Temp Pulse Resp B/P (MAP) Pulse Ox O2 Delivery O2 Flow Rate FiO2 02/11/21 13:50 36.4 54 20 161/82 95 Room Air General Appearance: Alert, Oriented X3, Cooperative Respiratory: Clear to Auscultation Cardiovascular: Regular Rate Psych/Mental Status: Mental Status NL Hospital Course Was the Problem List Reviewed?: Yes Hospital course: Pt had a lengthy hospital course for twelve days after he was admitted for critical illness myopathy and bacteremia. He did complete Daptomycin and Marrero catheter was DC with urology help. He overall did really well, multiple complaints regarding volume overload requesting Lasix every other day. Cardiolog y was consulted and managed him accordingly. CXR and IV Lasix managed by cardiology. Overall he did very well, had no other complaints and was discharged with home health. Labs (last 24 hrs) Laboratory Tests 01/31/21 12:40: White Blood Count 17.4H, Red Blood Count 3.10L, Hemoglobin 8.8L, Hematocrit 29L, Mean Corpuscular Volume 94, Mean Corpuscular Hemoglobin 28, Mean Corpuscular Hemoglobin Concent 30L, Red Cell Distribution Width 24.0H, Platelet Count 556H, Mean Platelet Volume 10.1, Immature Granulocyte % (Auto) 1, Neutrophils (%) (Auto) 79H, Lymphocytes (%) (Auto) 5L, Monocytes (%) (Auto) 11, Eosinophils (%) (Auto) 3, Basophils (%) (Auto) 1, Neutrophils # (Auto) 13.8H, Lymphocytes # (Auto) 0.9L, Monocytes # (Auto) 1.8H, Eosinophils # (Auto) 0.5H, Basophils # (Auto) 0.2H, Immature Granulocyte # (Auto) 0.2H, Neutrophils % (Manual) 79, Lymphocytes % (Manual) 7, Monocytes % (Manual) 7, Eosinophils % (Manual) 5, Nucleated Red Blood Cells 1, Atypical Lymphocytes 2, Polychromasia MODERATE, Hypochromasia SLIGHT, Microcytosis SLIGHT, Target Cells SLIGHT, Shay Cells SLIGHT, Sodium Level 141, Potassium Level 3.7, Chloride Level 106, Carbon Dioxide Level 21, Anion Gap 14, Blood Urea Nitrogen 13, Creatinine 0.85, Estimat Glomerular Filtration Rate 88, BUN/Creatinine Ratio 15, Glucose Level 133H, Calcium Level 9.3, Corrected Calcium 10.0, Iron Level 25L, Total Bilirubin 0.4, Aspartate Amino Transf (AST/SGOT) 29, Alanine Aminotransferase (ALT/SGPT) 28, Alkaline Phosphatase 89, Total Protein 6.0L, Albumin 3.1L, Procalcitonin 0.09 01/31/21 15:17: Lactic Acid Level 2.41*H 01/31/21 17:22: Lactic Acid Level 1.78 01/31/21 18:10: Urine Color YELLOW, Urine Clarity CLEAR, Urine pH 6.0, Urine Specific Brandon 1.020, Urine Protein TRACEH, Urine Glucose (UA) NEGATIVE, Urine Ketones NEGATIVE, Urine Nitrite NEGATIVE, Urine Bilirubin NEGATIVE, Urine Urobilinogen 0.2, Urine Leukocyte Esterase NEGATIVE, Urine RBC (Auto) 2+H, Urine RBC 10-25H, Urine WBC 2-5, Urine Crystals NONE, Urine Bacteria TRACE, Urine Casts PRESENT, Urine Hyaline Casts 0-2H, Urine Mucus NEGATIVE, Urine Culture Indicated NO 02/01/21 05:35: White Blood Count 15.4H, Red Blood Count 2.89L, Hemoglobin 8.3L, Hematocrit 26L, Mean Corpuscular Volume 91, Mean Corpuscular Hemoglobin 29, Mean Corpuscular Hemoglobin Concent 31L, Red Cell Distribution Width 23.6H, Platelet Count 523H, Mean Platelet Volume 10.1, Immature Granulocyte % (Auto) 1, Neutrophils (%) (Auto) 64, Lymphocytes (%) (Auto) 16, Monocytes (%) (Auto) 17H, Eosinophils (%) (Auto) 1, Basophils (%) (Auto) 1, Neutrophils # (Auto) 9.9H, Lymphocytes # (Auto) 2.5, Monocytes # (Auto) 2.5H, Eosinophils # (Auto) 0.2, Basophils # (Auto) 0.1, Immature Granulocyte # (Auto) 0.2H, Sodium Level 142, Potassium Level 3.3L, Chloride Level 109H, Carbon Dioxide Level 22, Anion Gap 11, Blood Urea Nitrogen 11, Creatinine 0.80, Estimat Glomerular Filtration Rate 94, BUN/Creatinine Ratio 14, Glucose Level 97, Mean Blood Glucose 100, Hemoglobin A1c 5.1, Calcium Level 8.8, Corrected Calcium 9.7, Total Bilirubin 0.4, Aspartate Amino Transf (AST/SGOT) 23, Alanine Aminotransferase (ALT/SGPT) 24, Alkaline Phosphatase 76, Total Protein 5.7L, Albumin 2.9L, Triglycerides Level 107, Cholesterol Level 177, LDL Cholesterol Direct 123, VLDL Cholesterol 21, HDL Cholesterol 43 02/03/21 05:30: White Blood Count 15.4H, Red Blood Count 2.76L, Hemoglobin 7.8L, Hematocrit 26L, Mean Corpuscular Volume 93, Mean Corpuscular Hemoglobin 28, Mean Corpuscular Hemoglobin Concent 30L, Red Cell Distribution Width 23.7H, Platelet Count 506H, Mean Platelet Volume 10.2, Immature Granulocyte % (Auto) 1, Neutrophils (%) (Auto) 61, Lymphocytes (%) (Auto) 18, Monocytes (%) (Auto) 15H, Eosinophils (%) (Auto) 4, Basophils (%) (Auto) 1, Neutrophils # (Auto) 9.4H, Lymphocytes # (Auto) 2.7, Monocytes # (Auto) 2.3H, Eosinophils # (Auto) 0.6H, Basophils # (Auto) 0.2H, Immature Granulocyte # (Auto) 0.2H, Sodium Level 143, Potassium Level 3.1L, Chloride Level 108H, Carbon Dioxide Level 23, Anion Gap 12, Blood Urea Nitrogen 12, Creatinine 0.79, Estimat Glomerular Filtration Rate 96, BUN/Creatinine Ratio 15, Glucose Level 84, Calcium Level 8.6, Corrected Calcium 9.6, Total Bilirubin 0.5, Aspartate Amino Transf (AST/SGOT) 21, Alanine Aminotransferase (ALT/SGPT) 19, Alkaline Phosphatase 61, Total Protein 5.4L, Al bumin 2.7L 02/05/21 06:10: White Blood Count 9.2, Red Blood Count 3.94L, Hemoglobin 11.2L, Hematocrit 36L, Mean Corpuscular Volume 91, Mean Corpuscular Hemoglobin 28, Mean Corpuscular Hemoglobin Concent 31L, Red Cell Distribution Width 23.4H, Platelet Count 510H, Mean Platelet Volume 10.3, Sodium Level 142, Potassium Level 3.4L, Chloride Level 104, Carbon Dioxide Level 26, Anion Gap 12, Blood Urea Nitrogen 12, Creatinine 0.71, Estimat Glomerular Filtration Rate 108, BUN/Creatinine Ratio 17, Glucose Level 111H, Calcium Level 9.3, Total Bilirubin 0.5, Aspartate Amino Transf (AST/SGOT) 23, Alanine Aminotransferase (ALT/SGPT) 16, Alkaline Phosphatase 73, Total Protein 6.1L, Albumin 3.2, Direct Bilirubin 0.3, Indirect Bilirubin 0.2 02/07/21 05:32: White Blood Count 12.6H, Red Blood Count 3.07L, Hemoglobin 8.5L, Hematocrit 28L, Mean Corpuscular Volume 91, Mean Corpuscular Hemoglobin 28, Mean Corpuscular Hemoglobin Concent 31L, Red Cell Distribution Width 21.9H, Platelet Count 641H, Mean Platelet Volume 9.8, Sodium Level 143, Potassium Level 3.2L, Chloride Level 105, Carbon Dioxide Level 27, Anion Gap 11, Blood Urea Nitrogen 16, Creatinine 0.72, Estimat Glomerular Filtration Rate 107, BUN/Creatinine Ratio 22, Glucose Level 101, Calcium Level 8.8, Magnesium Level 1.8 02/07/21 15:00: Urine Color YELLOW, Urine Clarity CLEAR, Urine pH 6.0, Urine Specific Brandon 1.010L, Urine Protein NEGATIVE, Urine Glucose (UA) NEGATIVE, Urine Ketones NEGATIVE, Urine Nitrite NEGATIVE, Urine Bilirubin NEGATIVE, Urine Urobilinogen 0.2, Urine Leukocyte Esterase NEGATIVE, Urine RBC (Auto) NEGATIVE, Urine RBC NONE, Urine WBC RARE, Urine Squamous Epithelial Cells RARE, Urine Crystals NONE, Urine Bacteria NEGATIVE, Urine Casts NONE, Urine Mucus NEGATIVE, Urine Culture Indicated NO 02/09/21 06:00: Sodium Level 141, Potassium Level 3.2L, Chloride Level 103, Carbon Dioxide Level 28, Anion Gap 10, Blood Urea Nitrogen 20H, Creatinine 0.75, Estimat Glomerular Filtration Rate 102, BUN/Creatinine Ratio 27, Glucose Level 97, Calcium Level 8.8, Magnesium Level 2.1 02/10/21 06:15: Sodium Level 142, Potassium Level 3.2L, Chloride Level 105, Carbon Dioxide Level 27, Anion Gap 10, Blood Urea Nitrogen 22H, Creatinine 0.74, Estimat Glomerular Filtration Rate 103, BUN/Creatinine Ratio 30, Glucose Level 97, Calcium Level 8.7, White Blood Count 11.9H, Red Blood Count 3.08L, Hemoglobin 8.6L, Hematocrit 28L, Mean Corpuscular Volume 91, Mean Corpuscular Hemoglobin 28, Mean Corpuscular Hemoglobin Concent 31L, Red Cell Distribution Width 20.7H, Platelet Count 635H, Mean Platelet Volume 10.0, Immature Granulocyte % (Auto) 1, Neutrophils (%) (Auto) 61, Lymphocytes (%) (Auto) 21, Monocytes (%) (Auto) 12, Eosinophils (%) (Auto) 5, Basophils (%) (Auto) 1, Neutrophils # (Auto) 7.3, Lymphocytes # (Auto) 2.4, Monocytes # (Auto) 1.5H, Eosinophils # (Auto) 0.5H, Basophils # (Auto) 0.1, Immature Granulocyte # (Auto) 0.1, Corrected Calcium 9.6, Total Bilirubin 0.4, Aspartate Amino Transf (AST/SGOT) 15, Alanine Aminotransferase (ALT/SGPT) 17, Alkaline Phosphatase 52, Total Protein 5.3L, Albumin 2.9L 02/11/21 06:15: Sodium Level 144, Potassium Level 3.2L, Chloride Level 106, Carbon Dioxide Level 27, Anion Gap 11, Blood Urea Nitrogen 21H, Creatinine 0.73, Estimat Glomerular Filtration Rate 105, BUN/Creatinine Ratio 29, Glucose Level 95, Calcium Level 8.6 Microbiology 02/10/21 MRSA Screen - Final, Complete MRSA not isolated 01/31/21 Blood Culture - Final, Complete No growth Pending Labs Microbiology Date/Time Source Procedure Growth Status 02/10/21 14:35 Nasal MRSA Screen - Final MRSA not isolated Complete 01/31/21 17:10 Peripheral Lt Ac Blood Culture - Final No growth Complete 01/31/21 17:06 Peripheral Rt Forearm Blood Culture - Final No growth Complete Laboratory Tests 01/31/21 12:40: White Blood Count 17.4, Red Blood Count 3.10, Hemoglobin 8.8, Hematocrit 29, Mean Corpuscular Volume 94, Mean Corpuscular Hemoglobin 28, Mean Corpuscular Hemoglobin Concent 30, Red Cell Distribution Width 24.0, Platelet Count 556, Mean Platelet Volume 10.1, Immature Granulocyte % (Auto) 1, Neutrophils (%) (Auto) 79, Lymphocytes (%) (Auto) 5, Monocytes (%) (Auto) 11, Eosinophils (%) (Auto) 3, Basophils (%) (Auto) 1, Neutrophils # (Auto) 13.8, Lymphocytes # (Auto) 0.9, Monocytes # (Auto) 1.8, Eosinophils # (Auto) 0.5, Basophils # (Auto) 0.2, Immature Granulocyte # (Auto) 0.2, Neutrophils % (Manual) 79, Lymphocytes % (Manual) 7, Monocytes % (Manual) 7, Eosinophils % (Manual) 5, Nucleated Red Blood Cells 1, Atypical Lymphocytes 2, Polychromasia MODERATE, Hypochromasia SLIGHT, Microcytosis SLIGHT, Target Cells SLIGHT, [place] Cells SLIGHT, Sodium Level 141, Potassium Level 3.7, Chloride Level 106, Carbon Dioxide Level 21, Anion Gap 14, Blood Urea Nitrogen 13, Creatinine 0.85, Estimat Glomerular Filtration Rate 88, BUN/Creatinine Ratio 15, Glucose Level 133, Calcium Level 9.3, Corrected Calcium 10.0, Iron Level 25, Total Bilirubin 0.4, Aspartate Amino Transf (AST/SGOT) 29, Alanine Aminotransferase (ALT/SGPT) 28, Alkaline Phosphatase 89, Total Protein 6.0, Albumin 3.1, Procalcitonin 0.09 01/31/21 15:17: Lactic Acid Level 2.41 01/31/21 17:22: Lactic Acid Level 1.78 01/31/21 18:10: Urine Color YELLOW, Urine Clarity CLEAR, Urine pH 6.0, Urine Specific Brandon 1.020, Urine Protein TRACE, Urine Glucose (UA) NEGATIVE, Urine Ketones NEGATIVE, Urine Nitrite NEGATIVE, Urine Bilirubin NEGATIVE, Urine Urobilinogen 0.2, Urine Leukocyte Esterase NEGATIVE, Urine RBC (Auto) 2+, Urine RBC 10-25, Urine WBC 2- 5, Urine Crystals NONE, Urine Bacteria TRACE, Urine Casts PRESENT, Urine Hyaline Casts 0-2, Urine Mucus NEGATIVE, Urine Culture Indicated NO 02/01/21 05:35: White Blood Count 15.4, Red Blood Count 2.89, Hemoglobin 8.3, Hematocrit 26, Mean Corpuscular Volume 91, Mean Corpuscular Hemoglobin 29, Mean Corpuscular Hemoglobin Concent 31, Red Cell Distribution Width 23.6, Platelet Count 523, Mean Platelet Volume 10.1, Immature Granulocyte % (Auto) 1, Neutrophils (%) (Auto) 64, Lymphocytes (%) (Auto) 16, Monocytes (%) (Auto) 17, Eosinophils (%) (Auto) 1, Basophils (%) (Auto) 1, Neutrophils # (Auto) 9.9, Lymphocytes # (Auto) 2.5, Monocytes # (Auto) 2.5, Eosinophils # (Auto) 0.2, Basophils # (Auto) 0.1, Immature Granulocyte # (Auto) 0.2, Sodium Level 142, Potassium Level 3.3, Chloride Level 109, Carbon Dioxide Level 22, Anion Gap 11, Blood Urea Nitrogen 11, Creatinine 0.80, Estimat Glomerular Filtration Rate 94, BUN/Creatinine Ratio 14, Glucose Level 97, Mean Blood Glucose 100, Hemoglobin A1c 5.1, Calcium Level 8.8, Corrected Calcium 9.7, Total Bilirubin 0.4, Aspartate Amino Transf (AST/SGOT) 23, Alanine Aminotransferase (ALT/SGPT) 24, Alkaline Phosphatase 76, Total Protein 5.7, Albumin 2.9, Triglycerides Level 107, Cholesterol Level 177, LDL Cholesterol Direct 123, VLDL Cholesterol 21, HDL Cholesterol 43 02/03/21 05:30: White Blood Count 15.4, Red Blood Count 2.76, Hemoglobin 7.8, Hematocrit 26, Mean Corpuscular Volume 93, Mean Corpuscular Hemoglobin 28, Mean Corpuscular Hemoglobin Concent 30, Red Cell Distribution Width 23.7, Platelet Count 506, Mean Platelet Volume 10.2, Immature Granulocyte % (Auto) 1, Neutrophils (%) (Auto) 61, Lymphocytes (%) (Auto) 18, Monocytes (%) (Auto) 15, Eosinophils (%) (Auto) 4, Basophils (%) (Auto) 1, Neutrophils # (Auto) 9.4, Lymphocytes # (Auto) 2.7, Monocytes # (Auto) 2.3, Eosinophils # (Auto) 0.6, Basophils # (Auto) 0.2, Immature Granulocyte # (Auto) 0.2, Sodium Level 143, Potassium Level 3.1, Chloride Level 108, Carbon Dioxide Level 23, Anion Gap 12, Blood Urea Nitrogen 12, Creatinine 0.79, Estimat Glomerular Filtration Rate 96, BUN/Creatinine Ratio 15, Glucose Level 84, Calcium Level 8.6, Corrected Calcium 9.6, Total Bilirubin 0.5, Aspartate Amino Transf (AST/SGOT) 21, Alanine Aminotransferase (ALT/SGPT) 19, Alkaline Phosphatase 61, Total Protein 5.4, Albumin 2.7 02/05/21 06:10: White Blood Count 9.2, Red Blood Count 3.94, Hemoglobin 11.2, Hematocrit 36, Mean Corpuscular Volume 91, Mean Corpuscular Hemoglobin 28, Mean Corpuscular Hemoglobin Concent 31, Red Cell Distribution Width 23.4, Platelet Count 510, Mean Platelet Volume 10.3, Sodium Level 142, Potassium Level 3.4, Chloride Level 104, Carbon Dioxide Level 26, Anion Gap 12, Blood Urea Nitrogen 12, Creatinine 0.71, Estimat Glomerular Filtration Rate 108, BUN/Creatinine Ratio 17, Glucose Level 111, Calcium Level 9.3, Total Bilirubin 0.5, Aspartate Amino Transf (AST/SGOT) 23, Alanine Aminotransferase (ALT/SGPT) 16, Alkaline Phosphatase 73, Total Protein 6.1, Albumin 3.2, Direct Bilirubin 0.3, Indirect Bilirubin 0.2 02/07/21 05:32: White Blood Count 12.6, Red Blood Count 3.07, Hemoglobin 8.5, Hematocrit 28, M gabriel Corpuscular Volume 91, Mean Corpuscular Hemoglobin 28, Mean Corpuscular Hemoglobin Concent 31, Red Cell Distribution Width 21.9, Platelet Count 641, Mean Platelet Volume 9.8, Sodium Level 143, Potassium Level 3.2, Chloride Level 105, Carbon Dioxide Level 27, Anion Gap 11, Blood Urea Nitrogen 16, Creatinine 0.72, Estimat Glomerular Filtration Rate 107, BUN/Creatinine Ratio 22, Glucose Level 101, Calcium Level 8.8, Magnesium Level 1.8 02/07/21 15:00: Urine Color YELLOW, Urine Clarity CLEAR, Urine pH 6.0, Urine Specific Brandon 1.010, Urine Protein NEGATIVE, Urine Glucose (UA) NEGATIVE, Urine Ketones NEGATIVE, Urine Nitrite NEGATIVE, Urine Bilirubin NEGATIVE, Urine Urobilinogen 0.2, Urine Leukocyte Esterase NEGATIVE, Urine RBC (Auto) NEGATIVE, Urine RBC NONE, Urine WBC RARE, Urine Squamous Epithelial Cells RARE, Urine Crystals NONE, Urine Bacteria NEGATIVE, Urine Casts NONE, Urine Mucus NEGATIVE, Urine Culture Indicated NO 02/09/21 06:00: Sodium Level 141, Potassium Level 3.2, Chloride Level 103, Carbon Dioxide Level 28, Anion Gap 10, Blood Urea Nitrogen 20, Creatinine 0.75, Estimat Glomerular Filtration Rate 102, BUN/Creatinine Ratio 27, Glucose Level 97, Calcium Level 8.8, Magnesium Level 2.1 02/10/21 06:15: Sodium Level 142, Potassium Level 3.2, Chloride Level 105, Carbon Dioxide Level 27, Anion Gap 10, Blood Urea Nitrogen 22, Creatinine 0.74, Estimat Glomerular Filtration Rate 103, BUN/Creatinine Ratio 30, Glucose Level 97, Calcium Level 8.7, White Blood Count 11.9, Red Blood Count 3.08, Hemoglobin 8.6, Hematocrit 28, Mean Corpuscular Volume 91, Mean Corpuscular Hemoglobin 28, Mean Corpuscular Hemoglobin Concent 31, Red Cell Distribution Width 20.7, Platelet Count 635, Mean Platelet Volume 10.0, Immature Granulocyte % (Auto) 1, Neutrophils (%) (Auto) 61, Lymphocytes (%) (Auto) 21, Monocytes (%) (Auto) 12, Eosinophils (%) (Auto) 5, Basophils (%) (Auto) 1, Neutrophils # (Auto) 7.3, Lymphocytes # (Auto) 2.4, Monocytes # (Auto) 1.5, Eosinophils # (Auto) 0.5, Basophils # (Auto) 0.1, Immature Granulocyte # (Auto) 0.1, Corrected Calcium 9.6, Total Bilirubin 0.4, Aspartate Amino Transf (AST/SGOT) 15, Alanine Aminotransferase (ALT/SGPT) 17, Alkaline Phosphatase 52, Total Protein 5.3, Albumin 2.9 02/11/21 06:15: Sodium Level 144, Potassium Level 3.2, Chloride Level 106, Carbon Dioxide Level 27, Anion Gap 11, Blood Urea Nitrogen 21, Creatinine 0.73, Estimat Glomerular Filtration Rate 105, BUN/Creatinine Ratio 29, Glucose Level 95, Calcium Level 8.6 Discharge Home Medications: Active Scripts Active Flomax (Tamsulosin HCl) 0.4 Mg Cap 0.4 Mg PO BID Bethanechol Chloride 25 Mg Tablet 50 Mg PO ACHS Prednisone 20 Mg Tab 20 Mg PO DAILY@0700 Klor-Con 10 (Potassium Chloride) 10 Meq Tablet.er 20 Meq PO BID Diclofenac Sodium 100 Gm Gel..gram. 0 Gm TOP QID Lisinopril 10 Mg Tablet 20 Mg PO HS Clonidine HCl 0.1 Mg Tablet 0.1 Mg PO BID Rosuvastatin Calcium 10 Mg Tablet 10 Mg PO HS Promethazine Tablet (Promethazine HCl) 25 Mg Tablet 12.5 Mg PO Q4H PRN Reported Iprat-Albut 0.5-3(2.5) mg/3 ml (Ipratropium/Albuterol Sulfate) 3 Ml Ampul.neb 3 Ml IH Q4H PRN Renal-Aleksandar Tablet (Folic Acid/Vit Bcomp,C) 0.8 Mg Tablet 0.8 Mg PO DAILY Artificial Tears (Dextran 70/Hypromellose) 1 Each Droperette 1 Each OP Q4H PRN Norvasc (Amlodipine Besylate) 10 Mg Tablet 10 Mg PO DAILY Oxycodone-Acetaminophen 5-325 (Oxycodone HCl/Acetaminophen) 1 Each Tablet 1 Each PO Q8H PRN MDD 6 Acetaminophen 325 Mg Tablet 650 Mg PO Q6H PRN Lyrica (Pregabalin) 50 Mg Capsule 50 Mg PO BID Miralax (Polyethylene Glycol 3350) 17 Gm Powd.pack 17 Gm PO DAILY Probiotic (Lactobacillus Acidophilus) 1 Each Capsule 1 Each PO BID Finasteride 5 Mg Tablet 5 Mg PO DAILY Pepcid (Famotidine) 20 Mg Tablet 20 Mg PO DAILY Colace (Docusate Sodium) 100 Mg Capsule 100 Mg PO BID Aranesp (Darbepoetin Josse in Polysorbat) 60 Mcg/1 Ml Vial 60 Mcg SQ WEEKLY ON WEDNESDAY Bumetanide 1 Mg Tablet 1 Mg PO DAILY Aspirin 81 Mg Tab.chew 81 Mg PO DAILY Eliquis (Apixaban) 5 Mg Tablet 5 Mg PO BID Allopurinol 100 Mg Tablet 300 Mg PO DAILY Instructions to patient/family Please see electronic discharge instructions given to patient. Diagnosis/Problems Diagnosis/Problems (1) Myopathy (2) Primary hypertension (3) Coronary artery disease without angina pectoris (4) Morbid obesity (5) Bradycardia (6) Permanent atrial fibrillation (7) Stage 2 chronic kidney disease ERICKA DANGEOL DO Feb 11, 2021 09:53
--- NOTE | 2021-02-11 13:27 | Diagnostic Imaging Report ---
INDICATION: Shortness of breath. PA and lateral chest obtained at 11:58 a.m. and compared to 01/31/2021. FINDINGS: There is cardiomegaly and post-sternotomy change. There is no focal infiltrate, pneumothorax, or pleural fluid. Dialysis catheter has been removed compared to the prior study. IMPRESSION: Cardiomegaly and postoperative change. No acute infiltrate, pneumothorax, or pleural fluid. Dictated by: Dictated on workstation # [id number]
[2021-02-11 13:50] VITALS: BP 161/82
--- NOTE | 2021-02-11 15:09 | Therapy Team Discharge Summary ---
Therapy Discharge Summary Discharge Recommendations Date of Discharge Therapy D/C Recommendations: Occupational Therapy Home Care Occupational Therapy Pt admitted to ARU with critical illness myopathy. At PLOF, pt was independent with ADLs and functional mobility using FWW, has assistance with cooking and cleaning. Upon initial evaluation, pt reqwuired set up assistance with eating, oral care and upper body dressing, min A showering, and mod A lower body dressing, footwear and toileting. OT txs focused on increasing BUE strength and activity tolerance, as well as increasing safety and independence wtih ADLs and functional mobility. At discharge, pt required set up assistance with showering and upper body dressing, and was independent with all other ADLs. Pt made good progress towards goals, attaining all LTGs except upper body dressing. Pt discharged from facility, d/c from OT. Decreased Activ Tolerance, Decreased UE Strength, Impaired I ADL's PT Career And Guidance Counselor Goals Career And Guidance Counselor Goals PT Career And Guidance Counselor Goals Time Frame: Feb 21, 2021 Roll Left to Right (QC): 6 Sit to Lying (QC): 6 Lying-Sitting on Side/Bed(QC): 6 Sit to Stand (QC): 5 Chair/[id number] Xfer(QC): 5 Car Transfer (QC): 5 Does the Patient Walk: Yes Walk 10 feet (QC): 5 Walk 10ft-Uneven Surface(QC): 4 Walk 50ft with 2 Turns (QC): 5 Walk 150 ft (QC): 5 Wheel 50 feet with 2 turns (QC: 9 1 Step (curb) (QC): 4 4 Steps (QC): 4 12 Steps (QC): 4 Picking up an Object (QC): 6 OT Assisted Goals Career And Guidance Counselor Goals Time Frame: Feb 28, 2021 Eating (FIM): 6 Eating (QC): 6 (met) Oral Hygiene (QC): 6 (met) Shower/Bathe Self (QC): 5 (met) Upper Body Dressing (QC): 6 (not met) Lower Body Dressing (QC): 6 (met) On/Off Footwear (QC): 6 (met) Toileting(FIM): 6 Toileting Hygiene (QC): 6 (met) Toilet/Commode Transfer (QC): 5 Additional Goals: 1-Demonstrate ADL Tasks, 2-Verbalize Understanding, 3- ImproveStrength/Denys 1=Demonstrate adherence to instructed precautions during ADL tasks. 2=Patient will verbalize/demonstrate understanding of assistive devices/modifications for ADL. 3=Patient will improve strength/tolerance for activity to enable patient to perform ADL's. YOMI LEWIS OT Feb 11, 2021 15:09
--- NOTE | 2021-02-11 15:11 | Therapy Team Discharge Summary ---
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 Upon evaluation patient performed rolling and supine <-> sit with min assist, sit <-> stand and transfers with CGA, car transfer with min assist, ambulated 50' with a rolling walker with CGA (including 50' with at least 2 turns of 90 degrees and 10' over an uneven surface), and picked up an object from the floor with a hourly manager with SBA. Patient has been performing bed mobility and transfer training, balance and endurance training, functional strengthening, stair training, gait training, and education. Patient has made good progress and has met all of his care home goals except for walking over an uneven surface. Now, patient performs bed mobility and transfers with independence, car transfer independent, ambulates 150' with a rolling walker with independence (including 50' with at least 2 turns of 90 degrees but needs SBA for ambulating over an uneven surface), patient propels a manual WC 150' with independence and can go up and down 16 steps using 2 handrails with CGA/SBA. Patient is being discharged from this facility today and will be discharged from PT at this time. Occupational Therapy Decreased Activ Tolerance, Decreased UE Strength, Impaired I ADL's PT Rad Tech Goals Rad Tech Goals PT Rad Tech Goals Time Frame: Feb 21, 2021 Roll Left to Right (QC): 6 Sit to Lying (QC): 6 Lying-Sitting on Side/Bed(QC): 6 Sit to Stand (QC): 5 Chair/Jai-tj-Rfzhe Xfer(QC): 5 Car Transfer (QC): 5 Does the Patient Walk: Yes Walk 10 feet (QC): 5 Walk 10ft-Uneven Surface(QC): 4 Walk 50ft with 2 Turns (QC): 5 Walk 150 ft (QC): 5 Wheel 50 feet with 2 turns (QC: 9 1 Step (curb) (QC): 4 4 Steps (QC): 4 12 Steps (QC): 4 Picking up an Object (QC): 6 OT Rad Tech Goals Rad Tech Goals Time Frame: Feb 28, 2021 Eating (FIM): 6 Eating (QC): 6 (met) Oral Hygiene (QC): 6 (met) Shower/Bathe Self (QC): 5 (met) Upper Body Dressing (QC): 6 (not met) Lower Body Dressing (QC): 6 (met) On/Off Footwear (QC): 6 (met) Toileting(FIM): 6 Toileting Hygiene (QC): 6 (met) Toilet/Commode Transfer (QC): 5 Additional Goals: 1-Demonstrate ADL Tasks, 2-Verbalize Understanding, 3- ImproveStrength/Denys 1=Demonstrate adherence to instructed precautions during ADL tasks. 2=Patient will verbalize/demonstrate understanding of assistive devices/modifications for ADL. 3=Patient will improve strength/tolerance for activity to enable patient to perform ADL's. SCOOTER PERKINS PT Feb 11, 2021 15:11
== END 2021-02-11 13:55 | disposition home health service (06) | DRG 92 ==
PROVIDERS: ADMIT Internal Medicine; ATTEND Internal Medicine
PROC: 3E0U33Z Introduction of Anti-inflammatory into Joints, Percutaneous Approach (ICD-10-PCS; principal; 2021-02-04)
DX: G72.81 Critical illness myopathy (principal); I13.0 Hypertensive heart and chronic kidney disease with heart failure and stage 1 through stage 4 chronic kidney disease, or unspecified chronic kidney disease; I50.30 Unspecified diastolic (congestive) heart failure; I48.21 Permanent atrial fibrillation; Z68.41 Body mass index [BMI] 40.0-44.9, adult; N18.2 Chronic kidney disease, stage 2 (mild); N31.9 Neuromuscular dysfunction of bladder, unspecified; R33.9 Retention of urine, unspecified; G47.33 Obstructive sleep apnea (adult) (pediatric); I25.10 Atherosclerotic heart disease of native coronary artery without angina pectoris; K59.00 Constipation, unspecified; R00.1 Bradycardia, unspecified; E87.6 Hypokalemia; E78.00 Pure hypercholesterolemia, unspecified; E78.2 Mixed hyperlipidemia; K21.9 Gastro-esophageal reflux disease without esophagitis; M19.91 Primary osteoarthritis, unspecified site; F32.A Depression, unspecified; I71.2 Thoracic aortic aneurysm, without rupture; M25.561 Pain in right knee; E66.01 Morbid (severe) obesity due to excess calories; F41.9 Anxiety disorder, unspecified; I25.2 Old myocardial infarction; Z79.01 Long term (current) use of anticoagulants; Z95.1 Presence of aortocoronary bypass graft; Z79.82 Long term (current) use of aspirin; Z79.52 Long term (current) use of systemic steroids; Z88.5 Allergy status to narcotic agent; Z23 Encounter for immunization
CPT/HCPCS: 36415; 71046; 80048; 80053; 80061; 80076; 81000; 83036; 83540; 83605; 83735; 84145; 85007; 85025; 85027; 87040; 87081; 93005; 94760

== ENCOUNTER → 2021-02-04 | Day surgery (SDC) | payer MEDICARE, BC ==
[~2021-02-04] MED LIST changes: +ACET325T49 PO; +ALLO100T PO; +AMLO10TA4 PO; +APIX5TAB PO; +ASPI-999 PO; +BUME1TAB8 PO; +DAPT500V IV; +DARB60VI SQ; +DEXT1DRO7 OP; +DOCU-143 PO; +FAMO-119 PO; +FINA5TAB6 PO; +FOLI0.8T39 PO; +IPRA3AMP31 IH; +LACT1CAP62 PO; +LACTATED RINGERS 1,000 ML IV PRN; +LIDOCAINE/EPI 1%-1:100,000 (XYLOCAINE) 20ML ONE; +LISI10TA25 PO; +ONDANSETRON 4 MG/2 ML (SDV) Z0FRAN IVP PRN; +OXYC1TAB11 PO; +POLY17PO6 PO; +PRED5TAB PO; +PREG50CA2 PO; +ceFAZolin INJECTION 3,000 MG ONE
--- NOTE | 2021-02-04 13:03 | Progress Note-Post Operative ---
Post-Operative Progess Note Surgeon (s)/Bone Char Operator (s) Surgeon SAMARA FOX DO Bone Char Operator: MARI Roblero Pre-Operative Diagnosis Retained dialysis Catheter Post-Operative Diagnosis same Procedure & Operative Findings Date of Procedure 02/04/21 Procedure Performed/Findings Removal of Dialysis Catheter Anesthesia Type IV sedation by Anesthesia Estimated Blood Loss Estimated blood loss (mL): less than 5ml Specimens/Packing Specimens Removed catheter, tip sent for culture SAMARA FOX DO Feb 04, 2021 13:03
[2021-02-04 13:10] VITALS: BP 134/94
[2021-02-04 13:20] VITALS: BP 134/94
--- NOTE | 2021-02-04 13:20 | Anesthesia-General Post-Op ---
MAC Patient Condition Mental Status/LOC: Same as Preop Cardiovascular: Satisfactory Nausea/Vomiting: Absent Respiratory: Satisfactory Pain: Controlled Complications: Absent Post Op Complications Complications None Follow Up Care/Instructions Patient Instructions None needed. Anesthesiology Discharge Order Discharge Order Patient is doing well, no complaints, stable vital signs, no apparent adverse anesthesia problems. CAIT THOMPSON DO Feb 04, 2021 13:20
[2021-02-04 13:30] VITALS: BP 154/91
[2021-02-04 13:40] VITALS: BP 156/81
--- NOTE | 2021-02-05 00:21 | OPERATIVE REPORT ---
DATE OF SERVICE: 02/04/2021 PREOPERATIVE DIAGNOSIS: Retained hemodialysis catheter. POSTOPERATIVE DIAGNOSIS: Retained hemodialysis catheter. PROCEDURE: Removal of catheter. SURGEON: Mikey Michelle DO EVENTS ASSOCIATE: Leonardo Jones MS3. ANESTHESIA: IV sedation by anesthesiologist. SPECIMEN: Catheter tip sent for culture. BLOOD LOSS: Less than 5 mL. FLUIDS: Per anesthesia. POSTOPERATIVE CONDITION: Stable. INDICATION FOR PROCEDURE: The patient is a 75-year-old male, who had a history of inpatient long-term treatment with renal failure, had a permanent dialysis catheter placed. He was septic at that time. His kidneys are now functioning very well. He has had no problems and the need to get this removed. FINDINGS: The patient had a hemodialysis catheter, permanent with a cuff placed in the right IJ, removed without any difficulty. PROCEDURE NOTE: After informed consent was obtained, the patient was brought to the operating room, placed on the table in supine position. He was sterilely prepped and draped in normal fashion. He had a dialysis catheter hanging out. The catheter was prepped and then we covered part of it. He was prepped and draped in normal fashion. Infiltrated around the catheter with lidocaine with epinephrine and then made a small incision going upwards towards the neck, made this incision with #15 blade, carried down through skin and subcutaneous tissue, deepened down to subcutaneous tissue with Bovie electrocautery down to the cuff on the catheter. I then carefully started dissecting around the cuff with blunt dissection with hemostat, able to completely free up this catheter, then placed one finger up by the IJ and then carefully removed this catheter. Once it was completely removed, actually let go of the pressure on the neck and then did get some blood back, coming out the hole, again held pressure. This stopped the bleeding, able to then grasp the catheter tract with a hemostat and then suture ligated this with a 3-0 Vicryl, released pressure on the neck. There was no back bleeding at this point, irrigated with normal saline, then elected to close this incision with a vertical mattress 3-0 nylon suture to close it, but could not completely close it, it was done right in the middle. Area was then cleaned and dried and pressure dressing was placed directly over the incision and directly on the neck just to be safe. Area was cleaned and dried. Sponge, instrument and needle count correct at the end of the case. Job ID: [id number] DocumentID: [id number] Dictated Date: 02/04/2021 16:33:22 Timber Sprinkler Date: 02/05/2021 00:20:12 Dictated By: MIKEY MICHELLE DO
== END ==
LOC: SDC 11:42
PROVIDERS: ATTEND Surgery
DX: T82.49XA Other complication of vascular dialysis catheter, initial encounter (principal); I48.91 Unspecified atrial fibrillation; I25.10 Atherosclerotic heart disease of native coronary artery without angina pectoris; I12.0 Hypertensive chronic kidney disease with stage 5 chronic kidney disease or end stage renal disease; K21.9 Gastro-esophageal reflux disease without esophagitis; M19.90 Unspecified osteoarthritis, unspecified site; G89.29 Other chronic pain; M54.9 Dorsalgia, unspecified; N18.6 End stage renal disease; Z99.2 Dependence on renal dialysis; Z79.82 Long term (current) use of aspirin; Z79.899 Other long term (current) drug therapy; Z79.01 Long term (current) use of anticoagulants; Z79.891 Long term (current) use of opiate analgesic; Z86.73 Personal history of transient ischemic attack (TIA), and cerebral infarction without residual deficits
CPT/HCPCS: 87070; 87075

== ENCOUNTER → 2021-02-11 | Day surgery (SDC) | payer MEDICARE, BC ==
[~2021-02-11] MED LIST changes: +BETH25TA2 PO; +CLN.1T PO; +DICL100G13 TOP; -LACTATED RINGERS 1,000 ML IV PRN; +LIDOCAINE UROJET 2% GEL 10 ML PKG ONE; -LIDOCAINE/EPI 1%-1:100,000 (XYLOCAINE) 20ML ONE; -ONDANSETRON 4 MG/2 ML (SDV) Z0FRAN IVP PRN; +POTA-160 PO; +PRD20T PO; +PROM25TA14 PO; +ROSU10TA28 PO; +TMSL.4C PO; -ceFAZolin INJECTION 3,000 MG ONE
--- NOTE | 2021-02-17 14:54 | OPERATIVE REPORT ---
DATE OF SERVICE: 02/11/2021 PREOPERATIVE DIAGNOSIS: Urinary retention. POSTOPERATIVE DIAGNOSIS: Urinary retention. OPERATION PERFORMED: Cystoscopy. SURGEON: Trey Matos MD ANESTHESIA: Local. COMPLICATIONS: None. DESCRIPTION OF PROCEDURE: With the patient supine in his bed, genitalia were prepped and draped in the usual sterile fashion. urethra was infiltrated with 2% lidocaine jelly and penile clamp was applied. This was then removed, and a flexible cystoscope was introduced under vision. The anterior urethra was normal. The prostate was mildly enlarged with some bladder neck obstruction. Bladder was entered and revealed some trabeculations, no foreign body, bladder tumor or stone visualized. Cystoscopy was confirmed in an antegrade fashion and the cystoscope was removed. The patient tolerated the procedure and anesthesia well and remained in his bed in stable condition. Examination of genitalia, adequate male configuration. Rectal exam flat, 1+ benign, nontender elastic prostate. PLAN: Check his postvoid residual bladder scan today and manage accordingly. We may have to increase his Urecholine to 50 mg according to the results. The plan was explained to the patient. Job ID: [id number] DocumentID: [id number] Dictated Date: 02/11/2021 08:34:20 Denture Technician Date: 02/11/2021 08:43:21 Dictated By: TREY MATOS MD <Dictated by TREY MATOS MD> <Electronically signed by TREY MATOS MD> 02/11/21 1031 MTDD
--- NOTE | 2021-02-17 14:57 | HISTORY AND PHYSICAL ---
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 He could not void here, a catheter was inserted, and we started him on Flomax 0.4 mg daily and Urecholine 10 mg q.i.d. The patient denies any voiding symptoms at home, is on no medication for bladder or prostate, never had any surgery for them. He has tolerated the Urecholine and Flomax very well. IMPRESSION: Urinary retention, neurogenic bladder and/or BPH. PLAN: Continue present management. Today, the patient is having a surgical procedure. We will leave the catheter in and tomorrow morning we will take it out. If he cannot void, we will reinsert it and increase the Urecholine to 25 mg and manage accordingly. The plan was fully explained to the patient. Job ID: [id number] DocumentID: [id number] Dictated Date: 02/04/2021 11:22:11 Research Nutritionist Date: 02/04/2021 13:48:14 Dictated By: MUNDO MATOS MD <Dictated by MUNDO MATOS MD> <Electronically signed by MUNDO MATOS MD> 02/05/21 0644 MTDD
== END ==
LOC: SDC 05:55
PROVIDERS: ATTEND Urology
DX: R33.8 Other retention of urine (principal); N31.9 Neuromuscular dysfunction of bladder, unspecified; N40.1 Benign prostatic hyperplasia with lower urinary tract symptoms